=== PATIENT | female | born 1930 | race Caucasian/White ===

== ENCOUNTER 2016-10-18 12:49 | Inpatient (IN) | payer OTHER ==
[~2016-10-18] VITALS: Ht 152.4 cm; Wt 63.4 kg
[~2016-10-18 12:49] MED LIST: AMLO-110 PO; ATEN-175 PO; BENA1TAB53 PO; CLOP1TAB15 PO; EZET10TA38 PO; FRS/40 PO; MULT-506 PO; PANT40TA PO; VITA400C15 PO
[2016-10-18] MEDS ORDERED: SODIUM CHLORIDE 0.9% 500ML 500 ML IV STA (13:07)
--- NOTE | 2016-10-18 13:11 | EMERGENCY ROOM VISIT NOTE ---
History Report prepared by Grady: Thomas Judd Under the Supervision of: Dr. Gamal Caban D.O. First contact with patient: 12:57 Chief Complaint: IRREGULAR HEARTBEAT Stated Complaint: ABNORMAL EKG History of Present Illness The patient is an 86 year old female who presents to the Emergency Room with complaints of an episode of atrial fibrillation that occurred prior to arrival today. She saw Dr. Saunders of cardiology earlier today for her 6-month checkup, and was then sent here to be admitted due to an abnormal EKG. The patient says her pulse rate felt high today. She says that she has been sick for about 2 weeks, and she saw a PA-C at her primary care office, and was given Amoxicillin. The patient notes that the Amoxicillin has potassium in it, and it made her even sicker for a week. She saw her primary care physician a week ago and the physician said that everything was okay, but the patient says that she has continued to feel very weak, and she has hardly been eating. She notes that she has been short of breath on exertion, but she has no shortness of breath currently because she is sitting up in bed. The patient also notes a bit of leg swelling. She denies any chest pain or leg pain. Source of History: patient Onset: Prior to arrival today Position: other (heart - atrial fibrllation) Timing: other (episode) Associated Symptoms: + SOB, + weakness, No chest pain Note: Associated symptoms: Hardly has been eating. A bit of leg swelling. Heart felt a bit fast earlier. Denies leg pain. Review of Systems See HPI for pertinent positives & negatives. A total of 10 systems reviewed and were otherwise negative. Past Medical & Surgical Medical Problems: (1) Aortic valve stenosis (2) Atrial fibrillation with RVR (3) CKD (chronic kidney disease) stage 3, GFR 30-59 ml/min (4) Diabetes mellitus type II, controlled (5) Duodenal ulcer disease (6) Dyslipidemia (7) Gastric ulcer (8) HTN (hypertension) (9) Renal disorder associated with type II diabetes mellitus (10) Renal mass (11) Severe aortic stenosis (12) Spinal stenosis Surgical Problems: (1) History of carpal tunnel surgery (2) History of tonsillectomy and adenoidectomy (3) History of total hysterectomy (4) History of tubal ligation Family History Family history omitted secondary to advanced age. Social History Smoking Status: Never Smoker Alcohol Use: none Marital Status: Current/Historical Medications Scheduled Alendronate Sodium (Fosamax), 70 MG PO WK Amlodipine (Norvasc), 5 MG PO DAILY Atenolol (Tenormin), 50 MG PO BID B-Complex W/ Folic Acid (B Complex), 1 TAB PO DAILY Benazepril (Lotensin), 40 MG PO DAILY Cholecalciferol (Vitamin D), 400 UNITS PO Q2D Clopidogrel (Plavix), 75 MG PO DAILY Furosemide (Lasix), 40 MG PO DAILY Krill Oil (Krill Oil), 1 CAP PO DAILY Multivitamin (Multivitamin), 1 TAB PO DAILY Pantoprazole (Protonix), 40 MG PO DAILY Simvastatin (Zocor), 20 MG PO QPM Vitamin E (Vitamin E), 400 UNITS PO Q2D Allergies Coded Allergies: Morphine (Verified Allergy, Intermediate, 07/25/09) Aspirin (Verified Allergy, Unknown, ., 10/18/16) Pneumococcal Vaccine (Verified Allergy, Unknown, SWELLING, 10/18/16) Sulindac (Verified Allergy, Unknown, 05/16/12) Physical Exam Vital Signs Date Time Temp Pulse Resp B/P Pulse Ox O2 Delivery O2 Flow Rate FiO2 10/18/16 15:00 107/88 10/18/16 14:49 112 25 90 10/18/16 14:30 104/67 10/18/16 14:28 102/79 10/18/16 14:19 110 17 10/18/16 14:10 Room Air 10/18/16 13:49 122 20 10/18/16 13:24 116 10/18/16 12:54 36.5 132 20 90/61 98 Room Air Physical Exam GENERAL: Patient is awake, alert, and in no acute distress. Patient is resting comfortably and showing no signs of anxiety EYES: The conjunctivae are clear. The pupils are round and reactive. EARS, NOSE, MOUTH AND THROAT: The nose is without any evidence of any deformity. Mucous membranes are moist tongue is midline NECK: The neck is nontender and supple. RESPIRATORY: Normal respiratory effort is noted there is no evidence of wheezing rhonchi or rales CARDIOVASCULAR: Heart sounds tachycardic and irregular. Systolic murmur noted to auscultation. GASTROINTESTINAL: The abdomen is soft. Bowel sounds are present in all quadrants. Abdomen is nontender MUSCULOSKELETAL/EXTREMITIES: There is no evidence of gross deformity full range of motion is noted in the hips and shoulders SKIN: Pedal edema bilaterally. NEUROLOGIC: Patient is awake alert and oriented x3. Medical Decision & Procedures ER Provider Diagnostic Interpretation: X-ray results as stated below per interpretation by me and the radiologist. CHEST ONE VIEW PORTABLE CLINICAL HISTORY: palpitations cardiac. Dyspnea COMPARISON STUDY: None FINDINGS: Moderate cardiomegaly. Mild emphysematous change. No focal infiltrate. Diaphragms smooth. IMPRESSION: Moderate cardiomegaly. Mild emphysematous change. Electronically signed by: Herbert Coleman M.D. 10/18/2016 1:22 PM Dictated Date/Time: 10/18/2016 1:21 PM Laboratory Results 10/18/16 13:10 Red Blood Count 3.47, Mean Corpuscular Volume 96.8, Mean Corpuscular Hemoglobin 33.1, Mean Corpuscular Hemoglobin Concent 34.2, Mean Platelet Volume 9.5, Neutrophils (%) (Auto) 54.3, Lymphocytes (%) (Auto) 33.1, Monocytes (%) (Auto) 9.9, Eosinophils (%) (Auto) 1.9, Basophils (%) (Auto) 0.8, Neutrophils # (Auto) 2.57, Lymphocytes # (Auto) 1.57, Monocytes # (Auto) 0.47, Eosinophils # (Auto) 0.09, Basophils # (Auto) 0.04 10/18/16 13:10 Test 10/18/16 13:00 10/18/16 13:10 Urine Color YELLOW Urine Appearance CLEAR (CLEAR) Urine pH 5.5 (4.5-7.5) Urine Specific [place] 1.011 (1.000-1.030) Urine Protein TRACE (NEG) Urine Glucose (UA) NEG (NEG) Urine Ketones NEG (NEG) Urine Occult Blood NEG (NEG) Urine Nitrite NEG (NEG) Urine Bilirubin NEG (NEG) Urine Urobilinogen NEG (NEG) Urine Leukocyte Esterase NEG (NEG) Urine WBC (Auto) 1-5 /hpf (0-5) Urine RBC (Auto) 0-4 /hpf (0-4) Urine Hyaline Casts (Auto) 0 /lpf (0-5) Urine Epithelial Cells (Auto) 10-20 /lpf (0-5) Urine Bacteria (Auto) NEG (NEG) White Blood Count 4.74 K/uL (4.8-10.8) Red Blood Count 3.47 M/uL (4.2-5.4) Hemoglobin 11.5 g/dL (12.0-16.0) Hematocrit 33.6 % (37-47) Mean Corpuscular Volume 96.8 fL (80-100) Mean Corpuscular Hemoglobin 33.1 pg (25-34) Mean Corpuscular Hemoglobin Concent 34.2 g/dl (32-36) Platelet Count 122 K/uL (130-400) Mean Platelet Volume 9.5 fL (7.4-10.4) Neutrophils (%) (Auto) 54.3 % Lymphocytes (%) (Auto) 33.1 % Monocytes (%) (Auto) 9.9 % Eosinophils (%) (Auto) 1.9 % Basophils (%) (Auto) 0.8 % Neutrophils # (Auto) 2.57 K/uL (1.4-6.5) Lymphocytes # (Auto) 1.57 K/uL (1.2-3.4) Monocytes # (Auto) 0.47 K/uL (0.11-0.59) Eosinophils # (Auto) 0.09 K/uL (0-0.5) Basophils # (Auto) 0.04 K/uL (0-0.2) RDW Standard Deviation 50.8 fL (36.4-46.3) RDW Coefficient of Variation 14.5 % (11.5-14.5) Immature Granulocyte % (Auto) 0.0 % Immature Granulocyte # (Auto) 0.00 K/uL (0.00-0.02) Prothrombin Time 11.5 SECONDS (9.0-12.0) Prothromb Time International Ratio 1.1 (0.9-1.1) Activated Partial Thromboplast Time 24.7 SECONDS (21.0-31.0) Partial Thromboplastin Ratio 1.0 Anion Gap 11.0 mmol/L (3-11) Est Creatinine Clear Calc Drug Dose 26.3 ml/min Estimated GFR () 43.0 Estimated GFR (Non- 37.1 BUN/Creatinine Ratio 17.3 (10-20) Calcium Level 9.4 mg/dl (8.5-10.1) Magnesium Level 1.9 mg/dl (1.8-2.4) Total Bilirubin 1.0 mg/dl (0.2-1) Aspartate Amino Transf (AST/SGOT) 39 U/L (15-37) Alanine Aminotransferase (ALT/SGPT) 43 U/L (12-78) Alkaline Phosphatase 67 U/L (45-117) Total Protein 7.0 gm/dl (6.4-8.2) Albumin 4.0 gm/dl (3.4-5.0) Globulin 3.0 gm/dl (2.5-4.0) Albumin/Globulin Ratio 1.3 (0.9-2) Thyroid Stimulating Hormone (TSH) 0.998 uIu/ml (0.300-4.500) Free Thyroxine 1.08 ng/dl (0.80-1.60) Laboratory results per my review. Medications Administered Medications (Trade) Dose Ordered Sig/Kip Route Start Time Stop Time Status Last Admin Dose Admin Sodium Chloride (Nss 500ml) 500 ml @ 999 mls/hr Q31M STAT IV 10/18/16 13:07 10/18/16 13:37 DC 10/18/16 13:35 999 MLS/HR ECG Indication: other (palpitations) Rate (beats per minute): 110 Rhythm: atrial fibrillation (with RVR) Findings: ST depression (Lateral), other (LVH noted by voltage criteria) Comparison ECG Date: changes are new compared to april 16 2011 ED Course 1259: The patient was evaluated in room A3. A complete history and physical examination were performed. 1307: Ordered NSS 500 ml @ 999 mls/hr IV. 1400: I reevaluated the patient and she is resting comfortably. The patient verbally expressed understanding and agreement with the treatment plan. The patient will be evaluated for further treatment. 1417: I discussed the patient with Tierra Valdez. She will evaluate the patient for further treatment. Medical Decision Prior records/ancillary studies reviewed. Triage Nursing notes reviewed. Additional history obtained from doctor's note. Differential diagnosis: Etiologies such as premature contractions, electrolyte abnormality, cardiac dysrhythmia, thyroid dysfunction, pulmonary embolism, infection, gastrointestinal, as well as others were entertained. The patient is an 86-year-old female who presented to emergency department for an evaluation of palpitations. The patient has been having dyspnea on exertion as well as generalized weakness. 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 She was also was found have ST segment abnormalities which could be related to ischemia. The patient's blood pressure was borderline and her pulse rate initially was very tachycardic but improved with IV fluids. I discussed the patient's laboratory and radiographic studies with her. I also discussed her case with the on-call [facility] hospitalist group. They've agreed to evaluate the patient in emergency apartment for further management and disposition. It would appear the patient has been feeling ill for the last few weeks and it is unclear of how chronic this is. Likely she will require further workup for rate control or anticoagulation decisions can be made. Consults Time Called: 1412 Consulting Physician: Tierra Valdez Returned Call: 1417 I discussed the patient with Tierra Valdez. She will evaluate the patient for further treatment. Impression Primary Impression: New onset a-fib Additional Impressions: Heart murmur Dyspnea on exertion Abnormal EKG Scribe Attestation The scribe's documentation has been prepared under my direction and personally reviewed by me in its entirety. I confirm that the note above accurately reflects all work, treatment, procedures, and medical decision making performed by me. Departure Information Dispostion Being Evaluated By Hospitalist Referrals Johnny Saunders M.D. (PCP) Patient Instructions [facility] Problem Qualifiers
--- NOTE | 2016-10-18 13:23 | DIAGNOSTIC IMAGING REPORT ---
CHEST ONE VIEW PORTABLE CLINICAL HISTORY: palpitations cardiac. Dyspnea COMPARISON STUDY: None FINDINGS: Moderate cardiomegaly. Mild emphysematous change. No focal infiltrate. Diaphragms smooth. IMPRESSION: Moderate cardiomegaly. Mild emphysematous change. Electronically signed by: Herbert Coleman M.D. 10/18/2016 1:22 PM Dictated Date/Time: 10/18/2016 1:21 PM
[2016-10-18 13:39] LABS: BASO % 0.8 %; BASO ABS # 0.04 K/uL (0-0.2); COMPLETE YES; EOS % 1.9 %; HEMATOCRIT 33.6 % (37-47); LYMPH % 33.1 %; LYMPH ABS # 1.57 K/uL (1.2-3.4); MEAN CELL VOLUME 96.8 fL (80-100); MEAN CORPUSCULAR HEMOGLOBIN 33.1 pg (25-34); MEAN CORPUSCULAR HGB CONC 34.2 g/dl (32-36); MEAN PLATELET VOLUME 9.5 fL (7.4-10.4); MONO % 9.9 %; NEUT % 54.3 %; PLATELET COUNT 122 K/uL (130-400); RED BLOOD COUNT 3.47 M/uL (4.2-5.4); WHITE BLOOD COUNT 4.74 K/uL (4.8-10.8)
[2016-10-18 13:46] LABS: BUN/CREATININE RATIO 17.3 (10-20); CALCIUM 9.4 mg/dl (8.5-10.1); CREATININE 1.3 mg/dl (0.60-1.20); MAGNESIUM 1.9 mg/dl (1.8-2.4); POTASSIUM 3.4 mmol/L (3.5-5.1)
[2016-10-18 13:55] LABS: INR 1.1 (0.9-1.1); PROTHROMBIN TIME (PATIENT) 11.5 SECONDS (9.0-12.0)
[2016-10-18] MEDS ORDERED: VITA1TAB4 PO ×2 (13:56→15:44)
[2016-10-18] MEDS ORDERED: KRIL1000 PO (13:56)
[2016-10-18] MEDS ORDERED: VTMD1000 PO (13:56)
[2016-10-18] MEDS ORDERED: CYAN100T PO (13:56)
[2016-10-18] MEDS ORDERED: SIMV20TA5 PO (13:56)
[2016-10-18 13:57] LABS: ALB/GLOB RATIO 1.3 (0.9-2); THYROID STIMULATING HORMONE 0.998 uIu/ml (0.300-4.500)
[2016-10-18 14:16] LABS: URINE APPEARANCE CLEAR (CLEAR); URINE BILIRUBIN NEG (NEG); URINE COLOR YELLOW; URINE NITRITE NEG (NEG); URINE PH 5.5 (4.5-7.5); URINE SPECIFIC GRAVITY 1.011 (1.000-1.030); UROBILINOGEN NEG (NEG)
[2016-10-18 14:22] LABS: MANUAL MICROSCOPIC REQUIRED? NO; REVIEW REQ? NO
[2016-10-18] MEDS ORDERED: ACETAMINOPHEN 325 MG TAB PO PRN (15:15)
[2016-10-18] MEDS ORDERED: NITROGLYCERIN 0.4 MG SL PER TAB CHARGE SL PRN (15:15)
[2016-10-18] MEDS ORDERED: ONDANSETRON INJ 2 MG/ML 2 ML VIAL IV PRN (15:15)
[2016-10-18] MEDS ORDERED: ATEN100T PO (15:44)
[2016-10-18] MEDS ORDERED: CHOL400T5 PO (15:44)
[2016-10-18] MEDS ORDERED: B-COTAB53 PO (15:44)
[2016-10-18] MEDS ORDERED: ALEN70TA4 PO (15:44)
[2016-10-18] MEDS ORDERED: METOPROLOL TARTRATE 25 MG TAB PO ONE (16:00)
[2016-10-18] MEDS ORDERED: POTASSIUM CHLORIDE 10 MEQ TABCR PO ONE (16:00)
--- NOTE | 2016-10-18 16:34 | History and Physical ---
History & Physical Date & Time of Service: October 18, 2016 at 15:21 Chief Complaint: Abnormal Ekg Primary Care Physician: Johnny Saunders M.D. History of Present Illness Source: patient This is an 86 y/o female with PMHx of CKD stage 3, diet-controlled DM2, severe aortic stenosis, HTN, Dyslipidemia and other problems as outlined below who presents to the ED with worsening exertional SOB. Pt reports that for the past 2 weeks she has been developing worsening SOB. Her sxs are assoc with weakness, fatigue and some lightheadedness. Pt mentions that she was sick a few weeks ago and completed a course of amoxicillin. Shortly after taking the antibiotics she developed diarrhea that was black. Since that time the diarrhea has resolved and her stool is no longer black. Pt mentions she has been under increased stress recently as her was recently placed in [facility] and likely will not return home. All her family lives in [facility]. Pt has a history of severe . She refuses surgical intervention. Pt follows with cardiology, Dr. Saunders. She was seen by Dr. Saunders this morning for her sxs where she was noted to be in Afib with RVR. Cardiology referred pt to the ED for further evaluation. Pt denies fever/chills, diaphoresis, chest pain, syncope, palpitations, abd pain, N/V, bowel or bladder issues, worsening LE edema or calf pain. In the ED, pt is tachy (130s) and hypotensive on arrival. HgB 11.5. K + 3.4. Creat 1.3. Trop negative. EKG: afib with RVR at [address] depression lateral leads. Pt is stable and will be admitted for further evaluation and treatment. Past Medical/Surgical History Medical Problems: (1) Aortic valve stenosis Permanent Comment: AV area 1.1-1.2 cm2 by echo 02/22/07 Status: Chronic (2) CKD (chronic kidney disease) stage 3, GFR 30-59 ml/min Status: Chronic (3) Diabetes mellitus type II, controlled Status: Chronic (4) Duodenal ulcer disease Status: Resolved (5) Dyslipidemia Status: Chronic (6) Gastric ulcer Status: Resolved (7) HTN (hypertension) Status: Chronic (8) 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 (9) Renal mass Permanent Comment: Right renal mass 2005. Path nondiagnositic. Cryoablation performed at [facility] by. Dr. Muller. Status: Resolved (10) Severe aortic stenosis Status: Chronic (11) Spinal stenosis Status: Chronic Surgical Problems: (1) History of carpal tunnel surgery Status: Resolved (2) History of tonsillectomy and adenoidectomy Status: Resolved (3) History of total hysterectomy Status: Resolved (4) History of tubal ligation Status: Resolved Social History Smoking Status: Never Smoker Alcohol Use: none Drug Use: none Marital Status: Housing status: lives alone ( recently moved to [facility]) Occupational Status: retired Immunizations History of Influenza Vaccine: Yes Influenza Vaccine Date: Mar 18, 2011 History of Tetanus Vaccine?: No History of Pneumococcal: Yes Pneumococcal Date: Apr 17, 2011 History of Hepatitis B Vaccine: No Multi-Drug Resistant Organisms History of MDRO: No Allergies Coded Allergies: Morphine (Verified Allergy, Intermediate, 07/25/09) Aspirin (Verified Allergy, Unknown, ., 10/18/16) Pneumococcal Vaccine (Verified Allergy, Unknown, SWELLING, 10/18/16) Sulindac (Verified Allergy, Unknown, 05/16/12) Home Medications Scheduled Alendronate Sodium (Fosamax), 70 MG PO WK Amlodipine (Norvasc), 5 MG PO DAILY Atenolol (Tenormin), 50 MG PO BID B-Complex W/ Folic Acid (B Complex), 1 TAB PO DAILY Benazepril (Lotensin), 40 MG PO DAILY Cholecalciferol (Vitamin D), 400 UNITS PO Q2D Clopidogrel (Plavix), 75 MG PO DAILY Furosemide (Lasix), 40 MG PO DAILY Krill Oil (Krill Oil), 1 CAP PO DAILY Multivitamin (Multivitamin), 1 TAB PO DAILY Pantoprazole (Protonix), 40 MG PO DAILY Simvastatin (Zocor), 20 MG PO QPM Vitamin E (Vitamin E), 400 UNITS PO Q2D Review of Systems Constitutional: + fatigue, + weakness, No chills, No fever, No sweats Eyes: No worsening of vision ENT: No hearing loss Respiratory: + dyspnea on exertion, + shortness of breath, No cough, No dyspnea at rest Cardiovascular: No chest pain, No claudication, No edema Abdomen: No GI bleeding, No constipation, No diarrhea, No nausea, No pain, No vomiting Musculoskeletal: No calf pain, No swelling Genitourinary - Female: No dysuria Neurologic: + weakness Psychiatric: No depression symptoms Endocrine: + fatigue Hematologic / Lymphatic: No abnormal bleeding/bruising Integumentary: No new/changing skin lesions Physical Exam Vital Signs Date Time Temp Pulse Resp B/P Pulse Ox O2 Delivery O2 Flow Rate FiO2 10/18/16 14:10 Room Air 10/18/16 13:24 116 10/18/16 12:54 36.5 132 20 90/61 98 Room Air General Appearance: WD/WN, no apparent distress, + pertinent finding (Pt is sitting up in bed ) Head: normocephalic, atraumatic Eyes: normal inspection ENT: hearing grossly normal Neck: supple Respiratory/Chest: chest non-tender, lungs clear, normal breath sounds, no respiratory distress Cardiovascular: + tachycardia, + systolic murmur (III/ DEMETRIO), + irregularly irregular Abdomen/GI: normal bowel sounds, non tender, soft Back: normal inspection Extremities/Musculoskelatal: normal inspection, no calf tenderness, + pedal edema (2+ pitting edema to bilat LE) Neurologic/Psych: alert, normal mood/affect, oriented x 3 Skin: normal color, warm/dry Diagnostics Laboratory Results Results Past 24 Hours Test 10/18/16 13:00 10/18/16 13:10 Range/Units Urine Color YELLOW Urine Appearance CLEAR CLEAR Urine pH 5.5 4.5-7.5 Urine Specific [place] 1.011 1.000-1.030 Urine Protein TRACE NEG Urine Glucose (UA) NEG NEG Urine Ketones NEG NEG Urine Occult Blood NEG NEG Urine Nitrite NEG NEG Urine Bilirubin NEG NEG Urine Urobilinogen NEG NEG Urine Leukocyte Esterase NEG NEG Urine WBC (Auto) 1-5 0-5 /hpf Urine RBC (Auto) 0-4 0-4 /hpf Urine Hyaline Casts (Auto) 0 0-5 /lpf Urine Epithelial Cells (Auto) 10-20 0-5 /lpf Urine Bacteria (Auto) NEG NEG White Blood Count 4.74 4.8-10.8 K/uL Red Blood Count 3.47 4.2-5.4 M/uL Hemoglobin 11.5 12.0-16.0 g/dL Hematocrit 33.6 37-47 % Mean Corpuscular Volume 96.8 80-100 fL Mean Corpuscular Hemoglobin 33.1 25-34 pg Mean Corpuscular Hemoglobin Concent 34.2 32-36 g/dl Platelet Count 122 130-400 K/uL Mean Platelet Volume 9.5 7.4-10.4 fL Neutrophils (%) (Auto) 54.3 % Lymphocytes (%) (Auto) 33.1 % Monocytes (%) (Auto) 9.9 % Eosinophils (%) (Auto) 1.9 % Basophils (%) (Auto) 0.8 % Neutrophils # (Auto) 2.57 1.4-6.5 K/uL Lymphocytes # (Auto) 1.57 1.2-3.4 K/uL Monocytes # (Auto) 0.47 0.11-0.59 K/uL Eosinophils # (Auto) 0.09 0-0.5 K/uL Basophils # (Auto) 0.04 0-0.2 K/uL RDW Standard Deviation 50.8 36.4-46.3 fL RDW Coefficient of Variation 14.5 11.5-14.5 % Immature Granulocyte % (Auto) 0.0 % Immature Granulocyte # (Auto) 0.00 0.00-0.02 K/uL Prothrombin Time 11.5 9.0-12.0 SECONDS Prothromb Time International Ratio 1.1 0.9-1.1 Activated Partial Thromboplast Time 24.7 21.0-31.0 SECONDS Partial Thromboplastin Ratio 1.0 Sodium Level 138 136-145 mmol/L Potassium Level 3.4 3.5-5.1 mmol/L Chloride Level 102 98-107 mmol/L Carbon Dioxide Level 25 21-32 mmol/L Anion Gap 11.0 3-11 mmol/L Blood Urea Nitrogen 23 7-18 mg/dl Creatinine 1.30 0.60-1.20 mg/dl Est Creatinine Clear Calc Drug Dose 26.3 ml/min Estimated GFR () 43.0 Estimated GFR (Non- 37.1 BUN/Creatinine Ratio 17.3 10-20 Random Glucose 108 70-99 mg/dl Calcium Level 9.4 8.5-10.1 mg/dl Magnesium Level 1.9 1.8-2.4 mg/dl Total Bilirubin 1.0 0.2-1 mg/dl Aspartate Amino Transf (AST/SGOT) 39 15-37 U/L Alanine Aminotransferase (ALT/SGPT) 43 12-78 U/L Alkaline Phosphatase 67 45-117 U/L Troponin I 0.044 0-0.045 ng/ml Total Protein 7.0 6.4-8.2 gm/dl Albumin 4.0 3.4-5.0 gm/dl Globulin 3.0 2.5-4.0 gm/dl Albumin/Globulin Ratio 1.3 0.9-2 Thyroid Stimulating Hormone (TSH) 0.998 0.300-4.500 uIu/ml Free Thyroxine 1.08 0.80-1.60 ng/dl Diagnostic Radiology CXR IMPRESSION: Moderate cardiomegaly. Mild emphysematous change. EKG EKG: Afib with RVR at [address] depression in lateral leads; significant change when compared to EKG from 04/16/11 Impression Assessment and Plan AFIB WITH RVR; NEW ONSET pt presented with new onset rapid Afib from cardiology office; pt not on anticoagulation -admit to telemetry -no signs of infection; TSH WNL; + increased stress recently -EKG: Afib at [address] depressions in lateral leads -Trop negative; monitor with serial Ronak x 3 -discontinue atenolol and start metoprolol -start subq heparin per cardiology recommendation -consult cardiology, Dr. Goodwin- input -monitor HYPOKALEMIA -K+ 3.4; replete -monitor daily H/O SEVERE/CRITICAL AORTIC STENOSIS -echo 2013 EF 65-69% with severe aortic stenosis and grade I diastolic dysfunction -pt refuses surgical intervention -follows with cardio, Dr. Saunders CKD STAGE III -creatinine around baseline at 1.3 -monitor with daily prp and avoid nephrotoxic agents when able H/O TIA -cont Plavix DM 2 -recent A1C 5.1 -diet-controlled -monitor HTN -hypotensive on arrival; improving -hold Norvasc and benazepril -switch atenolol to metoprolol -monitor DYSLIPIDEMIA -cont statin DVT PROPHYLAXIS -subq heparin CODE STATUS -DNR per discussion with patient upon admission DISPO Pt seen in collaboration with Dr. Cook. Please see his addendum for further details. Thanks! I have seen, examined and discussed this patient with Tierra Hicks and I agree with the above note. Patient sent to ED by Dr. Saunders for A fib with RVR. Vitals reviewed. PE: General- awake; alert; NAD Eyes- EOMI; no scleral icterus ENT- +dentures Neck- no stridor; trachea midline Lungs- CTA bilaterally; no wheezes/crackles Heart- irregularly irregular; loud systolic murmur Abdomen- soft; NTND; nBS Back- normal inspection Extremities- 1+ pitting edema bilateral LE; no deformity Neuro- no focal deficits Skin- no appreciable rash Labs, imaging and EKG reviewed. A fib with RVR: Cardiology consulted. Start metoprolol for rate control. Discontinue atenolol. Hold on full anticoagulation at this time pending further Cardiology recommendations. Agree with remainder of plan as outlined above. VTE Prophylaxis VTE Risk Assessment Done? Y/N: Yes Risk Level: High
[2016-10-18 16:40] VITALS: O2SAT 96; BMI 28.4
[2016-10-18] MEDS: HEPARIN SOD 5000 UNIT/0.5 ML CARP SQ SCH (18:00)
[2016-10-18 18:01] VITALS: BP 109/72; TEMP 36.5; Ht 152.4 cm; Wt 63.4 kg
[2016-10-18] MEDS ORDERED: POTASSIUM CHLORIDE 20 MEQ TABCR PO ONE (18:45)
[2016-10-18 19:12] VITALS: BP 91/60; PULSE 122; TEMP 36.7; O2SAT 97
[2016-10-18 19:56] VITALS: BP 107/67; PULSE 106
[2016-10-18] MEDS: METOPROLOL TARTRATE 25 MG TAB PO SCH (20:12)
[2016-10-18] MEDS: SIMVASTATIN 20 MG TAB PO SCH (20:12)
[2016-10-18 23:12] VITALS: BP 100/64; PULSE 113; TEMP 36.5; O2SAT 95
[2016-10-19] VITALS (8 sets, daily range): BP systolic 97–117; BP diastolic 57–81; PULSE 68–130; TEMP 36.6–37.1; O2SAT 91–97
[2016-10-19 00:54] LABS: HEMATOCRIT 30.9 % (37-47); MEAN CORPUSCULAR HEMOGLOBIN 32.6 pg (25-34); RED BLOOD COUNT 3.22 M/uL (4.2-5.4); WHITE BLOOD COUNT 3.48 K/uL (4.8-10.8)
[2016-10-19 01:12] LABS: BLOOD UREA NITROGEN 23 mg/dl (7-18); BUN/CREATININE RATIO 17.7 (10-20); CALCIUM 8.6 mg/dl (8.5-10.1); CARBON DIOXIDE 28 mmol/L (21-32); CHLORIDE 107 mmol/L (98-107); GLUCOSE 92 mg/dl (70-99); POTASSIUM 3.8 mmol/L (3.5-5.1); SODIUM 143 mmol/L (136-145)
[2016-10-19 01:38] LABS: MEAN PLATELET VOLUME 8.7 fL (7.4-10.4); PLATELET COUNT 93 K/uL (130-400)
[2016-10-19] MEDS: HEPARIN SOD 5000 UNIT/0.5 ML CARP SQ SCH ×2 (06:06→17:16)
[2016-10-19] MEDS: METOPROLOL TARTRATE 25 MG TAB PO SCH ×4 (07:13→23:29)
[2016-10-19] MEDS: VITAMIN B COMPLEX TAB PO SCH (08:26)
[2016-10-19] MEDS: MULTIVITAMIN TAB PO SCH (08:26)
[2016-10-19] MEDS: FUROSEMIDE 40 MG TAB PO SCH (08:26)
[2016-10-19] MEDS: CHOLECALCIFEROL 400 INTER.UNIT TAB PO SCH (08:26)
[2016-10-19] MEDS: TOCOPHERYL, DL-ALPHA 400 INTER.UNIT CAP PO SCH (08:26)
[2016-10-19] MEDS: PANTOprazole SOD 40 MG TAB PO SCH (08:26)
[2016-10-19] MEDS: CLOPIDOGREL BISULFATE 75 MG TAB PO SCH (08:27)
[2016-10-19] MEDS ORDERED: NON-FORMULARY MEDICATION (Krill Oil 1 CAP) PO SCH (09:00)
--- NOTE | 2016-10-19 11:50 | Cardiology Consultation ---
Cardiology Consultation Date of Consultation: October 19, 2016 Requesting Physician: Rodo Braswell Attending Wedding Decorator: Samantha (Herbert Loera PA-C) History of Present Illness Mrs. Woodward is a very pleasant 86 year old female who is being seen at the request of Dr. Cook. Reason for Cardiology Consultation is new onset atrial fibrillation with a rapid ventricular response. Patient notes difficulties over the past month including stressors associated with her husbands declining health, recently requiring multiple hospitalizations and ultimately [place] [facility] placement. She notes significant respiratory tract infectious symptoms approximately three weeks ago for which she was prescribed a course of Augmentin with improvement though fatigue remained. She notes, during the course of Augmentin, experiencing dark stools for approximately one week, now resolved. She was seen by her PCP on 10/11/2016 at which time she was noted to be hypotensive with a SBP of 90 and tachycardia with a heart rate of 110; amlodipine reduced at that time. On 10/18/[address] Saunders's Office for routine follow-up with complaints of malaise and fatigue, increased exertional dyspnea, mild orthopnea, lower extremity peripheral edema, and weight gain of 6-7 pounds. She was found to be in atrial fibrillation with a rapid ventricular response and was referred for hospitalization. Upon admission benazepril was discontinued along with amlodipine. Atenolol 50 mg twice a day was changed to Metoprolol tartrate 25 mg twice per day. She was prescribed DVT prophylaxis 5000 units every 12 hours. Hgb this morning was 10.5 , down from 11.5 yesterday. Platelet count dropped from 122K to 93K overnight. Troponin negative. Telemetry reveals atrial fibrillation with a rapid ventricular response. No sinus observed. No bradycardia or pauses observed. Admission CXR revealed moderate cardiomegaly and mild emphysematous change as per Dr. Coleman. (Herbert Loera PA-C) History Past Medical and Surgical History: Severe to critical calcific aortic stenosis. Chart history of ischemic heart disease Hypertension. Hyperlipidemia. History of type 2 diabetes mellitus History of duodenal ulcer, May 2005 Right renal mass treated with right renal cryoablation in October 2005 Stage III chronic kidney disease Hypothyroidism Osteoarthritis Carpal tunnel surgery Cataract extraction Left leg vein stripping Ventral hernia repair T/A in 1951. Tibia shaft fracture, 1983. Lumbar spine intervention Total Abdominal Hysterectomy Family History: Noncontributory. Mother with a CVA, age 52. Sister with CAD. Multiple siblings with diabetes mellitus. Two sisters with hemochromatosis Social History: x 67 years. is currently a resident of [facility]. Children in and around [place], [place]. Son is a Pharmacist. (Herbert Loera PA-C) Review Of Systems General: See above. No current fever or chills. HEENT: See above. No headaches. No head trauma. Cardiovascular: See above. Dyspnea with ADL's. No chest pain or discomfort. No near syncope or syncope. Pulmonary: No hemoptysis. Gastrointestinal: See above. Skin: No rash. Musculoskeletal: Arthritis. Neurological: Denies history of TIA, CVA, or seizures Complete review of systems is as stated above, negative, or noncontributory. (Herbert Loera PA-C) Allergies Coded Allergies: Morphine (Verified Allergy, Intermediate, 07/25/09) Aspirin (Verified Allergy, Unknown, ., 10/18/16) Pneumococcal Vaccine (Verified Allergy, Unknown, SWELLING, 10/18/16) Sulindac (Verified Allergy, Unknown, 05/16/12) Medications Reported Home Medications Medications Dose Route/Sig Max Daily Dose Days Date Category Vitamin E 400 Unit Tab 400 Units PO Q2D 10/18/16 Reported Vitamin D (Cholecalciferol) 400 Unit Tab 400 Units PO Q2D 10/18/16 Reported Fosamax (Alendronate Sodium) 70 Mg Tab 70 Mg PO WK 10/18/16 Reported B Complex (B-Complex W/ Folic Acid) 1 Tab Tab 1 Tab PO DAILY 10/18/16 Reported Tenormin (Atenolol) 100 Mg Tab 50 Mg PO BID 10/18/16 Reported Krill Oil 1 Cap Cap 1 Cap PO DAILY 10/18/16 Reported Zocor (Simvastatin) 20 Mg Tab 20 Mg PO QPM 10/18/16 Reported Multivitamin (Multivitamins) Tab 1 Tab PO DAILY 01/10/10 Reported Plavix (Clopidogrel Bisulfate) 75 Mg Tab 75 Mg PO DAILY 01/10/10 Reported Norvasc (Amlodipine Besylate) 5 Mg Tab 5 Mg PO DAILY 01/10/10 Reported Lotensin (Benazepril HCl) 40 Mg Tab 40 Mg PO DAILY 01/10/10 Reported Protonix (Pantoprazole Sodium) 40 Mg Tab 40 Mg PO DAILY 01/10/10 Reported Lasix (Furosemide) 40 Mg Tab 40 Mg PO DAILY 01/10/10 Reported (Herbert Loera PA-C) Physical Exam Vital Signs (Last 8hrs): Last 8 Hrs Date Time Temp Pulse Resp B/P Pulse Ox O2 Delivery O2 Flow Rate FiO2 10/19/16 08:00 Room Air 10/19/16 07:18 36.6 130 24 94 Room Air 10/19/16 07:12 117/81 10/19/16 04:00 Room Air General Appearance: Alert and Oriented x3. NAD. Head: Normocephalic Atraumatic. Eyes: PER, EOMI, conjunctiva and sclera clear Neck: Transmitted systolic murmur to the carotids bilaterally. Mildly elevated JVP. + HJR. Respiratory: Faint right basilar rales. No wheeze. no rhonchi. Cardiovascular: Irregularly irregular around 120 bpm. Grade II-III/ systolic ejection murmur. Apical systolic murmur. No diastolic murmur. no rub. PMI appears to be displaced laterally. Abdomen: +BS. Soft. nontender. Extremities: 1+ pitting edema bilaterally to the mid [place]. No clubbing. No cyanosis. Neuro: No focal deficits. Psychiatric: Normal affect. (Herbert Loera PA-C) Data Last 24 Hours Test 10/18/16 13:00 10/18/16 13:10 10/18/16 16:59 10/18/16 19:00 Urine Color YELLOW Urine Appearance CLEAR Urine pH 5.5 Urine Specific [place] 1.011 Urine Protein TRACE Urine Glucose (UA) NEG Urine Ketones NEG Urine Occult Blood NEG Urine Nitrite NEG Urine Bilirubin NEG Urine Urobilinogen NEG Urine Leukocyte Esterase NEG Urine WBC (Auto) 1-5 /hpf Urine RBC (Auto) 0-4 /hpf Urine Hyaline Casts (Auto) 0 /lpf Urine Epithelial Cells (Auto) 10-20 /lpf Urine Bacteria (Auto) NEG White Blood Count 4.74 K/uL Red Blood Count 3.47 M/uL Hemoglobin 11.5 g/dL Hematocrit 33.6 % Mean Corpuscular Volume 96.8 fL Mean Corpuscular Hemoglobin 33.1 pg Mean Corpuscular Hemoglobin Concent 34.2 g/dl Platelet Count 122 K/uL Mean Platelet Volume 9.5 fL Neutrophils (%) (Auto) 54.3 % Lymphocytes (%) (Auto) 33.1 % Monocytes (%) (Auto) 9.9 % Eosinophils (%) (Auto) 1.9 % Basophils (%) (Auto) 0.8 % Neutrophils # (Auto) 2.57 K/uL Lymphocytes # (Auto) 1.57 K/uL Monocytes # (Auto) 0.47 K/uL Eosinophils # (Auto) 0.09 K/uL Basophils # (Auto) 0.04 K/uL RDW Standard Deviation 50.8 fL RDW Coefficient of Variation 14.5 % Immature Granulocyte % (Auto) 0.0 % Immature Granulocyte # (Auto) 0.00 K/uL Prothrombin Time 11.5 SECONDS Prothromb Time International Ratio 1.1 Activated Partial Thromboplast Time 24.7 SECONDS Partial Thromboplastin Ratio 1.0 Sodium Level 138 mmol/L Potassium Level 3.4 mmol/L Chloride Level 102 mmol/L Carbon Dioxide Level 25 mmol/L Anion Gap 11.0 mmol/L Blood Urea Nitrogen 23 mg/dl Creatinine 1.30 mg/dl Est Creatinine Clear Calc Drug Dose 26.3 ml/min Estimated GFR () 43.0 Estimated GFR (Non- 37.1 BUN/Creatinine Ratio 17.3 Random Glucose 108 mg/dl Calcium Level 9.4 mg/dl Magnesium Level 1.9 mg/dl Total Bilirubin 1.0 mg/dl Aspartate Amino Transf (AST/SGOT) 39 U/L Alanine Aminotransferase (ALT/SGPT) 43 U/L Alkaline Phosphatase 67 U/L Troponin I 0.044 ng/ml 0.040 ng/ml Total Protein 7.0 gm/dl Albumin 4.0 gm/dl Globulin 3.0 gm/dl Albumin/Globulin Ratio 1.3 Thyroid Stimulating Hormone (TSH) 0.998 uIu/ml Free Thyroxine 1.08 ng/dl Bedside Glucose 95 mg/dl Creatine Kinase MB 1.2 ng/ml Creatine Kinase MB Ratio Test 10/19/16 00:42 10/19/16 07:01 White Blood Count 3.48 K/uL Red Blood Count 3.22 M/uL Hemoglobin 10.5 g/dL Hematocrit 30.9 % Mean Corpuscular Volume 96.0 fL Mean Corpuscular Hemoglobin 32.6 pg Mean Corpuscular Hemoglobin Concent 34.0 g/dl RDW Standard Deviation 49.9 fL RDW Coefficient of Variation 14.2 % Platelet Count 93 K/uL Mean Platelet Volume 8.7 fL Sodium Level 143 mmol/L Potassium Level 3.8 mmol/L Chloride Level 107 mmol/L Carbon Dioxide Level 28 mmol/L Anion Gap 8.0 mmol/L Blood Urea Nitrogen 23 mg/dl Creatinine 1.30 mg/dl Est Creatinine Clear Calc Drug Dose 26.3 ml/min Estimated GFR () 43.0 Estimated GFR (Non- 37.1 BUN/Creatinine Ratio 17.7 Random Glucose 92 mg/dl Calcium Level 8.6 mg/dl Creatine Kinase MB 1.4 ng/ml Creatine Kinase MB Ratio Troponin I 0.045 ng/ml Bedside Glucose 90 mg/dl July 11, 2013 TTE Interpretation Summary (as per Dr. Saunders): The left ventricular cavity size is normal. The LV wall thickness is moderately increased (concentric). The left ventricular wall motion is normal. The qualitative LV ejection fraction is 65-69% (normal). The aortic valve is severely calcified. Severe aortic valve stenosis is present. Mild aortic valve regurgitation is present. Moderate functional mitral regurgitation is present. A trivial posterior loculated pericardial effusion is present. The left ventricular diastolic function is mildly abnormal (grade I). Compared to last available study changes are noted as follows: Peak AV systolic doppler velocity now >5m/sec EKG on admission revealed atrial fibrillation/flutter with a rapid ventricular response. Ventricular rate was 110 bpm. Minimal voltage criteria for LVH, may be normal variant. ST & T wave abnormality, consider lateral ischemia EKG this morning reveals atrial fibrillation with rapid ventricular response ( 107 bpm). Minimal voltage criteria for LVH, may be normal variant. ST & T wave abnormality, consider inferolateral ischemia. (Herbert Loera PA-C) Assessment & Plan New onset symptomatic atrial fibrillation with a rapid ventricular response Duration greater than 48 hours CHADS2 Score of 4/6. Questionable candidate for anticoagulation (? recent melena, anemia, thrombocytopenia, history of duodenal ulcer) Severe to critical calcific aortic stenosis. Intervention declined by the patient ? Development of left ventricular systolic dysfunction Chart history of ischemic heart disease Mild hypotension, asymptomatic. Chronic kidney disease. History of Right renal mass treated with right renal cryoablation in October 2005 Creatinine clearance estimate by Cockcroft-Gault equation is 31.88 mL/min RECOMMENDATIONS: Agree with discontinuation of Atenolol, amlodipine, and CYRIL Inhibitor therapy. Increase metoprolol to 25 mg every 6 hours for additional heart rate control Add renally dosed digoxin IF heart rate remains elevated despite the above Continue Plavix and DVT prophylaxis IV heparin for now Monitor CBC closely. Maintain electrolytes. Check FOBT, iron studies, HIT panel Resting echocardiography to assess LV systolic function Further recommendations pending the above, evaluation by Dr. Singh, and her ongoing hospitalization. (Herbert Loera PA-C) Cardiology attending physician: Patient seen and examined at the bedside. Denies chest pain, however, Notes feeling extremely fatigued with minimal activity. Reports worsening lower extremity edema over the past 7-10 days. Episode of black stools while taking antibiotics approximately 2 weeks ago noted. Denies hematochezia, or melena. Hemoglobin has trended down when compared to prior lab studies. Carries a history of severe aortic stenosis. She has declined intervention for this in the past. Seen by her outpatient aerial advertiser yesterday and found to be atrial fibrillation with rapid ventricular response. Her atenolol has been transitioned to metoprolol. Heart rates remain elevated. Anticoagulation has not been initiated due to concerns for potential gastrointestinal bleeding. PE: VSS. Gen:NAD, AAOx3, Pleasant and cooperative. Heart: Irregular, tachycardic, normal S1 with diminished S2. 3/6 high-pitched late peaking systolic ejection murmur heard best at the cardiac base however audible throughout the precordium. The lungs are clear without rales, rhonchi, or wheeze. Abdomen is soft and nontender, no rebound or guarding. Normal bowel sounds. Extremities are warm and dry, +1 pretibial edema bilaterally. A/P: Agree with above PAC history, physical exam, assessment and plan. Metoprolol will be titrated to 25 mg every 6 hours. We'll continue telemetry monitoring during hospitalization. FOBT, and Fe studies ordered. Repeat CBC in the a.m. Further recommendations regarding long-term anticoagulation pending clinical course and review of lab testing. Potential interventional treatment options regarding her severe briefly reviewed. Patient reiterates her previous request for conservative medical management. She prefers to avoid invasive procedures at this stage of her life. Will continue to follow during hospitalization. Henri Singh DO, FACC (Asa Singh, DO)
--- NOTE | 2016-10-19 13:26 | Progress Note ---
Medicine Progress Note Date & Time of Visit: October 19, 2016 at 13:27 . Subjective Doing fairly well. No fever. No chest pain or palpitations. Has some dependent edema. Dyspnea on exertion. Cough improved. No nausea, vomiting, diarrhea. . Objective Last 8 Hrs Date Time Temp Pulse Resp B/P Pulse Ox O2 Delivery O2 Flow Rate FiO2 10/19/16 12:00 37.1 115 20 97/57 94 Room Air 10/19/16 12:00 Room Air 10/19/16 08:00 Room Air 10/19/16 07:18 36.6 130 24 94 Room Air 10/19/16 07:12 117/81 Physical Exam: General- no distress Neck- + JVD Lungs- few bibasilar rales Heart- irregular, IV/ systolic murmur at base Abdomen- + BS, soft, nontender Extremities- 2+ pretibial edema; no calf tenderness Neuro- alert, oriented . Laboratory Results: Last 24 Hours Test 10/18/16 16:59 10/18/16 19:00 10/19/16 00:42 10/19/16 07:01 Bedside Glucose 95 mg/dl 90 mg/dl Creatine Kinase MB 1.2 ng/ml 1.4 ng/ml Creatine Kinase MB Ratio Troponin I 0.040 ng/ml 0.045 ng/ml White Blood Count 3.48 K/uL Red Blood Count 3.22 M/uL Hemoglobin 10.5 g/dL Hematocrit 30.9 % Mean Corpuscular Volume 96.0 fL Mean Corpuscular Hemoglobin 32.6 pg Mean Corpuscular Hemoglobin Concent 34.0 g/dl RDW Standard Deviation 49.9 fL RDW Coefficient of Variation 14.2 % Platelet Count 93 K/uL Mean Platelet Volume 8.7 fL Sodium Level 143 mmol/L Potassium Level 3.8 mmol/L Chloride Level 107 mmol/L Carbon Dioxide Level 28 mmol/L Anion Gap 8.0 mmol/L Blood Urea Nitrogen 23 mg/dl Creatinine 1.30 mg/dl Est Creatinine Clear Calc Drug Dose 26.3 ml/min Estimated GFR () 43.0 Estimated GFR (Non- 37.1 BUN/Creatinine Ratio 17.7 Random Glucose 92 mg/dl Calcium Level 8.6 mg/dl Test 10/19/16 11:21 10/19/16 11:50 Bedside Glucose 102 mg/dl Transferrin % Saturation % Assessment & Plan ATRIAL FIBRILLATION WITH RVR Cardiology consulted. Beta edith transitioned from atenolol to metoprolol tartrate. Receiving SQ heparin; not fully anticoagulated due to possible GI bleed. CORONARY ARTERY DISEASE No anginal symptoms. Cardiology consulted. Beta edith transitioned from atenolol to metoprolol tartrate. Continue clopidogrel and statin. CRITICAL AORTIC STENOSIS Patient has opted not to pursue surgical intervention. HYPERTENSION BP's running relatively low. Cardiology consulted. Benazepril discontinued. Beta edith transitioned from atenolol to metoprolol tartrate. ? GI BLEED Patient reported dark stools at home. Hgb 11.5-10.5. Hemoccult pending. Continue PPI. CKD III Serum creatinine 1.3. Follow. DM TYPE 2 Diet controlled. FBS 90. Follow. VTE PROPHYLAXIS SQ heparin with caution. Ambulate. DISPOSITION Expected discharge to home. Family Medicine follow-up with Dr. Cantu. Cardiology follow-up with Dr. Saunders. . Current Inpatient Medications: Current Inpatient Medications Medications (Trade) Dose Ordered Sig/Kip Route Start Time Stop Time Status Last Admin Dose Admin Acetaminophen (Tylenol Tab) 650 mg Q4H PRN PO 10/18/16 15:15 11/17/16 15:14 Ondansetron HCl (Zofran Inj) 4 mg Q6H PRN IV 10/18/16 15:15 11/17/16 15:14 Nitroglycerin (Nitrostat Tab) 0.4 mg UD PRN SL 10/18/16 15:15 11/17/16 15:14 Cholecalciferol (Vitamin D Tab) 400 inter.unit Q2D@0900 PO 10/19/16 09:00 11/18/16 08:59 10/19/16 08:26 400 INTER.UNIT Clopidogrel Bisulfate (plAVix TAB) 75 mg DAILY PO 10/19/16 09:00 11/18/16 08:59 10/19/16 08:27 75 MG Furosemide (Lasix Tab) 40 mg DAILY PO 10/19/16 09:00 11/18/16 08:59 10/19/16 08:26 40 MG Multivitamins (Multivitamin Tab) 1 tab DAILY PO 10/19/16 09:00 11/18/16 08:59 10/19/16 08:26 1 TAB Pantoprazole Sodium (Protonix Tab) 40 mg DAILY PO 10/19/16 09:00 11/18/16 08:59 10/19/16 08:26 40 MG Simvastatin (Zocor Tab) 20 mg QPM PO 10/18/16 21:00 11/17/16 20:59 10/18/16 20:12 20 MG Vitamin B Complex (Vitamin B Complex) 1 tab DAILY PO 10/19/16 09:00 11/18/16 08:59 10/19/16 08:26 1 TAB [id number] Acetate (Vitamin E Cap) 400 interunit Q2D@0900 PO 10/19/16 09:00 11/18/16 08:59 10/19/16 08:26 400 INTERUNIT Heparin Sodium (Porcine) (Heparin Sq 5000 Unit/0.5ml) 5,000 unit Q12H SQ 10/18/16 18:00 11/17/16 17:59 10/19/16 06:06 5,000 UNIT Metoprolol Tartrate (Lopressor Tab) 25 mg Q6 PO 10/19/16 13:00 11/18/16 12:59
[2016-10-19 14:41] LABS: FERRITIN 57.4 ng/ml (8.0-388.0)
[2016-10-19] MEDS: SIMVASTATIN 20 MG TAB PO SCH (20:35)
[2016-10-20 03:12] VITALS: BP 103/69; PULSE 80; TEMP 36.6; O2SAT 97
[2016-10-20 05:34] LABS: HEMATOCRIT 34.8 % (37-47); MEAN CELL VOLUME 97.2 fL (80-100); MEAN CORPUSCULAR HEMOGLOBIN 31.6 pg (25-34); MEAN CORPUSCULAR HGB CONC 32.5 g/dl (32-36); MEAN PLATELET VOLUME 9.1 fL (7.4-10.4); PLATELET COUNT 120 K/uL (130-400); RED BLOOD COUNT 3.58 M/uL (4.2-5.4); WHITE BLOOD COUNT 4.31 K/uL (4.8-10.8)
[2016-10-20] MEDS: METOPROLOL TARTRATE 25 MG TAB PO SCH ×4 (05:44→23:15)
[2016-10-20] MEDS: HEPARIN SOD 5000 UNIT/0.5 ML CARP SQ SCH (05:45)
[2016-10-20 06:09] LABS: BUN/CREATININE RATIO 14.8 (10-20); CALCIUM 8.8 mg/dl (8.5-10.1); CREATININE 1.4 mg/dl (0.60-1.20); MAGNESIUM 1.9 mg/dl (1.8-2.4); POTASSIUM 3.5 mmol/L (3.5-5.1)
[2016-10-20 06:54] VITALS: BP 100/51; PULSE 112; TEMP 36.6; O2SAT 94
[2016-10-20] MEDS: MULTIVITAMIN TAB PO SCH (08:05)
[2016-10-20] MEDS: FUROSEMIDE 40 MG TAB PO SCH (08:05)
[2016-10-20] MEDS: PANTOprazole SOD 40 MG TAB PO SCH (08:05)
[2016-10-20] MEDS: CLOPIDOGREL BISULFATE 75 MG TAB PO SCH (08:05)
[2016-10-20] MEDS: VITAMIN B COMPLEX TAB PO SCH (08:05)
--- NOTE | 2016-10-20 09:51 | Cardiology Follow-Up ---
Subjective General Date of Service: October 20, 2016. Chief Complaint: Dyspnea Pt evaluation today including: conversation w/ patient, physical exam, chart review, lab review, review of studies, review of inpatient medication list History of Present Illness Patient seen and examined. Feels "better in the head" Dyspneic when making the bed this morning No chest pain. No overt palpitations. + Orthopnea. No PND. Improved peripheral edema. No lightheadedness, dizziness, or syncope EKG this morning reveals atrial fibrillation at 110 bpm. Moderate voltage criteria for LVH. ST & T wave abnormality, consider lateral ischemia. When compared with ECG of 19-OCT-2016 06:36, nonspecific T wave abnormality has replaced inverted T waves in Inferior leads. QT has lengthened. QT/QTc 362/489 ms Telemetry: Atrial fibrillation with a rapid ventricular response. No bradycardia. No pauses. No periods of sinus. Echo pending. Allergies Coded Allergies: Morphine (Verified Allergy, Intermediate, 07/25/09) Aspirin (Verified Allergy, Unknown, ., 10/18/16) Pneumococcal Vaccine (Verified Allergy, Unknown, SWELLING, 10/18/16) Sulindac (Verified Allergy, Unknown, 05/16/12) Social History Smoking Status: Never Smoker Hx Alcohol Use - Type And Amou: No Hx Substance Use - Type And Am: No Physical Exam Vital Signs Last Vital Signs Documentation Date Time Temp Pulse Resp B/P Pulse Ox O2 Delivery O2 Flow Rate FiO2 10/20/16 08:00 Room Air 10/20/16 06:54 36.6 112 16 100/51 94 Physical Exam Constitutional: Level of Distress: NAD Psychiatric: Mental Status: active & alert Orientation: to time, to place, to person Memory: recent memory normal, remote memory normal Head: normocephalic, atraumatic Eyes: Pupils: PERRLA Neck: pertinent finding (Elevated JVP) Lungs: Auscultation: no wheezing, no rhonchi, decreased breath sounds, rales/ crackles on the left Cardiovascular: Heart Auscultation: no rubs, tachycardia, III/ DEMETRIO, irregular rate rhythm Peripheral Pulses: Radial Pulse: normal on the left, normal on the right Dorsalis Pedis Pulse: decreased on the left, decreased on the right Abdomen: Bowel Sounds: normal Inspection & Palpation: soft Extremities: no cyanosis, no clubbing, edema (1+ pitting edema) Neurologic: Cranial Nerves: grossly intact Assessment and Plan Assessment and Plan New onset symptomatic atrial fibrillation with a rapid ventricular response Duration greater than 48 hours CHADS2 Score of 4/6. Questionable candidate for anticoagulation (? recent melena, anemia, thrombocytopenia, history of duodenal ulcer) Continue Plavix and DVT prophylaxis IV heparin for now Awaiting TTE to assess LV systolic function and FOBT. Further recommendations regarding long-term anticoagulation pending; patient leaning towards avoiding anticoagulation. BP hypotensive; heart rates remain elevated despite titration of metoprolol. Continue metoprolol 25 mg every 6 hours. Add digoxin Severe to critical calcific aortic stenosis. Intervention declined by the patient Medical management. ? Development of left ventricular systolic dysfunction Echo pending. Chart history of ischemic heart disease Chronic kidney disease. History of Right renal mass treated with right renal cryoablation in October 2005 Creatinine clearance estimate by Cockcroft-Gault equation is ~30 mL/min Note: Atenolol, amlodipine, and CYRIL Inhibitor therapy discontinued this admission. CARDIOLOGY ATTENDING ADDENDUM: The patient was seen and personally examined. Agree with Herbetr Loera PA-C's findings and plans as documented above with additions as noted below. Patient feels comfortable, but her ventricualar rates are in the 130 bpm range with minimal activity such as eating. Echo reveals normal LVEF, severe , moderate MR. Exam: CV: irregular rate, 2/6 murmur , tachycardic. Impression: AF ,RVR Plan: Despite anemia history and bleeding risk , her stroke risk is very high also. Will proceed with cautious anticoagulation with heparin infusion. Add amiodarone for rate/ rhythm control. Continue metoprolol. Laboratory Results Last 24 Hours Test 10/19/16 11:21 10/19/16 13:08 10/19/16 16:08 10/19/16 20:08 Bedside Glucose 102 mg/dl 110 mg/dl 111 mg/dl Iron Level 35 mcg/dl Total Iron Binding Capacity 315 mcg/dl Transferrin 236 mg/dl Transferrin % Saturation 11 % Ferritin 57.4 ng/ml Vitamin B12 Level > 2000 pg/mL Folate 19.73 ng/mL Heparin-PF4 Antibody Screen NEG Test 10/20/16 05:16 10/20/16 06:32 White Blood Count 4.31 K/uL Red Blood Count 3.58 M/uL Hemoglobin 11.3 g/dL Hematocrit 34.8 % Mean Corpuscular Volume 97.2 fL Mean Corpuscular Hemoglobin 31.6 pg Mean Corpuscular Hemoglobin Concent 32.5 g/dl RDW Standard Deviation 50.8 fL RDW Coefficient of Variation 14.2 % Platelet Count 120 K/uL Mean Platelet Volume 9.1 fL Sodium Level 142 mmol/L Potassium Level 3.5 mmol/L Chloride Level 106 mmol/L Carbon Dioxide Level 30 mmol/L Anion Gap 6.0 mmol/L Blood Urea Nitrogen 21 mg/dl Creatinine 1.40 mg/dl Est Creatinine Clear Calc Drug Dose 24.3 ml/min Estimated GFR () 39.3 Estimated GFR (Non- 33.9 BUN/Creatinine Ratio 14.8 Random Glucose 99 mg/dl Calcium Level 8.8 mg/dl Magnesium Level 1.9 mg/dl Bedside Glucose 87 mg/dl
[2016-10-20 10:31] VITALS: BP 111/59; PULSE 126; TEMP 36.8; O2SAT 95
[2016-10-20] MEDS ORDERED: POTASSIUM CHLORIDE 20 MEQ TABCR PO ONE (10:45)
[2016-10-20] MEDS ORDERED: DIGOXIN 0.25 MG TAB PO ONE (10:45)
--- NOTE | 2016-10-20 13:15 | ECHOCARDIOGRAM REPORT ---
*NOTICE TO RECEIVING REPUBLICAN AGENCY This information is strictly Confidential and protected under [place] law. [place] law prohibits you from making any further disclosure of this information unless further disclosure is expressly permitted by the written consent of the person to whom it pertains or is authorized by law. A general authorization for the release of medical or other information is not sufficient for this purpose. Hospital accepts no responsibility if the information is made available to any other person, INCLUDING THE PATIENT. Interpretation Summary * Name: SIVAN QUIJANO Study Date: 10/20/2016 08:44 AM BP: 100/51 mmHg * Patient Location: [facility] HR: 122 * : 1930 (M/d/yyyy) Gender: Female Height: 60 in * Age: 86 yrs Ethnicity: [place] Weight: 143 lb * Ordering Physician: Herbert Loera * Referring Physician: Johnny Saunders * Performed By: Kate Loya RDCS * * Reason For Study: AFIB * BSA: 1.6 m2 * The study was technically adequate. * -- Conclusions -- * Atrial fibrillation with rapid ventricular rate was present during the echocardiogram study. * The left ventricular wall motion is normal. * There is severe concentric left ventricular hypertrophy. * The LV Ejection Fraction = 50-55%. * The left atrium is severely dilated. * The right atrium is mildly dilated. * The aortic valve is severely calcified. * Severe aortic stenosis is suspected based on 2D images, however not confirmed on Doppler. * The Doppler evaluation is technically limited. * There is severe mitral annular calcification. * There is no mitral valve stenosis. * There is moderate mitral regurgitation. * There is moderate to severe tricuspid regurgitation. * The pulmonary arterys systolic pressure is calculated to be 30 mm Hg (normal ). Procedure Details * A complete two-dimensional transthoracic echocardiogram was performed (2D, M-mode, Doppler and color flow Doppler). Left Ventricle * The left ventricle is normal in size. * There is severe concentric left ventricular hypertrophy. * Left ventricular systolic function is normal. * Ejection Fraction = 50-55%. * The left ventricular wall motion is normal. Right Ventricle * The right ventricle is normal in size and function. Atria * The left atrium is severely dilated. * The right atrium is mildly dilated. * There is no evidence of atrial septal defect, but resolution does not allow assessment for a patent foramen ovale. Mitral Valve * There is severe mitral annular calcification. * There is no mitral valve stenosis. * There is moderate mitral regurgitation. Tricuspid Valve * The tricuspid valve is normal. * There is no tricuspid stenosis. * There is moderate to severe tricuspid regurgitation. * The pulmonary arterys systolic pressure is calculated to be 30 mm Hg (normal ). Aortic Valve * The aortic valve is severely calcified. * Severe aortic stenosis is suspected based on 2D images, however not confirmed on Doppler. The Doppler evaluation is technically limited. * There is no significant aortic regurgitation. Pulmonic Valve * The pulmonary valve is not well seen, but the Doppler examination is normal without significant regurgitation or stenosis. Great Vessels * The aortic root and proximal ascending aorta are normal sized. Pericardium/Pleural * There is no pericardial effusion. Great Vessels * Normal inferior vena cava diameter and respiratory variation suggests normal central venous pressure. Left Ventricular Diastolic Function * The LV diastolic function is abnormal. MMode 2D Measurements and Calculations LA dimension 5.3 cm LVOT diam 1.9 cm LVOT area 2.8 cm\S\2 LVAd ap4 16.0 cm\S\2 LVLd ap4 6.1 cm EDV(MOD-sp4) 34.7 ml EDV(sp4-el) 35.8 ml LVAs ap4 11.4 cm\S\2 LVLs ap4 5.4 cm ESV(MOD-sp4) 21.2 ml ESV(sp4-el) 20.1 ml EF(MOD-sp4) 38.7 % EF(sp4-el) 43.8 % LVAd ap2 18.0 cm\S\2 LVLd ap2 6.0 cm EDV(MOD-sp2) 44.3 ml EDV(sp2-el) 45.6 ml LVAs ap2 12.9 cm\S\2 LVLs ap2 5.8 cm ESV(MOD-sp2) 22.9 ml ESV(sp2-el) 24.2 ml EF(MOD-sp2) 48.3 % EF(sp2-el) 46.9 % LVLd %diff -1.36 % EDV(MOD-bp) 39.3 ml LVLs %diff 6.4 % ESV(MOD-bp) 22.7 ml EF(MOD-bp) 42.2 % SV(MOD-sp4) 13.4 ml SI(MOD-sp4) 8.3 ml/m\S\2 SV(MOD-sp2) 21.4 ml SI(MOD-sp2) 13.2 ml/m\S\2 SV(MOD-bp) 16.6 ml SI(MOD-bp) 10.3 ml/m\S\2 SV(sp4-el) 15.7 ml SI(sp4-el) 9.7 ml/m\S\2 SV(sp2-el) 21.4 ml SI(sp2-el) 13.2 ml/m\S\2 Doppler Measurements and Calculations LV V1 max PG 2.2 mmHg LV V1 mean PG 1.3 mmHg LV V1 max 73.3 cm/sec LV V1 mean 53.6 cm/sec LV V1 VTI 17.4 cm SV(LVOT) 48.8 ml SI(LVOT) 30.1 ml/m\S\2 TR max julio cesar 238.7 cm/sec
[2016-10-20 15:42] VITALS: BP 119/71; PULSE 141; TEMP 36.9; O2SAT 97
[2016-10-20] MEDS ORDERED: AMIODARONE 200 MG TAB PO ONE (17:03)
[2016-10-20] MEDS: HEPARIN 25,000 UNIT/500ML D5W 500 ML IV PRN (17:29)
[2016-10-20 17:59] LABS: BASO % 0.3 %; BASO ABS # 0.01 K/uL (0-0.2); EOS % 2.6 %; HEMATOCRIT 33.1 % (37-47); IG% 0.3 %; LYMPH % 32.2 %; LYMPH ABS # 1.25 K/uL (1.2-3.4); MEAN CELL VOLUME 96.8 fL (80-100); MEAN CORPUSCULAR HEMOGLOBIN 32.5 pg (25-34); MEAN PLATELET VOLUME 9.1 fL (7.4-10.4); NEUT % 56.6 %; PLATELET COUNT 107 K/uL (130-400); RED BLOOD COUNT 3.42 M/uL (4.2-5.4); WHITE BLOOD COUNT 3.88 K/uL (4.8-10.8)
[2016-10-20 18:12] LABS: INR 1.1 (0.9-1.1); PARTIAL THROMBOPLASTIN RATIO 1.2; PROTHROMBIN TIME (PATIENT) 11.7 SECONDS (9.0-12.0)
[2016-10-20 18:14] LABS: COMPLETE YES; MEAN CORPUSCULAR HGB CONC 33.5 g/dl (32-36)
--- NOTE | 2016-10-20 18:51 | Progress Note ---
Medicine Progress Note Date & Time of Visit: October 20, 2016 at ~ 16:00 . Subjective No fever. No chest pain. Occasional nonproductive cough. No significant dyspnea on exertion. No nausea or vomiting. No apparent melena or hematochezia. . Objective Last 8 Hrs Date Time Temp Pulse Resp B/P Pulse Ox O2 Delivery O2 Flow Rate FiO2 10/20/16 15:46 Room Air 10/20/16 15:42 36.9 141 22 119/71 97 Room Air 10/20/16 12:00 Room Air 10/20/16 10:57 122 Physical Exam: General- sitting in chair, no distress Neck- + JVD Lungs- few bibasilar rales, few rhonchi, mild diffuse wheezing Heart- irregular, IV/ systolic murmur at base Abdomen- + BS, soft, nontender Extremities- 2+ pretibial edema; no calf tenderness Neuro- alert, oriented . Laboratory Results: Last 24 Hours Test 10/19/16 20:08 10/20/16 05:16 10/20/16 06:32 10/20/16 11:10 Bedside Glucose 111 mg/dl 87 mg/dl 120 mg/dl White Blood Count 4.31 K/uL Red Blood Count 3.58 M/uL Hemoglobin 11.3 g/dL Hematocrit 34.8 % Mean Corpuscular Volume 97.2 fL Mean Corpuscular Hemoglobin 31.6 pg Mean Corpuscular Hemoglobin Concent 32.5 g/dl RDW Standard Deviation 50.8 fL RDW Coefficient of Variation 14.2 % Platelet Count 120 K/uL Mean Platelet Volume 9.1 fL Sodium Level 142 mmol/L Potassium Level 3.5 mmol/L Chloride Level 106 mmol/L Carbon Dioxide Level 30 mmol/L Anion Gap 6.0 mmol/L Blood Urea Nitrogen 21 mg/dl Creatinine 1.40 mg/dl Est Creatinine Clear Calc Drug Dose 24.3 ml/min Estimated GFR () 39.3 Estimated GFR (Non- 33.9 BUN/Creatinine Ratio 14.8 Random Glucose 99 mg/dl Calcium Level 8.8 mg/dl Magnesium Level 1.9 mg/dl Test 10/20/16 16:26 10/20/16 17:35 10/20/16 17:53 Bedside Glucose 111 mg/dl Stool Occult Blood NEGATIVE White Blood Count 3.88 K/uL Red Blood Count 3.42 M/uL Hemoglobin 11.1 g/dL Hematocrit 33.1 % Mean Corpuscular Volume 96.8 fL Mean Corpuscular Hemoglobin 32.5 pg Mean Corpuscular Hemoglobin Concent 33.5 g/dl Platelet Count 107 K/uL Mean Platelet Volume 9.1 fL Neutrophils (%) (Auto) 56.6 % Lymphocytes (%) (Auto) 32.2 % Monocytes (%) (Auto) 8.0 % Eosinophils (%) (Auto) 2.6 % Basophils (%) (Auto) 0.3 % Neutrophils # (Auto) 2.20 K/uL Lymphocytes # (Auto) 1.25 K/uL Monocytes # (Auto) 0.31 K/uL Eosinophils # (Auto) 0.10 K/uL Basophils # (Auto) 0.01 K/uL RDW Standard Deviation 50.7 fL RDW Coefficient of Variation 14.4 % Immature Granulocyte % (Auto) 0.3 % Immature Granulocyte # (Auto) 0.01 K/uL Prothrombin Time 11.7 SECONDS Prothromb Time International Ratio 1.1 Activated Partial Thromboplast Time 29.9 SECONDS Partial Thromboplastin Ratio 1.2 Assessment & Plan ATRIAL FIBRILLATION WITH RVR Cardiology consulted. Beta edith transitioned from atenolol to metoprolol tartrate. Digoxin initiated today. Receiving SQ heparin; not fully anticoagulated due to possible GI bleed. CORONARY ARTERY DISEASE No anginal symptoms. Cardiology consulted. Beta edith transitioned from atenolol to metoprolol tartrate. Continue clopidogrel and statin. CRITICAL AORTIC STENOSIS Patient has opted not to pursue surgical intervention. HYPERTENSION BP's running relatively low. Cardiology consulted. Benazepril discontinued; losartan initiated. Beta edith transitioned from atenolol to metoprolol tartrate. ? GI BLEED Patient reported dark stools at home. Hgb 11.5-11.3. Hemoccult negative. Continue PPI. CKD III Serum creatinine 1.4. Follow. DM TYPE 2 Diet controlled. FBS 97. Follow. VTE PROPHYLAXIS SQ heparin with caution. Ambulate. DISPOSITION Expected discharge to home. Family Medicine follow-up with Dr. Cantu. Cardiology follow-up with Dr. Saunders. . Current Inpatient Medications: Current Inpatient Medications Medications (Trade) Dose Ordered Sig/Kip Route Start Time Stop Time Status Last Admin Dose Admin Acetaminophen (Tylenol Tab) 650 mg Q4H PRN PO 10/18/16 15:15 11/17/16 15:14 Nitroglycerin (Nitrostat Tab) 0.4 mg UD PRN SL 10/18/16 15:15 11/17/16 15:14 Cholecalciferol (Vitamin D Tab) 400 inter.unit Q2D@0900 PO 10/19/16 09:00 11/18/16 08:59 10/19/16 08:26 400 INTER.UNIT Clopidogrel Bisulfate (plAVix TAB) 75 mg DAILY PO 10/19/16 09:00 11/18/16 08:59 10/20/16 08:05 75 MG Furosemide (Lasix Tab) 40 mg DAILY PO 10/19/16 09:00 11/18/16 08:59 10/20/16 08:05 40 MG Multivitamins (Multivitamin Tab) 1 tab DAILY PO 10/19/16 09:00 11/18/16 08:59 10/20/16 08:05 1 TAB Pantoprazole Sodium (Protonix Tab) 40 mg DAILY PO 10/19/16 09:00 11/18/16 08:59 10/20/16 08:05 40 MG Vitamin B Complex (Vitamin B Complex) 1 tab DAILY PO 10/19/16 09:00 11/18/16 08:59 10/20/16 08:05 1 TAB [id number] Acetate (Vitamin E Cap) 400 interunit Q2D@0900 PO 10/19/16 09:00 11/18/16 08:59 10/19/16 08:26 400 INTERUNIT Metoprolol Tartrate (Lopressor Tab) 25 mg Q6 PO 10/19/16 13:00 11/18/16 12:59 10/20/16 17:18 25 MG Amiodarone HCl (Cordarone Tab) 400 mg BID PO 10/21/16 09:00 11/20/16 08:59 Simvastatin 10 mg 10 mg PM PO 10/20/16 21:00 11/19/16 20:59 Heparin Sodium/ Dextrose (Heparin 25,000 Unit/500ml D5W) 500 ml @ 19 mls/hr Q24H PRN IV 10/20/16 17:30 11/19/16 17:29 10/20/16 17:29 19 MLS/HR
[2016-10-20 19:31] VITALS: BP 118/77; PULSE 112; TEMP 37; O2SAT 95
[2016-10-20] MEDS: SIMVASTATIN 10 MG TAB PO SCH (20:14)
[2016-10-20 23:05] VITALS: BP 104/61; PULSE 120; TEMP 36.4; O2SAT 94
[2016-10-21] VITALS (7 sets, daily range): BP systolic 109–128; BP diastolic 66–79; PULSE 103–128; TEMP 36.5–37; O2SAT 91–97
[2016-10-21] MEDS: HEPARIN 25,000 UNIT/500ML D5W 500 ML IV PRN ×2 (00:37→23:37)
[2016-10-21] MEDS: METOPROLOL TARTRATE 25 MG TAB PO SCH ×2 (05:32→08:20)
[2016-10-21 06:48] LABS: HEMATOCRIT 33.6 % (37-47); MEAN CELL VOLUME 96.8 fL (80-100); MEAN CORPUSCULAR HEMOGLOBIN 32.9 pg (25-34); MEAN CORPUSCULAR HGB CONC 33.9 g/dl (32-36); MEAN PLATELET VOLUME 9.5 fL (7.4-10.4); PLATELET COUNT 109 K/uL (130-400); RED BLOOD COUNT 3.47 M/uL (4.2-5.4)
[2016-10-21 07:16] LABS: BUN/CREATININE RATIO 13.9 (10-20); CALCIUM 8.9 mg/dl (8.5-10.1); CREATININE 1.4 mg/dl (0.60-1.20); POTASSIUM 3.8 mmol/L (3.5-5.1)
[2016-10-21] MEDS: CHOLECALCIFEROL 400 INTER.UNIT TAB PO SCH (08:20)
[2016-10-21] MEDS: CLOPIDOGREL BISULFATE 75 MG TAB PO SCH (08:20)
[2016-10-21] MEDS: FUROSEMIDE 40 MG TAB PO SCH (08:21)
[2016-10-21] MEDS: MULTIVITAMIN TAB PO SCH (08:21)
[2016-10-21] MEDS: VITAMIN B COMPLEX TAB PO SCH (08:21)
[2016-10-21] MEDS: AMIODARONE 200 MG TAB PO SCH ×2 (08:21→20:39)
[2016-10-21] MEDS: TOCOPHERYL, DL-ALPHA 400 INTER.UNIT CAP PO SCH (08:21)
[2016-10-21] MEDS: PANTOprazole SOD 40 MG TAB PO SCH (08:22)
--- NOTE | 2016-10-21 09:35 | Cardiology Follow-Up ---
Subjective General Date of Service: October 21, 2016. Chief Complaint: Dyspnea Pt evaluation today including: conversation w/ patient, physical exam, chart review, lab review, review of studies, review of inpatient medication list History of Present Illness Patient seen and examined. No chest pain. No palpitations. Stable dyspnea when ambulating to the bathroom. + Orthopnea. No PND. Stable peripheral edema. No lightheadedness, dizziness, or syncope Telemetry: Atrial fibrillation with a rapid ventricular response. Rare PVC in singles. No bradycardia. No pauses. No periods of sinus. October 20, 2016 TTE Interpretation Summary ([facility], Dr. Thomas): Atrial fibrillation with rapid ventricular rate was present during the echocardiogram study. The left ventricular wall motion is normal. There is severe concentric left ventricular hypertrophy. The LV Ejection Fraction = 50-55%. The left atrium is severely dilated. The right atrium is mildly dilated. The aortic valve is severely calcified. Severe aortic stenosis is suspected based on 2D images, however not confirmed on Doppler. The Doppler evaluation is technically limited. There is severe mitral annular calcification. There is no mitral valve stenosis. There is moderate mitral regurgitation. There is moderate to severe tricuspid regurgitation. The pulmonary artery systolic pressure is calculated to be 30 mm Hg (normal ). Allergies Coded Allergies: Morphine (Verified Allergy, Intermediate, 07/25/09) Aspirin (Verified Allergy, Unknown, ., 10/18/16) Pneumococcal Vaccine (Verified Allergy, Unknown, SWELLING, 10/18/16) Sulindac (Verified Allergy, Unknown, 05/16/12) Social History Smoking Status: Never Smoker Hx Alcohol Use - Type And Amou: No Hx Substance Use - Type And Am: No Physical Exam Vital Signs Last Vital Signs Documentation Date Time Temp Pulse Resp B/P Pulse Ox O2 Delivery O2 Flow Rate FiO2 10/21/16 08:00 Room Air 10/21/16 07:20 36.8 103 20 116/70 94 Physical Exam Constitutional: Level of Distress: NAD Psychiatric: Mental Status: active & alert Orientation: to time, to place, to person Memory: recent memory normal, remote memory normal Head: normocephalic, atraumatic Eyes: Pupils: PERRLA Neck: pertinent finding (Elevated JVP) Lungs: Auscultation: no wheezing, no rhonchi, decreased breath sounds, rales/ crackles on the left Cardiovascular: Heart Auscultation: no rubs, tachycardia, III/ DEMETRIO, irregular rate rhythm Peripheral Pulses: Radial Pulse: normal on the left, normal on the right Dorsalis Pedis Pulse: decreased on the left, decreased on the right Abdomen: Bowel Sounds: normal Inspection & Palpation: soft Extremities: no cyanosis, no clubbing, edema (1+ pitting edema) Neurologic: Cranial Nerves: grossly intact Assessment and Plan Assessment and Plan New onset symptomatic atrial fibrillation with a rapid ventricular response Duration greater than 48 hours. CHADS2 Score of 4/6. Tolerating IV heparin with stable H&H, platelets, negative FOBT Heart rates remain elevated Increase metoprolol to 50 mg every 6 hours. Continue amiodarone Check EKG. Severe calcific aortic stenosis. Intervention declined by the patient Medical management. Chart history of ischemic heart disease Chronic kidney disease. 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 Agree with Herbert Loera PA-C's findings and plans as documented above With additions as noted below. Subjective: Patient believes she is feeling better. Heart rates are under somewhat better control after addition of amiodarone and increase in metoprolol tartrate dose. When I had seen her yesterday afternoon her heart rate was 130 bpm with eating, at present ventricular rate is 103 bpm at rest. She is tolerating IV heparin thus far. Exam: cardiovascular: Tachycardic, irregular, 2/6 systolic murmur, trace ankle edema Impression: As outlined above Plan: Continue heparin for stroke prophylaxis, add low dose Coumadin. Continue amiodarone and metoprolol for rate control. Laboratory Results Last 24 Hours Test 10/20/16 11:10 10/20/16 16:26 10/20/16 17:35 10/20/16 17:53 Bedside Glucose 120 mg/dl 111 mg/dl Stool Occult Blood NEGATIVE White Blood Count 3.88 K/uL Red Blood Count 3.42 M/uL Hemoglobin 11.1 g/dL Hematocrit 33.1 % Mean Corpuscular Volume 96.8 fL Mean Corpuscular Hemoglobin 32.5 pg Mean Corpuscular Hemoglobin Concent 33.5 g/dl Platelet Count 107 K/uL Mean Platelet Volume 9.1 fL Neutrophils (%) (Auto) 56.6 % Lymphocytes (%) (Auto) 32.2 % Monocytes (%) (Auto) 8.0 % Eosinophils (%) (Auto) 2.6 % Basophils (%) (Auto) 0.3 % Neutrophils # (Auto) 2.20 K/uL Lymphocytes # (Auto) 1.25 K/uL Monocytes # (Auto) 0.31 K/uL Eosinophils # (Auto) 0.10 K/uL Basophils # (Auto) 0.01 K/uL RDW Standard Deviation 50.7 fL RDW Coefficient of Variation 14.4 % Immature Granulocyte % (Auto) 0.3 % Immature Granulocyte # (Auto) 0.01 K/uL Prothrombin Time 11.7 SECONDS Prothromb Time International Ratio 1.1 Activated Partial Thromboplast Time 29.9 SECONDS Partial Thromboplastin Ratio 1.2 Test 10/20/16 20:55 10/20/16 23:15 10/21/16 06:24 10/21/16 06:35 Bedside Glucose 127 mg/dl 109 mg/dl Activated Partial Thromboplast Time 77.3 SECONDS 104.6 SECONDS Partial Thromboplastin Ratio 3.0 4.0 White Blood Count 4.50 K/uL Red Blood Count 3.47 M/uL Hemoglobin 11.4 g/dL Hematocrit 33.6 % Mean Corpuscular Volume 96.8 fL Mean Corpuscular Hemoglobin 32.9 pg Mean Corpuscular Hemoglobin Concent 33.9 g/dl RDW Standard Deviation 50.7 fL RDW Coefficient of Variation 14.4 % Platelet Count 109 K/uL Mean Platelet Volume 9.5 fL Sodium Level 141 mmol/L Potassium Level 3.8 mmol/L Chloride Level 105 mmol/L Carbon Dioxide Level 30 mmol/L Anion Gap 6.0 mmol/L Blood Urea Nitrogen 19 mg/dl Creatinine 1.40 mg/dl Est Creatinine Clear Calc Drug Dose 24.6 ml/min Estimated GFR () 39.3 Estimated GFR (Non- 33.9 BUN/Creatinine Ratio 13.9 Random Glucose 107 mg/dl Calcium Level 8.9 mg/dl
[2016-10-21] MEDS ORDERED: POTASSIUM CHLORIDE 10 MEQ TABCR PO ONE (10:00)
[2016-10-21] MEDS: METOPROLOL TARTRATE 50 MG TAB PO SCH ×3 (11:31→23:33)
[2016-10-21 14:13] LABS: PARTIAL THROMBOPLASTIN RATIO 2.5
[2016-10-21] MEDS: WARFARIN SOD 2.5 MG TAB PO SCH (16:20)
--- NOTE | 2016-10-21 20:55 | Progress Note ---
Medicine Progress Note Date & Time of Visit: October 21, 2016 at 14:30 . Subjective Feels better- a bit more strength and less dyspnea on exertion. Remains in AF; rate increases with minimal exertion. Persistent dependent edema. No fever. No cough. No nausea, vomiting, diarrhea, melena, hematochezia. . Objective Last 8 Hrs Date Time Temp Pulse Resp B/P Pulse Ox O2 Delivery O2 Flow Rate FiO2 10/21/16 19:33 36.8 123 22 109/66 94 Room Air 10/21/16 16:00 Room Air 10/21/16 15:40 37.0 113 22 126/79 96 Room Air Physical Exam: General- sitting in chair at bedside, no distress Neck- + JVD Lungs- few bibasilar rales, mild diffuse wheezing Heart- irregular, IV/ systolic murmur at base Abdomen- + BS, soft, nontender Extremities- 1-2+ pretibial edema; no calf tenderness Neuro- alert, oriented . Laboratory Results: Last 24 Hours Test 10/20/16 20:55 10/20/16 23:15 10/21/16 06:24 10/21/16 06:35 Bedside Glucose 127 mg/dl 109 mg/dl Activated Partial Thromboplast Time 77.3 SECONDS 104.6 SECONDS Partial Thromboplastin Ratio 3.0 4.0 White Blood Count 4.50 K/uL Red Blood Count 3.47 M/uL Hemoglobin 11.4 g/dL Hematocrit 33.6 % Mean Corpuscular Volume 96.8 fL Mean Corpuscular Hemoglobin 32.9 pg Mean Corpuscular Hemoglobin Concent 33.9 g/dl RDW Standard Deviation 50.7 fL RDW Coefficient of Variation 14.4 % Platelet Count 109 K/uL Mean Platelet Volume 9.5 fL Sodium Level 141 mmol/L Potassium Level 3.8 mmol/L Chloride Level 105 mmol/L Carbon Dioxide Level 30 mmol/L Anion Gap 6.0 mmol/L Blood Urea Nitrogen 19 mg/dl Creatinine 1.40 mg/dl Est Creatinine Clear Calc Drug Dose 24.6 ml/min Estimated GFR () 39.3 Estimated GFR (Non- 33.9 BUN/Creatinine Ratio 13.9 Random Glucose 107 mg/dl Calcium Level 8.9 mg/dl Test 10/21/16 11:27 10/21/16 13:25 10/21/16 16:36 Bedside Glucose 99 mg/dl 93 mg/dl Activated Partial Thromboplast Time 65.5 SECONDS Partial Thromboplastin Ratio 2.5 Assessment & Plan ATRIAL FIBRILLATION WITH RVR Cardiology consulted. Beta edith transitioned from atenolol to metoprolol tartrate. Digoxin and amiodarone initiated 10/20. Receiving IV heparin without overt GI bleeding. Metoprolol dose increased today. Continue cardiac monitoring. CORONARY ARTERY DISEASE No anginal symptoms. Cardiology consulted. Beta edith transitioned from atenolol to metoprolol tartrate. Continue clopidogrel and statin. CRITICAL AORTIC STENOSIS Patient has opted not to pursue surgical intervention. HYPERTENSION BP's running relatively low. Cardiology consulted. Benazepril discontinued; losartan initiated. Beta edith transitioned from atenolol to metoprolol tartrate. ? GI BLEED Patient reported dark stools at home. Hgb 11.5 --> --> 11.4. Hemoccult negative. Continue PPI. CKD III Serum creatinine 1.4. Follow. DM TYPE 2 Diet controlled. FBS 107. Follow. VTE PROPHYLAXIS Receiving IV heparin. Ambulate. DISPOSITION Expected discharge to home. Family Medicine follow-up with Dr. Cantu. Cardiology follow-up with Dr. Saunders. . Current Inpatient Medications: Current Inpatient Medications Medications (Trade) Dose Ordered Sig/Kip Route Start Time Stop Time Status Last Admin Dose Admin Acetaminophen (Tylenol Tab) 650 mg Q4H PRN PO 10/18/16 15:15 11/17/16 15:14 Nitroglycerin (Nitrostat Tab) 0.4 mg UD PRN SL 10/18/16 15:15 11/17/16 15:14 Cholecalciferol (Vitamin D Tab) 400 inter.unit Q2D@0900 PO 10/19/16 09:00 11/18/16 08:59 10/21/16 08:20 400 INTER.UNIT Clopidogrel Bisulfate (plAVix TAB) 75 mg DAILY PO 10/19/16 09:00 11/18/16 08:59 10/21/16 08:20 75 MG Furosemide (Lasix Tab) 40 mg DAILY PO 10/19/16 09:00 11/18/16 08:59 10/21/16 08:21 40 MG Multivitamins (Multivitamin Tab) 1 tab DAILY PO 10/19/16 09:00 11/18/16 08:59 10/21/16 08:21 1 TAB Pantoprazole Sodium (Protonix Tab) 40 mg DAILY PO 10/19/16 09:00 11/18/16 08:59 10/21/16 08:22 40 MG Vitamin B Complex (Vitamin B Complex) 1 tab DAILY PO 10/19/16 09:00 11/18/16 08:59 10/21/16 08:21 1 TAB [id number] Acetate (Vitamin E Cap) 400 interunit Q2D@0900 PO 10/19/16 09:00 11/18/16 08:59 10/21/16 08:21 400 INTERUNIT Amiodarone HCl (Cordarone Tab) 400 mg BID PO 10/21/16 09:00 11/20/16 08:59 10/21/16 08:21 400 MG Simvastatin 10 mg 10 mg PM PO 10/20/16 21:00 11/19/16 20:59 10/20/16 20:14 10 MG Heparin Sodium/ Dextrose (Heparin 25,000 Unit/500ml D5W) 500 ml @ 15 mls/hr Q24H PRN IV 10/20/16 17:30 11/19/16 17:29 10/21/16 00:37 17 MLS/HR Metoprolol Tartrate (Lopressor Tab) 50 mg Q6 PO 10/21/16 12:00 11/20/16 11:59 10/21/16 17:50 50 MG Warfarin Sodium (Coumadin Tab) 2.5 mg DAILY@16 PO 10/21/16 16:00 11/20/16 15:59 10/21/16 16:20 2.5 MG
[2016-10-21] MEDS: SIMVASTATIN 10 MG TAB PO SCH (21:11)
[2016-10-22] VITALS (9 sets, daily range): BP systolic 92–121; BP diastolic 56–79; PULSE 96–108; TEMP 36.7–37; O2SAT 93–96
[2016-10-22] MEDS: METOPROLOL TARTRATE 50 MG TAB PO SCH ×4 (05:34→20:31)
[2016-10-22 07:04] LABS: HEMATOCRIT 35.5 % (37-47)
[2016-10-22 07:24] LABS: INR 1.1 (0.9-1.1); PARTIAL THROMBOPLASTIN RATIO 2.5; PROTHROMBIN TIME (PATIENT) 11.4 SECONDS (9.0-12.0)
[2016-10-22 07:36] LABS: BUN/CREATININE RATIO 14.5 (10-20); CALCIUM 9.2 mg/dl (8.5-10.1); CREATININE 1.3 mg/dl (0.60-1.20); POTASSIUM 3.9 mmol/L (3.5-5.1)
[2016-10-22] MEDS: VITAMIN B COMPLEX TAB PO SCH (08:37)
[2016-10-22] MEDS: FUROSEMIDE 40 MG TAB PO SCH (08:37)
[2016-10-22] MEDS: AMIODARONE 200 MG TAB PO SCH ×2 (08:37→20:32)
[2016-10-22] MEDS: CLOPIDOGREL BISULFATE 75 MG TAB PO SCH (08:38)
[2016-10-22] MEDS: MULTIVITAMIN TAB PO SCH (08:38)
[2016-10-22] MEDS: PANTOprazole SOD 40 MG TAB PO SCH (08:38)
--- NOTE | 2016-10-22 09:26 | Cardiology Follow-Up ---
Subjective General Date of Service: October 22, 2016. Chief Complaint: Cough Pt evaluation today including: conversation w/ patient, physical exam, chart review, lab review, review of studies, review of inpatient medication list History of Present Illness Patient seen and examined. Notes sleeping in the chair from 2 or 3 AM until 07:30 due to a cough, drainage , choking on cream colored phlegm Denies fevers or rigors. Stable mild orthopnea. No abdominal bloating. No increased peripheral edema No chest pain. No palpitations. Stable dyspnea when ambulating to the bathroom. No lightheadedness, dizziness, or syncope Telemetry: Atrial fibrillation with a mildly elevated ventricular response. Current heart rates are around 100 to 110 bpm. No bradycardia. No pauses. No periods of sinus. October 20, 2016 TTE Interpretation Summary ([facility], Dr. Thomas): Atrial fibrillation with rapid ventricular rate was present during the echocardiogram study. The left ventricular wall motion is normal. There is severe concentric left ventricular hypertrophy. The LV Ejection Fraction = 50-55%. The left atrium is severely dilated. The right atrium is mildly dilated. The aortic valve is severely calcified. Severe aortic stenosis is suspected based on 2D images, however not confirmed on Doppler. The Doppler evaluation is technically limited. There is severe mitral annular calcification. There is no mitral valve stenosis. There is moderate mitral regurgitation. There is moderate to severe tricuspid regurgitation. The pulmonary artery systolic pressure is calculated to be 30 mm Hg (normal ). Allergies Coded Allergies: Morphine (Verified Allergy, Intermediate, 07/25/09) Aspirin (Verified Allergy, Unknown, ., 10/18/16) Pneumococcal Vaccine (Verified Allergy, Unknown, SWELLING, 10/18/16) Sulindac (Verified Allergy, Unknown, 05/16/12) Social History Smoking Status: Never Smoker Hx Alcohol Use - Type And Amou: No Hx Substance Use - Type And Am: No Physical Exam Vital Signs Last Vital Signs Documentation Date Time Temp Pulse Resp B/P Pulse Ox O2 Delivery O2 Flow Rate FiO2 10/22/16 04:00 95 Room Air 10/22/16 03:15 36.8 96 18 117/66 Physical Exam Constitutional: Level of Distress: NAD Psychiatric: Mental Status: active & alert Orientation: to time, to place, to person Memory: recent memory normal, remote memory normal Head: normocephalic, atraumatic Eyes: Pupils: PERRLA Neck: pertinent finding (Elevated JVP) Lungs: Auscultation: no wheezing, no rales/crackles, no rhonchi, decreased breath sounds Cardiovascular: Heart Auscultation: no rubs, tachycardia (100-110), III/ DEMETRIO, irregular rate rhythm Peripheral Pulses: Radial Pulse: normal on the left, normal on the right Dorsalis Pedis Pulse: decreased on the left, decreased on the right Abdomen: Bowel Sounds: normal Inspection & Palpation: soft Extremities: no cyanosis, no clubbing, edema (1+ edema) Neurologic: Cranial Nerves: grossly intact Assessment and Plan Assessment and Plan New onset symptomatic atrial flutter with a rapid ventricular response Like present weeks prior to admission. CHADS2 Score of 4/6. CBC stable. FOBT negative Heart rates have improved though remain mildly elevated. Change/increase metoprolol to 75 mg three times per day. Continue amiodarone Discontinue Clopidogrel Heparin to Coumadin. INR goal 2.0 to 3.0 Severe calcific aortic stenosis. Intervention declined by the patient Medical management. Chart history of ischemic heart disease Chronic kidney disease. 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 Agree with Herbert Loera PA-C's findings and plans as documented above. Laboratory Results Last 24 Hours Test 10/21/16 11:27 10/21/16 13:25 10/21/16 16:36 10/22/16 06:48 Bedside Glucose 99 mg/dl 93 mg/dl Activated Partial Thromboplast Time 65.5 SECONDS 64.9 SECONDS Partial Thromboplastin Ratio 2.5 2.5 Hemoglobin 11.9 g/dL Hematocrit 35.5 % Prothrombin Time 11.4 SECONDS Prothromb Time International Ratio 1.1 Sodium Level 140 mmol/L Potassium Level 3.9 mmol/L Chloride Level 103 mmol/L Carbon Dioxide Level 30 mmol/L Anion Gap 7.0 mmol/L Blood Urea Nitrogen 19 mg/dl Creatinine 1.30 mg/dl Est Creatinine Clear Calc Drug Dose 26.5 ml/min Estimated GFR () 43.0 Estimated GFR (Non- 37.1 BUN/Creatinine Ratio 14.5 Random Glucose 96 mg/dl Calcium Level 9.2 mg/dl
--- NOTE | 2016-10-22 10:40 | DIAGNOSTIC IMAGING REPORT ---
CHEST ONE VIEW PORTABLE CLINICAL HISTORY: Cough. COMPARISON STUDY: Chest radiograph October 18, 2016. FINDINGS: There is an old fracture of the right seventh rib. There is no pneumothorax. Small bilateral pleural effusions have developed. Linear left lower lung opacity reflects atelectasis. There is no evidence of pulmonary edema. Moderate cardiomegaly is unchanged. IMPRESSION: 1. Small bilateral pleural effusions. 2. Moderate cardiomegaly without evidence of pulmonary edema. 3. Bibasilar opacities suggestive of atelectasis. Electronically signed by: Alexis Hollis M.D. 10/22/2016 10:38 AM Dictated Date/Time: 10/22/2016 10:37 AM
[2016-10-22] MEDS ORDERED: NURSING VERBAL MED ORDER ONE (15:30)
[2016-10-22] MEDS ORDERED: SODIUM CHLORIDE 0.65% NA SOLN 45 ML (OCEAN) PRN (15:45)
[2016-10-22] MEDS: WARFARIN SOD 2.5 MG TAB PO SCH (16:19)
[2016-10-22] MEDS: SIMVASTATIN 10 MG TAB PO SCH (20:32)
--- NOTE | 2016-10-22 21:06 | Progress Note ---
Medicine Progress Note Date & Time of Visit: October 22, 2016 at 17:50 . Subjective A bit hoarse. Occasional mild cough. No SOB. No chest pain. No nausea or vomiting. No melena or hematochezia. . Objective Last 8 Hrs Date Time Temp Pulse Resp B/P Pulse Ox O2 Delivery O2 Flow Rate FiO2 10/22/16 20:06 37.0 108 16 92/56 96 Room Air 10/22/16 20:00 Room Air 10/22/16 16:00 95 Room Air 10/22/16 15:10 37.0 101 20 102/64 95 Room Air Physical Exam: General- sitting in chair at bedside, no distress ENT- oropharynx clear Neck- + JVD Lungs- essentially clear Heart- irregular, IV/ systolic murmur at base Abdomen- + BS, soft, nontender Extremities- 1-2+ pretibial edema; no calf tenderness Neuro- alert, oriented . Laboratory Results: Last 24 Hours Test 10/22/16 06:48 Hemoglobin 11.9 g/dL Hematocrit 35.5 % Prothrombin Time 11.4 SECONDS Prothromb Time International Ratio 1.1 Activated Partial Thromboplast Time 64.9 SECONDS Partial Thromboplastin Ratio 2.5 Sodium Level 140 mmol/L Potassium Level 3.9 mmol/L Chloride Level 103 mmol/L Carbon Dioxide Level 30 mmol/L Anion Gap 7.0 mmol/L Blood Urea Nitrogen 19 mg/dl Creatinine 1.30 mg/dl Est Creatinine Clear Calc Drug Dose 26.5 ml/min Estimated GFR () 43.0 Estimated GFR (Non- 37.1 BUN/Creatinine Ratio 14.5 Random Glucose 96 mg/dl Calcium Level 9.2 mg/dl Assessment & Plan ATRIAL FIBRILLATION WITH RVR Cardiology consulted. Beta edith transitioned from atenolol to metoprolol tartrate. Digoxin and amiodarone initiated 10/20. Receiving IV heparin without overt GI bleeding; warfarin started. Metoprolol dose titrated. Continue cardiac monitoring. CORONARY ARTERY DISEASE No anginal symptoms. Cardiology consulted. Beta edith transitioned from atenolol to metoprolol tartrate. Continue clopidogrel and statin. CRITICAL AORTIC STENOSIS Patient has opted not to pursue surgical intervention. HYPERTENSION BP's running relatively low. Cardiology consulted. Benazepril discontinued; losartan initiated. Beta edith transitioned from atenolol to metoprolol tartrate. ? GI BLEED Patient reported dark stools at home. Hgb 11.5 --> --> 11.9. Hemoccult negative. Continue PPI. CKD III Serum creatinine 1.3. Follow. DM TYPE 2 Diet controlled. FBS 96. Follow. VTE PROPHYLAXIS Receiving IV heparin --> warfarin. Ambulate. DISPOSITION Expected discharge to home. Family Medicine follow-up with Dr. Cantu. Cardiology follow-up with Dr. Saunders. . Current Inpatient Medications: Current Inpatient Medications Medications (Trade) Dose Ordered Sig/Kip Route Start Time Stop Time Status Last Admin Dose Admin Acetaminophen (Tylenol Tab) 650 mg Q4H PRN PO 10/18/16 15:15 11/17/16 15:14 Nitroglycerin (Nitrostat Tab) 0.4 mg UD PRN SL 10/18/16 15:15 11/17/16 15:14 Cholecalciferol (Vitamin D Tab) 400 inter.unit Q2D@0900 PO 10/19/16 09:00 11/18/16 08:59 10/21/16 08:20 400 INTER.UNIT Furosemide (Lasix Tab) 40 mg DAILY PO 10/19/16 09:00 11/18/16 08:59 10/22/16 08:37 40 MG Multivitamins (Multivitamin Tab) 1 tab DAILY PO 10/19/16 09:00 11/18/16 08:59 10/22/16 08:38 1 TAB Pantoprazole Sodium (Protonix Tab) 40 mg DAILY PO 10/19/16 09:00 11/18/16 08:59 10/22/16 08:38 40 MG Vitamin B Complex (Vitamin B Complex) 1 tab DAILY PO 10/19/16 09:00 11/18/16 08:59 10/22/16 08:37 1 TAB [id number]-[id number] Acetate (Vitamin E Cap) 400 interunit Q2D@0900 PO 10/19/16 09:00 11/18/16 08:59 10/21/16 08:21 400 INTERUNIT Amiodarone HCl (Cordarone Tab) 400 mg BID PO 10/21/16 09:00 11/20/16 08:59 10/22/16 20:32 400 MG Simvastatin 10 mg 10 mg PM PO 10/20/16 21:00 11/19/16 20:59 10/22/16 20:32 10 MG Heparin Sodium/ Dextrose (Heparin 25,000 Unit/500ml D5W) 500 ml @ 15 mls/hr Q24H PRN IV 10/20/16 17:30 11/19/16 17:29 10/21/16 23:37 15 MLS/HR Warfarin Sodium (Coumadin Tab) 2.5 mg DAILY@16 PO 10/21/16 16:00 11/20/16 15:59 10/22/16 16:19 2.5 MG Metoprolol Tartrate (Lopressor Tab) 75 mg TID PO 10/22/16 14:00 11/21/16 13:59 10/22/16 13:04 75 MG Sodium Chloride ([place] Nasal [place]) 1 sprays PRN PRN NA 10/22/16 15:45 11/21/16 15:44 10/22/16 16:18 1 SPRAYS
[2016-10-23 03:30] VITALS: BP 113/70; PULSE 118; TEMP 36.7; O2SAT 92
[2016-10-23 05:49] LABS: HEMATOCRIT 32.7 % (37-47); MEAN CELL VOLUME 95.9 fL (80-100); MEAN CORPUSCULAR HEMOGLOBIN 32.6 pg (25-34); MEAN CORPUSCULAR HGB CONC 33.9 g/dl (32-36); MEAN PLATELET VOLUME 9.3 fL (7.4-10.4); PLATELET COUNT 117 K/uL (130-400); RED BLOOD COUNT 3.41 M/uL (4.2-5.4); WHITE BLOOD COUNT 3.35 K/uL (4.8-10.8)
[2016-10-23 06:06] LABS: INR 1.1 (0.9-1.1); PARTIAL THROMBOPLASTIN RATIO 2.5; PROTHROMBIN TIME (PATIENT) 12.2 SECONDS (9.0-12.0)
[2016-10-23] MEDS: HEPARIN 25,000 UNIT/500ML D5W 500 ML IV PRN (06:27)
[2016-10-23] MEDS: METOPROLOL TARTRATE 50 MG TAB PO SCH ×3 (07:38→20:54)
[2016-10-23] MEDS: CHOLECALCIFEROL 400 INTER.UNIT TAB PO SCH (07:38)
[2016-10-23] MEDS: AMIODARONE 200 MG TAB PO SCH ×2 (07:39→20:54)
[2016-10-23] MEDS: VITAMIN B COMPLEX TAB PO SCH (07:40)
[2016-10-23] MEDS: MULTIVITAMIN TAB PO SCH (07:40)
[2016-10-23] MEDS: TOCOPHERYL, DL-ALPHA 400 INTER.UNIT CAP PO SCH (07:40)
[2016-10-23] MEDS: PANTOprazole SOD 40 MG TAB PO SCH (07:40)
[2016-10-23] MEDS: FUROSEMIDE 40 MG TAB PO SCH (07:40)
[2016-10-23 08:24] VITALS: BP 121/69; PULSE 112; TEMP 36.9; O2SAT 95
[2016-10-23 11:30] VITALS: BP_SYST 108; BP_SYST 121; BP_DIAS 60; BP_DIAS 69; PULSE 112; TEMP 36.8; TEMP 36.9; O2SAT 95; O2SAT 96
--- NOTE | 2016-10-23 14:22 | Cardiology Follow-Up ---
Subjective General Date of Service: October 23, 2016. Chief Complaint: Cough Pt evaluation today including: conversation w/ patient, physical exam, chart review, lab review, review of studies, review of inpatient medication list History of Present Illness The patient is a 86 year old female seen in follow up. Patient feels well from cardiovascular standpoint. Denies CP. + PHAM + palpitations with activity Denies lightheadedness or dizziness. Allergies Coded Allergies: Morphine (Verified Allergy, Intermediate, 07/25/09) Aspirin (Verified Allergy, Unknown, ., 10/18/16) Pneumococcal Vaccine (Verified Allergy, Unknown, SWELLING, 10/18/16) Sulindac (Verified Allergy, Unknown, 05/16/12) Social History Smoking Status: Never Smoker Hx Alcohol Use - Type And Amou: No Hx Substance Use - Type And Am: No Review of Systems Respiratory: + dyspnea on exertion, No cough, No dyspnea at rest, No hemoptysis , No shortness of breath, No sputum Cardiac: + palpitations, No chest pain, No claudication, No edema, No orthopnea Physical Exam Vital Signs Last Vital Signs Documentation Date Time Temp Pulse Resp B/P Pulse Ox O2 Delivery O2 Flow Rate FiO2 10/23/16 12:00 Room Air 10/23/16 11:30 36.8 112 18 108/60 96 Physical Exam Constitutional: Level of Distress: NAD Psychiatric: Mental Status: active & alert Orientation: to time, to place, to person Memory: recent memory normal, remote memory normal Head: normocephalic, atraumatic Eyes: Pupils: PERRLA Neck: pertinent finding (Elevated JVP) Lungs: Auscultation: no wheezing, no rales/crackles, no rhonchi, decreased breath sounds Cardiovascular: Heart Auscultation: no rubs, tachycardia (100-110), III/ DEMETRIO, irregular rate rhythm Peripheral Pulses: Radial Pulse: normal on the left, normal on the right Dorsalis Pedis Pulse: decreased on the left, decreased on the right Abdomen: Bowel Sounds: normal Inspection & Palpation: soft Extremities: no cyanosis, no clubbing, edema (1+ edema) Neurologic: Cranial Nerves: grossly intact Assessment and Plan Assessment and Plan 1. Persistent symptomatic atrial flutter with a rapid ventricular response - Ventricular rates remain mildly elevated. - continue metoprolol to 75 mg TID - continue amiodarone 400mg BID - IV heparin bridge to coumadin - INR subtherapeutic today 2. Severe calcific aortic stenosis. - Intervention declined by the patient 3. CKD - stable Laboratory Results Last 24 Hours Test 10/23/16 05:30 White Blood Count 3.35 K/uL Red Blood Count 3.41 M/uL Hemoglobin 11.1 g/dL Hematocrit 32.7 % Mean Corpuscular Volume 95.9 fL Mean Corpuscular Hemoglobin 32.6 pg Mean Corpuscular Hemoglobin Concent 33.9 g/dl RDW Standard Deviation 49.7 fL RDW Coefficient of Variation 14.3 % Platelet Count 117 K/uL Mean Platelet Volume 9.3 fL Prothrombin Time 12.2 SECONDS Prothromb Time International Ratio 1.1 Activated Partial Thromboplast Time 65.0 SECONDS Partial Thromboplastin Ratio 2.5
[2016-10-23 15:02] VITALS: BP 93/59; PULSE 104; TEMP 36.7; O2SAT 97
[2016-10-23] MEDS: WARFARIN SOD 2.5 MG TAB PO SCH (15:12)
--- NOTE | 2016-10-23 19:31 | Progress Note ---
Medicine Progress Note Date & Time of Visit: October 23, 2016 at ~ 14:00 . Subjective Hoarseness improved. No fever. No chest pain. No SOB. No N/V. Son visiting from [place]. . Objective Last 8 Hrs Date Time Temp Pulse Resp B/P Pulse Ox O2 Delivery O2 Flow Rate FiO2 10/23/16 16:00 Room Air 10/23/16 15:02 36.7 104 18 93/59 97 Room Air 10/23/16 12:00 Room Air 10/23/16 11:30 36.8 112 18 108/60 96 Room Air Physical Exam: General- sitting in chair at bedside, no distress Neck- + JVD Lungs- essentially clear Heart- irregular, tachy, IV/ systolic murmur at base Abdomen- + BS, soft, nontender Extremities-2+ pretibial edema; no calf tenderness Neuro- alert, oriented . Laboratory Results: Last 24 Hours Test 10/23/16 05:30 White Blood Count 3.35 K/uL Red Blood Count 3.41 M/uL Hemoglobin 11.1 g/dL Hematocrit 32.7 % Mean Corpuscular Volume 95.9 fL Mean Corpuscular Hemoglobin 32.6 pg Mean Corpuscular Hemoglobin Concent 33.9 g/dl RDW Standard Deviation 49.7 fL RDW Coefficient of Variation 14.3 % Platelet Count 117 K/uL Mean Platelet Volume 9.3 fL Prothrombin Time 12.2 SECONDS Prothromb Time International Ratio 1.1 Activated Partial Thromboplast Time 65.0 SECONDS Partial Thromboplastin Ratio 2.5 Assessment & Plan ATRIAL FIBRILLATION WITH RVR Cardiology consulted. Beta edith transitioned from atenolol to metoprolol tartrate. Digoxin and amiodarone initiated 10/20. Receiving IV heparin without overt GI bleeding; warfarin started. Metoprolol dose titrated. Continue cardiac monitoring. CORONARY ARTERY DISEASE No anginal symptoms. Cardiology consulted. Beta edith transitioned from atenolol to metoprolol tartrate. Continue clopidogrel and statin. CRITICAL AORTIC STENOSIS Patient has opted not to pursue surgical intervention. HYPERTENSION BP's running low at times. Benazepril discontinued; losartan initiated. Beta edith transitioned from atenolol to metoprolol tartrate. ? GI BLEED Patient reported dark stools at home. Hgb 11.5 --> --> 11.1. Hemoccult negative. Continue PPI. CKD III Serum creatinine 1.3 yesterday. Follow. DM TYPE 2 Diet controlled. Follow. VTE PROPHYLAXIS Receiving IV heparin --> warfarin. Ambulate. DISPOSITION Expected discharge to home. Family Medicine follow-up with Dr. Cantu. Cardiology follow-up with Dr. Saunders. . Current Inpatient Medications: Current Inpatient Medications Medications (Trade) Dose Ordered Sig/Kip Route Start Time Stop Time Status Last Admin Dose Admin Acetaminophen (Tylenol Tab) 650 mg Q4H PRN PO 10/18/16 15:15 11/17/16 15:14 Nitroglycerin (Nitrostat Tab) 0.4 mg UD PRN SL 10/18/16 15:15 11/17/16 15:14 Cholecalciferol (Vitamin D Tab) 400 inter.unit Q2D@0900 PO 10/19/16 09:00 11/18/16 08:59 10/23/16 07:38 400 INTER.UNIT Furosemide (Lasix Tab) 40 mg DAILY PO 10/19/16 09:00 11/18/16 08:59 10/23/16 07:40 40 MG Multivitamins (Multivitamin Tab) 1 tab DAILY PO 10/19/16 09:00 11/18/16 08:59 10/23/16 07:40 1 TAB Pantoprazole Sodium (Protonix Tab) 40 mg DAILY PO 10/19/16 09:00 11/18/16 08:59 10/23/16 07:40 40 MG Vitamin B Complex (Vitamin B Complex) 1 tab DAILY PO 10/19/16 09:00 11/18/16 08:59 10/23/16 07:40 1 TAB ry-[place]olsl-Ebarumzwud Acetate (Vitamin E Cap) 400 interunit Q2D@0900 PO 10/19/16 09:00 11/18/16 08:59 10/23/16 07:40 400 INTERUNIT Amiodarone HCl (Cordarone Tab) 400 mg BID PO 10/21/16 09:00 11/20/16 08:59 10/23/16 07:39 400 MG Simvastatin 10 mg 10 mg PM PO 10/20/16 21:00 11/19/16 20:59 10/22/16 20:32 10 MG Heparin Sodium/ Dextrose (Heparin 25,000 Unit/500ml D5W) 500 ml @ 15 mls/hr Q24H PRN IV 10/20/16 17:30 11/19/16 17:29 10/23/16 06:27 15 MLS/HR Warfarin Sodium (Coumadin Tab) 2.5 mg DAILY@16 PO 10/21/16 16:00 11/20/16 15:59 10/23/16 15:12 2.5 MG Metoprolol Tartrate (Lopressor Tab) 75 mg TID PO 10/22/16 14:00 11/22/16 13:59 10/23/16 15:12 75 MG Sodium Chloride ([place] Nasal [place]) 1 sprays PRN PRN NA 10/22/16 15:45 11/21/16 15:44 10/22/16 16:18 1 SPRAYS
[2016-10-23 19:55] VITALS: BP 130/75; PULSE 119; TEMP 36.9; O2SAT 96
[2016-10-23] MEDS: SIMVASTATIN 10 MG TAB PO SCH (20:55)
[2016-10-23 23:05] VITALS: BP 121/79; PULSE 101; TEMP 36.5; O2SAT 96
[2016-10-24] VITALS (9 sets, daily range): BP systolic 109–170; BP diastolic 68–95; PULSE 73–119; TEMP 36.2–37.2; O2SAT 90–97
[2016-10-24 06:43] LABS: PARTIAL THROMBOPLASTIN RATIO 2.3
[2016-10-24] MEDS: METOPROLOL TARTRATE 50 MG TAB PO SCH ×3 (08:15→21:34)
[2016-10-24] MEDS: AMIODARONE 200 MG TAB PO SCH ×2 (08:15→21:35)
[2016-10-24] MEDS: FUROSEMIDE 40 MG TAB PO SCH (08:16)
[2016-10-24] MEDS: VITAMIN B COMPLEX TAB PO SCH (08:16)
[2016-10-24] MEDS: MULTIVITAMIN TAB PO SCH (08:16)
[2016-10-24] MEDS: PANTOprazole SOD 40 MG TAB PO SCH (08:17)
--- NOTE | 2016-10-24 11:05 | Cardiology Follow-Up ---
Subjective General Date of Service: October 24, 2016. Chief Complaint: Cough Pt evaluation today including: conversation w/ patient, physical exam, chart review, lab review, review of studies, review of inpatient medication list History of Present Illness The patient is a 86 year old female seen in follow up. Patient feeling better from cardiovascular standpoint. Denies CP. PHAM improved. Heart rate mildly improved. Denies lightheadedness or dizziness. Allergies Coded Allergies: Morphine (Verified Allergy, Intermediate, 07/25/09) Aspirin (Verified Allergy, Unknown, ., 10/18/16) Pneumococcal Vaccine (Verified Allergy, Unknown, SWELLING, 10/18/16) Sulindac (Verified Allergy, Unknown, 05/16/12) Social History Smoking Status: Never Smoker Hx Alcohol Use - Type And Amou: No Hx Substance Use - Type And Am: No Review of Systems Respiratory: + dyspnea on exertion, No cough, No dyspnea at rest, No hemoptysis , No shortness of breath, No wheezing Cardiac: + palpitations, No PND, No chest pain, No claudication, No edema, No orthopnea Physical Exam Vital Signs Last Vital Signs Documentation Date Time Temp Pulse Resp B/P Pulse Ox O2 Delivery O2 Flow Rate FiO2 10/24/16 07:05 36.7 114 17 126/76 97 Room Air Physical Exam Constitutional: Level of Distress: NAD Psychiatric: Mental Status: active & alert Orientation: to time, to place, to person Memory: recent memory normal, remote memory normal Head: normocephalic, atraumatic Eyes: Pupils: PERRLA Neck: pertinent finding (Elevated JVP) Lungs: Auscultation: no wheezing, no rales/crackles, no rhonchi, decreased breath sounds Cardiovascular: Heart Auscultation: no rubs, tachycardia (100-110), III/ DEMETRIO, irregular rate rhythm Peripheral Pulses: Radial Pulse: normal on the left, normal on the right Dorsalis Pedis Pulse: decreased on the left, decreased on the right Abdomen: Bowel Sounds: normal Inspection & Palpation: soft Extremities: no cyanosis, no clubbing, edema (1+ edema) Neurologic: Cranial Nerves: grossly intact Assessment and Plan Assessment and Plan 1. Persistent symptomatic atrial flutter with a rapid ventricular response - Ventricular rates mildly improved, however, remain elevated. - continue metoprolol to 75 mg TID - continue amiodarone 400mg BID - IV heparin bridge to coumadin - Repeat INR today and in AM 2. Severe calcific aortic stenosis. - Intervention declined by the patient 3. CKD - stable Laboratory Results Last 24 Hours Test 10/24/16 05:25 Activated Partial Thromboplast Time 60.9 SECONDS Partial Thromboplastin Ratio 2.3
[2016-10-24 12:20] LABS: INR 1.5 (0.9-1.1); PROTHROMBIN TIME (PATIENT) 15.9 SECONDS (9.0-12.0)
[2016-10-24] MEDS: WARFARIN SOD 2.5 MG TAB PO SCH (16:23)
--- NOTE | 2016-10-24 18:20 | Progress Note ---
Medicine Progress Note Date & Time of Visit: October 24, 2016 at 13:40 . Subjective No fever. Remains in AF, rate still fast at times. No chest pain. No cough or SOB. No nausea or vomiting. No melena or hematochezia. . Objective Last 8 Hrs Date Time Temp Pulse Resp B/P Pulse Ox O2 Delivery O2 Flow Rate FiO2 10/24/16 16:00 Room Air 10/24/16 15:57 37.2 98 16 109/74 95 Room Air 10/24/16 12:15 36.7 105 20 129/78 96 Room Air 10/24/16 12:01 Room Air Physical Exam: General- no distress Neck- + JVD Lungs- clear Heart- irregular, tachy, IV/ systolic murmur at base Abdomen- + BS, soft, nontender Extremities- 1-2+ pretibial edema; no calf tenderness Neuro- alert, oriented . Laboratory Results: Last 24 Hours Test 10/24/16 05:25 10/24/16 11:37 Activated Partial Thromboplast Time 60.9 SECONDS Partial Thromboplastin Ratio 2.3 Prothrombin Time 15.9 SECONDS Prothromb Time International Ratio 1.5 Assessment & Plan ATRIAL FIBRILLATION WITH RVR Cardiology consulted. Beta edith transitioned from atenolol to metoprolol tartrate. Digoxin and amiodarone initiated 10/20. Receiving IV heparin without overt GI bleeding; warfarin started. Metoprolol dose titrated. Continue cardiac monitoring. CORONARY ARTERY DISEASE No anginal symptoms. Cardiology consulted. Beta edith transitioned from atenolol to metoprolol tartrate. Continue clopidogrel and statin. CRITICAL AORTIC STENOSIS Patient has opted not to pursue surgical intervention. HYPERTENSION BP's low at times (but asymptomatic). Benazepril discontinued; losartan initiated. Beta edith transitioned from atenolol to metoprolol tartrate. ? GI BLEED Patient reported dark stools at home. Hgb 11.5 --> --> 11.1. Hemoccult negative. Continue PPI. CKD III Serum creatinine 1.3 10/22/16. Follow. DM TYPE 2 Diet controlled. Follow. VTE PROPHYLAXIS Receiving IV heparin --> warfarin. Ambulate. DISPOSITION Expected discharge to home. Family Medicine follow-up with Dr. Cantu. Cardiology follow-up with Dr. Saunders. . Current Inpatient Medications: Current Inpatient Medications Medications (Trade) Dose Ordered Sig/Kip Route Start Time Stop Time Status Last Admin Dose Admin Acetaminophen (Tylenol Tab) 650 mg Q4H PRN PO 10/18/16 15:15 11/17/16 15:14 Nitroglycerin (Nitrostat Tab) 0.4 mg UD PRN SL 10/18/16 15:15 11/17/16 15:14 Cholecalciferol (Vitamin D Tab) 400 inter.unit Q2D@0900 PO 10/19/16 09:00 11/18/16 08:59 10/23/16 07:38 400 INTER.UNIT Furosemide (Lasix Tab) 40 mg DAILY PO 10/19/16 09:00 11/18/16 08:59 10/24/16 08:16 40 MG Multivitamins (Multivitamin Tab) 1 tab DAILY PO 10/19/16 09:00 11/18/16 08:59 10/24/16 08:16 1 TAB Pantoprazole Sodium (Protonix Tab) 40 mg DAILY PO 10/19/16 09:00 11/18/16 08:59 10/24/16 08:17 40 MG Vitamin B Complex (Vitamin B Complex) 1 tab DAILY PO 10/19/16 09:00 11/18/16 08:59 10/24/16 08:16 1 TAB mh-Dulii-Xourrsallj Acetate (Vitamin E Cap) 400 interunit Q2D@0900 PO 10/19/16 09:00 11/18/16 08:59 10/23/16 07:40 400 INTERUNIT Amiodarone HCl (Cordarone Tab) 400 mg BID PO 10/21/16 09:00 11/20/16 08:59 10/24/16 08:15 400 MG Simvastatin 10 mg 10 mg PM PO 10/20/16 21:00 11/19/16 20:59 10/23/16 20:55 10 MG Heparin Sodium/ Dextrose (Heparin 25,000 Unit/500ml D5W) 500 ml @ 15 mls/hr Q24H PRN IV 10/20/16 17:30 11/19/16 17:29 10/23/16 06:27 15 MLS/HR Warfarin Sodium (Coumadin Tab) 2.5 mg DAILY@16 PO 10/21/16 16:00 11/20/16 15:59 10/24/16 16:23 2.5 MG Metoprolol Tartrate (Lopressor Tab) 75 mg TID PO 10/22/16 14:00 11/22/16 13:59 10/24/16 14:40 75 MG Sodium Chloride ([place] Nasal [place]) 1 sprays PRN PRN NA 10/22/16 15:45 11/21/16 15:44 10/22/16 16:18 1 SPRAYS
[2016-10-24 21:11] LABS: BASO % 0.4 %; BASO ABS # 0.02 K/uL (0-0.2); COMPLETE YES; EOS % 4.2 %; HEMATOCRIT 35.4 % (37-47); LYMPH % 38.9 %; LYMPH ABS # 1.86 K/uL (1.2-3.4); MEAN CELL VOLUME 95.4 fL (80-100); MEAN CORPUSCULAR HEMOGLOBIN 31.5 pg (25-34); MEAN CORPUSCULAR HGB CONC 33.1 g/dl (32-36); MEAN PLATELET VOLUME 8.8 fL (7.4-10.4); MONO % 12.6 %; NEUT % 43.9 %; PLATELET COUNT 138 K/uL (130-400); RED BLOOD COUNT 3.71 M/uL (4.2-5.4); WHITE BLOOD COUNT 4.78 K/uL (4.8-10.8)
--- NOTE | 2016-10-24 21:19 | DIAGNOSTIC IMAGING REPORT ---
CT HEAD WITHOUT CONTRAST (CT) CLINICAL HISTORY: unresponsiveness CHANGE IN MENTAL STATUS. COMPARISON STUDY: No previous studies for comparison. TECHNIQUE: Axial CT of the brain is performed from the vertex to the skull base. IV contrast was not administered for this examination. CT DOSE: 1074.96 mGy.cm FINDINGS: No intra or extra-axial mass lesions are visualized. There is no CT evidence of acute cortical infarction. There is no evidence of midline shift. There is no acute hemorrhage. No calvarial fractures are visualized. There are patchy white matter hypodensities likely on a small vessel basis. There is no evidence of pathologic ventricular dilatation. There is no evidence of acute sinusitis IMPRESSION: No acute intracranial findings Electronically signed by: Antony Jean M.D. 10/24/2016 9:18 PM Dictated Date/Time: 10/24/2016 9:17 PM
[2016-10-24 21:28] LABS: BUN/CREATININE RATIO 13.9 (10-20); CREATININE 1.5 mg/dl (0.60-1.20); MAGNESIUM 1.8 mg/dl (1.8-2.4); POTASSIUM 3.7 mmol/L (3.5-5.1)
[2016-10-24] MEDS: HEPARIN 25,000 UNIT/500ML D5W 500 ML IV PRN (21:29)
[2016-10-24] MEDS ORDERED: NURSING VERBAL MED ORDER ONE (21:30)
[2016-10-24] MEDS ORDERED: POTASSIUM CHLORIDE 10 MEQ TABCR PO STA (21:33)
[2016-10-24] MEDS: SIMVASTATIN 10 MG TAB PO SCH (21:35)
[2016-10-24] MEDS ORDERED: MAGNESIUM SULFATE 1GM / D5W 1 GM in PREMIXED IN D5W 100 ML IV STA (21:38)
[2016-10-24 22:02] LABS: CALCIUM 9.5 mg/dl (8.5-10.1)
[2016-10-25] VITALS (11 sets, daily range): BP systolic 111–146; BP diastolic 64–89; PULSE 84–119; TEMP 36.4–36.8; O2SAT 85–97
[2016-10-25 05:42] LABS: HEMATOCRIT 35.8 % (37-47); MEAN CELL VOLUME 96.8 fL (80-100); MEAN CORPUSCULAR HEMOGLOBIN 31.6 pg (25-34); MEAN CORPUSCULAR HGB CONC 32.7 g/dl (32-36); MEAN PLATELET VOLUME 9.5 fL (7.4-10.4); PLATELET COUNT 144 K/uL (130-400); WHITE BLOOD COUNT 3.79 K/uL (4.8-10.8)
[2016-10-25] MEDS ORDERED: LEVALBUTEROL/IPRATROPIUM NEB INH STA (06:05)
[2016-10-25 06:11] LABS: INR 1.7 (0.9-1.1); PARTIAL THROMBOPLASTIN RATIO 2.8; PROTHROMBIN TIME (PATIENT) 19.1 SECONDS (9.0-12.0)
[2016-10-25] MEDS ORDERED: LEVALBUTEROL/IPRATROPIUM NEB INH PRN (06:15)
[2016-10-25] MEDS ORDERED: IPRATROPIUM BROMIDE NEB SOLN 0.02% 2.5 ML VIAL INH STA (06:16)
[2016-10-25] MEDS ORDERED: LEVALBUTEROL 1.25MG/0.5ML NEB INH STA (06:16)
[2016-10-25] MEDS ORDERED: IPRATROPIUM BROMIDE NEB SOLN 0.02% 2.5 ML VIAL INH PRN (06:30)
[2016-10-25] MEDS ORDERED: LEVALBUTEROL 1.25MG/0.5ML NEB INH PRN (06:30)
[2016-10-25] MEDS ORDERED: POTASSIUM CHLORIDE 10 MEQ TABCR PO STA (06:40)
[2016-10-25] MEDS ORDERED: MAGNESIUM SULFATE 1GM / D5W 1 GM in PREMIXED IN D5W 100 ML IV ONE (07:00)
[2016-10-25] MEDS ORDERED: FUROSEMIDE INJ 60 MG in SYRINGE 0 ML IV ONE (07:00)
[2016-10-25 07:33] LABS: ALLEN TEST POS (POS); ARTERIAL BLD GAS O2 SATURATION 91.4 % (90-95); ARTERIAL BLOOD GAS BASE EXCESS 1.8 mEq/L (-9-1.8); ARTERIAL BLOOD GAS HCO3 27 mmol/L (19-24); ARTERIAL BLOOD GAS PO2 67 mm/Hg (80-95); ARTERIAL BLOOD GAS pH 7.41 (7.35-7.45); O2 ADMINISTRATION 2L
--- NOTE | 2016-10-25 07:44 | DIAGNOSTIC IMAGING REPORT ---
CHEST ONE VIEW PORTABLE HISTORY: Short of breath. COMPARISON: Chest 10/22/2016. FINDINGS: The heart remains enlarged. Moderate pulmonary edema has progressed. Small bilateral pleural effusions are again noted. No pneumothorax. IMPRESSION: Progression of the moderate pulmonary edema. Electronically signed by: Randell Banuelos M.D. 10/25/2016 7:42 AM Dictated Date/Time: 10/25/2016 7:42 AM
[2016-10-25 08:19] LABS: BUN/CREATININE RATIO 15.4 (10-20); CALCIUM 9.9 mg/dl (8.5-10.1); CKMB/CK RATIO 4.8 (0-3.0); CREATININE 1.3 mg/dl (0.60-1.20); MAGNESIUM 2.2 mg/dl (1.8-2.4); POTASSIUM 4.4 mmol/L (3.5-5.1)
[2016-10-25] MEDS: MULTIVITAMIN TAB PO SCH (08:20)
[2016-10-25] MEDS: CHOLECALCIFEROL 400 INTER.UNIT TAB PO SCH (08:20)
[2016-10-25] MEDS: TOCOPHERYL, DL-ALPHA 400 INTER.UNIT CAP PO SCH (08:20)
[2016-10-25] MEDS: AMIODARONE 200 MG TAB PO SCH ×2 (08:20→20:08)
[2016-10-25] MEDS: PANTOprazole SOD 40 MG TAB PO SCH (08:20)
[2016-10-25] MEDS: VITAMIN B COMPLEX TAB PO SCH (08:20)
[2016-10-25] MEDS: METOPROLOL TARTRATE 50 MG TAB PO SCH ×3 (08:21→20:09)
[2016-10-25] MEDS ORDERED: FUROSEMIDE INJ 40 MG in SYRINGE 0 ML IV ONE (11:00)
--- NOTE | 2016-10-25 11:05 | PROGRESS NOTE ---
DATE: 10/25/2016 CARDIOLOGY CONSULTATION FOLLOWUP NOTE The patient seen and examined. Chart, medications, telemetry reviewed. SUBJECTIVE: The patient notes an episode last night of having been found confused and unresponsive, while sitting out in the chair. She was moved to the bed, noted the head was spinning and dizziness with associated shortness of breath. Evaluation included a CT scan of the head without evidence of hemorrhage. Chest x-ray revealed worsening pulmonary edema. She was treated with oxygen and IV diuretics. Notes cough and shortness of breath has improved this morning, still gets occasional dizziness with movement, just "not feeling as well." Denies fevers, chills or productive cough though feels like a cough whenever she lies back. OBJECTIVE: VITAL SIGNS: Heart rate is 100-115, blood pressure is 123/75, O2 saturation is 95% on 2 liters nasal cannula. HEENT: Normocephalic, atraumatic. NECK: Thin with minimal jugular venous distention. LUNGS: Reveal crackles bibasilar. CARDIOVASCULAR: Irregular Grade 3/6 harsh systolic ejection murmur. There is no diastolic murmur. ABDOMEN: Soft, nontender. EXTREMITIES: Without cyanosis or clubbing. There is no peripheral edema. IMPRESSION: Complex 86-year-old female with issues as follows: 1. Acute decompensated with congestive heart failure secondary to atrial arrhythmias with rapid ventricular response, critical aortic stenosis. PLAN: Additional dose of IV furosemide today. We will continue current dosing of metoprolol, digoxin and amiodarone to attempt to gain further rate control. The patient may require elevation in baseline heart rate given significant valvular disease. Overall, prognosis is diminished in the setting of heart failure, poor rate control and critical aortic stenosis. The patient has discussed currently and in past would not consider any valvular intervention. Plan as above. Will follow closely in the hospital. KIKO
[2016-10-25] MEDS ORDERED: NURSING VERBAL MED ORDER ONE (11:45)
[2016-10-25 14:04] LABS: PARTIAL THROMBOPLASTIN RATIO 2.4
[2016-10-25 14:07] LABS: CKMB/CK RATIO 3.8 (0-3.0)
[2016-10-25] MEDS: WARFARIN SOD 2.5 MG TAB PO SCH (16:44)
[2016-10-25] MEDS: SIMVASTATIN 10 MG TAB PO SCH (20:08)
--- NOTE | 2016-10-25 22:13 | Progress Note ---
Medicine Progress Note Date & Time of Visit: October 25, 2016 at 09:00 . Subjective Episode of decreased responsiveness last night. Head CT neg for bleed. Increasing SOB this morning associated with hypoxia. Received IV furosemide. Now less SOB. Mild nonproductive cough. No chest pain. Anorexic, but no nausea or vomiting. . Objective Last 8 Hrs Date Time Temp Pulse Resp B/P Pulse Ox O2 Delivery O2 Flow Rate FiO2 10/25/16 20:03 36.6 96 20 117/64 94 Room Air 10/25/16 20:00 96 Room Air 10/25/16 16:00 96 Room Air 10/25/16 15:25 36.4 105 20 118/69 96 Room Air Physical Exam: General- tachypneic at rest Neck- + JVD Lungs- clear Heart- irregular, tachy, IV/ systolic murmur at base Abdomen- + BS, soft, nontender Extremities- 1 + pretibial edema; no calf tenderness Neuro- alert, oriented . Laboratory Results: Last 24 Hours Test 10/25/16 05:15 10/25/16 06:40 10/25/16 06:55 10/25/16 11:21 White Blood Count 3.79 K/uL Red Blood Count 3.70 M/uL Hemoglobin 11.7 g/dL Hematocrit 35.8 % Mean Corpuscular Volume 96.8 fL Mean Corpuscular Hemoglobin 31.6 pg Mean Corpuscular Hemoglobin Concent 32.7 g/dl RDW Standard Deviation 50.8 fL RDW Coefficient of Variation 14.3 % Platelet Count 144 K/uL Mean Platelet Volume 9.5 fL Prothrombin Time 19.1 SECONDS Prothromb Time International Ratio 1.7 Activated Partial Thromboplast Time 71.8 SECONDS Partial Thromboplastin Ratio 2.8 Bedside Glucose 140 mg/dl 124 mg/dl Arterial Blood pH 7.41 Arterial Blood Partial Pressure CO2 43 mmHg Arterial Blood Partial Pressure O2 67 mm/Hg Arterial Blood HCO3 27 mmol/L Arterial Blood Oxygen Saturation 91.4 % Arterial Blood Base Excess 1.8 mEq/L Arterial Blood Gas Delivery 2L Edin Test POS Sodium Level 137 mmol/L Potassium Level 4.4 mmol/L Chloride Level 102 mmol/L Carbon Dioxide Level 26 mmol/L Anion Gap 9.0 mmol/L Blood Urea Nitrogen 20 mg/dl Creatinine 1.30 mg/dl Est Creatinine Clear Calc Drug Dose 26.4 ml/min Estimated GFR () 43.0 Estimated GFR (Non- 37.1 BUN/Creatinine Ratio 15.4 Random Glucose 149 mg/dl Calcium Level 9.9 mg/dl Magnesium Level 2.2 mg/dl Total Creatine Kinase 40 U/L Creatine Kinase MB 1.9 ng/ml Creatine Kinase MB Ratio 4.8 Troponin I 0.022 ng/ml Test 10/25/16 13:05 10/25/16 16:33 Activated Partial Thromboplast Time 61.8 SECONDS Partial Thromboplastin Ratio 2.4 Total Creatine Kinase 50 U/L Creatine Kinase MB 1.9 ng/ml Creatine Kinase MB Ratio 3.8 Troponin I 0.025 ng/ml Bedside Glucose 112 mg/dl Assessment & Plan ATRIAL FIBRILLATION WITH RVR Cardiology consulted. Beta edith transitioned from atenolol to metoprolol tartrate. Digoxin and amiodarone initiated 10/20. Receiving IV heparin without overt GI bleeding; warfarin started. INR today 1.7. Metoprolol dose titrated. Continue cardiac monitoring. CHF Acute CHF this morning. Underlying valvular heart disease (severe ). Normal LVEF. Rapid AF contributing factor. Received IV furosemide. Follow and titrate diuretics. Check f/u chest x-ray tomorrow. CRITICAL AORTIC STENOSIS Patient has opted not to pursue surgical intervention. CORONARY ARTERY DISEASE No anginal symptoms. Beta edith transitioned from atenolol to metoprolol tartrate. Cardiac markers today negative. Continue clopidogrel and statin. HYPERTENSION BP's low at times. Benazepril discontinued; losartan initiated. Beta edith transitioned from atenolol to metoprolol tartrate. ? GI BLEED Patient reported dark stools at home. Hemoccult negative. Anticoagulation initiated for AF. Hgb stable at 11.7. Continue PPI. CKD III Serum creatinine stable at 1.3. Follow. DM TYPE 2 Diet controlled. Follow. ALTERED MENTAL STATUS Episode of decreased responsiveness last night, mechanism uncertain. Head CT negative for bleed or other apparent acute event. Neuro status back to baseline. Follow. VTE PROPHYLAXIS Receiving IV heparin --> warfarin. Ambulate. RESUSCITATION STATUS DNR DISPOSITION Discharge to home now less likely. May benefit from skilled care. Family Medicine follow-up with Dr. Cantu. Cardiology follow-up with Dr. Saunders. Son Jose A given update by phone. His cell #: [phone] . Consultants: Cardiology . Procedures: cardiac monitoring echo IV meds CT head . Current Inpatient Medications: Current Inpatient Medications Medications (Trade) Dose Ordered Sig/Kip Route Start Time Stop Time Status Last Admin Dose Admin Acetaminophen (Tylenol Tab) 650 mg Q4H PRN PO 10/18/16 15:15 11/17/16 15:14 Nitroglycerin (Nitrostat Tab) 0.4 mg UD PRN SL 10/18/16 15:15 11/17/16 15:14 Cholecalciferol (Vitamin D Tab) 400 inter.unit Q2D@0900 PO 10/19/16 09:00 11/18/16 08:59 10/25/16 08:20 400 INTER.UNIT Multivitamins (Multivitamin Tab) 1 tab DAILY PO 10/19/16 09:00 11/18/16 08:59 10/25/16 08:20 1 TAB Pantoprazole Sodium (Protonix Tab) 40 mg DAILY PO 10/19/16 09:00 11/18/16 08:59 10/25/16 08:20 40 MG Vitamin B Complex (Vitamin B Complex) 1 tab DAILY PO 10/19/16 09:00 11/18/16 08:59 10/25/16 08:20 1 TAB [id number] Acetate (Vitamin E Cap) 400 interunit Q2D@0900 PO 10/19/16 09:00 11/18/16 08:59 10/25/16 08:20 400 INTERUNIT Amiodarone HCl (Cordarone Tab) 400 mg BID PO 10/21/16 09:00 11/20/16 08:59 10/25/16 20:08 400 MG Simvastatin 10 mg 10 mg PM PO 10/20/16 21:00 11/19/16 20:59 10/25/16 20:08 10 MG Heparin Sodium/ Dextrose (Heparin 25,000 Unit/500ml D5W) 500 ml @ 14 mls/hr Q24H PRN IV 10/20/16 17:30 11/19/16 17:29 Future hold 10/24/16 21:29 15 MLS/HR Warfarin Sodium (Coumadin Tab) 2.5 mg DAILY@16 PO 10/21/16 16:00 11/20/16 15:59 10/25/16 16:44 2.5 MG Metoprolol Tartrate (Lopressor Tab) 75 mg TID PO 10/22/16 14:00 11/22/16 13:59 10/25/16 20:09 75 MG Sodium Chloride (Benzie Nasal Whitman) 1 sprays PRN PRN NA 10/22/16 15:45 11/21/16 15:44 10/22/16 16:18 1 SPRAYS Ipratropium Uriah (Atrovent 0.02% 0.5MG/2.5ML Neb) 0.5 mg Q4H PRN INH 10/25/16 06:30 11/24/16 06:29 Levalbuterol (Xopenex 1.25MG/ 0.5ML Neb) 1.25 mg Q4H PRN INH 10/25/16 06:30 11/24/16 06:29 Furosemide (Lasix Tab) 40 mg QAM PO 10/26/16 09:00 11/25/16 08:59
[2016-10-26] VITALS (7 sets, daily range): BP systolic 113–128; BP diastolic 56–78; PULSE 93–114; TEMP 36.6–36.8; O2SAT 91–95
[2016-10-26 04:39] LABS: INR 2.2 (0.9-1.1); PARTIAL THROMBOPLASTIN RATIO 2.6; PROTHROMBIN TIME (PATIENT) 24.9 SECONDS (9.0-12.0)
[2016-10-26 04:43] LABS: BUN/CREATININE RATIO 14.1 (10-20); CREATININE 1.3 mg/dl (0.60-1.20); POTASSIUM 3.9 mmol/L (3.5-5.1)
--- NOTE | 2016-10-26 08:08 | DIAGNOSTIC IMAGING REPORT ---
CHEST ONE VIEW PORTABLE HISTORY: Short of breath. COMPARISON: Chest 10/25/2016. FINDINGS: Interval improvement in the pulmonary edema. Small bilateral pleural effusions and cardiomegaly persist. Old, healed right-sided rib fractures. Bibasilar densities favor atelectasis. There is a right peritracheal focal density. IMPRESSION: 1. Improvement in the pulmonary edema. 2. Small bilateral pleural effusions and cardiomegaly persist. 3. Right paratracheal focal density. This could be due to engorgement of the vascular structures. However, follow-up is recommended to ensure stability/resolution of this finding. Electronically signed by: Randell Banuelos M.D. 10/26/2016 8:07 AM Dictated Date/Time: 10/26/2016 8:04 AM
[2016-10-26] MEDS: AMIODARONE 200 MG TAB PO SCH ×2 (08:11→20:10)
[2016-10-26] MEDS: PANTOprazole SOD 40 MG TAB PO SCH (08:12)
[2016-10-26] MEDS: METOPROLOL TARTRATE 50 MG TAB PO SCH ×3 (08:12→20:11)
[2016-10-26] MEDS: VITAMIN B COMPLEX TAB PO SCH (08:13)
[2016-10-26] MEDS: MULTIVITAMIN TAB PO SCH (08:13)
[2016-10-26] MEDS ORDERED: FUROSEMIDE 40 MG TAB PO SCH (09:00)
[2016-10-26] MEDS ORDERED: POTASSIUM CHLORIDE 10 MEQ TABCR PO STA (09:40)
[2016-10-26] MEDS ORDERED: DIGOXIN 0.25 MG TAB PO ONE (09:45)
[2016-10-26] MEDS ORDERED: FUROSEMIDE 40 MG TAB PO ONE (09:45)
--- NOTE | 2016-10-26 09:49 | Progress Note ---
Internal Med Progress Note Date of Service: October 26, 2016. Provider Documentation: SUBJECTIVE: Seen and examined at bedside. States feeling much better today. Denies any chest pain, palpitations, SOB, abd pain, nausea or dizziness. Cough is improving. Family at bedside. Offers no complaints. OBJECTIVE: Vital Signs-as noted below Exam: Vitals signs as noted above General Appearance:Moderately built and nourished, no apparent distress Head: normocephalic, Atraumatic Eyes: normal inspection, EOMI, PERRL Neck: supple, Trachea midline Respiratory/Chest: Normal breath sounds, Scattered creps as bases, No accessory muscle use Cardiovascular: Irregularly irregular, + systolic murmur Abdomen/GI:Soft, Non tender, Bowel sounds present Extremities/Musculoskelatal:normal inspection, 1-2+ b/l edema Neurologic/Psych:AAOX3, grossly no focal neurological deficits Skin: normal color, warm Lab data as noted below. ASSESSMENT & PLAN: ATRIAL FIBRILLATION with RVR Appreciate Cardiology help Beta edith transitioned from atenolol to metoprolol tartrate. Digoxin and amiodarone initiated 10/20. INR therapeutic: 2.2 today Continue warfarin Continue cardiac monitoring Currently asymptomatic CHF Acute Exacerbation likely secondary to Afib with RVR Underlying valvular heart disease (severe ). Normal LVEF. S/P IV furosemide Continue PO lasix Cardiology following CRITICAL AORTIC STENOSIS Patient has opted not to pursue surgical intervention. CORONARY ARTERY DISEASE No anginal symptoms. Beta edith transitioned from atenolol to metoprolol tartrate. Troponin: Negative Plavix discontinued Continue statin, BB HYPERTENSION BP stable Benazepril discontinued; losartan initiated Beta edith transitioned from atenolol to metoprolol Monitor ? GI BLEED Patient reported dark stools at home. Hemoccult negative. No acute issues Monitor Hb:11.7 On warfarin for afib Continue PPI. CKD III Serum cr stable at 1.3. Monitor DM II Diet controlled. Monitor ALTERED MENTAL STATUS Resolved Episode of decreased responsiveness on 10/24: unknown cause Head CT: No acute process Monitor DVT PX INR therapeutic: On warfarin. Ambulate CODE STATUS DNR DISPOSITION May benefit from SNF placement . Family Medicine follow-up with Dr. Cantu. Cardiology follow-up with Dr. Saunders. Family: Son Jose A cell #: [phone] Vital Signs: Date Time Temp Pulse Resp B/P Pulse Ox O2 Delivery O2 Flow Rate FiO2 5/9/17 07:59 36.8 113 20 115/64 95 Room Air 10/26/16 04:00 Room Air 10/26/16 03:32 36.6 111 23 113/63 93 Room Air 10/26/16 00:18 36.6 93 22 117/76 91 Room Air 10/26/16 00:00 Room Air 10/25/16 20:03 36.6 96 20 117/64 94 Room Air 10/25/16 20:00 96 Room Air 10/25/16 16:00 96 Room Air 10/25/16 15:25 36.4 105 20 118/69 96 Room Air 10/25/16 12:00 Room Air 10/25/16 11:58 36.8 84 18 111/75 97 Nasal Cannula 2.0 Lab Results: Results Past 24 Hours Test 10/25/16 11:21 10/25/16 13:05 10/25/16 16:33 10/26/16 04:15 Range/Units Bedside Glucose 124 112 70-90 mg/dl Activated Partial Thromboplast Time 61.8 67.6 21.0-31.0 SECONDS Partial Thromboplastin Ratio 2.4 2.6 Total Creatine Kinase 50 26-192 U/L Creatine Kinase MB 1.9 0.5-3.6 ng/ml Creatine Kinase MB Ratio 3.8 0-3.0 Troponin I 0.025 0-0.045 ng/ml Prothrombin Time 24.9 9.0-12.0 SECONDS Prothromb Time International Ratio 2.2 0.9-1.1 Sodium Level 138 136-145 mmol/L Potassium Level 3.9 3.5-5.1 mmol/L Chloride Level 100 98-107 mmol/L Carbon Dioxide Level 32 21-32 mmol/L Anion Gap 6.0 3-11 mmol/L Blood Urea Nitrogen 18 7-18 mg/dl Creatinine 1.30 0.60-1.20 mg/dl Est Creatinine Clear Calc Drug Dose 26.4 ml/min Estimated GFR () 43.0 Estimated GFR (Non- 37.1 BUN/Creatinine Ratio 14.1 10-20 Random Glucose 99 70-99 mg/dl Calcium Level 9.0 8.5-10.1 mg/dl
--- NOTE | 2016-10-26 10:00 | CARDIOLOGY PROGRESS NOTE ---
DATE: 10/26/2016 Patient seen and examined. Chart, medications, telemetry reviewed. SUBJECTIVE: The patient feels improved in comparison to a day prior. Notes no further dizziness, lightheadedness. Notes no chest pain or discomfort. Notes no worsening shortness of breath. Has been up to the bathroom this morning. OBJECTIVE: VITAL SIGNS: Heart rate is 100, blood pressure is 115/64. Telemetry reveals atrial fibrillation with elevated ventricular response rate. No pauses or bradyarrhythmias. HEENT: Normocephalic, atraumatic. NECK: Thick. There is no jugular venous distension though patient examined upright. LUNGS: Reveal bibasilar crackles, but improved from prior. CARDIOVASCULAR: Irregular, irregular. Grade 3/6 systolic murmur. There is no diastolic murmur. ABDOMEN: Soft, nontender. EXTREMITIES: Reveal diminished peripheral edema. IMPRESSION: 86-year-old female with issues as follows: 1. Atrial fibrillation with rapid ventricular response, not responding to high dose therapies. Will reintroduce digoxin at 0.25 mg orally this morning and then 0.125mg tab this evening, daily, may ultimately need to reduce the amiodarone dosing. Continue current dosing of metoprolol. 2. Critical aortic stenosis. 3. Acute on chronic decompensated congestive heart failure this admission. She responded to a single dose of IV diuretics promptly yesterday though still has residual signs on x-ray examination of mild edema. PLAN: Will be to increase furosemide to 60 mg per day with an additional 40 mg to be given this morning. Potassium will be supplemented. Patient is now anticoagulated with Coumadin. Heparin will be discontinued. Gradual increase in activities. The patient will require close clinical followup and likely senior care post-hospital discharge. SCOTTIED
[2016-10-26] MEDS ORDERED: DIGOXIN 0.125 MG TAB PO SCH (16:00)
[2016-10-26] MEDS: WARFARIN SOD 2.5 MG TAB PO SCH (16:45)
[2016-10-26] MEDS: SIMVASTATIN 10 MG TAB PO SCH (20:10)
[2016-10-27] VITALS (9 sets, daily range): BP systolic 94–137; BP diastolic 58–74; PULSE 76–96; TEMP 36.4–36.6; O2SAT 92–96
[2016-10-27 05:37] LABS: HEMATOCRIT 34.5 % (37-47); MEAN CELL VOLUME 96.9 fL (80-100); MEAN PLATELET VOLUME 9.1 fL (7.4-10.4); PLATELET COUNT 138 K/uL (130-400); RED BLOOD COUNT 3.56 M/uL (4.2-5.4); WHITE BLOOD COUNT 4.64 K/uL (4.8-10.8)
[2016-10-27 06:01] LABS: INR 3.4 (0.9-1.1); PROTHROMBIN TIME (PATIENT) 38.1 SECONDS (9.0-12.0)
[2016-10-27 06:18] LABS: BUN/CREATININE RATIO 16.3 (10-20); CALCIUM 8.8 mg/dl (8.5-10.1); CREATININE 1.2 mg/dl (0.60-1.20); MAGNESIUM 2.4 mg/dl (1.8-2.4)
[2016-10-27] MEDS: FUROSEMIDE 40 MG TAB PO SCH (08:43)
[2016-10-27] MEDS: PANTOprazole SOD 40 MG TAB PO SCH (08:44)
[2016-10-27] MEDS: MULTIVITAMIN TAB PO SCH (08:44)
[2016-10-27] MEDS: VITAMIN B COMPLEX TAB PO SCH (08:45)
[2016-10-27] MEDS: CHOLECALCIFEROL 400 INTER.UNIT TAB PO SCH (08:45)
[2016-10-27] MEDS: AMIODARONE 200 MG TAB PO SCH ×2 (08:46→20:46)
[2016-10-27] MEDS: METOPROLOL TARTRATE 50 MG TAB PO SCH ×3 (08:48→20:46)
[2016-10-27] MEDS: TOCOPHERYL, DL-ALPHA 400 INTER.UNIT CAP PO SCH (08:48)
--- NOTE | 2016-10-27 11:57 | Progress Note ---
Internal Med Progress Note Date of Service: October 27, 2016. Provider Documentation: SUBJECTIVE: Seen and examined at bedside. Doing well. Offers no complaints. Denies any chest pain, palpitations, SOB, abd pain, nausea or dizziness. Eager to get discharged. OBJECTIVE: Vital Signs-as noted below Exam: Vitals signs as noted above General Appearance:Moderately built and nourished, no apparent distress Head: normocephalic, Atraumatic Eyes: normal inspection, EOMI, PERRL Neck: supple, Trachea midline Respiratory/Chest: Normal breath sounds, Scattered creps as bases, No accessory muscle use Cardiovascular: Irregularly irregular, + systolic murmur Abdomen/GI:Soft, Non tender, Bowel sounds present Extremities/Musculoskelatal:normal inspection, 1-2+ b/l edema Neurologic/Psych:AAOX3, grossly no focal neurological deficits Skin: normal color, warm Lab data as noted below. ASSESSMENT & PLAN: ATRIAL FIBRILLATION with RVR Appreciate Cardiology help Beta edith transitioned from atenolol to metoprolol tartrate. Digoxin and amiodarone initiated 10/20. INR therapeutic: 3.4 today Hold warfarin today Monitor INR Continue cardiac monitoring Currently asymptomatic CHF Acute Exacerbation likely secondary to Afib with RVR Underlying valvular heart disease (severe ). Normal LVEF. S/P IV furosemide Continue PO lasix Cardiology following CRITICAL AORTIC STENOSIS Patient has opted not to pursue surgical intervention. CORONARY ARTERY DISEASE No anginal symptoms. Beta edith transitioned from atenolol to metoprolol tartrate. Troponin: Negative Plavix discontinued Continue statin, BB HYPERTENSION BP stable Benazepril discontinued; losartan initiated Beta edith transitioned from atenolol to metoprolol Monitor ? GI BLEED Patient reported dark stools at home. Hemoccult negative. No acute issues Monitor Hb:11.4 On warfarin for afib Continue PPI. CKD III Serum cr stable at 1.2 Monitor DM II Diet controlled. Monitor ALTERED MENTAL STATUS Resolved Episode of decreased responsiveness on 10/24: unknown cause Head CT: No acute process Monitor DVT PX INR therapeutic: On warfarin. Ambulate CODE STATUS DNR DISPOSITION May benefit from SNF placement PT/OT Family Medicine follow-up with Dr. Cantu. Cardiology follow-up with Dr. Saunders. Family: Son Jose A cell #: [phone] Vital Signs: Date Time Temp Pulse Resp B/P Pulse Ox O2 Delivery O2 Flow Rate FiO2 5/10/17 11:00 36.6 86 20 94/59 93 Room Air 10/27/16 07:28 36.4 96 20 137/64 93 Room Air 10/27/16 03:25 36.5 95 18 129/74 94 Room Air 10/26/16 23:12 36.7 99 18 128/73 93 Room Air 10/26/16 19:51 36.7 114 20 119/67 95 Room Air 10/26/16 16:44 88 10/26/16 16:20 Room Air 10/26/16 15:09 36.6 107 20 116/56 94 Room Air Lab Results: Results Past 24 Hours Test 10/27/16 05:25 Range/Units White Blood Count 4.64 4.8-10.8 K/uL Red Blood Count 3.56 4.2-5.4 M/uL Hemoglobin 11.4 12.0-16.0 g/dL Hematocrit 34.5 37-47 % Mean Corpuscular Volume 96.9 80-100 fL Mean Corpuscular Hemoglobin 32.0 25-34 pg Mean Corpuscular Hemoglobin Concent 33.0 32-36 g/dl RDW Standard Deviation 50.6 36.4-46.3 fL RDW Coefficient of Variation 14.3 11.5-14.5 % Platelet Count 138 130-400 K/uL Mean Platelet Volume 9.1 7.4-10.4 fL Prothrombin Time 38.1 9.0-12.0 SECONDS Prothromb Time International Ratio 3.4 0.9-1.1 Sodium Level 140 136-145 mmol/L Potassium Level 4.0 3.5-5.1 mmol/L Chloride Level 103 98-107 mmol/L Carbon Dioxide Level 32 21-32 mmol/L Anion Gap 5.0 3-11 mmol/L Blood Urea Nitrogen 20 7-18 mg/dl Creatinine 1.20 0.60-1.20 mg/dl Est Creatinine Clear Calc Drug Dose 27.9 ml/min Estimated GFR () 47.4 Estimated GFR (Non- 40.9 BUN/Creatinine Ratio 16.3 10-20 Random Glucose 98 70-99 mg/dl Calcium Level 8.8 8.5-10.1 mg/dl Magnesium Level 2.4 1.8-2.4 mg/dl
--- NOTE | 2016-10-27 12:18 | Cardiology Follow-Up ---
Subjective General Date of Service: October 27, 2016. Chief Complaint: Cough Pt evaluation today including: conversation w/ patient, physical exam, chart review, lab review, review of studies, review of inpatient medication list History of Present Illness Patient feeling well this AM. Requesting discharge today. No dizziness, syncope or near syncope. No sense of palpitations or tachypalpitations. No SOB, orthopnea, PND or LE edema. Allergies Coded Allergies: Morphine (Verified Allergy, Intermediate, 07/25/09) Aspirin (Verified Allergy, Unknown, ., 10/18/16) Pneumococcal Vaccine (Verified Allergy, Unknown, SWELLING, 10/18/16) Sulindac (Verified Allergy, Unknown, 05/16/12) Social History Smoking Status: Never Smoker Hx Alcohol Use - Type And Amou: No Hx Substance Use - Type And Am: No Review of Systems Respiratory: No cough, No dyspnea at rest, No hemoptysis, No shortness of breath, No sputum, No wheezing Cardiac: No PND, No chest pain, No edema, No orthopnea, No palpitations Physical Exam Vital Signs Last Vital Signs Documentation Date Time Temp Pulse Resp B/P Pulse Ox O2 Delivery O2 Flow Rate FiO2 10/27/16 11:00 36.6 86 20 94/59 93 Room Air 10/25/16 11:58 2.0 Physical Exam Constitutional: General Apperance: heathly-appearing Level of Distress: NAD Psychiatric: Mental Status: active & alert Orientation: to time, to place, to person Memory: recent memory normal, remote memory normal Head: normocephalic, atraumatic Eyes: Pupils: PERRLA Neck: supple, pertinent finding Lungs: Auscultation: no wheezing, no rales/crackles, no rhonchi, decreased breath sounds Cardiovascular: Heart Auscultation: no rubs, tachycardia (100-110), III/ DEMETRIO, irregular rate rhythm Peripheral Pulses: Radial Pulse: normal on the left, normal on the right Dorsalis Pedis Pulse: decreased on the left, decreased on the right Abdomen: Bowel Sounds: normal Inspection & Palpation: soft Extremities: no cyanosis, no clubbing, edema (1+ edema) Neurologic: Cranial Nerves: grossly intact Assessment and Plan Assessment and Plan IMPRESSION: 86-year-old female with issues as follows: 1. Atrial fibrillation with rapid ventricular responsel. 2. Critical aortic stenosis. 3. Acute on chronic decompensated congestive heart failure this admission. Improved with single dose IV diuretic. PLAN: Stable/Improved cardiac signs/symptoms. Amiodarone reduced to 200 mg BID today Digoxin reduced to 125 mcg - 1 tablet on // Continue metoprolol 75 TID continue Coumadin. F/U as outpatient with anticoagulation clinic. Continue furosemide. Will schedule patient for close cardiology f/u in 1-2 weeks at [facility]. Case discussed with Dr. Singh. Will follow. Cardiology Attending Physician: Patient seen and examined at the bedside. No complaints today. Denies chest pain or unusual SOB. HR improved with addition of digoxin. No recurrent lightheadedness. PE: VSS. Gen: NAD, awake and alert. Heart: irregular. Normal S1S2. 3/6 DEMETRIO. Lungs:Clear B/L, No R/R/W. Abd: soft NT, ND, +BS. Ext: 1+ B/L pretibial LE edema. A/P: Agree with above PA-C history, physical exam, assessment and plan. Reduce amiodarone to 200mg BID. Reduce digoxin to 125mg MWF. Close outpatient follow in 1 week at [facility]. Henri Singh DO, [facility] Laboratory Results Last 24 Hours Test 10/27/16 05:25 White Blood Count 4.64 K/uL Red Blood Count 3.56 M/uL Hemoglobin 11.4 g/dL Hematocrit 34.5 % Mean Corpuscular Volume 96.9 fL Mean Corpuscular Hemoglobin 32.0 pg Mean Corpuscular Hemoglobin Concent 33.0 g/dl RDW Standard Deviation 50.6 fL RDW Coefficient of Variation 14.3 % Platelet Count 138 K/uL Mean Platelet Volume 9.1 fL Prothrombin Time 38.1 SECONDS Prothromb Time International Ratio 3.4 Sodium Level 140 mmol/L Potassium Level 4.0 mmol/L Chloride Level 103 mmol/L Carbon Dioxide Level 32 mmol/L Anion Gap 5.0 mmol/L Blood Urea Nitrogen 20 mg/dl Creatinine 1.20 mg/dl Est Creatinine Clear Calc Drug Dose 27.9 ml/min Estimated GFR () 47.4 Estimated GFR (Non- 40.9 BUN/Creatinine Ratio 16.3 Random Glucose 98 mg/dl Calcium Level 8.8 mg/dl Magnesium Level 2.4 mg/dl
[2016-10-27] MEDS ORDERED: DIGOXIN 0.125 MG TAB PO SCH (16:00)
[2016-10-27] MEDS: SIMVASTATIN 10 MG TAB PO SCH (20:46)
[2016-10-28 04:13] VITALS: BP 112/69; PULSE 69; TEMP 36.5; O2SAT 93
[2016-10-28 07:30] VITALS: BP 148/70; PULSE 93; TEMP 36.5; O2SAT 93
[2016-10-28 08:00] VITALS: O2SAT 93
[2016-10-28 08:09] LABS: INR 2.8 (0.9-1.1); PROTHROMBIN TIME (PATIENT) 31.8 SECONDS (9.0-12.0)
[2016-10-28 08:28] LABS: BUN/CREATININE RATIO 15.3 (10-20); CREATININE 1.2 mg/dl (0.60-1.20); MAGNESIUM 2.2 mg/dl (1.8-2.4)
[2016-10-28 08:29] LABS: CALCIUM 9.4 mg/dl (8.5-10.1)
[2016-10-28] MEDS: METOPROLOL TARTRATE 50 MG TAB PO SCH (09:24)
[2016-10-28] MEDS: MULTIVITAMIN TAB PO SCH (09:25)
[2016-10-28] MEDS: PANTOprazole SOD 40 MG TAB PO SCH (09:25)
[2016-10-28] MEDS: AMIODARONE 200 MG TAB PO SCH (09:26)
[2016-10-28] MEDS: FUROSEMIDE 40 MG TAB PO SCH (09:29)
[2016-10-28] MEDS: VITAMIN B COMPLEX TAB PO SCH (09:30)
--- NOTE | 2016-10-28 09:44 | Progress Note ---
Internal Med Progress Note Date of Service: October 28, 2016. Provider Documentation: SUBJECTIVE: Seen and examined at bedside. States feeling well. Offers no complaints. Denies any chest pain, palpitations, SOB, abd pain, nausea or dizziness. OBJECTIVE: Vital Signs-as noted below Exam: Vitals signs as noted above General Appearance:Moderately built and nourished, no apparent distress Head: normocephalic, Atraumatic Eyes: normal inspection, EOMI, PERRL Neck: supple, Trachea midline Respiratory/Chest: Normal breath sounds, Scattered creps as bases, No accessory muscle use Cardiovascular: Irregularly irregular, + systolic murmur Abdomen/GI:Soft, Non tender, Bowel sounds present Extremities/Musculoskelatal:normal inspection, 1-2+ b/l edema Neurologic/Psych:AAOX3, grossly no focal neurological deficits Skin: normal color, warm Lab data as noted below. ASSESSMENT & PLAN: ATRIAL FIBRILLATION with RVR Appreciate Cardiology help Beta edith transitioned from atenolol to metoprolol tartrate. Digoxin and amiodarone initiated 10/20. INR therapeutic: 3.4 >>>2.8 Hold warfarin today Monitor INR Continue cardiac monitoring Currently asymptomatic CHF Acute Exacerbation likely secondary to Afib with RVR Underlying valvular heart disease (severe ). Normal LVEF. S/P IV furosemide Continue PO lasix which was increased from 40mg to 60mg daily Cardiology following CRITICAL AORTIC STENOSIS Patient has opted not to pursue surgical intervention. CORONARY ARTERY DISEASE No anginal symptoms. Beta edith transitioned from atenolol to metoprolol tartrate. Troponin: Negative Plavix discontinued Continue statin, BB HYPERTENSION BP stable Benazepril discontinued Beta edith transitioned from atenolol to metoprolol Monitor ? GI BLEED Patient reported dark stools at home. Hemoccult negative. No acute issues Monitor Hb:11.4 On warfarin for afib Continue PPI. CKD III Serum cr stable at 1.2 Monitor DM II Diet controlled. Monitor ALTERED MENTAL STATUS Resolved Episode of decreased responsiveness on 10/24: unknown cause Head CT: No acute process Monitor DVT PX INR therapeutic: On warfarin. Ambulate CODE STATUS DNR DISPOSITION Plan to [place] home with Home health today Follow up with Dr. Cantu on 11/02 at 10:30 AM Follow up with Cardiology with Dr. Saunders on 11/02/16 at 12:45 pm Get PT/INR checked on 10/29/2016 and follow up with Coumadin clinic for dosing of your Coumadin Family: Son Jose A cell #: [phone]: Updated son on 10/28/16 Vital Signs: Date Time Temp Pulse Resp B/P Pulse Ox O2 Delivery O2 Flow Rate FiO2 10/28/16 07:30 36.5 93 19 148/70 93 Room Air 10/28/16 04:13 36.5 69 18 112/69 93 Room Air 10/28/16 04:00 Room Air 10/28/16 00:00 Room Air 10/27/16 23:45 36.6 76 18 116/58 92 Room Air 10/27/16 20:00 Room Air 10/27/16 19:36 36.5 89 18 119/58 94 Room Air 10/27/16 16:47 86 10/27/16 16:00 96 Room Air 10/27/16 15:15 36.6 87 18 119/70 96 Room Air 10/27/16 12:00 93 Room Air 10/27/16 11:00 36.6 86 20 94/59 93 Room Air Lab Results: Results Past 24 Hours Test 10/28/16 07:36 Range/Units Prothrombin Time 31.8 9.0-12.0 SECONDS Prothromb Time International Ratio 2.8 0.9-1.1 Sodium Level 140 136-145 mmol/L Potassium Level 4.0 3.5-5.1 mmol/L Chloride Level 102 98-107 mmol/L Carbon Dioxide Level 31 21-32 mmol/L Anion Gap 7.0 3-11 mmol/L Blood Urea Nitrogen 18 7-18 mg/dl Creatinine 1.20 0.60-1.20 mg/dl Est Creatinine Clear Calc Drug Dose 28.0 ml/min Estimated GFR () 47.4 Estimated GFR (Non- 40.9 BUN/Creatinine Ratio 15.3 10-20 Random Glucose 94 70-99 mg/dl Calcium Level 9.4 8.5-10.1 mg/dl Magnesium Level 2.2 1.8-2.4 mg/dl
[2016-10-28] MEDS ORDERED: LNX125 PO (10:35)
[2016-10-28] MEDS ORDERED: CMD25 PO ×2 (10:35)
[2016-10-28] MEDS ORDERED: METO50TA17 PO (10:35)
[2016-10-28] MEDS ORDERED: CRD200 PO (10:35)
[2016-10-28] MEDS ORDERED: LSX40 PO (10:35)
--- NOTE | 2016-10-28 10:39 | Discharge Summary ---
Discharge Summary Date of Service October 28, 2016. Discharge Summary Admission Date: October 18, 2016 at 15:12 Discharge Date: October 28, 2016 Discharge Disposition: Home with services Principal Diagnosis: Atrial Fibrillation With Rvr Procedures: CT Head: : No acute intracranial findings ECHO: * Atrial fibrillation with rapid ventricular rate was present during the echocardiogram study. * The left ventricular wall motion is normal. * There is severe concentric left ventricular hypertrophy. * The LV Ejection Fraction = 50-55%. * The left atrium is severely dilated. * The right atrium is mildly dilated. * The aortic valve is severely calcified. * Severe aortic stenosis is suspected based on 2D images, however not confirmed on Doppler. * The Doppler evaluation is technically limited. * There is severe mitral annular calcification. * There is no mitral valve stenosis. * There is moderate mitral regurgitation. * There is moderate to severe tricuspid regurgitation. * The pulmonary arterys systolic pressure is calculated to be 30 mm Hg (normal ) . CXR: 1. Improvement in the pulmonary edema. 2. Small bilateral pleural effusions and cardiomegaly persist. 3. Right paratracheal focal density. This could be due to engorgement of the vascular structures. However, follow-up is recommended to ensure stability/resolution of this finding. Consultations: Cardiology . Pending Studies/Follow-Up: Follow up with Dr. Cantu on 11/02 at 10:30 AM Follow up with Cardiology with Dr. Saunders on 11/02/16 at 12:45 pm DO NOT TAKE COUMADIN TODAY Get PT/INR checked on 10/29/2016 (Tomorrow) and follow up with Coumadin clinic for dosing of your Coumadin based on your blood test Medication Reconciliation New Medications: Warfarin Sod (Coumadin) 2.5 Mg Tab 1 MG PO UD for 30 Days, #60 Follow up with coumadin clinic for dosing of coumadin based on your PT/INR Amiodarone HCl (Amiodarone HCl) 200 Mg Tab 200 MG PO BID for 30 Days, #60 TAB Digoxin (Digoxin) 0.125 Mg Tab 0.125 MG PO MoWeFr@1600 for 30 Days, TAB Furosemide (Furosemide) 40 Mg Tab 60 MG PO QAM for 30 Days, #45 TAB Metoprolol Tartrate (Metoprolol Tartrate) 50 Mg Tab 75 MG PO TID for 30 Days, #135 TAB Warfarin Sod (Coumadin) 2.5 Mg Tab 2.5 MG PO UD for 30 Days, #60 TAB Follow up with coumadin clinic for coumadin dosing based on PT/INR Continued Medications: Alendronate Sodium (Fosamax) 70 Mg Tab 70 MG PO WK, TAB B-Complex W/ Folic Acid (B Complex) 1 Tab Tab 1 TAB PO DAILY Cholecalciferol (Vitamin D) 400 Unit Tab 400 UNITS PO Q2D Krill Oil (Krill Oil) 1 Cap Cap 1 CAP PO DAILY Multivitamin (Multivitamin) Tab 1 TAB PO DAILY, 0 Refills Pantoprazole (Protonix) 40 Mg Tab 40 MG PO DAILY, 0 Refills Simvastatin (Zocor) 20 Mg Tab 20 MG PO QPM Vitamin E (Vitamin E) 400 Unit Tab 400 UNITS PO Q2D Discontinued Medications: Amlodipine (Norvasc) 5 Mg Tab 5 MG PO DAILY, 0 Refills Atenolol (Tenormin) 100 Mg Tab 50 MG PO BID, TAB Benazepril (Lotensin) 40 Mg Tab 40 MG PO DAILY, 0 Refills Clopidogrel (Plavix) 75 Mg Tab 75 MG PO DAILY, 0 Refills Furosemide (Lasix) 40 Mg Tab 40 MG PO DAILY, 0 Refills Admission Information HPI (per Admitting provider): This is an 86 y/o female with PMHx of CKD stage 3, diet-controlled DM2, severe aortic stenosis, HTN, Dyslipidemia and other problems as outlined below who presents to the ED with worsening exertional SOB. Pt reports that for the past 2 weeks she has been developing worsening SOB. Her sxs are assoc with weakness, fatigue and some lightheadedness. Pt mentions that she was sick a few weeks ago and completed a course of amoxicillin. Shortly after taking the antibiotics she developed diarrhea that was black. Since that time the diarrhea has resolved and her stool is no longer black. Pt mentions she has been under increased stress recently as her was recently placed in [facility] and likely will not return home. All her family lives in [facility]. Pt has a history of severe . She refuses surgical intervention. Pt follows with cardiology, Dr. Saunders. She was seen by Dr. Saunders this morning for her sxs where she was noted to be in Afib with RVR. Cardiology referred pt to the ED for further evaluation. Pt denies fever/chills, diaphoresis, chest pain, syncope, palpitations, abd pain, N/V, bowel or bladder issues, worsening LE edema or calf pain. In the ED, pt is tachy (130s) and hypotensive on arrival. HgB 11.5. K + 3.4. Creat 1.3. Trop negative. EKG: afib with RVR at [address] depression lateral leads. Pt is stable and will be admitted for further evaluation and treatment. Physical Exam (per Admitting): General Appearance: WD/WN, no apparent distress, + pertinent finding (Pt is sitting up in bed ) Head: normocephalic, atraumatic Eyes: normal inspection ENT: hearing grossly normal Neck: supple Respiratory/Chest: chest non-tender, lungs clear, normal breath sounds, no respiratory distress Cardiovascular: + tachycardia, + systolic murmur (III/ DEMETRIO), + irregularly irregular Abdomen/GI: normal bowel sounds, non tender, soft Back: normal inspection Extremities/Musculoskelatal: normal inspection, no calf tenderness, + pedal edema (2+ pitting edema to bilat LE) Neurologic/Psych: alert, normal mood/affect, oriented x 3 Skin: normal color, warm/dry Hospital Course ATRIAL FIBRILLATION with RVR Appreciate Cardiology help Beta edith transitioned from atenolol to metoprolol tartrate. Digoxin and amiodarone initiated 10/20. INR therapeutic: 3.4 >>>2.8 Hold warfarin today Monitor INR Continue cardiac monitoring Currently asymptomatic CHF Acute Exacerbation likely secondary to Afib with RVR Underlying valvular heart disease (severe ). Normal LVEF. S/P IV furosemide Continue PO lasix which was increased from 40mg to 60mg daily Cardiology following CRITICAL AORTIC STENOSIS Patient has opted not to pursue surgical intervention. CORONARY ARTERY DISEASE No anginal symptoms. Beta edith transitioned from atenolol to metoprolol tartrate. Troponin: Negative Plavix discontinued Continue statin, BB HYPERTENSION BP stable Benazepril discontinued Beta edith transitioned from atenolol to metoprolol Monitor ? GI BLEED Patient reported dark stools at home. Hemoccult negative. No acute issues Monitor Hb:11.4 On warfarin for afib Continue PPI. CKD III Serum cr stable at 1.2 Monitor DM II Diet controlled. Monitor ALTERED MENTAL STATUS Resolved Episode of decreased responsiveness on 10/24: unknown cause Head CT: No acute process Monitor DVT PX INR therapeutic: On warfarin. Ambulate CODE STATUS DNR DISPOSITION Plan to [place] home with Home health today Follow up with Dr. Cantu on 11/02 at 10:30 AM Follow up with Cardiology with Dr. Saunders on 11/02/16 at 12:45 pm Get PT/INR checked on 10/29/2016 and follow up with Coumadin clinic for dosing of your Coumadin Family: Hawk Naranjo cell #: [phone]: Updated son on 10/28/16 Total time spent on discharge = 40 minutes This includes examination of the patient, discharge planning, medication reconciliation, and communication with other providers. Discharge Instructions Discharge Instructions Date of Service October 28, 2016. Admission Reason for Admission: Atrial Fibrillation With Rvr Discharge Discharge Diagnosis / Problem: Afib with RVR Discharge Goals Goal(s): Decrease discomfort, Improve function Activity Recommendations Activity Limitations: resume your previous activity Exercise/Sports Limitations: as tolerated . Instructions / Follow-Up Instructions / Follow-Up Follow up with Dr. Cantu on 11/02 at 10:30 AM Follow up with Cardiology with Dr. Saunders on 11/02/16 at 12:45 pm DO NOT TAKE COUMADIN TODAY Get PT/INR checked on 10/29/2016 (Tomorrow) and follow up with Coumadin clinic for dosing of your Coumadin based on your blood test Current Hospital Diet Patient's current hospital diet: Diabetes Type 2 Diet Discharge Diet Recommended Diet: Diabetes Type 2 Diet Pending Studies Studies pending at discharge: no Medical Emergencies . Who to Call and When: Medical Emergencies: If at any time you feel your situation is an emergency, please call 911 immediately. . Non-Emergent Contact Non-Emergency issues call your: Primary Care Provider, Revenue Accountant Call Non-Emergent contact if: you have a fever, your pain is not controlled, your pain is worsening, your pain is unusual for you, you have any medication questions . . "Provider Documentation" section prepared by Wilbur Bernstein. . VTE Core Measure Inpt VTE Proph given/why not?: Warfarin (Coumadin)
[2016-10-28 11:38] VITALS: BP 144/62; PULSE 88; TEMP 36.7; O2SAT 95
--- NOTE | 2016-10-29 23:25 | EDITING REQUIRED CODING QUERY ---
CONGESTIVE HEART FAILURE To Promote full compliance with coding requirements relating to patient care, physician participation is requested in all cases of stitcher feeder uncertainty. Please assist us with the following questions. A diagnosis of Congestive Heart Failure is documented in the patient's medical record. To accurately code this diagnosis and to compare patient severity, we ask that you specify the type of heart failure by placing an X within the parenthesis (x). SYSTOLIC HEART FAILURE ( ) Acute ( ) Chronic ( X) Acute on Chronic ( ) Rheumatic ( ) Unknown DIASTOLIC HEART FAILURE ( ) Acute ( ) Chronic ( ) Acute on Chronic ( ) Rheumatic ( ) Unknown COMBINED SYSTOLIC AND DIASTOLIC HEART FAILURE ( ) Acute ( ) Chronic ( ) Acute on Chronic ( ) Rheumatic ( ) Unknown Was the CHF Present On Admission? Please check the appropriate box: ( ) Present on Admission (X ) Not Present On Admission ( ) Clinically undetermined Thank you Jeanine Vallecillo
== END 2016-10-28 12:49 | disposition home health service (06) | DRG 309 ==
LOC: ENRESERVDT → ENRESERVTM → C.EDB 12:52 → C.2T 15:12
PROVIDERS: ADMIT Internal Medicine; ATTEND Internal Medicine
PROC: B246ZZ4 Ultrasonography of Right and Left Heart, Transesophageal (ICD-10-PCS; principal; 2016-10-20)
DX: I48.91 Unspecified atrial fibrillation (principal); I13.0 Hypertensive heart and chronic kidney disease with heart failure and stage 1 through stage 4 chronic kidney disease, or unspecified chronic kidney disease; N18.3 Chronic kidney disease, stage 3 (moderate); E11.22 Type 2 diabetes mellitus with diabetic chronic kidney disease; E78.5 Hyperlipidemia, unspecified; M19.90 Unspecified osteoarthritis, unspecified site; I08.3 Combined rheumatic disorders of mitral, aortic and tricuspid valves; I25.10 Atherosclerotic heart disease of native coronary artery without angina pectoris; R00.0 Tachycardia, unspecified; Z66 Do not resuscitate; E87.6 Hypokalemia; I48.92 Unspecified atrial flutter; I95.9 Hypotension, unspecified; E03.9 Hypothyroidism, unspecified; M48.00 Spinal stenosis, site unspecified; R09.02 Hypoxemia; R63.0 Anorexia; Z68.27 Body mass index [BMI] 27.0-27.9, adult; Z79.899 Other long term (current) drug therapy; Z79.02 Long term (current) use of antithrombotics/antiplatelets; Z87.11 Personal history of peptic ulcer disease; Z86.73 Personal history of transient ischemic attack (TIA), and cerebral infarction without residual deficits; Z88.6 Allergy status to analgesic agent; Z88.5 Allergy status to narcotic agent; Z88.7 Allergy status to serum and vaccine; Z90.710 Acquired absence of both cervix and uterus; Z98.51 Tubal ligation status; Z98.49 Cataract extraction status, unspecified eye; Z82.49 Family history of ischemic heart disease and other diseases of the circulatory system; Z83.3 Family history of diabetes mellitus; Z82.3 Family history of stroke

== ENCOUNTER 2016-10-31 14:04 | Emergency (ER) | payer OTHER ==
[~2016-10-31] VITALS: Ht 152.4 cm; Wt 61.4 kg
[~2016-10-31 14:04] MED LIST changes: +ALEN70TA4 PO; -AMLO-110 PO; -ATEN-175 PO; +B-COTAB53 PO; -BENA1TAB53 PO; +CHOL400T5 PO; -CLOP1TAB15 PO; +CMD25 PO; +CRD200 PO; -EZET10TA38 PO; -FRS/40 PO; +KRIL1000 PO; +LNX125 PO; +LSX40 PO; +METO50TA17 PO; +SIMV20TA5 PO; +VITA1TAB4 PO; -VITA400C15 PO
[2016-10-31 14:22] VITALS: Ht 152.4 cm; Wt 61.4 kg
--- NOTE | 2016-10-31 14:31 | EMERGENCY ROOM VISIT NOTE ---
History Report prepared by Grady: Coral Jones Under the Supervision of: Cheli Martinez.O. First contact with patient: 14:06 Stated Complaint: IRREGULAR HEART BEAT History of Present Illness The patient is a 86 year old female who presents to the Emergency Room with complaints of headache and intermittent tachycardia since this morning. The patient states that she typically checks her HR, BP, and O2 at home. She was checking it this morning and her heart rate was 125 this morning. Denies any palpitations/chest pain/sob. She states that she has checked it multiple times since then and it has fluctuated. Her BP and O2 were normal. The patient also reports pain in the back of her head and decreased appetite. Her headache started this morning after she woke up. She did eat a small breakfast this morning, minimal fluids. The patient was recently in the hospital from October 18 to October 28 for atrial fibrillation. She states that she has been doing well since she was discharged. She has been taking her medications as prescribed and took her usual medications this morning. She also notes that she has been drinking fluids today. The patient denies chest pain, shortness of breath, dizziness, and urinary symptoms. She takes Warfarin. Source of History: patient Onset: this morning Position: chest Symptom Intensity: HR 125 Quality: other (tachycardia) Timing: intermittent Associated Symptoms: + headache, No SOB, No chest pain, No urinary symptoms Note: Pt notes decreased appetite. Pt denies dizziness. Review of Systems See HPI for pertinent positives & negatives. A total of 10 systems reviewed and were otherwise negative. Past Medical & Surgical Medical Problems: (1) Aortic valve stenosis (2) Atrial fibrillation with RVR (3) CKD (chronic kidney disease) stage 3, GFR 30-59 ml/min (4) Diabetes mellitus type II, controlled (5) Duodenal ulcer disease (6) Dyslipidemia (7) Gastric ulcer (8) HTN (hypertension) (9) Renal disorder associated with type II diabetes mellitus (10) Renal mass (11) Severe aortic stenosis (12) Spinal stenosis Surgical Problems: (1) History of carpal tunnel surgery (2) History of tonsillectomy and adenoidectomy (3) History of total hysterectomy (4) History of tubal ligation Family History Diabetes mellitus Heart disease Social History Smoking Status: Never Smoker Alcohol Use: none Drug Use: none Marital Status: Occupation Status: retired Current/Historical Medications Scheduled Alendronate Sodium (Fosamax), 70 MG PO WK Amiodarone HCl (Amiodarone HCl), 200 MG PO BID B-Complex W/ Folic Acid (B Complex), 1 TAB PO DAILY Cholecalciferol (Vitamin D), 400 UNITS PO Q2D Digoxin (Digoxin), 0.125 MG PO MoWeFr@1600 Furosemide (Furosemide), 60 MG PO QAM Krill Oil (Krill Oil), 1 CAP PO DAILY Metoprolol Tartrate (Metoprolol Tartrate), 75 MG PO TID Multivitamin (Multivitamin), 1 TAB PO DAILY Pantoprazole (Protonix), 40 MG PO DAILY Simvastatin (Zocor), 20 MG PO QPM Vitamin E (Vitamin E), 400 UNITS PO Q2D Warfarin Sod (Coumadin), 1 MG PO UD Allergies Coded Allergies: Morphine (Verified Allergy, Intermediate, 07/25/09) Aspirin (Verified Allergy, Unknown, ., 10/18/16) Pneumococcal Vaccine (Verified Allergy, Unknown, SWELLING, 10/18/16) Sulindac (Verified Allergy, Unknown, 05/16/12) Physical Exam Vital Signs Date Time Temp Pulse Resp B/P Pulse Ox O2 Delivery O2 Flow Rate FiO2 10/31/16 16:42 85 16 110/60 95 Room Air 10/31/16 15:34 94 22 133/87 98 Room Air 10/31/16 14:26 78 10/31/16 14:22 Room Air 10/31/16 14:17 96 Room Air Physical Exam GENERAL: alert, anxious appearing, well nourished, no distress, non-toxic EYE EXAM: normal conjunctiva, PERRL and EOM's grossly intact OROPHARYNX: no exudate, no erythema, lips, buccal mucosa, and tongue normal and mucous membranes are moist NECK: supple, no nuchal rigidity, no adenopathy, non-tender LUNGS: Clear to auscultation. Normal chest wall mechanics HEART: Irregular, systolic ejection murmur that radiates to her carotids, S1 normal and S2 normal ABDOMEN: abdomen soft, non-tender, normo-active bowel sounds, no masses, no rebound or guarding. BACK: Back is symmetrical on inspection and there is no deformity, no midline tenderness, no CVA tenderness. SKIN: no rashes and no bruising UPPER EXTREMITIES: upper extremities are grossly normal. LOWER EXTREMITIES: No pitting edema. NEURO EXAM: Normal sensorium, cranial nerves II-XII grossly intact, normal speech, no gross weakness of arms, no gross weakness of legs. Medical Decision & Procedures ER Provider Diagnostic Interpretation: Radiology results have been interpreted by the radiologist and reviewed by me. HEAD CT NONCONTRAST CT DOSE: 569.73 mGy.cm HISTORY: Headache. TECHNIQUE: Multiaxial CT images of the head were performed without the use of intravenous contrast. Automated exposure control was utilized for this study. Comparison: Head CT 10/24/2016. Findings: The paranasal sinuses and mastoid air cells are clear. The calvarium and skull base are intact. There is no mass, hematoma, midline shift, acute infarct. White matter hypodensity is nonspecific but suggestive of microvascular ischemic change. The ventricles and sulci demonstrate mild age-related involutional changes. Impression: No significant change compared to the prior study. No acute intracranial abnormality. Electronically signed by: Randell Banuelos M.D. 10/31/2016 3:10 PM Dictated Date/Time: 10/31/2016 3:08 PM Laboratory Results 10/31/16 14:45 Red Blood Count 3.93, Mean Corpuscular Volume 95.7, Mean Corpuscular Hemoglobin 32.3, Mean Corpuscular Hemoglobin Concent 33.8, Mean Platelet Volume 9.3, Neutrophils (%) (Auto) 57.6, Lymphocytes (%) (Auto) 26.8, Monocytes (%) (Auto) 13.3, Eosinophils (%) (Auto) 1.6, Basophils (%) (Auto) 0.7, Neutrophils # (Auto ) 2.52, Lymphocytes # (Auto) 1.17, Monocytes # (Auto) 0.58, Eosinophils # (Auto ) 0.07, Basophils # (Auto) 0.03 10/31/16 14:45 Test 10/31/16 14:45 10/31/16 15:21 White Blood Count 4.37 K/uL (4.8-10.8) Red Blood Count 3.93 M/uL (4.2-5.4) Hemoglobin 12.7 g/dL (12.0-16.0) Hematocrit 37.6 % (37-47) Mean Corpuscular Volume 95.7 fL (80-100) Mean Corpuscular Hemoglobin 32.3 pg (25-34) Mean Corpuscular Hemoglobin Concent 33.8 g/dl (32-36) Platelet Count 184 K/uL (130-400) Mean Platelet Volume 9.3 fL (7.4-10.4) Neutrophils (%) (Auto) 57.6 % Lymphocytes (%) (Auto) 26.8 % Monocytes (%) (Auto) 13.3 % Eosinophils (%) (Auto) 1.6 % Basophils (%) (Auto) 0.7 % Neutrophils # (Auto) 2.52 K/uL (1.4-6.5) Lymphocytes # (Auto) 1.17 K/uL (1.2-3.4) Monocytes # (Auto) 0.58 K/uL (0.11-0.59) Eosinophils # (Auto) 0.07 K/uL (0-0.5) Basophils # (Auto) 0.03 K/uL (0-0.2) RDW Standard Deviation 49.6 fL (36.4-46.3) RDW Coefficient of Variation 14.2 % (11.5-14.5) Immature Granulocyte % (Auto) 0.0 % Immature Granulocyte # (Auto) 0.00 K/uL (0.00-0.02) Prothrombin Time 19.4 SECONDS (9.0-12.0) Prothromb Time International Ratio 1.8 (0.9-1.1) Anion Gap 5.0 mmol/L (3-11) Est Creatinine Clear Calc Drug Dose 19.4 ml/min Estimated GFR () 31.1 Estimated GFR (Non- 26.8 BUN/Creatinine Ratio 12.2 (10-20) Calcium Level 8.8 mg/dl (8.5-10.1) Total Bilirubin 0.9 mg/dl (0.2-1) Aspartate Amino Transf (AST/SGOT) 31 U/L (15-37) Alanine Aminotransferase (ALT/SGPT) 33 U/L (12-78) Alkaline Phosphatase 71 U/L (45-117) Troponin I 0.032 ng/ml (0-0.045) Total Protein 7.2 gm/dl (6.4-8.2) Albumin 4.1 gm/dl (3.4-5.0) Globulin 3.1 gm/dl (2.5-4.0) Albumin/Globulin Ratio 1.3 (0.9-2) Urine Color YELLOW Urine Appearance CLEAR (CLEAR) Urine pH 7.0 (4.5-7.5) Urine Specific [place] 1.006 (1.000-1.030) Urine Protein NEG (NEG) Urine Glucose (UA) NEG (NEG) Urine Ketones NEG (NEG) Urine Occult Blood NEG (NEG) Urine Nitrite NEG (NEG) Urine Bilirubin NEG (NEG) Urine Urobilinogen NEG (NEG) Urine Leukocyte Esterase NEG (NEG) Laboratory results per my review. Medications Administered Medications (Trade) Dose Ordered Sig/Kip Route Start Time Stop Time Status Last Admin Dose Admin Warfarin Sodium (Coumadin Tab) 2 mg NOW ONCE PO 10/31/16 16:30 10/31/16 16:31 DC 10/31/16 16:38 2 MG Enoxaparin Sodium (Lovenox Inj) 60 mg NOW STAT SQ 10/31/16 16:28 10/31/16 16:29 DC 10/31/16 16:47 60 MG ECG Indication: tachycardia Rate (beats per minute): 84 Rhythm: atrial fibrillation Findings: no acute ischemic change, other (normal axis, normal QRS/QTC; slight downward sloping of ST segment noted in multiple leads most likely related to digoxin use) Comparison ECG Date: 10/24/16 Change: no significant change ED Course 1406: The patient was evaluated in room B9. A complete history and physical exam was performed. 1526: I reassessed the patient and she is doing well. 1604: Tylenol tab 1000 mg PO - Pt declined 1611: I reassessed the patient at this time. She is feeling better and resting comfortably. I discussed the results and treatment plan with the patient. I answered all pertaining questions that she had. She expressed understanding and verbalized agreement. The patient will be discharged home. 1628: Lovenox 40 mg SQ 1630: Coumadin 2 mg PO Medical Decision Differential Diagnosis includes but is not limited to headache, tension headache , cluster headache, migraine, subarachnoid hemorrhage, meningitis, mass, central venous thrombus, concussion, trauma and epidural/subdural hemorrhage. She well-appearing here, no elevated heart rate during time on telemetry. Patient's headache resolved spontaneously without intervention, was offered Tylenol. No acute abnormalities noted on head CT, patient with a normal and nonfocal neurologic exam at bedside. Doubt occult intracranial hemorrhage, CVA , dissection. Patient anti-coagulated and is slightly subtherapeutic, she was bridged and given an additional dose. Patient with a history of chronic kidney disease, creatinine slightly elevated tonight compared to discharge. Patient made aware of this, no evidence of infection. Possibly due to mild dehydration and medications. Discussed with patient close follow-up with family doctor, continue use of medications, need for repeat evaluation of her creatinine as well as her INR, discussed symptoms to watch and return for, she verbalized understanding was agreeable with plan. Doubt occult infectious process, doubt ACS. Patient with multiple chronic comorbidities that seem at her baseline. Patient tolerated by mouth, ambulated with a steady gait while here. Impression Primary Impression: Headache Additional Impressions: Atrial fibrillation CHRONIC KIDNEY DISEASE, UNSPECIFIED Scribe Attestation The scribe's documentation has been prepared under my direction and personally reviewed by me in its entirety. I confirm that the note above accurately reflects all work, treatment, procedures, and medical decision making performed by me. Departure Information Dispostion Home / Self-Care Referrals Johnny Saunders M.D. (PCP) Forms IMPORTANT VISIT INFORMATION Additional Instructions Please have your family doctor recheck your kidney function as it was mildly elevated today compared to prior. The creatinine was 1.7. Please have your INR rechecked also as it was mildly low at 1.8. You were given an extra dose of a blood thinner to help. If you have any recurrent headaches, develop chest pain/pressure, trouble breathing, vomiting, fevers, dizziness, vision changes, difficulty walking, or you have any other new or concerning symptoms, please return to the ER immediately. Problem Qualifiers Primary Impression: Headache Headache type: unspecified Headache chronicity pattern: acute headache Intractability: not intractable Qualified Codes: R51 - Headache Additional Impressions: Atrial fibrillation Atrial fibrillation type: chronic Qualified Codes: I48.2 - Chronic atrial fibrillation
[2016-10-31 14:56] LABS: BASO % 0.7 %; BASO ABS # 0.03 K/uL (0-0.2); COMPLETE YES; EOS % 1.6 %; HEMATOCRIT 37.6 % (37-47); LYMPH % 26.8 %; LYMPH ABS # 1.17 K/uL (1.2-3.4); MEAN CELL VOLUME 95.7 fL (80-100); MEAN CORPUSCULAR HEMOGLOBIN 32.3 pg (25-34); MEAN CORPUSCULAR HGB CONC 33.8 g/dl (32-36); MEAN PLATELET VOLUME 9.3 fL (7.4-10.4); MONO % 13.3 %; NEUT % 57.6 %; PLATELET COUNT 184 K/uL (130-400); RED BLOOD COUNT 3.93 M/uL (4.2-5.4); WHITE BLOOD COUNT 4.37 K/uL (4.8-10.8)
[2016-10-31 15:02] LABS: INR 1.8 (0.9-1.1); PROTHROMBIN TIME (PATIENT) 19.4 SECONDS (9.0-12.0)
--- NOTE | 2016-10-31 15:11 | DIAGNOSTIC IMAGING REPORT ---
HEAD CT NONCONTRAST CT DOSE: 569.73 mGy.cm HISTORY: Headache. TECHNIQUE: Multiaxial CT images of the head were performed without the use of intravenous contrast. Automated exposure control was utilized for this study. Comparison: Head CT 10/24/2016. Findings: The paranasal sinuses and mastoid air cells are clear. The calvarium and skull base are intact. There is no mass, hematoma, midline shift, acute infarct. White matter hypodensity is nonspecific but suggestive of microvascular ischemic change. The ventricles and sulci demonstrate mild age-related involutional changes. Impression: No significant change compared to the prior study. No acute intracranial abnormality. Electronically signed by: Randell Banuelos M.D. 10/31/2016 3:10 PM Dictated Date/Time: 10/31/2016 3:08 PM
[2016-10-31 15:12] LABS: BUN/CREATININE RATIO 12.2 (10-20); CALCIUM 8.8 mg/dl (8.5-10.1); CREATININE 1.7 mg/dl (0.60-1.20); POTASSIUM 3.7 mmol/L (3.5-5.1)
[2016-10-31 15:17] LABS: ALB/GLOB RATIO 1.3 (0.9-2)
[2016-10-31 15:41] LABS: URINE APPEARANCE CLEAR (CLEAR); URINE BILIRUBIN NEG (NEG); URINE COLOR YELLOW; URINE NITRITE NEG (NEG); URINE SPECIFIC GRAVITY 1.006 (1.000-1.030); UROBILINOGEN NEG (NEG); ZZUR CULT IF INDIC CLEAN CATCH NO
[2016-10-31 15:44] LABS: MANUAL MICROSCOPIC REQUIRED? NO; REVIEW REQ? NO
[2016-10-31] MEDS ORDERED: ACETAMINOPHEN 500 MG TAB PO STA (16:04)
[2016-10-31] MEDS ORDERED: ENOXAPARIN 1 MG/KG SQ STA (16:22)
[2016-10-31] MEDS ORDERED: ENOXAPARIN 60 MG/0.6 ML SYR SQ STA (16:28)
[2016-10-31] MEDS ORDERED: WARFARIN SOD 1 MG TAB PO ONE (16:30)
[2016-10-31 16:42] VITALS: BP 110/60; PULSE 85; O2SAT 95
== END 2016-10-31 16:57 | disposition home or self-care (01) ==
LOC: EDBD 14:04 → C.EDB 14:06
DX: I48.91 Unspecified atrial fibrillation (principal); I12.9 Hypertensive chronic kidney disease with stage 1 through stage 4 chronic kidney disease, or unspecified chronic kidney disease; N18.9 Chronic kidney disease, unspecified; R51 Headache; E11.9 Type 2 diabetes mellitus without complications; E78.5 Hyperlipidemia, unspecified; I35.8 Other nonrheumatic aortic valve disorders; M48.00 Spinal stenosis, site unspecified; Z87.11 Personal history of peptic ulcer disease; Z90.710 Acquired absence of both cervix and uterus; Z98.51 Tubal ligation status; Z98.890 Other specified postprocedural states; Z79.899 Other long term (current) drug therapy; Z88.5 Allergy status to narcotic agent; Z88.6 Allergy status to analgesic agent; Z88.8 Allergy status to other drugs, medicaments and biological substances; Z83.3 Family history of diabetes mellitus; Z82.49 Family history of ischemic heart disease and other diseases of the circulatory system

== ENCOUNTER 2017-05-10 12:41 | Observation (INO) | payer OTHER ==
[~2017-05-10] VITALS: Ht 152.4 cm; Wt 68.2 kg
--- NOTE | 2017-05-10 13:24 | EMERGENCY ROOM VISIT NOTE ---
History Report prepared by Grady: Suri Cid Under the Supervision of: Dr. Huseyin Olvera M.D. First contact with patient: 13:11 Chief Complaint: SHORTNESS OF BREATH Stated Complaint: BREATHING DIFFICULTY/CHF Nursing Triage Summary: Patient arrived via [facility] from [facility], pt was seeing her PCP for complaints of increasing SOB & increased swelling to lower extremities, was sent to ER from office. Patient has history of A-fib & CHF -- takes Lasix and took her dose this am. "I very seldomly have a cough." Denies coughing anything up. History of Present Illness The patient is a 87 year old female who presents to the Emergency Room with complaints of constant swelling to her bilateral legs beginning 2 days ago. The patient reports that she had to try on six pairs of shoes to find a pair that was able to fit because of swelling. She also states that she is short of breath, but that this is chronic for her. She reports having a fall in October. The patient states that she is on Coumadin and reports a history of atrial fibrillation and aorta problems. Source of History: patient Onset: 2 days ago Position: leg (bilateral) Quality: other (swelling ) Timing: constant Associated Symptoms: + SOB (chronic ) Review of Systems All systems have been listed, reviewed, and are negative other than those previously mentioned. Please see Additional Medical History Sheet. Past Medical & Surgical Medical Problems: (1) CKD (chronic kidney disease) stage 3, GFR 30-59 ml/min (2) Diabetes mellitus type II, controlled (3) Dyslipidemia (4) HTN (hypertension) (5) Persistent atrial fibrillation (6) Renal mass (7) Severe aortic stenosis (8) Spinal stenosis Surgical Problems: (1) History of carpal tunnel surgery (2) History of tonsillectomy and adenoidectomy (3) History of total hysterectomy (4) History of tubal ligation Social History Problems: (1) Atrial fibrillation with RVR (2) Renal disorder associated with type II diabetes mellitus Family History Diabetes mellitus Heart disease Social History Smoking Status: Never Smoker Alcohol Use: none Drug Use: none Marital Status: Housing Status: lives alone Occupation Status: retired Current/Historical Medications Scheduled Amiodarone HCl (Amiodarone HCl), 200 MG PO DAILY Digoxin (Digoxin), 0.125 MG PO MoWeFr@1600 Furosemide (Furosemide), 40 MG PO DAILY Metoprolol Tartrate (Lopressor), 75 MG PO DAILY Multivitamin (Multivitamin), 1 TAB PO DAILY Pantoprazole (Protonix), 40 MG PO DAILY Simvastatin (Zocor), 20 MG PO QPM Warfarin Sodium (Coumadin), 1 MG PO UD Warfarin Sodium (Coumadin), 2 MG PO UD Allergies Coded Allergies: Morphine (Verified Allergy, Intermediate, 05/10/17) Aspirin (Verified Allergy, Unknown, ., 05/10/17) Pneumococcal Vaccine (Verified Allergy, Unknown, SWELLING, 05/10/17) Sulindac (Verified Allergy, Unknown, 05/10/17) Physical Exam Vital Signs Date Time Temp Pulse Resp B/P (MAP) Pulse Ox O2 Delivery O2 Flow Rate FiO2 05/10/17 16:56 75 05/10/17 15:55 83 20 115/62 99 Room Air 05/10/17 12:52 82 05/10/17 12:48 97 Room Air 05/10/17 12:48 98 Room Air 05/10/17 12:48 36.7 86 18 139/71 98 Room Air Physical Exam GENERAL: Patient awake, alert, oriented x 3. Patient follows commands. Patient does not appear toxic. Patient is adequately hydrated and well- nourished. SKIN: No erythema, pallor, cyanosis or rash. Scar over dorsal aspect of left leg. HEENT: Normal head, pupils equal, reactive to light and accommodation. LUNGS: Crackles at bases with occasional wheezes. No rales, no rhonchi. HEART: Grade 5/6 blowing systolic murmur. No gallops. No rubs ABDOMEN: No masses, no rebound, no hepatomegaly or splenomegaly. Soft, non- tender. EXTREMITIES: No signs of trauma. 2+ pitting pedal and pretibial edema. No calf or thigh tenderness. BACK: Kyphotic. NEUROLOGIC: Cranial nerves II-XII within normal limits. No gross motor sensory function deficits. Medical Decision & Procedures ER Provider Diagnostic Interpretation: Radiology results as stated below per my review and radiologist interpretation: CHEST ONE VIEW PORTABLE CLINICAL HISTORY: sob dyspnea COMPARISON STUDY: 10/26/2016 FINDINGS: Moderate cardiomegaly. Subtle increase in the prior exam. Small bilateral pleural effusions slightly increased in volume on the right is stable in the left. Persistent increase in pulmonary vasculature. IMPRESSION: Congestive heart failure. The above report was generated using voice recognition software. It may contain grammatical, syntax or spelling errors. Electronically signed by: Herbert Coleman M.D. 05/10/2017 2:18 PM Dictated Date/Time: 05/10/2017 2:17 PM Laboratory Results Test 05/10/17 12:26 RDW Standard Deviation 54.8 fL (36.4-46.3) RDW Coefficient of Variation 15.6 % (11.5-14.5) White Blood Count 5.08 K/uL (4.8-10.8) Red Blood Count 3.60 M/uL (4.2-5.4) Hemoglobin 11.1 g/dL (12.0-16.0) Hematocrit 34.3 % (37-47) Mean Corpuscular Volume 95.3 fL (80-100) Mean Corpuscular Hemoglobin 30.8 pg (25-34) Mean Corpuscular Hemoglobin Concent 32.4 g/dl (32-36) Platelet Count 140 K/uL (130-400) Mean Platelet Volume 9.1 fL (7.4-10.4) Neutrophils (%) (Auto) 68.7 % Lymphocytes (%) (Auto) 17.1 % Monocytes (%) (Auto) 12.2 % Eosinophils (%) (Auto) 1.4 % Basophils (%) (Auto) 0.6 % Neutrophils # (Auto) 3.49 K/uL (1.4-6.5) Lymphocytes # (Auto) 0.87 K/uL (1.2-3.4) Monocytes # (Auto) 0.62 K/uL (0.11-0.59) Eosinophils # (Auto) 0.07 K/uL (0-0.5) Basophils # (Auto) 0.03 K/uL (0-0.2) Immature Granulocyte % (Auto) 0.0 % Immature Granulocyte # (Auto) 0.00 K/uL (0.00-0.02) Est Creatinine Clear Calc Drug Dose 23.6 ml/min Total Bilirubin 1.1 mg/dl (0.2-1) Aspartate Amino Transf (AST/SGOT) 69 U/L (15-37) Alanine Aminotransferase (ALT/SGPT) 72 U/L (12-78) Alkaline Phosphatase 110 U/L (45-117) Troponin I 0.022 ng/ml (0-0.045) Total Protein 7.5 gm/dl (6.4-8.2) Albumin 3.8 gm/dl (3.4-5.0) Globulin 3.7 gm/dl (2.5-4.0) Albumin/Globulin Ratio 1.0 (0.9-2) Laboratory results as stated above per my review. Medications Administered Medications (Trade) Dose Ordered Sig/Kip Route Start Time Stop Time Status Last Admin Dose Admin Furosemide 60 mg/ Syringe 6 ml @ 4 mls/min ONE ONCE IV 05/10/17 16:00 05/10/17 16:01 DC 05/10/17 16:28 4 MLS/MIN ECG Indication: SOB/dyspnea Rate (beats per minute): 77 Rhythm: atrial fibrillation Findings: LBBB (incomplete), nonspecific-ST abn, other (left ventricular hypertrophy) ED Course 1315: Past medical records reviewed. The patient was evaluated in room B5. A complete history and physical examination was performed. 1600: Ordered Furosemide 60 mg/Syringe 6 ml @ 4 mls/min IV. 1610: Discussed the patient's case with Steffany Rodriguez PA-C. The patient will be evaluated for further management. 1647: I checked on the patient and she is doing well. She will be further evaluated by Steffany Rodriguez PA-C. Medical Decision Nurses notes reviewed. Medical history sheet reviewed. Differential diagnosis includes but is not limited to: CHF, pulmonary edema, and metabolic disorder. The patient arrived here from her family physician's office with significant peripheral edema. Chest x-ray and blood work were obtained. Please see above. The patient was found to have congestive heart failure. The patient was given IV Lasix. I discussed care with the patient. I feel that she warrants further evaluation in the hospital with IV diuretics. I discussed care with the patient, family friend and the hospitalist. Medication Reconcilliation Current Medication List: was personally reviewed by me Blood Pressure Screening Patient's blood pressure: Normal blood pressure Consults Time Called: 1530 Consulting Physician: Steffany Rodriguez PA-C Returned Call: 1610 Discussed the patient's case with Steffany Rodriguez PA-C. The patient will be evaluated for further management. Impression Primary Impression: Congestive heart failure Additional Impression: Persistent atrial fibrillation Scribe Attestation The scribe's documentation has been prepared under my direction and personally reviewed by me in its entirety. I confirm that the note above accurately reflects all work, treatment, procedures, and medical decision making performed by me. Departure Information Dispostion Being Evaluated By Hospitalist Referrals No Doctor, Assigned (PCP) Patient Instructions My [facility] Problem Qualifiers
[2017-05-10 13:37] LABS: BASO % 0.6 %; BASO ABS # 0.03 K/uL (0-0.2); COMPLETE YES; EOS % 1.4 %; HEMATOCRIT 34.3 % (37-47); LYMPH % 17.1 %; LYMPH ABS # 0.87 K/uL (1.2-3.4); MEAN CELL VOLUME 95.3 fL (80-100); MEAN CORPUSCULAR HEMOGLOBIN 30.8 pg (25-34); MEAN CORPUSCULAR HGB CONC 32.4 g/dl (32-36); MEAN PLATELET VOLUME 9.1 fL (7.4-10.4); MONO % 12.2 %; NEUT % 68.7 %; PLATELET COUNT 140 K/uL (130-400); WHITE BLOOD COUNT 5.08 K/uL (4.8-10.8)
[2017-05-10 13:51] LABS: BUN/CREATININE RATIO 13.5 (10-20); CALCIUM 9.1 mg/dl (8.5-10.1); CREATININE 1.45 mg/dl (0.60-1.20); POTASSIUM 3.9 mmol/L (3.5-5.1)
[2017-05-10 13:52] LABS: INR 1.4 (0.9-1.1); PROTHROMBIN TIME (PATIENT) 14.9 SECONDS (9.0-12.0)
[2017-05-10] MEDS ORDERED: WARF2TAB PO (14:02)
[2017-05-10] MEDS ORDERED: WARF1TAB PO (14:02)
--- NOTE | 2017-05-10 14:19 | DIAGNOSTIC IMAGING REPORT ---
CHEST ONE VIEW PORTABLE CLINICAL HISTORY: sob dyspnea COMPARISON STUDY: 10/26/2016 FINDINGS: Moderate cardiomegaly. Subtle increase in the prior exam. Small bilateral pleural effusions slightly increased in volume on the right is stable in the left. Persistent increase in pulmonary vasculature. IMPRESSION: Congestive heart failure. The above report was generated using voice recognition software. It may contain grammatical, syntax or spelling errors. Electronically signed by: Herbert Coleman M.D. 05/10/2017 2:18 PM Dictated Date/Time: 05/10/2017 2:17 PM
[2017-05-10] MEDS ORDERED: WARFARIN SOD 1 MG TAB PO SCH (16:00)
[2017-05-10] MEDS ORDERED: FUROSEMIDE INJ 60 MG in SYRINGE 0 ML IV ONE (16:00)
[2017-05-10] MEDS ORDERED: POLYETHYLENE (MIRALAX) 17 GM PACK PO PRN (17:00)
[2017-05-10] MEDS ORDERED: ONDANSETRON INJ 2 MG/ML 2 ML VIAL IV PRN (17:00)
[2017-05-10] MEDS ORDERED: METO-551 PO (17:17)
[2017-05-10] MEDS ORDERED: CRD200 PO (17:17)
[2017-05-10] MEDS ORDERED: LSX40 PO (17:17)
[2017-05-10 17:45] VITALS: O2SAT 98; Ht 152.4 cm; Wt 68.2 kg
--- NOTE | 2017-05-10 17:53 | History and Physical ---
History & Physical Date & Time of Service: May 10, 2017 at 17:25 Chief Complaint: Breathing Difficulty/Chf Primary Care Physician: Johnny Saunders M.D. 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 Patient states that she noticed increased leg swelling 2 weeks ago. Over the weekend, she had to try on 6 different pairs or shoes to fit a pair that fit due to the swelling. Additionally, patient states that dyspnea on exertion has gotten worse. Patient can normally ambulate around home with walker without feeling SOB but has felt SOB with just a few steps over the past few days. Also endorses increased fatigue and wheezing. Denies any non-compliance with her lasix or dietary changes. Per chart review, patient has gained 17 pounds since last month. Follows with Dr. Saunders for cardiac issues. Most recent echo in October of 2016 showed a decreased EF of 50-55% with severe aortic stenosis. Has discussed surgical management of with cardio before and is not interested in anything but medical management. Patient is on coumadin for persistent A fib that is generally rate controlled on metoprolol, digoxin and amiodarone. Has recently switched from eliquis to coumadin. Was seen in coumadin clinic earlier this week and they discovered that patient was only taking it twice a week. Patient now understands that she is to take 2.5mg Wed and Sat and 1mg all of the other days. Past Medical/Surgical History Medical Problems: (1) CKD (chronic kidney disease) stage 3, GFR 30-59 ml/min Status: Chronic (2) Diabetes mellitus type II, controlled Status: Chronic (3) Dyslipidemia Status: Chronic (4) HTN (hypertension) Status: Chronic (5) Persistent atrial fibrillation Status: Chronic (6) Renal mass Permanent Comment: Right renal mass 2005. Path nondiagnositic. Cryoablation performed at [facility] – [place] by. Dr. Muller. Status: Resolved (7) Severe aortic stenosis Status: Chronic (8) Spinal stenosis Status: Chronic Surgical Problems: (1) History of carpal tunnel surgery Status: Resolved (2) History of tonsillectomy and adenoidectomy Status: Resolved (3) History of total hysterectomy Status: Resolved (4) History of tubal ligation Status: Resolved Social History Problems: (1) Atrial fibrillation with RVR Status: Chronic (2) 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 Family History Diabetes mellitus Heart disease Social History Smoking Status: Never Smoker Alcohol Use: none Drug Use: none Marital Status: Housing status: lives alone Occupational Status: retired Immunizations History of Influenza Vaccine: Yes Influenza Vaccine Date: Mar 18, 2011 History of Tetanus Vaccine?: No History of Pneumococcal: Yes Pneumococcal Date: Apr 17, 2011 History of Hepatitis B Vaccine: No Multi-Drug Resistant Organisms History of MDRO: No Allergies Coded Allergies: Morphine (Verified Allergy, Intermediate, 05/10/17) Aspirin (Verified Allergy, Unknown, ., 05/10/17) Pneumococcal Vaccine (Verified Allergy, Unknown, SWELLING, 05/10/17) Sulindac (Verified Allergy, Unknown, 05/10/17) Home Medications Scheduled Amiodarone HCl (Amiodarone HCl), 200 MG PO DAILY Digoxin (Digoxin), 0.125 MG PO MoWeFr@1600 Furosemide (Furosemide), 40 MG PO DAILY Metoprolol Tartrate (Lopressor), 75 MG PO DAILY Multivitamin (Multivitamin), 1 TAB PO DAILY Pantoprazole (Protonix), 40 MG PO DAILY Simvastatin (Zocor), 20 MG PO QPM Warfarin Sodium (Coumadin), 1 MG PO UD Warfarin Sodium (Coumadin), 2 MG PO UD Review of Systems Ten systems reviewed and negative except as noted in the HPI. Physical Exam Vital Signs Date Time Temp Pulse Resp B/P (MAP) Pulse Ox O2 Delivery O2 Flow Rate FiO2 05/10/17 15:55 83 20 115/62 99 Room Air 05/10/17 12:52 82 05/10/17 12:48 97 Room Air 05/10/17 12:48 98 Room Air 05/10/17 12:48 36.7 86 18 139/71 98 Room Air General Appearance: WD/WN, no apparent distress Head: normocephalic, atraumatic Eyes: normal inspection, PERRL, sclerae normal ENT: normal ENT inspection, hearing grossly normal, pharynx normal (moist mucous membranes ) Neck: supple, trachea midline, + JVD Respiratory/Chest: chest non-tender, no respiratory distress, no accessory muscle use, + crackles (bibasilar), + wheezing (Scattered ) Cardiovascular: normal peripheral pulses, + systolic murmur (Harsh III/ systolic murmur heard throughout precordium ), + irregularly irregular, + pertinent finding (2+ pitting edema in bilateral LE to knees ) Abdomen/GI: non tender, soft, no organomegaly Back: normal inspection Extremities/Musculoskelatal: normal inspection, no calf tenderness, non-tender , + pertinent finding (Venous stasis but no skin breakdown ) Neurologic/Psych: no motor/sensory deficits, alert, normal mood/affect, oriented x 3 Skin: normal color, warm/dry, no rash Diagnostics Laboratory Results Results Past 24 Hours Test 05/10/17 12:26 05/10/17 17:07 Range/Units White Blood Count 5.08 4.8-10.8 K/uL Red Blood Count 3.60 4.2-5.4 M/uL Hemoglobin 11.1 12.0-16.0 g/dL Hematocrit 34.3 37-47 % Mean Corpuscular Volume 95.3 80-100 fL Mean Corpuscular Hemoglobin 30.8 25-34 pg Mean Corpuscular Hemoglobin Concent 32.4 32-36 g/dl Platelet Count 140 130-400 K/uL Mean Platelet Volume 9.1 7.4-10.4 fL Neutrophils (%) (Auto) 68.7 % Lymphocytes (%) (Auto) 17.1 % Monocytes (%) (Auto) 12.2 % Eosinophils (%) (Auto) 1.4 % Basophils (%) (Auto) 0.6 % Neutrophils # (Auto) 3.49 1.4-6.5 K/uL Lymphocytes # (Auto) 0.87 1.2-3.4 K/uL Monocytes # (Auto) 0.62 0.11-0.59 K/uL Eosinophils # (Auto) 0.07 0-0.5 K/uL Basophils # (Auto) 0.03 0-0.2 K/uL RDW Standard Deviation 54.8 36.4-46.3 fL RDW Coefficient of Variation 15.6 11.5-14.5 % Immature Granulocyte % (Auto) 0.0 % Immature Granulocyte # (Auto) 0.00 0.00-0.02 K/uL Prothrombin Time 14.9 9.0-12.0 SECONDS Prothromb Time International Ratio 1.4 0.9-1.1 Sodium Level 133 136-145 mmol/L Potassium Level 3.9 3.5-5.1 mmol/L Chloride Level 98 98-107 mmol/L Carbon Dioxide Level 29 21-32 mmol/L Anion Gap 6.0 3-11 mmol/L Blood Urea Nitrogen 20 7-18 mg/dl Creatinine 1.45 0.60-1.20 mg/dl Est Creatinine Clear Calc Drug Dose 23.6 ml/min Estimated GFR () 37.4 Estimated GFR (Non- 32.3 BUN/Creatinine Ratio 13.5 10-20 Random Glucose 100 70-99 mg/dl Calcium Level 9.1 8.5-10.1 mg/dl Total Bilirubin 1.1 0.2-1 mg/dl Aspartate Amino Transf (AST/SGOT) 69 15-37 U/L Alanine Aminotransferase (ALT/SGPT) 72 12-78 U/L Alkaline Phosphatase 110 45-117 U/L Troponin I 0.022 0-0.045 ng/ml Total Protein 7.5 6.4-8.2 gm/dl Albumin 3.8 3.4-5.0 gm/dl Globulin 3.7 2.5-4.0 gm/dl Albumin/Globulin Ratio 1.0 0.9-2 Diagnostic Radiology CXR: IMPRESSION: Congestive heart failure. EKG Atrial fibrillation at 77 bpm. 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 Acute on chronic CHF exacerbation: -H/o right sided and valvular heart failure -Volume overloaded on exam: + JVD, crackles, LE swelling -17 pound weight gain in the last month, per clinic chart review -CXR with CHF -Last echo (02/03) with EF of 50-55%, severe aortic stenosis -Given 60mg IV lasix in ER -Continue with 40mg daily IV lasix tomorrow AM -Daily weights, strict I&Os -Na restricted diet -Echo Severe aortic stenosis: -Conservative medical management Persistent A Fib: -Asymptomatic -Initial EKG with rate-controlled A Fib at 77 bpm -Continue home dose of metoprolol, digoxin, amiodarone -Digoxin level ordered -Continue coumadin therapy with SQ heparin until INR is therapeutic Subtherapeutic INR: -INR of 1.4 due to non-compliance with dose change -Went to coumadin clinic yesterday and is now taking correct dose -Add on SQ heparin until INR is within range -Recheck INR in AM HTN: -Stable -Continue metoprolol HLD: -Continue statin DM II: -Hgb a1c of 5.1 in September 2016 -Recheck a1c -Diet controlled -BSG checks AC HS and add SSI if indicated CKD III: -Cr slightly elevated at 1.45 (baseline ~ 1.3) -GFR close to baseline of mid-30s -Monitor while receiving IV lasix -Avoid nephrotoxic agents when able DVT Ppx: On warfarin Code status: DNR as per advance directive, confirmed with patient PCP: Alondra Dispo: Observation telemetry overnight. Change to full admission if indicated tomorrow. SW consulted to help with discharge placement (lives alone and >80yo ) Patient seen in collaboration with Dr. Clark. Please see addendum. Attending Physician, Dr. Clark. Addendum I have seen and examined the patient with KIMO Chambers and would like to comment that this a 87 year old F with chief reasons for ER presentation is worsening SOB and bilateral lower extremity edema. She does have bilateral lower extremity edema however breathing comfortably on room air saturating above 97% when hospitalist team assessed the patient at the bedside. Patient is speaking in full sentences. CXR with : Moderate cardiomegaly. Subtle increase in the prior exam. Small bilateral pleural effusions slightly increased in volume on the right is stable in the left. Persistent increase in pulmonary vasculature Patient received IV lasix 60 mg x 1 in the ER. Would recommend to diurese patient with IV lasix 40 mg IV once daily with possible up titration to 40 mg IV BID if needed based on symptoms. Trend renal function and replete electrolytes while on on Lasix IV. Stop DVT prophylaxis dose of heparin subcutaneous when INR therapeutic on warfarin. Level of Care Telemetry Advanced Directives Existing Advance Directive: Yes Resuscitation Status DO NOT RESUSCITATE VTE Prophylaxis VTE Risk Assessment Done? Y/N: Yes Risk Level: Moderate Given or contraindicated: Warfarin (Coumadin)
[2017-05-10 18:20] VITALS: BP 113/55; PULSE 83; TEMP 36.4; O2SAT 98
[2017-05-10 18:57] LABS: HEMATOCRIT 33.5 % (37-47); MEAN CELL VOLUME 95.7 fL (80-100); MEAN CORPUSCULAR HEMOGLOBIN 30.9 pg (25-34); MEAN CORPUSCULAR HGB CONC 32.2 g/dl (32-36); MEAN PLATELET VOLUME 9.1 fL (7.4-10.4); PLATELET COUNT 137 K/uL (130-400); WHITE BLOOD COUNT 4.46 K/uL (4.8-10.8)
[2017-05-10 19:10] LABS: INR 1.4 (0.9-1.1); PROTHROMBIN TIME (PATIENT) 15.6 SECONDS (9.0-12.0)
[2017-05-10 19:19] LABS: BUN/CREATININE RATIO 13.6 (10-20); CALCIUM 8.5 mg/dl (8.5-10.1); CREATININE 1.49 mg/dl (0.60-1.20); POTASSIUM 3.7 mmol/L (3.5-5.1)
--- NOTE | 2017-05-10 20:19 | DIAGNOSTIC IMAGING REPORT ---
BILATERAL LOWER EXTREMITY VENOUS DOPPLER CLINICAL HISTORY: Increased swelling bilaterally. COMPARISON STUDY: No previous studies for comparison. TECHNIQUE: Sonography of the deep venous system of the bilateral lower extremities was performed. Compression and augmentation were evaluated. FINDINGS: The bilateral common femoral, superficial femoral and popliteal veins were compressible. Augmentation was normal. Flow was shown within the deep calf vessels. Note was made of bilateral popliteal fluid collections. The right popliteal collection measures 6 x 2 x 3.6 cm and the left measures 3.9 x 1 x 1.4 cm. There is bilateral lower extremity edema. IMPRESSION: 1. No evidence of deep venous thrombus within the bilateral lower extremities. 2. Bilateral popliteal cysts, right larger than left. Electronically signed by: Alexis Hollis M.D. 05/10/2017 8:18 PM Dictated Date/Time: 05/10/2017 8:16 PM
[2017-05-10] MEDS: HEPARIN SOD 5000 UNIT/0.5 ML CARP SQ SCH (20:48)
[2017-05-10] MEDS ORDERED: SIMVASTATIN 20 MG TAB PO SCH (21:00)
[2017-05-10 23:40] VITALS: BP 101/52; PULSE 83; TEMP 36.7; O2SAT 92
[2017-05-11 04:23] VITALS: BP 106/61; PULSE 84; TEMP 36.6; O2SAT 90
[2017-05-11 07:43] VITALS: BP 105/55; PULSE 83; TEMP 36.6
[2017-05-11] MEDS: HEPARIN SOD 5000 UNIT/0.5 ML CARP SQ SCH (07:51)
[2017-05-11 08:08] LABS: ESTIMATED AVERAGE GLUCOSE 103 mg/dl; HA1C FLAG Normal (Normal)
[2017-05-11] MEDS ORDERED: FUROSEMIDE INJ 60 MG in SYRINGE 0 ML IV SCH (09:00)
[2017-05-11] MEDS ORDERED: METOPROLOL TARTRATE 25 MG TAB PO SCH (09:00)
[2017-05-11] MEDS ORDERED: AMIODARONE 200 MG TAB PO SCH (09:00)
[2017-05-11] MEDS ORDERED: PANTOprazole SOD 40 MG TAB PO SCH (09:00)
[2017-05-11] MEDS ORDERED: FUROSEMIDE INJ 40 MG in SYRINGE 0 ML IV SCH (09:00)
--- NOTE | 2017-05-11 12:13 | CARDIOLOGY CONSULTATION ---
DATE OF CONSULTATION: 05/11/2017 REFERRING PHYSICIAN: Courtney esposito. REASON FOR CONSULTATION: Heart failure. HISTORY OF PRESENT ILLNESS: This is an 87-year-old female who is usually followed by Dr. Saunders and Jeanne Hutchinson and was last seen in our practice at the end of January. She has a history of severe critical calcific aortic stenosis with a peak velocity across the aortic valve of 5 m/sec. She also has hypertension, dyslipidemia and diabetes. Earlier this year, her . According to the record, she was looking to move into a personal jail. She was seen by her primary care physician yesterday and was noted to have increased lower extremity edema and was admitted to the hospital with heart failure. The patient has no complaints today. She notes that her legs have been swollen recently. She denies orthopnea or chest pain. She has some baseline shortness of breath. No dizziness or lightheadedness. ALLERGIES: PNEUMOVAX, ASPIRIN, MORPHINE AND SULINDAC. PAST MEDICAL HISTORY: As outlined above, the patient has a history of critical aortic stenosis. She is treated for diabetes, hypertension and dyslipidemia. She has no prior history of strokes. She has chronic stage III kidney disease and actually has a history of a renal mass with cryoablation performed in 2005. Finally, the patient has chronic atrial fibrillation. SOCIAL HISTORY: She, as outlined above, lives alone. She is . She is looking to move into a personal jail. She has never smoked. FAMILY MEDICAL HISTORY: Noncontributory. REVIEW OF SYSTEMS: A 10-point review of systems is negative except for the history of chief complaint. PHYSICAL EXAMINATION: GENERAL: She is alert and oriented. She is in no acute distress. VITAL SIGNS: Blood pressure is 115/60 and pulse is irregular at 80 beats per minute. She is afebrile. HEENT: She is normocephalic. Pupils are equal and reactive to light. Extraocular muscles are intact bilaterally. NECK: The neck veins are flat. Carotids have good upstrokes bilaterally without bruits. Thyroid is nonpalpable. RESPIRATORY: Breath sounds equal bilaterally and clear to auscultation. CARDIOVASCULAR: Heart has an irregular rhythm. There is a harsh systolic murmur along the left sternal border. No S3 or S4. GASTROINTESTINAL: Abdomen is soft and nontender without organomegaly. EXTREMITIES: There is pitting edema to the mid calves bilaterally. NEUROLOGIC: Grossly intact. SKIN: Warm to touch. LYMPH NODES: Negative to palpation. LABORATORY DATA: Hemoglobin is 11.1. Potassium is 3.9, creatinine is 1.45, and BUN is 20. IMPRESSION: 1. Heart failure on the basis of valvular heart disease. 2. Critical aortic stenosis. 3. Chronic stage III kidney disease. 4. Diabetes mellitus. 5. Chronic atrial fibrillation. RECOMMENDATIONS: I think we can remove some fluid from her and make her feel better with some intravenous diuretics, which have already been started. She had an echocardiogram done this morning and I will review that study. I think the more important problem here is after discharge whether or not she should be still living independently. She has expressed the desire to go to a personal jail and may be that something that can be worked on during her hospital admission.
[2017-05-11 12:39] VITALS: BP 122/63; PULSE 87; TEMP 36.6; O2SAT 96
--- NOTE | 2017-05-11 13:18 | Progress Note ---
Medicine Progress Note Date & Time of Visit: May 11, 2017 at 12:37. Subjective Pt was seen and examined Sitting in chair comfortable with no distress Pt said that she feels great She said that her breathing feels much better She said that her legs swelling improved significantly Pt is very anxious to go home today Denies any chest pain, palpitation, dizziness and SOB Objective Last 8 Hrs Date Time Temp Pulse Resp B/P (MAP) Pulse Ox O2 Delivery O2 Flow Rate FiO2 05/11/17 12:00 Room Air 05/11/17 08:00 Room Air 05/11/17 07:43 36.6 83 18 105/55 (72) Room Air 95 Physical Exam: General- No acute distress Head- atraumatic Eyes- PERRL, EOMI ENT- oropharynx clear Neck- supple, no JVD Lungs- No wheezing, no crackles Heart- regular rhythm; +murmur Abdomen- normal bowel sounds, soft Extremities- +edema, no calf tenderness Neuro- alert, oriented x 3; PERRL, EOMI; no facial palsy Skin- warm & dry Laboratory Results: Last 24 Hours Test 05/10/17 18:32 05/10/17 20:33 05/11/17 05:44 05/11/17 07:32 White Blood Count 4.46 K/uL Red Blood Count 3.50 M/uL Hemoglobin 10.8 g/dL Hematocrit 33.5 % Mean Corpuscular Volume 95.7 fL Mean Corpuscular Hemoglobin 30.9 pg Mean Corpuscular Hemoglobin Concent 32.2 g/dl RDW Standard Deviation 55.2 fL RDW Coefficient of Variation 15.9 % Platelet Count 137 K/uL Mean Platelet Volume 9.1 fL Prothrombin Time 15.6 SECONDS Prothromb Time International Ratio 1.4 Sodium Level 136 mmol/L Potassium Level 3.7 mmol/L Chloride Level 99 mmol/L Carbon Dioxide Level 29 mmol/L Anion Gap 8.0 mmol/L Blood Urea Nitrogen 20 mg/dl Creatinine 1.49 mg/dl Est Creatinine Clear Calc Drug Dose 22.9 ml/min Estimated GFR () 36.2 Estimated GFR (Non- 31.3 BUN/Creatinine Ratio 13.6 Random Glucose 122 mg/dl Calcium Level 8.5 mg/dl Bedside Glucose 119 mg/dl 92 mg/dl Estimated Average Glucose 103 mg/dl Hemoglobin A1c 5.2 % Magnesium Level 2.1 mg/dl Pro-B-Type Natriuretic Peptide 20315 pg/ml Digoxin Level 1.1 ng/ml Test 05/11/17 11:31 Bedside Glucose 103 mg/dl Assessment & Plan Acute on chronic CHF exacerbation: Present with worsening SOB, LE edema, + JVD, crackles, Had 17 pound weight gain in the last month, per clinic chart review CXR on admission showed CHF ProBNP elevated Last Echo on 02/03 showed EF of 50-55%, severe aortic stenosis Received 60mg IV lasix in ER On lasix IV 40 mg daily Cardiology on board recommended to continue lasix 40mg daily case discussed with Dr. Goodwin and agreed to discharge her home Will discharge with her home lasix dose of 40mg As per cardio echo did not showed any new finding. Severe aortic stenosis: Conservative medical management Persistent A Fib: Asymptomatic Rate control Continue home dose of metoprolol, digoxin, amiodarone INR 1.4 (subtherapeutic Pt thought that she was supposed to take it only 2x a week Continue Coumadin Follow up with the coag clinic HTN: Stable Continue metoprolol and lasix HLD: Continue statin DM II: Hgb a1c of 5.2 on 05/11/17 Diet controlled stable CKD III: Cr slightly elevated at 1.49 (baseline ~ 1.3) Continue monitor renal function Avoid nephrotoxic agents when able DVT PX On Coumadin INR 1.4 heparin subq CODE STATUS FULL CODE DISPOSITION Case management consult for social disposition Follow up with Dr. Cantu on 05/16 @ 12:45 PM Consultants: Cardiology Current Inpatient Medications: Current Inpatient Medications Medications (Trade) Dose Ordered Sig/Kip Route Start Time Stop Time Status Last Admin Dose Admin Ondansetron HCl (Zofran Inj) 4 mg Q6H PRN IV 05/10/17 17:00 06/09/17 16:59 Polyethylene (Miralax Powder Packet) 17 gm DAILY PRN PO 05/10/17 17:00 06/09/17 16:59 Amiodarone HCl (Cordarone Tab) 200 mg DAILY PO 05/11/17 09:00 06/10/17 08:59 05/11/17 07:48 200 MG Digoxin (Lanoxin Tab) 0.125 mg MoWeFr@1600 PO 05/11/17 16:00 06/10/17 15:59 Metoprolol Tartrate (Lopressor Tab) 75 mg DAILY PO 05/11/17 09:00 06/10/17 08:59 05/11/17 07:48 75 MG Pantoprazole Sodium (Protonix Tab) 40 mg DAILY PO 05/11/17 09:00 06/10/17 08:59 05/11/17 07:48 40 MG Simvastatin (Zocor Tab) 20 mg QPM PO 05/10/17 21:00 06/09/17 20:59 05/10/17 20:45 20 MG Warfarin Sodium (Coumadin Tab) 1 mg SuMoTuThFr@1600 PO 05/10/17 16:00 06/09/17 15:59 05/10/17 20:46 1 MG Warfarin Sodium (Coumadin Tab) 2 mg WeSa@1600 PO 05/11/17 16:00 06/10/17 15:59 Furosemide 40 mg/ Syringe 4 ml @ 4 mls/min DAILY IV 05/11/17 09:00 06/10/17 08:59 05/11/17 07:47 4 MLS/MIN Heparin Sodium (Porcine) (Heparin Sq 5000 Unit/0.5ml) 5,000 unit Q12 SQ 05/10/17 21:00 06/09/17 20:59 05/11/17 07:51 5,000 UNIT
[2017-05-11] MEDS ORDERED: WARFARIN SOD 2 MG TAB PO SCH (16:00)
[2017-05-11] MEDS ORDERED: DIGOXIN 0.125 MG TAB PO SCH (16:00)
[2017-05-11 16:27] VITALS: BP 116/70; PULSE 83; TEMP 36.6; O2SAT 97
--- NOTE | 2017-05-11 17:50 | Discharge Instructions ---
Discharge Instructions Date of Service May 11, 2017. Admission Reason for Admission: Acute Exacerbation Of Chf Discharge Discharge Diagnosis / Problem: Acute CHF exacerbation, Persistent A Fib, HTN Discharge Goals Goal(s): Decrease discomfort, Improve function, Improve disease control Activity Recommendations Activity Limitations: resume your previous activity (as tolerated) . Instructions / Follow-Up Instructions / Follow-Up Follow up with your primary care provider dr. Cantu on 05/16 @ 12:45 PM Follow up with the Coumadin clinic Fall precaution Follow a low salt diet Current Hospital Diet Patient's current hospital diet: Low Sodium Diet (2gm Na), Diabetes Type 2 Diet Discharge Diet Recommended Diet: Low Sodium Diet (2gm Na), Diabetes Type 2 Diet Pending Studies Studies pending at discharge: no Laboratory Results Hemoglobin A1c Test 05/11/17 05:44 Range/Units Estimated Average Glucose 103 mg/dl Hemoglobin A1c 5.2 4.5-5.6 % Medical Emergencies . Who to Call and When: Medical Emergencies: If at any time you feel your situation is an emergency, please call 911 immediately. . Non-Emergent Contact Non-Emergency issues call your: Primary Care Provider Call Non-Emergent contact if: you have any medication questions . . "Provider Documentation" section prepared by Elba Cormier. . VTE Core Measure Inpt VTE Proph given/why not?: Warfarin (Coumadin)
[2017-05-11 17:52] VITALS: BP 116/70; PULSE 84; TEMP 36.6; O2SAT 97
--- NOTE | 2017-05-11 18:25 | ECHOCARDIOGRAM REPORT ---
*NOTICE TO RECEIVING CONSTITUTION PARTY AGENCY This information is strictly Confidential and protected under [place] law. [place] law prohibits you from making any further disclosure of this information unless further disclosure is expressly permitted by the written consent of the person to whom it pertains or is authorized by law. A general authorization for the release of medical or other information is not sufficient for this purpose. Hospital accepts no responsibility if the information is made available to any other person, INCLUDING THE PATIENT. Interpretation Summary * Name: SIVAN QUIJANO Study Date: 05/11/2017 11:31 AM BP: 106/61 mmHg * Patient Location: [facility]\S\N286\S\2 HR: 84 * : 1930 (M/d/yyyy) Gender: Female Height: 60 in * Age: 87 yrs Ethnicity: [place] Weight: 150 lb * Ordering Physician: Sara Chambers * Referring Physician: Self, Referred * Performed By: Asia Browning RDCS * * Reason For Study: Congestive Heart Failure * BSA: 1.7 m2 * -- Conclusions -- * The left ventricle is normal in size. * There is severe concentric left ventricular hypertrophy. * Ejection Fraction = 60-65%. * There is severe calcific aortic valve stenosis. * There is moderate mitral regurgitation. * There is severe tricuspid regurgitation. * The left atrium is severely dilated. * The right atrium is severely dilated. * Severe pulmonary hypertension with the estimated PA systolic pressure of 60-65 mm HG. Procedure Details * A complete two-dimensional transthoracic echocardiogram was performed (2D, M-mode, Doppler and color flow Doppler). Left Ventricle * The left ventricle is normal in size. * There is severe concentric left ventricular hypertrophy. * Ejection Fraction = 60-65%. Right Ventricle * The right ventricle is normal size. * The right ventricular systolic function is normal. Atria * The left atrium is severely dilated. * The right atrium is severely dilated. * The interatrial septum is intact with no evidence for an atrial septal defect. Mitral Valve * There is severe mitral annular calcification. * Calcified mitral apparatus. * There is moderate mitral regurgitation. Tricuspid Valve * Tricuspid leaflets are thickened. * There is severe tricuspid regurgitation. Aortic Valve * There is severe calcific aortic valve stenosis. Pulmonic Valve * The pulmonic valve is not well seen, but is grossly normal. * Mild pulmonic valvular regurgitation. Great Vessels * Severe pulmonary hypertension with the estimated PA systolic pressure of 60-65 mm HG. Pericardium/Pleural * There is no pericardial effusion. MMode 2D Measurements and Calculations IVSd 1.8 cm IVSs 1.7 cm LVIDd 4.2 cm LVIDs 2.9 cm LVPWd 1.5 cm LVPWs 1.7 cm IVS/LVPW 1.2 FS 30.3 % EDV(Teich) 78.1 ml ESV(Teich) 32.7 ml EF(Teich) 58.1 % EDV(cubed) 73.5 ml ESV(cubed) 24.9 ml EF(cubed) 66.2 % % IVS thick -6.97 % % LVPW thick 16.6 % LV mass(C)d 285.6 grams LV mass(C)dI 172.9 grams/m\S\2 LV mass(C)s 189.0 grams LV mass(C)sI 114.5 grams/m\S\2 SV(Teich) 45.4 ml SI(Teich) 27.5 ml/m\S\2 SV(cubed) 48.7 ml SI(cubed) 29.5 ml/m\S\2 Ao root diam 2.2 cm Ao root area 3.9 cm\S\2 ACS 0.58 cm LA dimension 5.9 cm LA/Ao 2.7 LVOT diam 1.7 cm LVOT area 2.2 cm\S\2 LVAd ap4 19.3 cm\S\2 LVLd ap4 6.6 cm EDV(MOD-sp4) 48.9 ml EDV(sp4-el) 47.9 ml LVAs ap4 10.1 cm\S\2 LVLs ap4 5.6 cm ESV(MOD-sp4) 15.5 ml ESV(sp4-el) 15.3 ml EF(MOD-sp4) 68.2 % EF(sp4-el) 68.1 % LVAd ap2 20.5 cm\S\2 LVLd ap2 6.6 cm EDV(MOD-sp2) 55.7 ml EDV(sp2-el) 53.8 ml LVAs ap2 10.2 cm\S\2 LVLs ap2 5.3 cm ESV(MOD-sp2) 18.9 ml ESV(sp2-el) 16.7 ml EF(MOD-sp2) 66.1 % EF(sp2-el) 68.9 % LVLd %diff 0.38 % EDV(MOD-bp) 53.0 ml LVLs %diff -7.35 % ESV(MOD-bp) 17.2 ml EF(MOD-bp) 67.6 % SV(MOD-sp4) 33.3 ml SI(MOD-sp4) 20.2 ml/m\S\2 SV(MOD-sp2) 36.8 ml SI(MOD-sp2) 22.3 ml/m\S\2 SV(MOD-bp) 35.8 ml SI(MOD-bp) 21.7 ml/m\S\2 SV(sp4-el) 32.6 ml SI(sp4-el) 19.7 ml/m\S\2 SV(sp2-el) 37.0 ml SI(sp2-el) 22.4 ml/m\S\2 Doppler Measurements and Calculations MV E max julio cesar 159.2 cm/sec MV A max julio cesar 51.1 cm/sec MV E/A 3.1 MV V2 max 187.2 cm/sec MV max PG 14.0 mmHg MV V2 mean 79.4 cm/sec MV mean PG 3.5 mmHg MV V2 VTI 30.9 cm MVA(VTI) 2.3 cm\S\2 MV P1/2t max julio cesar 187.2 cm/sec MV P1/2t 45.0 msec MVA(P1/2t) 4.9 cm\S\2 MV dec slope 1218.6 cm/sec\S\2 MV dec time 0.17 sec Ao V2 max 603.2 cm/sec Ao max PG 145.9 mmHg Ao max PG (full) 139.7 mmHg Ao V2 mean 409.9 cm/sec Ao mean PG 76.4 mmHg Ao mean PG (full) 73.0 mmHg Ao V2 VTI 142.5 cm PETER(I,A) 0.51 cm\S\2 PETER(I,D) 0.51 cm\S\2 PETER(V,A) 0.45 cm\S\2 PETER(V,D) 0.45 cm\S\2 AI max julio cesar 437.4 cm/sec AI max PG 76.8 mmHg AI dec slope 462.6 cm/sec\S\2 AI P1/2t 276.9 msec LV V1 max PG 6.2 mmHg LV V1 mean PG 3.4 mmHg LV V1 max 124.6 cm/sec LV V1 mean 87.0 cm/sec LV V1 VTI 33.4 cm MR max julio cesar 798.7 cm/sec MR max PG 255.2 mmHg MR mean julio cesar 592.7 cm/sec MR mean PG 154.3 mmHg MR VTI 236.0 cm SV(Ao) 551.0 ml SI(Ao) 333.6 ml/m\S\2 SV(LVOT) 72.5 ml SI(LVOT) 43.9 ml/m\S\2 PA V2 max 71.2 cm/sec PA max PG 2.0 mmHg PI max julio cesar 191.4 cm/sec PI max PG 14.7 mmHg PI dec slope 119.7 cm/sec\S\2 PI P1/2t 468.1 msec TR max julio cesar 351.7 cm/sec
--- NOTE | 2017-05-17 00:25 | Discharge Summary ---
Discharge Summary Date of Service May 16, 2017. Discharge Summary Admission Date: May 10, 2017 at 16:57 Discharge Date: May 11, 2017 Discharge Disposition: Home Principal Diagnosis: Acute CHF exacerbation Secondary Diagnoses/Problems: Severe aortic stenosis P. Afib CKD HTN DMII Dyslipidemia Procedures: BILATERAL LOWER EXTREMITY VENOUS DOPPLER CLINICAL HISTORY: Increased swelling bilaterally. COMPARISON STUDY: No previous studies for comparison. TECHNIQUE: Sonography of the deep venous system of the bilateral lower extremities was performed. Compression and augmentation were evaluated. FINDINGS: The bilateral common femoral, superficial femoral and popliteal veins were compressible. Augmentation was normal. Flow was shown within the deep calf vessels. Note was made of bilateral popliteal fluid collections. The right popliteal collection measures 6 x 2 x 3.6 cm and the left measures 3.9 x 1 x 1.4 cm. There is bilateral lower extremity edema. IMPRESSION: 1. No evidence of deep venous thrombus within the bilateral lower extremities. 2. Bilateral popliteal cysts, right larger than left. Electronically signed by: Alexis Hollis M.D. 05/10/2017 8:18 PM Dictated Date/Time: 05/10/2017 8:16 PM Consultations: Cardiology Medication Reconciliation Continued Medications: Amiodarone HCl (Amiodarone HCl) 200 Mg Tab 200 MG PO DAILY, TAB Digoxin (Digoxin) 0.125 Mg Tab 0.125 MG PO MoWeFr@1600 for 30 Days, TAB Furosemide (Furosemide) 40 Mg Tab 40 MG PO DAILY Metoprolol Tartrate (Lopressor) 50 Mg Tab 75 MG PO DAILY for 30 Days, #45 TAB 5 Refills Multivitamin (Multivitamin) Tab 1 TAB PO DAILY Pantoprazole (Protonix) 40 Mg Tab 40 MG PO DAILY Simvastatin (Zocor) 20 Mg Tab 20 MG PO QPM Warfarin Sodium (Coumadin) 1 Mg Tab 1 MG PO UD TAKE ON TUESDAY, ,TUESDAY,TUESDAY, TUESDAY Warfarin Sodium (Coumadin) 2 Mg Tab 2 MG PO UD TAKE ON AND TUESDAY Admission Information HPI (per Admitting provider): This is a 87yo F with a PMH of chronic right sided and valvular heart failure, severe aortic stenosis, persistent A fib, CKD III, HTN, HLD who presents from her PCP with worsening SOB and bilateral lower extremity edema. Patient states that she noticed increased leg swelling 2 weeks ago. Over the weekend, she had to try on 6 different pairs or shoes to fit a pair that fit due to the swelling. Additionally, patient states that dyspnea on exertion has gotten worse. Patient can normally ambulate around home with walker without feeling SOB but has felt SOB with just a few steps over the past few days. Also endorses increased fatigue and wheezing. Denies any non-compliance with her lasix or dietary changes. Per chart review, patient has gained 17 pounds since last month. Follows with Dr. Saunders for cardiac issues. Most recent echo in October of 2016 showed a decreased EF of 50-55% with severe aortic stenosis. Has discussed surgical management of with cardio before and is not interested in anything but medical management. Patient is on coumadin for persistent A fib that is generally rate controlled on metoprolol, digoxin and amiodarone. Has recently switched from eliquis to coumadin. Was seen in coumadin clinic earlier this week and they discovered that patient was only taking it twice a week. Patient now understands that she is to take 2.5mg Wed and Sat and 1mg all of the other days. Physical Exam (per Admitting): General Appearance: WD/WN, no apparent distress Head: normocephalic, atraumatic Eyes: normal inspection, PERRL, sclerae normal ENT: normal ENT inspection, hearing grossly normal, pharynx normal (moist mucous membranes ) Neck: supple, trachea midline, + JVD Respiratory/Chest: chest non-tender, no respiratory distress, no accessory muscle use, + crackles (bibasilar), + wheezing (Scattered ) Cardiovascular: normal peripheral pulses, + systolic murmur (Harsh III/ systolic murmur heard throughout precordium ), + irregularly irregular, + pertinent finding (2+ pitting edema in bilateral LE to knees ) Abdomen/GI: non tender, soft, no organomegaly Back: normal inspection Extremities/Musculoskelatal: normal inspection, no calf tenderness, non- tender, + pertinent finding (Venous stasis but no skin breakdown ) Neurologic/Psych: no motor/sensory deficits, alert, normal mood/affect, oriented x 3 Skin: normal color, warm/dry, no rash Hospital Course Acute on chronic CHF exacerbation: Present with worsening SOB, LE edema, + JVD, crackles, Had 17 pound weight gain in the last month, per clinic chart review CXR on admission showed CHF ProBNP elevated Last Echo on 02/03 showed EF of 50-55%, severe aortic stenosis Received 60mg IV lasix in ER On lasix IV 40 mg daily Cardiology on board recommended to continue lasix 40mg daily case discussed with Dr. Goodwin and agreed to discharge her home Will discharge with her home lasix dose of 40mg As per cardio echo did not showed any new finding. Severe aortic stenosis: Conservative medical management Persistent A Fib: Asymptomatic Rate control Continue home dose of metoprolol, digoxin, amiodarone INR 1.4 (subtherapeutic Pt thought that she was supposed to take it only 2x a week Continue Coumadin Follow up with the coag clinic HTN: Stable Continue metoprolol and lasix HLD: Continue statin DM II: Hgb a1c of 5.2 on 05/11/17 Diet controlled stable CKD III: Cr slightly elevated at 1.49 (baseline ~ 1.3) Continue monitor renal function Avoid nephrotoxic agents when able DVT PX On Coumadin INR 1.4 heparin subq CODE STATUS FULL CODE DISPOSITION Case management consult for social disposition Follow up with Dr. Cantu on 05/16 @ 12:45 PM Total time spent on discharge = 35 minutes This includes examination of the patient, discharge planning, medication reconciliation, and communication with other providers. Discharge Instructions DI: Medical v4 Discharge Instructions Date of Service May 11, 2017. Admission Reason for Admission: Acute Exacerbation Of Chf Discharge Discharge Diagnosis / Problem: Acute CHF exacerbation, Persistent A Fib, HTN Discharge Goals Goal(s): Decrease discomfort, Improve function, Improve disease control Activity Recommendations Activity Limitations: resume your previous activity (as tolerated) . Instructions / Follow-Up Instructions / Follow-Up Follow up with your primary care provider dr. Cantu on 05/16 @ 12:45 PM Follow up with the Coumadin clinic Fall precaution Follow a low salt diet Current Hospital Diet Patient's current hospital diet: Low Sodium Diet (2gm Na), Diabetes Type 2 Diet Discharge Diet Recommended Diet: Low Sodium Diet (2gm Na), Diabetes Type 2 Diet Pending Studies Studies pending at discharge: no Laboratory Results Hemoglobin A1c Test 05/11/17 05:44 Range/Units Estimated Average Glucose 103 mg/dl Hemoglobin A1c 5.2 4.5-5.6 % Medical Emergencies . Who to Call and When: Medical Emergencies: If at any time you feel your situation is an emergency, please call 911 immediately. . Non-Emergent Contact Non-Emergency issues call your: Primary Care Provider Call Non-Emergent contact if: you have any medication questions . . "Provider Documentation" section prepared by Elba Cormier. . VTE Core Measure Inpt VTE Proph given/why not?: Warfarin (Coumadin) Additional Copies To Kat Cantu M.D.
== END 2017-05-11 18:04 | disposition home or self-care (01) ==
LOC: EDBD 12:41 → C.EDB 12:43 → C.MED 16:57 → ENRESERV 17:47
PROVIDERS: ADMIT Hospitalist; ATTEND Internal Medicine
DX: I50.9 Heart failure, unspecified (principal); I48.1 Persistent atrial fibrillation; I12.9 Hypertensive chronic kidney disease with stage 1 through stage 4 chronic kidney disease, or unspecified chronic kidney disease; E11.22 Type 2 diabetes mellitus with diabetic chronic kidney disease; N18.3 Chronic kidney disease, stage 3 (moderate); E78.5 Hyperlipidemia, unspecified; Z79.899 Other long term (current) drug therapy; Z79.01 Long term (current) use of anticoagulants; Z82.49 Family history of ischemic heart disease and other diseases of the circulatory system; Z83.3 Family history of diabetes mellitus

== ENCOUNTER 2017-07-07 13:26 | Inpatient (IN) | payer OTHER ==
[~2017-07-07] VITALS: Ht 152.4 cm; Wt 61.5 kg
[~2017-07-07 13:26] MED LIST changes: -ALEN70TA4 PO; -B-COTAB53 PO; -CHOL400T5 PO; -CMD25 PO; -KRIL1000 PO; +METO-551 PO; -METO50TA17 PO; -VITA1TAB4 PO; +WARF1TAB PO; +WARF2TAB PO
[2017-07-07 14:15] LABS: BASO % 0.5 %; BASO ABS # 0.03 K/uL (0-0.2); EOS % 1.1 %; EOS ABS # 0.06 K/uL (0-0.5); HEMATOCRIT 34.1 % (37-47); HEMOGLOBIN 10.9 g/dL (12.0-16.0); IG# 0.01 K/uL (0.00-0.02); LYMPH ABS # 1.06 K/uL (1.2-3.4); MEAN CELL VOLUME 93.9 fL (80-100); MEAN PLATELET VOLUME 9.5 fL (7.4-10.4); MONO % 10.6 %; MONO ABS # 0.59 K/uL (0.11-0.59); NEUT % 68.6 %; NEUT ABS # 3.84 K/uL (1.4-6.5); PLATELET COUNT 157 K/uL (130-400); RED CELL DISTRIBUTION WIDTH CV 17.4 % (11.5-14.5); RED CELL DISTRIBUTION WIDTH SD 60.2 fL (36.4-46.3); WHITE BLOOD COUNT 5.59 K/uL (4.8-10.8)
[2017-07-07 14:30] LABS: PTT PATIENT 40.3 SECONDS (21.0-31.0)
[2017-07-07 14:45] LABS: ALBUMIN 3.4 gm/dl (3.4-5.0); CKMB 2.1 ng/ml (0.5-3.6); TOTAL PROTEIN 7.5 gm/dl (6.4-8.2)
--- NOTE | 2017-07-07 15:26 | DIAGNOSTIC IMAGING REPORT ---
CHEST ONE VIEW PORTABLE CLINICAL HISTORY: SOB dyspnea COMPARISON STUDY: 05/10/2017 FINDINGS: Cardiomegaly. Small bilateral pleural effusion. Prominent pulmonary vasculature. IMPRESSION: Congestive heart failure The above report was generated using voice recognition software. It may contain grammatical, syntax or spelling errors. Electronically signed by: Herbert Coleman M.D. 07/07/2017 3:25 PM Dictated Date/Time: 07/07/2017 3:25 PM
[2017-07-07] MEDS ORDERED: FUROSEMIDE 40 MG/4 ML VIAL IV STA (15:45)
--- NOTE | 2017-07-07 15:56 | EMERGENCY ROOM VISIT NOTE ---
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 I was involved in the patient's care and did evaluate the patient myself. I was involved in the care throughout the ER stay. The patient presents with dyspnea. This has been an ongoing issue. She has gained weight, she thinks from water. She feels dyspneic with exertion. The patient was at the cardiology office earlier, they were concerned for fluid overload/CHF. The patient has a history of the same. She was sent to the ER for further evaluation. The patient does appear to be in heart failure by film and laboratory testing, there is edema of her legs as well. Patient did receive a dose of IV Lasix, cardiology is going to be contacted to discuss the possibility of hospitalization.
[2017-07-07 16:30] LABS: CALCIUM 8.7 mg/dl (8.5-10.1); CREATININE 1.49 mg/dl (0.60-1.20); POTASSIUM 3.9 mmol/L (3.5-5.1)
--- NOTE | 2017-07-07 16:33 | EMERGENCY ROOM VISIT NOTE ---
History First contact with patient: 13:43 Chief Complaint: SHORTNESS OF BREATH Stated Complaint: SHORTNESS OF BREATH Nursing Triage Summary: Patient arrived via ems from [facility] where patient was at her cardiology appt. The staff heard bilateral crackles, and LE swelling. PMH: CHF, patient reports taking lasix. PT reports, "I have been having some SOB for quite some time now." Productive cough, white and sometimes yellow sputum. 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 The patient states to me that she has been short of breath for months. She also states that she has abdominal swelling and leg swelling for months. She states she was hospitalized in May for the same symptoms. She has a history of CHF and A. fib. The patient is not on oxygen at home. She states a month ago she was told they were going to give her oxygen at home but that never happened. The patient states she has been coughing up some phlegm. She denies any fever, head congestion, sore throat. The patient denies any chest pain. The patient denies any abdominal pain but does admit to her abdomen being distended. Review of Systems 10 system review was performed and was negative unless stated otherwise history of present illness. Past Medical/Surgical History Medical Problems: (1) CKD (chronic kidney disease) stage 3, GFR 30-59 ml/min (2) Diabetes mellitus type II, controlled (3) Dyslipidemia (4) HTN (hypertension) (5) Persistent atrial fibrillation (6) Renal mass (7) Severe aortic stenosis (8) Spinal stenosis Surgical Problems: (1) History of carpal tunnel surgery (2) History of tonsillectomy and adenoidectomy (3) History of total hysterectomy (4) History of tubal ligation Social History Problems: (1) Atrial fibrillation with RVR (2) Renal disorder associated with type II diabetes mellitus Family History Diabetes mellitus Heart disease Social History Smoking Status: Former Smoker Alcohol Use: none Drug Use: none Marital Status: Housing Status: lives alone Occupation Status: retired Current/Historical Medications Scheduled Amiodarone HCl (Amiodarone HCl), 200 MG PO DAILY Digoxin (Digoxin), 0.125 MG PO MoWeFr@1600 Furosemide (Furosemide), 40 MG PO DAILY Metoprolol Tartrate (Lopressor), 75 MG PO DAILY Multivitamin (Multivitamin), 1 TAB PO DAILY Pantoprazole (Protonix), 40 MG PO DAILY Simvastatin (Zocor), 20 MG PO QPM Warfarin Sodium (Coumadin), 1 MG PO UD Warfarin Sodium (Coumadin), 2 MG PO UD Physical Exam Vital Signs Date Time Temp Pulse Resp B/P (MAP) Pulse Ox O2 Delivery O2 Flow Rate FiO2 07/07/17 16:09 72 123/46 97 Room Air 07/07/17 15:25 68 18 110/73 98 Room Air 07/07/17 13:26 99 Room Air 07/07/17 13:26 36.8 69 18 134/53 99 Room Air 07/07/17 13:26 99 Room Air Physical Exam GENERAL: 87-year-old white female appears in no acute distress. MENTAL Status: Alert and oriented 3. EYES: PERRLA. EOMs intact. EARS: Canals clear. TMs without fluid level noted. NECK: Supple, no lymphadenopathy noted. No carotid bruits noted. LUNGS: Bilateral crackles noted at both bases. No wheezes or rales noted CARDIAC: Irregular regular rhythm noted with a 4/6 systolic murmur noted. Pulses is full and equal throughout. ABDOMEN: Positive bowel sounds all 4 quadrants. Abdomen is firm and protuberant unable to palpate for organomegaly or masses. Abdomen is nontender to palpation. LOWER EXTREMITIES: Patient has 2+ bilateral pretibial edema noted. Calves are nontender. No cyanosis or erythema noted. Medical Decision & Procedures ER Provider Diagnostic Interpretation: CHEST ONE VIEW PORTABLE CLINICAL HISTORY: SOB dyspnea COMPARISON STUDY: 05/10/2017 FINDINGS: Cardiomegaly. Small bilateral pleural effusion. Prominent pulmonary vasculature. IMPRESSION: Congestive heart failure The above report was generated using voice recognition software. It may contain grammatical, syntax or spelling errors. Electronically signed by: Herbert Coleman M.D. 07/07/2017 3:25 PM Dictated Date/Time: 07/07/2017 3:25 PM Laboratory Results 07/07/17 13:30 Red Blood Count 3.63, Mean Corpuscular Volume 93.9, Mean Corpuscular Hemoglobin 30.0, Mean Corpuscular Hemoglobin Concent 32.0, Mean Platelet Volume 9.5, Neutrophils (%) (Auto) 68.6, Lymphocytes (%) (Auto) 19.0, Monocytes (%) (Auto) 10.6, Eosinophils (%) (Auto) 1.1, Basophils (%) (Auto) 0.5, Neutrophils # (Auto ) 3.84, Lymphocytes # (Auto) 1.06, Monocytes # (Auto) 0.59, Eosinophils # (Auto ) 0.06, Basophils # (Auto) 0.03 Test 07/07/17 13:30 07/07/17 15:55 White Blood Count 5.59 K/uL (4.8-10.8) Red Blood Count 3.63 M/uL (4.2-5.4) Hemoglobin 10.9 g/dL (12.0-16.0) Hematocrit 34.1 % (37-47) Mean Corpuscular Volume 93.9 fL (80-100) Mean Corpuscular Hemoglobin 30.0 pg (25-34) Mean Corpuscular Hemoglobin Concent 32.0 g/dl (32-36) Platelet Count 157 K/uL (130-400) Mean Platelet Volume 9.5 fL (7.4-10.4) Neutrophils (%) (Auto) 68.6 % Lymphocytes (%) (Auto) 19.0 % Monocytes (%) (Auto) 10.6 % Eosinophils (%) (Auto) 1.1 % Basophils (%) (Auto) 0.5 % Neutrophils # (Auto) 3.84 K/uL (1.4-6.5) Lymphocytes # (Auto) 1.06 K/uL (1.2-3.4) Monocytes # (Auto) 0.59 K/uL (0.11-0.59) Eosinophils # (Auto) 0.06 K/uL (0-0.5) Basophils # (Auto) 0.03 K/uL (0-0.2) RDW Standard Deviation 60.2 fL (36.4-46.3) RDW Coefficient of Variation 17.4 % (11.5-14.5) Immature Granulocyte % (Auto) 0.2 % Immature Granulocyte # (Auto) 0.01 K/uL (0.00-0.02) Prothrombin Time 40.8 SECONDS (9.0-12.0) Prothromb Time International Ratio 4.0 (0.9-1.1) Activated Partial Thromboplast Time 40.3 SECONDS (21.0-31.0) Partial Thromboplastin Ratio 1.5 Total Bilirubin 1.2 mg/dl (0.2-1) Direct Bilirubin 0.6 mg/dl (0-0.2) Aspartate Amino Transf (AST/SGOT) 62 U/L (15-37) Alanine Aminotransferase (ALT/SGPT) 49 U/L (12-78) Alkaline Phosphatase 145 U/L (45-117) Total Creatine Kinase 68 U/L (26-192) Creatine Kinase MB 2.1 ng/ml (0.5-3.6) Creatine Kinase MB Ratio 3.1 (0-3.0) Troponin I 0.029 ng/ml (0-0.045) Pro-B-Type Natriuretic Peptide 53777 pg/ml (0-1800) Total Protein 7.5 gm/dl (6.4-8.2) Albumin 3.4 gm/dl (3.4-5.0) Lipase 155 U/L (73-393) Magnesium Level 2.3 mg/dl (1.8-2.4) Medications Administered Medications (Trade) Dose Ordered Sig/Kip Route Start Time Stop Time Status Last Admin Dose Admin Furosemide (Lasix Inj) 40 mg NOW STAT IV 07/07/17 15:45 07/07/17 15:46 DC 07/07/17 16:11 40 MG ECG Indication: SOB/dyspnea Rhythm: atrial fibrillation Findings: no acute ischemic change Change: no significant change ED Course The patient was evaluated by myself and independently by Dr. Shaw. The patient 's EMR and medication list were reviewed. IV access was obtained. EKG was ordered and interpreted by myself as above without any significant change from prior. CBC and differential, renal profile, LFTs, coags, magnesium levels were ordered. Labs are reviewed. The patient is baseline for her hemoglobin and hematocrit and kidney functions. INR was 4.0. The patient was given Lasix 40 mg IV. The patient will be admitted for diuresis. The hospitalist was consulted. Medical Decision Differential diagnosis include pneumonia, bronchitis, CHF, With the patient's history CHF was the most likely diagnosis. She will need to be admitted for diuresis. [place] Drug Monitoring Program Search Results: patient reviewed within database Medication Reconcilliation Current Medication List: was personally reviewed by me Blood Pressure Screening Patient's blood pressure: Low blood pressure Impression Primary Impression: Congestive heart failure Additional Impressions: Severe aortic stenosis Shortness of breath A-fib Departure Information Dispostion Being Evaluated By Hospitalist Condition GOOD Referrals Johnny Saunders M.D. (PCP) Patient Instructions My [facility] Problem Qualifiers Primary Impression: Congestive heart failure Congestive heart failure type: unspecified Congestive heart failure chronicity: acute on chronic Qualified Codes: I50.9 - Heart failure, unspecified
--- NOTE | 2017-07-07 16:57 | History and Physical ---
History & Physical Date & Time of Service: Jul 07, 2017 at 16:56 Chief Complaint: Shortness Of Breath Primary Care Physician: Johnny Saunders M.D. History of Present Illness Source: patient Patient is an 87 yr female with PMH of DM II (diet controlled), DHF, CKD III, Atrial fibrillation, Severe Valvular Heart disease, HLP and other problems presents with history of worsening SOB, increased leg swelling, weight gain since few days. Patient was evaluated by her Supervisor Clam Bed today at his office and was sent to ED for IV diuresis. Patient reports that she has chronic SOB but it has been progressively worsened especially since last 2 days. She reports weight gain of at least 15 pounds since last admission and noticed that her abdomen is more distended and she has noticed increased leg swelling. Reports left sided chest pain yesterday night which increases with movement but denies any fall, trauma, increased pain with breathing but currently denies chest pain while in ED. Patient also reports intermittent cough with clear expectoration. Reports associated Orthopnea, PND but denies any history of dizziness, fever, chills, headache, change in vision, nausea, vomiting, abdominal pain, blood in stools, diarrhea, dysuria, hematuria. Reports taking medications regularly as prescribed. Past Medical/Surgical History Medical Problems: (1) CKD (chronic kidney disease) stage 3, GFR 30-59 ml/min Status: Chronic (2) Diabetes mellitus type II, controlled Status: Chronic (3) Dyslipidemia Status: Chronic (4) HTN (hypertension) Status: Chronic (5) Persistent atrial fibrillation Status: Chronic (6) Renal mass Permanent Comment: Right renal mass 2005. Path nondiagnositic. [place]abl[place] [facility] [place]. Muller. Status: Resolved (7) Severe aortic stenosis Status: Chronic (8) Spinal stenosis Status: Chronic Surgical Problems: (1) History of carpal tunnel surgery Status: Resolved (2) History of tonsillectomy and adenoidectomy Status: Resolved (3) History of total hysterectomy Status: Resolved (4) History of tubal ligation Status: Resolved Social History Problems: (1) Atrial fibrillation with RVR Status: Chronic (2) 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 Family History Diabetes mellitus Heart disease Reviewed.Not relevant Social History Smoking Status: Former Smoker Alcohol Use: none Drug Use: none Marital Status: Housing status: lives alone Occupational Status: retired Immunizations History of Influenza Vaccine: Yes Influenza Vaccine Date: Mar 18, 2011 History of Tetanus Vaccine?: No History of Pneumococcal: Yes Pneumococcal Date: Apr 17, 2011 History of Hepatitis B Vaccine: No Multi-Drug Resistant Organisms History of MDRO: No Allergies Coded Allergies: Morphine (Verified Allergy, Intermediate, 07/07/17) Aspirin (Verified Allergy, Unknown, ., 07/07/17) Pneumococcal Vaccine (Verified Allergy, Unknown, SWELLING, 07/07/17) Sulindac (Verified Allergy, Unknown, 07/07/17) Home Medications Scheduled Amiodarone HCl (Amiodarone HCl), 200 MG PO DAILY Digoxin (Digoxin), 0.125 MG PO MoWeFr@1600 Furosemide (Furosemide), 40 MG PO DAILY Metoprolol Tartrate (Lopressor), 75 MG PO DAILY Multivitamin (Multivitamin), 1 TAB PO DAILY Pantoprazole (Protonix), 40 MG PO DAILY Simvastatin (Zocor), 20 MG PO QPM Warfarin Sodium (Coumadin), 1 MG PO UD Warfarin Sodium (Coumadin), 2 MG PO UD Review of Systems See HPI for pertinent positives & negatives. A total of 10 systems reviewed and were otherwise negative. Physical Exam Vital Signs Date Time Temp Pulse Resp B/P (MAP) Pulse Ox O2 Delivery O2 Flow Rate FiO2 07/07/17 16:09 72 123/46 97 Room Air 07/07/17 15:25 68 18 110/73 98 Room Air 07/07/17 13:26 99 Room Air 07/07/17 13:26 36.8 69 18 134/53 99 Room Air 07/07/17 13:26 99 Room Air General Appearance: WD/WN, no apparent distress Head: normocephalic, atraumatic Eyes: normal inspection, PERRL, EOMI ENT: normal ENT inspection, hearing grossly normal Neck: supple, trachea midline, + JVD Respiratory/Chest: normal breath sounds, no respiratory distress, no accessory muscle use, + crackles, + pertinent finding (chest tender to palpate on left side under the breast) Cardiovascular: + diastolic murmur, + systolic murmur, + irregularly irregular , + pertinent finding (B/L Leg edema 3+) Abdomen/GI: normal bowel sounds, non tender, soft, + distended Back: normal inspection Extremities/Musculoskelatal: normal inspection, + pedal edema Neurologic/Psych: squeegeer and former II-XII nml as tested, no motor/sensory deficits, alert, normal mood/affect, oriented x 3 Skin: normal color, warm/dry Diagnostics Laboratory Results Results Past 24 Hours Test 07/07/17 13:30 07/07/17 15:55 Range/Units White Blood Count 5.59 4.8-10.8 K/uL Red Blood Count 3.63 4.2-5.4 M/uL Hemoglobin 10.9 12.0-16.0 g/dL Hematocrit 34.1 37-47 % Mean Corpuscular Volume 93.9 80-100 fL Mean Corpuscular Hemoglobin 30.0 25-34 pg Mean Corpuscular Hemoglobin Concent 32.0 32-36 g/dl Platelet Count 157 130-400 K/uL Mean Platelet Volume 9.5 7.4-10.4 fL Neutrophils (%) (Auto) 68.6 % Lymphocytes (%) (Auto) 19.0 % Monocytes (%) (Auto) 10.6 % Eosinophils (%) (Auto) 1.1 % Basophils (%) (Auto) 0.5 % Neutrophils # (Auto) 3.84 1.4-6.5 K/uL Lymphocytes # (Auto) 1.06 1.2-3.4 K/uL Monocytes # (Auto) 0.59 0.11-0.59 K/uL Eosinophils # (Auto) 0.06 0-0.5 K/uL Basophils # (Auto) 0.03 0-0.2 K/uL RDW Standard Deviation 60.2 36.4-46.3 fL RDW Coefficient of Variation 17.4 11.5-14.5 % Immature Granulocyte % (Auto) 0.2 % Immature Granulocyte # (Auto) 0.01 0.00-0.02 K/uL Prothrombin Time 40.8 9.0-12.0 SECONDS Prothromb Time International Ratio 4.0 0.9-1.1 Activated Partial Thromboplast Time 40.3 21.0-31.0 SECONDS Partial Thromboplastin Ratio 1.5 Total Bilirubin 1.2 0.2-1 mg/dl Direct Bilirubin 0.6 0-0.2 mg/dl Aspartate Amino Transf (AST/SGOT) 62 15-37 U/L Alanine Aminotransferase (ALT/SGPT) 49 12-78 U/L Alkaline Phosphatase 145 45-117 U/L Total Creatine Kinase 68 26-192 U/L Creatine Kinase MB 2.1 0.5-3.6 ng/ml Creatine Kinase MB Ratio 3.1 0-3.0 Troponin I 0.029 0-0.045 ng/ml Pro-B-Type Natriuretic Peptide 29402 0-1800 pg/ml Total Protein 7.5 6.4-8.2 gm/dl Albumin 3.4 3.4-5.0 gm/dl Lipase 155 73-393 U/L Sodium Level 136 136-145 mmol/L Potassium Level 3.9 3.5-5.1 mmol/L Chloride Level 99 98-107 mmol/L Carbon Dioxide Level 31 21-32 mmol/L Anion Gap 5.0 3-11 mmol/L Blood Urea Nitrogen 30 7-18 mg/dl Creatinine 1.49 0.60-1.20 mg/dl Est Creatinine Clear Calc Drug Dose 24.0 ml/min Estimated GFR () 36.2 Estimated GFR (Non- 31.3 BUN/Creatinine Ratio 20.1 10-20 Random Glucose 104 70-99 mg/dl Calcium Level 8.7 8.5-10.1 mg/dl Magnesium Level 2.3 1.8-2.4 mg/dl Diagnostic Radiology CXR:Small bilateral pleural effusion, CHF EKG EKG:Afib, LVH, ST-T wave changes Impression Assessment and Plan Acute on chronic diastolic heart failure: Severe Valvular Heart disease Pulmonary Hypertension Presented with SOB, Pedal edema, weight gain, abdominal distention, orthopnea, PND Has elevated BNP, CXR suggestive of CHF Last ECHO in Apr 2017: EF:60-65%, Severe LVH, Severe , Moderate MR, Severe TR , Pulmonary HTN Hold PO lasix Start IV lasix 40mg BID Daily weight, I/Os, monitor electrolytes Cardiology Consulted Troponin 1st Set Negative, trend troponin Oxygen PRN Continue Metoprolol, digoxin Digoxin levels:1.5: normal Needs TAVR eventually Check ABD USD to assess for ascites Supratherapeutic INR: INR:4.0 No active bleeding Hold coumadin monitor INR DM II: diet controlled Last A1c:5.2 on 05/11/17 CKD III: Cr at baseline Monitor renal function while on IV diuresis Atrial fibrillation: Rate controlled Continue Metoprolol, Digoxin, amiodarone Hold coumadin as INR supratherapeutic HLP: continue Statin DVT Px: SCDs INR supratherapeutic Code Status: Full Code on my discussion with patient Disposition: Monitor in Telemetry
[2017-07-07] MEDS ORDERED: ACETAMINOPHEN 325 MG TAB PO PRN (17:45)
[2017-07-07] MEDS ORDERED: NITROGLYCERIN 0.4 MG SL PER TAB CHARGE SL PRN (17:45)
[2017-07-07] MEDS ORDERED: ONDANSETRON INJ 2 MG/ML 2 ML VIAL IV PRN (17:45)
--- NOTE | 2017-07-07 19:28 | DIAGNOSTIC IMAGING REPORT ---
ULTRASOUND ASCITES CHECK CLINICAL HISTORY: Abdominal distention. COMPARISON STUDY: Abdominal CT dated 06/03/2011. FINDINGS: Real-time grayscale sonography of all 4 quadrants of the abdomen is performed to assess for abdominal ascites. There is trace abdominopelvic ascites. Survey images of the liver show evidence of cirrhosis. Small pleural effusions are identified. IMPRESSION: 1. There is trace abdominopelvic ascites. 2. Small pleural effusions are identified. Electronically signed by: Michel Hernandez M.D. 07/07/2017 7:27 PM Dictated Date/Time: 07/07/2017 7:26 PM
[2017-07-07] MEDS: ALBUT/IPRATROP 3MG/0.5MG NEB 3 ML VIAL INH SCH (20:00)
[2017-07-07 20:30] VITALS: BP 126/68; PULSE 72; TEMP 36.3; Ht 152.4 cm; Wt 61.5 kg
[2017-07-07] MEDS: SIMVASTATIN 20 MG TAB PO SCH (21:02)
[2017-07-07] MEDS: FUROSEMIDE INJ 40 MG in SYRINGE 0 ML IV SCH (21:02)
[2017-07-07] MEDS: METOPROLOL TARTRATE 50 MG TAB PO SCH (21:04)
[2017-07-07] MEDS: POTASSIUM CHLORIDE 10 MEQ TABCR PO SCH (21:05)
--- NOTE | 2017-07-07 21:24 | CARDIOLOGY CONSULTATION ---
DATE OF CONSULTATION: 07/07/2017 The patient seen and examined in the Emergency Room. PRIMARY CARE PHYSICIAN: Kat Cantu MD. REFERRING PHYSICIAN: Wilbur Bernstein MD. INDICATIONS: Acute decompensated valvular heart failure. HISTORY OF PRESENT ILLNESS: The patient is a complex 87-year-old female with past medical history notable for: 1. Critical calcific aortic stenosis. 2. Class 3+ valvular heart failure with acute decompensation currently last hospitalization 05/10/2017. 3. Progressive elevation of pulmonary pressure secondary to underlying heart failure. 4. Hypertension. 5. Hyperlipidemia. 6. Persistent atrial fibrillation with difficult to control ventricular response rates. Initial onset October 2016 with use of amiodarone for rate control. 7. Type 2 diabetes mellitus. The patient presents now [facility] where she is being evaluated for possible indications for transcutaneous aortic valve implantation. The patient at the time of presentation was markedly dyspneic with signs and symptoms of acute volume overload greater than 15 pound weight loss, lower extremity edema, abdominal bloating and rolls on examination. She was referred for acute management at [facility]. The patient was examined in the Emergency Room. She does admit to gradual weight gain despite using diuretic as prescribed and furosemide 40 mg twice per day. She notes no acute dietary indiscretions. She remains independent at home. She has had struggle with increasing demands of daily care and mobility with increasing volume overload history. She does not wear oxygen at home. Notes no fevers, chills or unexplained infections. Notes no melena, hematochezia, dysuria or hematuria. ALLERGIES: ASPIRIN, MORPHINE, PNEUMOCOCCAL VACCINE AND SULINDAC. MEDICATIONS: Prior to hospitalization were furosemide 40 mg 2 tablets per day, metoprolol tartrate 50 mg twice per day, potassium chloride 20 mEq per day, warfarin variable dosing, simvastatin 20 mg p.o. day, pantoprazole 40 mg p.o. daily, amiodarone 200 mg p.o. daily, vitamin E, multivitamin, vitamin D, vitamin B complex. PAST SURGICAL HISTORY: Notable for prior carpal tunnel release, cataract surgeries, vein stripping of the left leg, remote tonsillectomy, history of spinal surgery for lumbar spur 2004, remote total abdominal hysterectomy. FAMILY HISTORY: Noncontributory. SOCIAL HISTORY: The patient is a nonsmoker, nondrinker. She continues to live independently. PHYSICAL EXAMINATION: VITAL SIGNS: Heart rate is 68, blood pressure is 106/54. HEENT: Normocephalic and atraumatic. NECK: Thick. There is jugular venous distention to the angle of the jaw. LUNGS: Reveal rales bibasilar. CARDIOVASCULAR: Irregular regular with harsh grade 3/6 systolic murmur. Absent S2. ABDOMEN: There is moderate abdominal distention. EXTREMITIES: Reveal 3+ edema to the thighs. Exam also notes tenderness to the left breast with palpation but no visible cellulitis or erythema. NEUROLOGIC: The patient alert, answering questions appropriately. LABORATORY DATA: Chest x-ray reveals cardiomegaly with diffuse findings consistent with congestive heart failure. LABORATORY STUDY: White cell count is 5.5, hemoglobin is 10.9, hematocrit 34.1. Sodium is 136, potassium 3.9, chloride is 99, bicarbonate 31, BUN is 30, creatinine is 1.49, bilirubin is 1.2, lipase is 155. EKG reveals atrial fibrillation at a rate of 65 competing junctional pacemaker, QT corrected at 416. Echocardiogram last performed during admission of April 2017 demonstrated critical aortic stenosis with heavy calcification and severe restricted leaflet valve structures with systolic velocity of 6 m/sec, mitral and tricuspid insufficiency with generally preserved LV systolic function at that time. IMPRESSION: An 87-year-old female with critically severe calcific aortic stenosis previously deferring valve intervention due to need to care for children and . The patient is now presenting after evaluation for consideration of valve replacement and having been found to be in acute decompensated congestive heart failure. PLAN: Will be to admit to hospital as already performed. Initiate IV diuretics, attempt to improve hemodynamics. Blood pressure appears to allow diuresis. Digoxin level is 1.5. We will hold digoxin given the intermittent junctional rhythm on EKG. Ultimate goal would be to attempt to stabilize cardiac status and if able transfer to [facility] after fluid status is improved for consideration of ZULLY versus balloon valvuloplasty as a bridge procedure. The patient is agreeable with the current plan.
[2017-07-07 23:50] VITALS: BP 100/55; PULSE 70; TEMP 36.6; O2SAT 94
[2017-07-08] VITALS (9 sets, daily range): BP systolic 93–122; BP diastolic 58–66; PULSE 73–104; TEMP 36.5–36.8; O2SAT 90–95
[2017-07-08 06:10] LABS: HEMATOCRIT 31.4 % (37-47); HEMOGLOBIN 10.1 g/dL (12.0-16.0); MEAN CORPUSCULAR HEMOGLOBIN 30.2 pg (25-34); MEAN CORPUSCULAR HGB CONC 32.2 g/dl (32-36); MEAN PLATELET VOLUME 9.4 fL (7.4-10.4); PLATELET COUNT 148 K/uL (130-400); RED CELL DISTRIBUTION WIDTH CV 17.3 % (11.5-14.5); RED CELL DISTRIBUTION WIDTH SD 58.9 fL (36.4-46.3); WHITE BLOOD COUNT 5.48 K/uL (4.8-10.8)
[2017-07-08 06:47] LABS: CALCIUM 8.3 mg/dl (8.5-10.1); CREATININE 1.61 mg/dl (0.60-1.20); POTASSIUM 3.9 mmol/L (3.5-5.1)
[2017-07-08 06:53] LABS: INR 3.7 (0.9-1.1)
[2017-07-08] MEDS: ALBUT/IPRATROP 3MG/0.5MG NEB 3 ML VIAL INH SCH ×4 (07:54→19:05)
[2017-07-08] MEDS: FUROSEMIDE INJ 40 MG in SYRINGE 0 ML IV SCH ×3 (08:08→21:02)
[2017-07-08] MEDS: AMIODARONE 200 MG TAB PO SCH (08:09)
[2017-07-08] MEDS: POTASSIUM CHLORIDE 10 MEQ TABCR PO SCH ×2 (08:09→21:01)
[2017-07-08] MEDS: PANTOprazole SOD 40 MG TAB PO SCH (08:09)
[2017-07-08] MEDS: METOPROLOL TARTRATE 50 MG TAB PO SCH ×2 (08:40→21:00)
--- NOTE | 2017-07-08 10:31 | ECHOCARDIOGRAM REPORT ---
*NOTICE TO RECEIVING [employer] This information is strictly Confidential and protected under [place] law. [place] law prohibits you from making any further disclosure of this information unless further disclosure is expressly permitted by the written consent of the person to whom it pertains or is authorized by law. A general authorization for the release of medical or other information is not sufficient for this purpose. Hospital accepts no responsibility if the information is made available to any other person, INCLUDING THE PATIENT. Interpretation Summary * Name: SIVAN QUIJANO Study Date: 07/08/2017 07:15 AM BP: 107/62 mmHg * Patient Location: [facility]\S\N285\S\1 HR: 66 * : 1930 (M/d/yyyy) Gender: Female Height: 60 in * Age: 87 yrs Ethnicity: [place] Weight: 165 lb * Ordering Physician: Johnny Saunders * Referring Physician: Johnny Saunders * Performed By: Valerie Khan RCS * * Reason For Study: AORTIC STENOSIS / ASSESS LV * BSA: 1.7 m2 * -- Conclusions -- * Compared to previous study: mild aortic regurgitation is present. * Normal LV chamber size with severe concentric LVH. * Normal LV systolic function, EF 55-60%. * No segmental left ventricular wall motion abnormalities are noted. * Grade I diastolic dysfunction. * There is severe calcific aortic valve stenosis. Mild aortic regurgitation. * There is severe mitral annular calcification. There is moderate mitral regurgitation. There is no mitral valve stenosis. * Moderate tricuspid regurgitation. * Severe left atrial enlargement. Procedure Details * A complete two-dimensional transthoracic echocardiogram was performed (2D, M-mode, Doppler and color flow Doppler). Left Ventricle * The left ventricle is normal in size. * There is severe concentric left ventricular hypertrophy. * Left ventricular systolic function is normal. * No segmental left ventricular wall motion abnormalities are noted. * Ejection Fraction = 55-60%. * The left ventricular wall motion is normal. Right Ventricle * The right ventricular cavity size is normal (basal dimension <4.2 cm in right ventricular apical 4-chamber view). * The right ventricular systolic function is normal as assessed by tricuspid annular plane systolic excursion (TAPSE) (normal >1.5 cm). Atria * The left atrium is severely dilated. * The right atrium is mildly dilated. * No ASD detected; PFO is not assessed. Mitral Valve * There is severe mitral annular calcification. * There is no mitral valve stenosis. * There is moderate mitral regurgitation. Tricuspid Valve * The tricuspid valve anatomy is normal. * There is no tricuspid stenosis. * There is moderate tricuspid regurgitation. Aortic Valve * The aortic valve is not well visualized. * There is severe calcific aortic valve stenosis. * Mild aortic regurgitation. Pulmonic Valve * The pulmonary valve is not well seen, but the Doppler examination is normal without significant regurgitation or stenosis. Great Vessels * The aortic root is normal size. Pericardium/Pleural * There is no pericardial effusion. Left Ventricular Diastolic Function * Grade I diastolic dysfunction, (abnormal relaxation pattern). MMode 2D Measurements and Calculations IVSd 2.1 cm IVSs 2.4 cm LVIDd 4.3 cm LVIDs 1.7 cm LVPWd 1.3 cm LVPWs 2.0 cm IVS/LVPW 1.7 FS 60.1 % EDV(Teich) 85.0 ml ESV(Teich) 8.8 ml EF(Teich) 89.7 % EDV(cubed) 81.8 ml ESV(cubed) 5.2 ml EF(cubed) 93.7 % % IVS thick 13.2 % % LVPW thick 57.5 % LV mass(C)d 317.7 grams LV mass(C)dI 184.7 grams/m\S\2 LV mass(C)s 187.7 grams LV mass(C)sI 109.2 grams/m\S\2 SV(Teich) 76.2 ml SI(Teich) 44.3 ml/m\S\2 SV(cubed) 76.6 ml SI(cubed) 44.6 ml/m\S\2 Ao root diam 3.2 cm Ao root area 7.8 cm\S\2 LA dimension 4.8 cm LA/Ao 1.5 LVOT diam 1.6 cm LVOT area 2.0 cm\S\2 Doppler Measurements and Calculations MV E max julio cesar 136.5 cm/sec MV dec time 0.17 sec Ao V2 max 531.5 cm/sec Ao max PG 113.0 mmHg Ao max PG (full) 109.2 mmHg Ao V2 mean 388.9 cm/sec Ao mean PG 67.4 mmHg Ao mean PG (full) 64.9 mmHg Ao V2 VTI 143.8 cm PETER(I,A) 0.36 cm\S\2 PETER(I,D) 0.36 cm\S\2 PETER(V,A) 0.36 cm\S\2 PETER(V,D) 0.36 cm\S\2 AI max julio cesar 346.7 cm/sec AI max PG 48.1 mmHg AI dec slope 286.9 cm/sec\S\2 AI P1/2t 353.9 msec LV V1 max PG 3.8 mmHg LV V1 mean PG 2.6 mmHg LV V1 max 97.9 cm/sec LV V1 mean 78.3 cm/sec LV V1 VTI 26.2 cm MR max julio cesar 721.0 cm/sec MR max PG 208.0 mmHg SV(Ao) 1127.2 ml SI(Ao) 655.3 ml/m\S\2 SV(LVOT) 51.4 ml SI(LVOT) 29.9 ml/m\S\2 PA V2 max 95.3 cm/sec PA max PG 3.6 mmHg PI max julio cesar 253.4 cm/sec PI max PG 25.7 mmHg PI dec slope 213.9 cm/sec\S\2 PI P1/2t 346.9 msec TR max julio cesar 299.6 cm/sec
--- NOTE | 2017-07-08 14:08 | Progress Note ---
Internal Med Progress Note Date of Service: Jul 08, 2017. Provider Documentation: SUBJECTIVE: Seen and examined at bedside SOB is slightly better Denies chest pain, dizziness No other complaints OBJECTIVE: Vital Signs-as noted below General Appearance: WD/WN, no apparent distress Head: normocephalic, atraumatic Eyes: normal inspection, PERRL, EOMI ENT: normal ENT inspection, hearing grossly normal Neck: supple, trachea midline, + JVD Respiratory/Chest: normal breath sounds, CTA Cardiovascular: + diastolic and systolic murmur, irregularly irregular Abdomen/GI: normal bowel sounds, non tender, soft, distended Back: normal inspection Extremities/Musculoskelatal: normal inspection, + pedal edema Neurologic/Psych: wool hat finisher II-XII nml as tested, no motor/sensory deficits, alert, normal mood/affect, oriented x 3 Skin: normal color, warm/dry Lab data as noted below. ASSESSMENT & PLAN: Acute on chronic diastolic heart failure: Severe Valvular Heart disease Pulmonary Hypertension Presented with SOB, Pedal edema, weight gain, abdominal distention, orthopnea, PND Has elevated BNP, CXR suggestive of CHF Last ECHO in Apr 2017: EF:60-65%, Severe LVH, Severe , Moderate MR, Severe TR , Pulmonary HTN ECHO: mild aortic regurgitation is present now Continue IV lasix 40mg TID Daily weight, I/Os, monitor electrolytes Appreciate Cardiology Input Troponin X 2: Negative Continue Metoprolol Digoxin discontinued secondary to intermittent junctional rhythm noted on EKG Digoxin levels:1.5: normal Needs ZULLY eventually ABD USD:Trace ascites Supratherapeutic INR: INR:4.0>>>3.7 No active bleeding Hold coumadin monitor INR DM II: diet controlled Last A1c:5.2 on 05/11/17 CKD III: Cr slightly elevated secondary to diuresis Monitor renal function Atrial fibrillation: Rate controlled Continue Metoprolol, amiodarone Hold coumadin as INR supratherapeutic HLP: continue Statin DVT Px: SCDs INR supratherapeutic Code Status: Full Code on my discussion with patient Disposition: Monitor in Telemetry PROCEDURES: ECHO: * Compared to previous study: mild aortic regurgitation is present. * Normal LV chamber size with severe concentric LVH. * Normal LV systolic function, EF 55-60%. * No segmental left ventricular wall motion abnormalities are noted. * Grade I diastolic dysfunction. * There is severe calcific aortic valve stenosis. Mild aortic regurgitation. * There is severe mitral annular calcification. There is moderate mitral regurgitation. There is no mitral valve stenosis. * Moderate tricuspid regurgitation. * Severe left atrial enlargement. Vital Signs: Date Time Temp Pulse Resp B/P (MAP) Pulse Ox O2 Delivery O2 Flow Rate FiO2 07/08/17 11:37 Room Air 07/08/17 11:33 104 16 93 Room Air 07/08/17 08:00 Room Air 07/08/17 07:58 84 16 92 Room Air 07/08/17 07:33 36.8 77 20 107/62 (77) 90 Room Air 07/08/17 05:10 36.5 73 17 96/58 (71) 90 Room Air 07/08/17 04:00 Room Air 07/08/17 00:00 Room Air 07/07/17 23:50 36.6 70 19 100/55 (70) 94 Room Air 07/07/17 20:30 36.3 72 19 126/68 Room Air 07/07/17 19:33 60 20 114/64 97 07/07/17 18:27 68 24 106/54 95 Room Air 07/07/17 17:44 75 18 123/91 98 Room Air 07/07/17 16:09 72 123/46 97 Room Air 07/07/17 15:25 68 18 110/73 98 Room Air 07/07/17 14:32 71 Lab Results: Results Past 24 Hours Test 07/07/17 15:55 07/07/17 18:41 07/07/17 19:50 07/07/17 21:34 Range/Units Sodium Level 136 136-145 mmol/L Potassium Level 3.9 3.5-5.1 mmol/L Chloride Level 99 98-107 mmol/L Carbon Dioxide Level 31 21-32 mmol/L Anion Gap 5.0 3-11 mmol/L Blood Urea Nitrogen 30 7-18 mg/dl Creatinine 1.49 0.60-1.20 mg/dl Est Creatinine Clear Calc Drug Dose 24.0 ml/min Estimated GFR () 36.2 Estimated GFR (Non- 31.3 BUN/Creatinine Ratio 20.1 10-20 Random Glucose 104 70-99 mg/dl Calcium Level 8.7 8.5-10.1 mg/dl Magnesium Level 2.3 1.8-2.4 mg/dl Digoxin Level 1.5 0.8-2.0 ng/ml Urine Color YELLOW Urine Appearance CLEAR CLEAR Urine pH 7.0 4.5-7.5 Urine Specific [place] 1.012 1.000-1.030 Urine Protein NEG NEG Urine Glucose (UA) NEG NEG Urine Ketones NEG NEG Urine Occult Blood NEG NEG Urine Nitrite NEG NEG Urine Bilirubin NEG NEG Urine Urobilinogen NEG NEG Urine Leukocyte Esterase NEG NEG Urine WBC (Auto) 0 0-5 /hpf Urine RBC (Auto) 5-10 0-4 /hpf Urine Hyaline Casts (Auto) 0 0-5 /lpf Urine Epithelial Cells (Auto) 0-5 0-5 /lpf Urine Bacteria (Auto) NEG NEG Bedside Glucose 92 70-90 mg/dl Troponin I 0.035 0-0.045 ng/ml Test 07/08/17 05:45 Range/Units White Blood Count 5.48 4.8-10.8 K/uL Red Blood Count 3.34 4.2-5.4 M/uL Hemoglobin 10.1 12.0-16.0 g/dL Hematocrit 31.4 37-47 % Mean Corpuscular Volume 94.0 80-100 fL Mean Corpuscular Hemoglobin 30.2 25-34 pg Mean Corpuscular Hemoglobin Concent 32.2 32-36 g/dl RDW Standard Deviation 58.9 36.4-46.3 fL RDW Coefficient of Variation 17.3 11.5-14.5 % Platelet Count 148 130-400 K/uL Mean Platelet Volume 9.4 7.4-10.4 fL Prothrombin Time 37.7 9.0-12.0 SECONDS Prothromb Time International Ratio 3.7 0.9-1.1 Sodium Level 135 136-145 mmol/L Potassium Level 3.9 3.5-5.1 mmol/L Chloride Level 101 98-107 mmol/L Carbon Dioxide Level 28 21-32 mmol/L Anion Gap 6.0 3-11 mmol/L Blood Urea Nitrogen 30 7-18 mg/dl Creatinine 1.61 0.60-1.20 mg/dl Est Creatinine Clear Calc Drug Dose 21.1 ml/min Estimated GFR () 33.0 Estimated GFR (Non- 28.5 BUN/Creatinine Ratio 18.5 10-20 Random Glucose 112 70-99 mg/dl Calcium Level 8.3 8.5-10.1 mg/dl Magnesium Level 2.1 1.8-2.4 mg/dl Pro-B-Type Natriuretic Peptide 35729 0-1800 pg/ml
--- NOTE | 2017-07-08 15:01 | Cardiology Follow-Up ---
Subjective General Date of Service: Jul 08, 2017. Chief Complaint: SOB Pt evaluation today including: conversation w/ patient, physical exam, chart review, lab review, review of studies, review of inpatient medication list History of Present Illness Patient mildly confused this AM. Notes ongoing SOB. No chest pain. ROS limited. Edema unchanged to hips. Allergies Coded Allergies: Morphine (Verified Allergy, Intermediate, 07/07/17) Aspirin (Verified Allergy, Unknown, ., 07/07/17) Pneumococcal Vaccine (Verified Allergy, Unknown, SWELLING, 07/07/17) Sulindac (Verified Allergy, Unknown, 07/07/17) Social History Smoking Status: Never Smoker Hx Tobacco Use In Past Year?: No Hx Alcohol Use - Type And Amou: No Hx Substance Use - Type And Am: No Problem List Medical Problems: (1) A-fib Status: Acute (2) Atrial fibrillation Status: Acute (3) Congestive heart failure Status: Acute (4) Congestive heart failure Status: Acute (5) Headache Status: Acute (6) N18.9 Status: Acute (7) Severe aortic stenosis Status: Chronic (8) Shortness of breath Status: Acute Social History Problems: (1) Atrial fibrillation with RVR Status: Chronic (2) 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 Review of Systems Respiratory: + see HPI Cardiac: + see HPI Physical Exam Vital Signs Last Vital Signs Documentation Date Time Temp Pulse Resp B/P (MAP) Pulse Ox O2 Delivery O2 Flow Rate FiO2 07/08/17 08:00 Room Air 07/08/17 07:58 84 16 92 07/08/17 07:33 36.8 107/62 (77) Physical Exam Constitutional: General Apperance: overweight Level of Distress: acutely ill, chronically ill Psychiatric: Mental Status: confused Orientation: to person Head: normocephalic Eyes: Pupils: PERRLA Neck: supple Lungs: Auscultation: decreased breath sounds, wet rales/crackles Cardiovascular: Heart Auscultation: III/ DEMETRIO, irregular rate rhythm Extremities: edema Assessment and Plan Assessment and Plan 87-year-old female 1. Acute on chronic decompensated diastolic heart failure exacerbation with severe volume overload on exam 2. Critical , currently being evaluated for valve intervention 3. Chronic atrial fibrillation with intermittent junctional rhythm noted on admission. digoxin level borderline, med held 4, Mild confusion -? baseline PLAN: Continue IV diuresis today. Monitor electrolytes Monitor renal function. Continue to hold digoxin. No significant bradyarrhythmias overnight Continue amiodarone (used for rate control not rhythm control). Continue metoprolol. Once volume status improved, plan for transfer to [facility] for further valve intervention. Case discussed with Dr. Eid Cardiology attending: Pt seen and examined, agree with findings and assessment as per Jeanne Solorzano. Pt with some urine output but will increase frequency of lasix to TID to facilitate further diuresis. Laboratory Results Last 24 Hours Test 07/07/17 13:30 07/07/17 15:55 07/07/17 18:41 07/07/17 19:50 White Blood Count 5.59 K/uL Red Blood Count 3.63 M/uL Hemoglobin 10.9 g/dL Hematocrit 34.1 % Mean Corpuscular Volume 93.9 fL Mean Corpuscular Hemoglobin 30.0 pg Mean Corpuscular Hemoglobin Concent 32.0 g/dl Platelet Count 157 K/uL Mean Platelet Volume 9.5 fL Neutrophils (%) (Auto) 68.6 % Lymphocytes (%) (Auto) 19.0 % Monocytes (%) (Auto) 10.6 % Eosinophils (%) (Auto) 1.1 % Basophils (%) (Auto) 0.5 % Neutrophils # (Auto) 3.84 K/uL Lymphocytes # (Auto) 1.06 K/uL Monocytes # (Auto) 0.59 K/uL Eosinophils # (Auto) 0.06 K/uL Basophils # (Auto) 0.03 K/uL RDW Standard Deviation 60.2 fL RDW Coefficient of Variation 17.4 % Immature Granulocyte % (Auto) 0.2 % Immature Granulocyte # (Auto) 0.01 K/uL Prothrombin Time 40.8 SECONDS Prothromb Time International Ratio 4.0 Activated Partial Thromboplast Time 40.3 SECONDS Partial Thromboplastin Ratio 1.5 Total Bilirubin 1.2 mg/dl Direct Bilirubin 0.6 mg/dl Aspartate Amino Transf (AST/SGOT) 62 U/L Alanine Aminotransferase (ALT/SGPT) 49 U/L Alkaline Phosphatase 145 U/L Total Creatine Kinase 68 U/L Creatine Kinase MB 2.1 ng/ml Creatine Kinase MB Ratio 3.1 Troponin I 0.029 ng/ml Pro-B-Type Natriuretic Peptide 27772 pg/ml Total Protein 7.5 gm/dl Albumin 3.4 gm/dl Lipase 155 U/L Sodium Level 136 mmol/L Potassium Level 3.9 mmol/L Chloride Level 99 mmol/L Carbon Dioxide Level 31 mmol/L Anion Gap 5.0 mmol/L Blood Urea Nitrogen 30 mg/dl Creatinine 1.49 mg/dl Est Creatinine Clear Calc Drug Dose 24.0 ml/min Estimated GFR () 36.2 Estimated GFR (Non- 31.3 BUN/Creatinine Ratio 20.1 Random Glucose 104 mg/dl Calcium Level 8.7 mg/dl Magnesium Level 2.3 mg/dl Digoxin Level 1.5 ng/ml Urine Color YELLOW Urine Appearance CLEAR Urine pH 7.0 Urine Specific [place] 1.012 Urine Protein NEG Urine Glucose (UA) NEG Urine Ketones NEG Urine Occult Blood NEG Urine Nitrite NEG Urine Bilirubin NEG Urine Urobilinogen NEG Urine Leukocyte Esterase NEG Urine WBC (Auto) 0 /hpf Urine RBC (Auto) 5-10 /hpf Urine Hyaline Casts (Auto) 0 /lpf Urine Epithelial Cells (Auto) 0-5 /lpf Urine Bacteria (Auto) NEG Bedside Glucose 92 mg/dl Test 07/07/17 21:34 07/08/17 05:45 Troponin I 0.035 ng/ml White Blood Count 5.48 K/uL Red Blood Count 3.34 M/uL Hemoglobin 10.1 g/dL Hematocrit 31.4 % Mean Corpuscular Volume 94.0 fL Mean Corpuscular Hemoglobin 30.2 pg Mean Corpuscular Hemoglobin Concent 32.2 g/dl RDW Standard Deviation 58.9 fL RDW Coefficient of Variation 17.3 % Platelet Count 148 K/uL Mean Platelet Volume 9.4 fL Prothrombin Time 37.7 SECONDS Prothromb Time International Ratio 3.7 Sodium Level 135 mmol/L Potassium Level 3.9 mmol/L Chloride Level 101 mmol/L Carbon Dioxide Level 28 mmol/L Anion Gap 6.0 mmol/L Blood Urea Nitrogen 30 mg/dl Creatinine 1.61 mg/dl Est Creatinine Clear Calc Drug Dose 21.1 ml/min Estimated GFR () 33.0 Estimated GFR (Non- 28.5 BUN/Creatinine Ratio 18.5 Random Glucose 112 mg/dl Calcium Level 8.3 mg/dl Magnesium Level 2.1 mg/dl Pro-B-Type Natriuretic Peptide 46994 pg/ml
[2017-07-08] MEDS ORDERED: DIGOXIN 0.125 MG TAB PO SCH (16:00)
[2017-07-08] MEDS: SIMVASTATIN 20 MG TAB PO SCH (22:10)
[2017-07-09] VITALS (12 sets, daily range): BP systolic 93–120; BP diastolic 45–64; PULSE 74–103; TEMP 36.6–36.8; O2SAT 90–99
[2017-07-09 06:14] LABS: HEMATOCRIT 30.8 % (37-47); HEMOGLOBIN 9.9 g/dL (12.0-16.0)
[2017-07-09 06:33] LABS: INR 3.1 (0.9-1.1)
[2017-07-09 06:53] LABS: CALCIUM 8.6 mg/dl (8.5-10.1); CREATININE 1.73 mg/dl (0.60-1.20); POTASSIUM 3.5 mmol/L (3.5-5.1)
[2017-07-09] MEDS: ALBUT/IPRATROP 3MG/0.5MG NEB 3 ML VIAL INH SCH ×3 (07:00→15:06)
[2017-07-09] MEDS: FUROSEMIDE INJ 40 MG in SYRINGE 0 ML IV SCH ×3 (08:08→21:18)
[2017-07-09] MEDS: POTASSIUM CHLORIDE 10 MEQ TABCR PO SCH ×2 (08:08→20:31)
[2017-07-09] MEDS: PANTOprazole SOD 40 MG TAB PO SCH (08:09)
[2017-07-09] MEDS: METOPROLOL TARTRATE 50 MG TAB PO SCH ×2 (08:09→20:30)
[2017-07-09] MEDS: AMIODARONE 200 MG TAB PO SCH (09:06)
--- NOTE | 2017-07-09 14:16 | Cardiology Follow-Up ---
Subjective Subjective Date of Service: Jul 09, 2017. Pt evaluation today including: conversation w/ patient, physical exam, chart review, lab review, review of studies, review of inpatient medication list Additional Details: Pt seen and examined, oob in chair. States that her breathing is ok but her LE edema persists without much improvement. States that she is urinating frequently and would like to avoid [place] if possible. Denies cp, palpitations, lightheadedness or dizziness. 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 Review of Systems Respiratory: + see HPI, + shortness of breath, + dyspnea on exertion, No cough , No sputum, No wheezing, No dyspnea at rest, No hemoptysis, No problem reported Cardiac: + see HPI, + edema, No chest pain, No orthopnea, No PND, No claudication, No palpitations, No problem reported Objective Vital Signs Last Vital Signs Documentation Date Time Temp Pulse Resp B/P (MAP) Pulse Ox O2 Delivery O2 Flow Rate FiO2 07/09/17 13:23 36.7 79 20 93/49 (64) 95 07/09/17 12:00 Room Air Physical Exam: General Appearance: WD/WN, no apparent distress Eyes: bilateral eyes normal inspection, bilateral eyes PERRL, bilateral eyes EOMI ENT: normal ENT inspection, hearing grossly normal, pharynx normal Neck: supple, no adenopathy, thyroid normal, no JVD Respiratory/Chest: chest non-tender, lungs clear, normal breath sounds, no respiratory distress, no accessory muscle use Cardiovascular: + systolic murmur (4/6 mid to late soft whitney, 2nd ics with radiation to b/l carotids. 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 Acute on chronic decompensated diastolic heart failure exacerbation with severe volume overload on exam diuresing well but I/O counts seem to be inaccurate strict I/O's and daily weights (ON SAME SCALE) cont lasix 40mg IV TID follow and replete lytes as necessary 2. Critical , currently being evaluated for valve intervention will [place] [facility] [place] once euvolemic 3. Chronic atrial fibrillation with intermittent junctional rhythm noted on admission. digoxin level borderline, med held cont metoprolol, coumadin and amio 4, Mild confusion -? baseline cont to monitor on tele
--- NOTE | 2017-07-09 15:29 | Progress Note ---
Internal Med Progress Note Date of Service: Jul 09, 2017. Provider Documentation: SUBJECTIVE: Seen and examined at bedside Less SOB today Still has significant leg edema Denies chest pain, dizziness No other complaints Family at bedside OBJECTIVE: Vital Signs-as noted below General Appearance: WD/WN, no apparent distress Head: normocephalic, atraumatic Eyes: normal inspection, PERRL, EOMI ENT: normal ENT inspection, hearing grossly normal Neck: supple, trachea midline, + JVD Respiratory/Chest:Decreased breath sounds, Basal crackles Cardiovascular: + diastolic and systolic murmur, irregularly irregular Abdomen/GI: normal bowel sounds, non tender, soft, distended Back: normal inspection Extremities/Musculoskelatal: normal inspection, + pedal edema 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 ASSESSMENT & PLAN: Acute on chronic diastolic heart failure: Severe Valvular Heart disease Pulmonary Hypertension Presented with SOB, Pedal edema, weight gain, abdominal distention, orthopnea, PND Has elevated BNP, CXR suggestive of CHF Last ECHO in Apr 2017: EF:60-65%, Severe LVH, Severe , Moderate MR, Severe TR , Pulmonary HTN ECHO: mild aortic regurgitation is present now Continue IV lasix 40mg TID Daily weight, I/Os, monitor electrolytes Appreciate Cardiology Input Troponin X 2: Negative Continue Metoprolol Digoxin discontinued secondary to intermittent junctional rhythm noted on EKG Digoxin levels:1.5: normal Needs ZULLY eventually ABD USD:Trace ascites Plan to discharge to [facility] once euvolemic for possible Intervention Supratherapeutic INR: INR:4.0>>>3.7>>>>3.1 No active bleeding Hold coumadin for today monitor INR DM II: diet controlled Last A1c:5.2 on 05/11/17 PASTORA on CKD III: Secondary to diuresis Cr:1.73 Expect Cr to plateau Monitor renal function Atrial fibrillation: Rate controlled Continue Metoprolol, amiodarone Hold coumadin as INR supratherapeutic HLP: continue Statin DVT Px: SCDs INR supratherapeutic Code Status: Full Code on my discussion with patient Disposition: Monitor in Telemetry PROCEDURES: ECHO: * Compared to previous study: mild aortic regurgitation is present. * Normal LV chamber size with severe concentric LVH. * Normal LV systolic function, EF 55-60%. * No segmental left ventricular wall motion abnormalities are noted. * Grade I diastolic dysfunction. * There is severe calcific aortic valve stenosis. Mild aortic regurgitation. * There is severe mitral annular calcification. There is moderate mitral regurgitation. There is no mitral valve stenosis. * Moderate tricuspid regurgitation. * Severe left atrial enlargement. Vital Signs: Date Time Temp Pulse Resp B/P (MAP) Pulse Ox O2 Delivery O2 Flow Rate FiO2 07/09/17 15:06 86 16 94 Room Air 07/09/17 13:23 36.7 79 20 93/49 (64) 95 07/09/17 12:00 93 Room Air 07/09/17 11:05 82 16 94 Room Air 07/09/17 08:00 93 Room Air 07/09/17 07:38 36.6 75 20 99/49 (66) 93 07/09/17 07:00 75 16 92 Room Air 07/09/17 04:00 Room Air 07/09/17 02:47 36.6 74 20 120/54 (76) 90 Room Air 07/09/17 00:00 Room Air 07/08/17 22:48 36.6 83 20 99/61 (74) 95 Room Air 07/08/17 20:00 Room Air 07/08/17 19:56 36.6 83 20 93/59 (70) 95 Room Air 07/08/17 19:07 79 16 92 Room Air 07/08/17 16:00 Room Air 07/08/17 15:55 36.6 74 16 122/66 (84) 93 07/08/17 15:26 94 16 95 Room Air Lab Results: Results Past 24 Hours Test 07/09/17 05:51 Range/Units Hemoglobin 9.9 12.0-16.0 g/dL Hematocrit 30.8 37-47 % Prothrombin Time 31.4 9.0-12.0 SECONDS Prothromb Time International Ratio 3.1 0.9-1.1 Sodium Level 136 136-145 mmol/L Potassium Level 3.5 3.5-5.1 mmol/L Chloride Level 101 98-107 mmol/L Carbon Dioxide Level 29 21-32 mmol/L Anion Gap 6.0 3-11 mmol/L Blood Urea Nitrogen 32 7-18 mg/dl Creatinine 1.73 0.60-1.20 mg/dl Est Creatinine Clear Calc Drug Dose 19.7 ml/min Estimated GFR () 30.2 Estimated GFR (Non- 26.1 BUN/Creatinine Ratio 18.3 10-20 Random Glucose 104 70-99 mg/dl Calcium Level 8.6 8.5-10.1 mg/dl Magnesium Level 2.2 1.8-2.4 mg/dl
[2017-07-09] MEDS ORDERED: ALBUT/IPRATROP 3MG/0.5MG NEB 3 ML VIAL INH PRN (16:00)
[2017-07-09] MEDS: SIMVASTATIN 20 MG TAB PO SCH (20:30)
[2017-07-10] VITALS (10 sets, daily range): BP systolic 98–130; BP diastolic 55–76; PULSE 79–99; TEMP 36.4–37.2; O2SAT 90–96
[2017-07-10 06:14] LABS: INR 2.7 (0.9-1.1)
[2017-07-10 06:46] LABS: CALCIUM 8.5 mg/dl (8.5-10.1); CREATININE 1.51 mg/dl (0.60-1.20); POTASSIUM 3.8 mmol/L (3.5-5.1)
[2017-07-10] MEDS: POTASSIUM CHLORIDE 10 MEQ TABCR PO SCH ×2 (08:27→20:39)
[2017-07-10] MEDS: PANTOprazole SOD 40 MG TAB PO SCH (08:27)
[2017-07-10] MEDS: AMIODARONE 200 MG TAB PO SCH (08:28)
[2017-07-10] MEDS: FUROSEMIDE INJ 40 MG in SYRINGE 0 ML IV SCH ×3 (08:28→20:39)
[2017-07-10] MEDS: METOPROLOL TARTRATE 50 MG TAB PO SCH ×2 (08:28→20:39)
[2017-07-10] MEDS ORDERED: POTASSIUM CHLORIDE 10 MEQ TABCR PO ONE (12:18)
--- NOTE | 2017-07-10 12:18 | Cardiology Follow-Up ---
Subjective Subjective Date of Service: Jul 10, 2017. Pt evaluation today including: conversation w/ patient, physical exam, chart review, lab review, review of studies, review of inpatient medication list Additional Details: Pt seen and examined, oob in chair. States that her breathing is somewhat improved today but no significant change of lower extremity edema. States that she is voiding well on her own. Denies cp, palpitations, lightheadedness or dizziness. 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 Review of Systems Respiratory: + see HPI, + shortness of breath, + dyspnea on exertion, No cough , No sputum, No wheezing, No dyspnea at rest, No hemoptysis, No problem reported Cardiac: + see HPI, + edema, No chest pain, No orthopnea, No PND, No claudication, No palpitations, No problem reported Objective Vital Signs Last Vital Signs Documentation Date Time Temp Pulse Resp B/P (MAP) Pulse Ox O2 Delivery O2 Flow Rate FiO2 07/10/17 11:51 36.4 79 18 116/63 (80) 92 Nasal Cannula 2.0 Physical Exam: General Appearance: WD/WN, no apparent distress Eyes: bilateral eyes normal inspection, bilateral eyes PERRL, bilateral eyes EOMI ENT: normal ENT inspection, hearing grossly normal, pharynx normal Neck: supple, no adenopathy, thyroid normal, no JVD Respiratory/Chest: chest non-tender, lungs clear, normal breath sounds, no respiratory distress, no accessory muscle use Cardiovascular: + systolic murmur (4/6 mid to late soft whitney, 2nd ics with radiation to b/l carotids. 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 Acute on chronic decompensated diastolic heart failure exacerbation with severe volume overload on exam diuresing well but I/O counts seem to be inaccurate strict I/O's and daily weights (ON SAME SCALE) no significant change in lower extremity edema cont lasix 40mg IV TID follow and replete lytes as necessary 2. Critical , currently being evaluated for valve intervention will transfer to [facility] for intervention once euvolemic 3. Chronic atrial fibrillation with intermittent junctional rhythm noted on admission. digoxin level borderline, med held cont metoprolol, coumadin and amio 4, Mild confusion -? baseline cont to monitor on tele
--- NOTE | 2017-07-10 14:14 | Progress Note ---
Internal Med Progress Note Date of Service: Jul 10, 2017. Provider Documentation: SUBJECTIVE: Seen and examined at bedside Reports having a coughing episode earlier today which resolved Less SOB Still has significant leg edema Denies chest pain, dizziness No other complaints Family at bedside OBJECTIVE: Vital Signs-as noted below General Appearance: WD/WN, no apparent distress Head: normocephalic, atraumatic Eyes: normal inspection, PERRL, EOMI ENT: normal ENT inspection, hearing grossly normal Neck: supple, trachea midline, + JVD Respiratory/Chest:Decreased breath sounds, Basal crackles Cardiovascular: + diastolic and systolic murmur, irregularly irregular Abdomen/GI: normal bowel sounds, non tender, soft, distended Back: normal inspection Extremities/Musculoskelatal: normal inspection, + pedal edema 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 ASSESSMENT & PLAN: Acute on chronic diastolic heart failure: Severe Valvular Heart disease Pulmonary Hypertension Presented with SOB, Pedal edema, weight gain, abdominal distention, orthopnea, PND Has elevated BNP, CXR suggestive of CHF Last ECHO in Apr 2017: EF:60-65%, Severe LVH, Severe , Moderate MR, Severe TR , Pulmonary HTN ECHO: mild aortic regurgitation is present now Continue IV lasix 40mg TID Daily weight, I/Os, monitor electrolytes Appreciate Cardiology Input Troponin X 2: Negative Continue Metoprolol Digoxin discontinued secondary to intermittent junctional rhythm noted on EKG Digoxin levels:1.5: normal Needs ZULLY eventually ABD USD:Trace ascites Plan to discharge to [facility] once euvolemic for possible Intervention Supratherapeutic INR: INR:4.0>>>3.7>>>>3.1>>>2.7 Resume Coumadin today monitor INR DM II: diet controlled Last A1c:5.2 on 05/11/17 PASTORA on CKD III: Secondary to diuresis Cr:1.73>>>1.51 Monitor renal function Atrial fibrillation: Rate controlled Continue Metoprolol, amiodarone continue coumadin HLP: continue Statin DVT Px: SCDs On Coumadin Code Status: Full Code on my discussion with patient Disposition: Monitor in Telemetry PROCEDURES: ECHO: * Compared to previous study: mild aortic regurgitation is present. * Normal LV chamber size with severe concentric LVH. * Normal LV systolic function, EF 55-60%. * No segmental left ventricular wall motion abnormalities are noted. * Grade I diastolic dysfunction. * There is severe calcific aortic valve stenosis. Mild aortic regurgitation. * There is severe mitral annular calcification. There is moderate mitral regurgitation. There is no mitral valve stenosis. * Moderate tricuspid regurgitation. * Severe left atrial enlargement. Vital Signs: Date Time Temp Pulse Resp B/P (MAP) Pulse Ox O2 Delivery O2 Flow Rate FiO2 07/10/17 13:13 93 Room Air 07/10/17 11:51 36.4 79 18 116/63 (80) 92 Nasal Cannula 2.0 07/10/17 09:37 79 95 07/10/17 08:06 36.7 85 20 120/72 (88) 90 Room Air 07/10/17 08:00 93 Room Air 07/10/17 04:58 36.7 90 18 117/67 (84) 90 Room Air 07/10/17 04:00 Room Air 07/09/17 23:27 36.7 96 18 104/64 (77) 90 Room Air 07/09/17 23:20 92 Room Air 07/09/17 20:00 Room Air 07/09/17 19:29 36.8 103 18 104/57 (73) 97 Room Air 07/09/17 16:10 36.7 87 18 110/45 (66) 99 Room Air 07/09/17 16:00 Room Air 07/09/17 15:06 86 16 94 Room Air Lab Results: Results Past 24 Hours Test 07/10/17 05:49 Range/Units Prothrombin Time 27.5 9.0-12.0 SECONDS Prothromb Time International Ratio 2.7 0.9-1.1 Sodium Level 137 136-145 mmol/L Potassium Level 3.8 3.5-5.1 mmol/L Chloride Level 99 98-107 mmol/L Carbon Dioxide Level 30 21-32 mmol/L Anion Gap 8.0 3-11 mmol/L Blood Urea Nitrogen 28 7-18 mg/dl Creatinine 1.51 0.60-1.20 mg/dl Est Creatinine Clear Calc Drug Dose 22.6 ml/min Estimated GFR () 35.6 Estimated GFR (Non- 30.8 BUN/Creatinine Ratio 18.7 10-20 Random Glucose 105 70-99 mg/dl Calcium Level 8.5 8.5-10.1 mg/dl Magnesium Level 2.2 1.8-2.4 mg/dl
[2017-07-10] MEDS ORDERED: WARFARIN SOD 1 MG TAB PO SCH (16:00)
[2017-07-10] MEDS: SIMVASTATIN 20 MG TAB PO SCH (20:39)
[2017-07-11] VITALS: BP 100/46; PULSE 75; TEMP 36.9; O2SAT 93
[2017-07-11 04:00] VITALS: BP 130/73; PULSE 71; TEMP 36.9; O2SAT 91
[2017-07-11 06:35] LABS: HEMATOCRIT 32.3 % (37-47); HEMOGLOBIN 10.2 g/dL (12.0-16.0)
[2017-07-11 06:46] LABS: INR 2.2 (0.9-1.1)
[2017-07-11 07:08] LABS: CALCIUM 8.8 mg/dl (8.5-10.1); CREATININE 1.63 mg/dl (0.60-1.20); POTASSIUM 3.5 mmol/L (3.5-5.1)
[2017-07-11 07:49] VITALS: BP 110/63; PULSE 79; TEMP 36.4; O2SAT 92
[2017-07-11] MEDS: FUROSEMIDE INJ 40 MG in SYRINGE 0 ML IV SCH ×3 (08:48→20:10)
[2017-07-11] MEDS: PANTOprazole SOD 40 MG TAB PO SCH (08:48)
[2017-07-11] MEDS: AMIODARONE 200 MG TAB PO SCH (08:49)
[2017-07-11] MEDS: POTASSIUM CHLORIDE 10 MEQ TABCR PO SCH ×2 (08:49→20:10)
[2017-07-11] MEDS: METOPROLOL TARTRATE 50 MG TAB PO SCH ×2 (08:49→20:11)
[2017-07-11 12:05] VITALS: BP 102/50; PULSE 75; TEMP 36.6; O2SAT 94
--- NOTE | 2017-07-11 12:31 | Cardiology Follow-Up ---
Subjective Subjective Date of Service: Jul 11, 2017. Pt evaluation today including: conversation w/ patient, physical exam, chart review, lab review, review of studies, review of inpatient medication list Additional Details: Pt seen and examined, states no change since yesterday despite continuing to diurese well. Still with some sob and LE edema to mid thigh. Denies cp, palpitations, lightheadedness or dizziness. 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 Review of Systems Respiratory: + see HPI, + shortness of breath, + dyspnea on exertion, No cough , No sputum, No wheezing, No dyspnea at rest, No hemoptysis, No problem reported Cardiac: + see HPI, + edema, No chest pain, No orthopnea, No PND, No claudication, No palpitations, No problem reported Objective Vital Signs Last Vital Signs Documentation Date Time Temp Pulse Resp B/P (MAP) Pulse Ox O2 Delivery O2 Flow Rate FiO2 07/11/17 12:05 36.6 75 18 102/50 (67) 94 Room Air 07/10/17 11:51 2.0 Physical Exam: General Appearance: WD/WN, no apparent distress Eyes: bilateral eyes normal inspection, bilateral eyes PERRL, bilateral eyes EOMI ENT: normal ENT inspection, hearing grossly normal, pharynx normal Neck: supple, no adenopathy, thyroid normal, no JVD Respiratory/Chest: chest non-tender, normal breath sounds, no respiratory distress, no accessory muscle use, + rales (slight, bibasilar) Cardiovascular: + systolic murmur (4/6 mid to late soft whitney, 2nd ics with radiation to b/l carotids. 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 Acute on chronic decompensated diastolic heart failure exacerbation with severe volume overload on exam diuresing well clinically unchanged no significant change in lower extremity edema cont lasix 40mg IV TID follow and replete lytes as necessary renal function remains stable but now Na trending down, follow 2. Critical , currently being evaluated for valve intervention [place] [facility] [place] once euvolemic 3. Chronic atrial fibrillation with intermittent junctional rhythm noted on admission. digoxin level borderline, med held cont metoprolol, coumadin and amio 4, Mild confusion -? baseline cont to monitor on tele
--- NOTE | 2017-07-11 14:07 | Progress Note ---
Internal Med Progress Note Date of Service: Jul 11, 2017. Provider Documentation: SUBJECTIVE: Seen and examined at bedside Feels tired today Has been making multiple Bathroom visits but refuses Gonzalez placement Less SOB Still has significant leg edema Denies chest pain, dizziness No other complaints OBJECTIVE: Vital Signs-as noted below General Appearance: WD/WN, no apparent distress Head: normocephalic, atraumatic Eyes: normal inspection, PERRL, EOMI ENT: normal ENT inspection, hearing grossly normal Neck: supple, trachea midline Respiratory/Chest:Decreased breath sounds, CTA Cardiovascular: + diastolic and systolic murmur, irregularly irregular Abdomen/GI: normal bowel sounds, non tender, soft, distended Back: normal inspection Extremities/Musculoskelatal: normal inspection, + pedal edema Neurologic/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 ASSESSMENT & PLAN: Acute on chronic diastolic heart failure: Severe Valvular Heart disease Pulmonary Hypertension Presented with SOB, Pedal edema, weight gain, abdominal distention, orthopnea, PND Has elevated BNP, CXR suggestive of CHF Last ECHO in Apr 2017: EF:60-65%, Severe LVH, Severe , Moderate MR, Severe TR , Pulmonary HTN ECHO: mild aortic regurgitation is present now Continue IV lasix 40mg TID Daily weight, I/Os, monitor electrolytes Appreciate Cardiology Input Troponin X 2: Negative Continue Metoprolol Digoxin discontinued secondary to intermittent junctional rhythm noted on EKG Digoxin levels:1.5: normal Needs ZULLY eventually ABD USD:Trace ascites Plan to discharge to [facility] once euvolemic for possible Intervention Supratherapeutic INR: INR:4.0>>3.7>>3.1>>2.7>>2.2 Continue Coumadin 1mg her home dose monitor INR DM II: diet controlled Last A1c:5.2 on 05/11/17 PASTORA on CKD III: Secondary to diuresis Cr:1.73>>>1.51>>1.63 Monitor renal function Atrial fibrillation: Rate controlled Continue Metoprolol, amiodarone continue coumadin HLP: continue Statin DVT Px: SCDs On Coumadin Code Status: Full Code on my discussion with patient Disposition: Monitor in Telemetry PROCEDURES: ECHO: * Compared to previous study: mild aortic regurgitation is present. * Normal LV chamber size with severe concentric LVH. * Normal LV systolic function, EF 55-60%. * No segmental left ventricular wall motion abnormalities are noted. * Grade I diastolic dysfunction. * There is severe calcific aortic valve stenosis. Mild aortic regurgitation. * There is severe mitral annular calcification. There is moderate mitral regurgitation. There is no mitral valve stenosis. * Moderate tricuspid regurgitation. * Severe left atrial enlargement. Vital Signs: Date Time Temp Pulse Resp B/P (MAP) Pulse Ox O2 Delivery O2 Flow Rate FiO2 07/11/17 12:05 36.6 75 18 102/50 (67) 94 Room Air 07/11/17 12:00 Room Air 07/11/17 07:49 36.4 79 18 110/63 (79) 92 Room Air 07/11/17 07:30 Room Air 07/11/17 04:00 Room Air 07/11/17 04:00 36.9 71 16 130/73 (92) 91 Room Air 07/11/17 00:00 36.9 75 18 100/46 (64) 93 Room Air 07/11/17 00:00 Room Air 07/10/17 21:03 85 16 92 Room Air 07/10/17 20:38 97 130/76 (94) 07/10/17 20:00 Room Air 07/10/17 19:24 37.2 81 18 98/55 (69) 92 Room Air 07/10/17 16:00 Room Air 07/10/17 15:27 36.6 99 20 119/60 (79) 96 Room Air Lab Results: Results Past 24 Hours Test 07/11/17 05:59 07/11/17 07:40 07/11/17 11:40 Range/Units Hemoglobin 10.2 12.0-16.0 g/dL Hematocrit 32.3 37-47 % Prothrombin Time 23.0 9.0-12.0 SECONDS Prothromb Time International Ratio 2.2 0.9-1.1 Sodium Level 135 136-145 mmol/L Potassium Level 3.5 3.5-5.1 mmol/L Chloride Level 98 98-107 mmol/L Carbon Dioxide Level 33 21-32 mmol/L Anion Gap 4.0 3-11 mmol/L Blood Urea Nitrogen 31 7-18 mg/dl Creatinine 1.63 0.60-1.20 mg/dl Est Creatinine Clear Calc Drug Dose 20.6 ml/min Estimated GFR () 32.5 Estimated GFR (Non- 28.0 BUN/Creatinine Ratio 19.2 10-20 Random Glucose 94 70-99 mg/dl Calcium Level 8.8 8.5-10.1 mg/dl Magnesium Level 2.2 1.8-2.4 mg/dl Bedside Glucose 85 114 70-90 mg/dl
[2017-07-11 15:08] VITALS: BP 128/64; PULSE 75; TEMP 36.6; O2SAT 95
[2017-07-11] MEDS ORDERED: WARFARIN SOD 1 MG TAB PO SCH (16:00)
[2017-07-11] MEDS: WARFARIN SOD 1 MG TAB PO SCH (16:56)
[2017-07-11 19:31] VITALS: BP 107/61; PULSE 81; TEMP 36.5; O2SAT 93
[2017-07-11] MEDS: SIMVASTATIN 20 MG TAB PO SCH (20:11)
[2017-07-12] VITALS (8 sets, daily range): BP systolic 93–121; BP diastolic 53–71; PULSE 67–93; TEMP 36.3–37; O2SAT 90–96
[2017-07-12 06:27] LABS: INR 1.9 (0.9-1.1)
[2017-07-12 07:02] LABS: CALCIUM 8.7 mg/dl (8.5-10.1); CREATININE 1.48 mg/dl (0.60-1.20); POTASSIUM 3.7 mmol/L (3.5-5.1)
[2017-07-12] MEDS: FUROSEMIDE INJ 40 MG in SYRINGE 0 ML IV SCH (09:26)
[2017-07-12] MEDS: AMIODARONE 200 MG TAB PO SCH (09:26)
[2017-07-12] MEDS: PANTOprazole SOD 40 MG TAB PO SCH (09:27)
[2017-07-12] MEDS: POTASSIUM CHLORIDE 10 MEQ TABCR PO SCH ×2 (09:27→20:11)
[2017-07-12] MEDS: METOPROLOL TARTRATE 50 MG TAB PO SCH ×2 (09:27→20:10)
--- NOTE | 2017-07-12 11:37 | Cardiology Follow-Up ---
Subjective Subjective Date of Service: Jul 12, 2017. Pt evaluation today including: conversation w/ patient, physical exam, chart review, lab review, review of studies, review of inpatient medication list Additional Details: Pt seen and examines, oob in chair. States that she feels the same as yesterday , some sob and LE edema unchanged. States that she's been sitting in chair a lot but continues to urinate without issue. Also, tolerating fluid restriction well. Problem List Medical Problems: (1) A-fib Status: Acute (2) Atrial fibrillation Status: Acute (3) Congestive heart failure Status: Acute (4) Congestive heart failure Status: Acute (5) Headache Status: Acute (6) N18.9 Status: Acute (7) Severe aortic stenosis Status: Chronic (8) Shortness of breath Status: Acute Social History Problems: (1) Atrial fibrillation with RVR Status: Chronic (2) 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 Review of Systems Respiratory: + see HPI, + shortness of breath, + dyspnea on exertion, No cough , No sputum, No wheezing, No dyspnea at rest, No hemoptysis, No problem reported Cardiac: + see HPI, + edema, No chest pain, No orthopnea, No PND, No claudication, No palpitations, No problem reported Objective Vital Signs Last Vital Signs Documentation Date Time Temp Pulse Resp B/P (MAP) Pulse Ox O2 Delivery O2 Flow Rate FiO2 07/12/17 11:24 36.3 78 18 108/61 (77) 95 Room Air 07/10/17 11:51 2.0 Physical Exam: General Appearance: WD/WN, no apparent distress Eyes: bilateral eyes normal inspection, bilateral eyes PERRL, bilateral eyes EOMI ENT: normal ENT inspection, hearing grossly normal, pharynx normal Neck: supple, no adenopathy, thyroid normal, no JVD Respiratory/Chest: chest non-tender, normal breath sounds, no respiratory distress, no accessory muscle use, + rales (slight, bibasilar) Cardiovascular: + systolic murmur (4/6 mid to late soft whitney, 2nd ics with radiation to b/l carotids. 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 Acute on chronic decompensated diastolic heart failure exacerbation with severe volume overload on exam diuresing well clinically unchanged no significant change in lower extremity edema ?positional component have asked nursing to ambulate patient more frequently today will also increase lasix dose to 60mg tid given borderline creat 2. Critical , currently being evaluated for valve intervention will transfer to [facility] for intervention once euvolemic 3. Chronic atrial fibrillation with intermittent junctional rhythm noted on admission. digoxin level borderline, med held cont metoprolol, coumadin and amio 4, Mild confusion -? baseline cont to monitor on tele
[2017-07-12] MEDS: FUROSEMIDE INJ 60 MG in SYRINGE 0 ML IV SCH ×2 (13:44→20:10)
[2017-07-12] MEDS: WARFARIN SOD 1 MG TAB PO SCH (15:46)
--- NOTE | 2017-07-12 16:43 | Progress Note ---
Medicine Progress Note Date & Time of Visit: Jul 12, 2017 at 16:43. Subjective Patient denies any complaints other than feeling chest congestion and inability to expectorate. No overnight events noted. Denies any symptoms of CP, TYSON, dizziness. Has a cough and mild sore throat but denies any nasal or sinus symptoms. Objective Last 8 Hrs Date Time Temp Pulse Resp B/P (MAP) Pulse Ox O2 Delivery O2 Flow Rate FiO2 07/12/17 16:00 Room Air 07/12/17 14:53 36.6 73 18 102/53 (69) 94 Room Air 07/12/17 12:13 Room Air 07/12/17 11:24 36.3 78 18 108/61 (77) 95 Room Air 07/12/17 09:25 91 104/55 (71) 07/12/17 08:47 Room Air 07/12/17 08:47 37.0 83 18 93/54 (67) 96 Room Air Physical Exam: GENERAL: Patient is in no acute distress. HEENT: No acute trauma, normocephalic, mucous membranes moist, no nasal congestion, no scleral icterus, conjunctivae clear. NECK: No stridor, trachea is midline. LUNGS: Clear to auscultation bilaterally, no wheeze, no rhonchi, breath sounds equal. HEART: +DEMETRIO, no gallops or rubs, regular rate and rhythm. ABDOMEN: Soft, nontender, bowel sounds positive, no hepatosplenomegaly. EXTREMITIES: No cyanosis or edema, full range of motion of all the joints without pain or difficulty, no signs for acute trauma. NEUROLOGIC: Oriented x 3, no acute motor or sensory deficits, no focal weakness. SKIN: No rash, no jaundice, no diaphoresis. Laboratory Results: Last 24 Hours Test 07/12/17 06:01 Prothrombin Time 20.2 SECONDS Prothromb Time International Ratio 1.9 Sodium Level 136 mmol/L Potassium Level 3.7 mmol/L Chloride Level 98 mmol/L Carbon Dioxide Level 33 mmol/L Anion Gap 5.0 mmol/L Blood Urea Nitrogen 30 mg/dl Creatinine 1.48 mg/dl Est Creatinine Clear Calc Drug Dose 22.7 ml/min Estimated GFR () 36.5 Estimated GFR (Non- 31.5 BUN/Creatinine Ratio 20.4 Random Glucose 104 mg/dl Calcium Level 8.7 mg/dl Assessment & Plan ACUTE ON CHRONIC DIASTOLIC HEART FAILURE: in setting of Severe Valvular Heart disease -known Pulmonary Hypertension, Severe , Severe TR, Mod MR -presented with symptoms of SOB, Pedal edema, weight gain, abdominal distention , orthopnea, PND -elevated BNP on admission and CXR suggestive of CHF -TTE: in Apr 2017: EF:60-65%, Severe LVH, Severe , Moderate MR, Severe TR, Pulmonary HTN -continued on IV lasix 40mg TID--> increased to 60mg TID today per Cardio -daily weight, strict I's and O's -monitor electrolytes -Cardiology consulted, appreciate recs -serial CM negative -continue Metoprolol -was on digoxin but discontinued secondary to intermittent junctional rhythm noted on EKG -Digoxin levels:1.5: normal -Needs ZULLY eventually, hopefully will be able to [place] the [place] [facility]US ABD:Trace ascites -likely discharge to [facility] [place] euvolemic for possible Intervention SUPRATHERAPEUTIC INR: resolved -INR:4.0-->3.7-->3.1-->2.7-->2.2-->1.9 -continue Coumadin 1mg home dose -monitor DM TYPE II: -diet controlled -Last HbA1c: 5.2 on 05/11/17 PASTORA on CKD III: -Cr: 1.48 -Monitor renal function closely with ongoing diuresis ATRIAL FIBRILLATION: -rate controlled -Continue Metoprolol, amiodarone -continue coumadin HYPERLIPIDEMIA: -continue statin Current Inpatient Medications: Current Inpatient Medications Medications (Trade) Dose Ordered Sig/Kip Route Start Time Stop Time Status Last Admin Dose Admin Acetaminophen (Tylenol Tab) 650 mg Q4H PRN PO 07/07/17 17:45 08/06/17 17:44 Ondansetron HCl (Zofran Inj) 4 mg Q6H PRN IV 07/07/17 17:45 08/06/17 17:44 Nitroglycerin (Nitrostat Tab) 0.4 mg UD PRN SL 07/07/17 17:45 08/06/17 17:44 Amiodarone HCl (Cordarone Tab) 200 mg DAILY PO 07/08/17 09:00 08/07/17 08:59 07/12/17 09:26 200 MG Metoprolol Tartrate (Lopressor Tab) 50 mg BID PO 07/07/17 21:00 08/06/17 20:59 07/12/17 09:27 50 MG Pantoprazole Sodium (Protonix Tab) 40 mg DAILY PO 07/08/17 09:00 08/07/17 08:59 07/12/17 09:27 40 MG Simvastatin (Zocor Tab) 20 mg QPM PO 07/07/17 21:00 08/06/17 20:59 07/11/17 20:11 20 MG Albuterol/ Ipratropium (Duoneb) 3 ml QIDR PRN INH 07/09/17 16:00 08/06/17 19:59 07/10/17 21:01 3 ML Potassium Chloride (Klor-Con M10) 20 meq BID PO 07/10/17 21:00 08/06/17 20:59 07/12/17 09:27 20 MEQ Warfarin Sodium (Coumadin Tab) 1 mg DAILY@1600 PO 07/11/17 16:00 08/09/17 15:59 07/12/17 15:46 1 MG Furosemide 60 mg/ Syringe 6 ml @ 4 mls/min TID IV 07/12/17 14:00 08/11/17 13:59 07/12/17 13:44 4 MLS/MIN Guaifenesin (Mucinex Contr Rel Tab) 600 mg Q12 PO 07/12/17 21:00 08/11/17 20:59
[2017-07-12] MEDS: SIMVASTATIN 20 MG TAB PO SCH (20:10)
[2017-07-12] MEDS: GUAIFENESIN 600 MG TABCR PO SCH (20:11)
[2017-07-13] VITALS (8 sets, daily range): BP systolic 94–116; BP diastolic 44–72; PULSE 68–78; TEMP 36.5–36.7; O2SAT 91–98
[2017-07-13 06:12] LABS: INR 2.1 (0.9-1.1)
[2017-07-13 06:43] LABS: CALCIUM 8.5 mg/dl (8.5-10.1); CREATININE 1.52 mg/dl (0.60-1.20); POTASSIUM 3.7 mmol/L (3.5-5.1)
[2017-07-13] MEDS: AMIODARONE 200 MG TAB PO SCH (08:11)
[2017-07-13] MEDS: POTASSIUM CHLORIDE 10 MEQ TABCR PO SCH ×2 (08:11→21:20)
[2017-07-13] MEDS: METOPROLOL TARTRATE 50 MG TAB PO SCH ×2 (08:11→21:00)
[2017-07-13] MEDS: GUAIFENESIN 600 MG TABCR PO SCH ×2 (08:11→21:21)
[2017-07-13] MEDS: PANTOprazole SOD 40 MG TAB PO SCH (08:12)
[2017-07-13] MEDS: FUROSEMIDE INJ 60 MG in SYRINGE 0 ML IV SCH ×3 (08:12→21:22)
--- NOTE | 2017-07-13 10:04 | Cardiology Follow-Up ---
Subjective Subjective Date of Service: Jul 13, 2017. Pt evaluation today including: conversation w/ patient, physical exam, chart review, lab review, review of studies, review of inpatient medication list Additional Details: Pt seen and examined, states that she's feeling better today. Breathing now back to baseline and lower extremity edema finally starting to improve. Denies cp, palpitations, lightheadedness or dizziness. Tele reviewed: afib rate controlled. Problem List Medical Problems: (1) A-fib Status: Acute (2) Atrial fibrillation Status: Acute (3) Congestive heart failure Status: Acute (4) Congestive heart failure Status: Acute (5) Headache Status: Acute (6) N18.9 Status: Acute (7) Severe aortic stenosis Status: Chronic (8) Shortness of breath Status: Acute Social History Problems: (1) Atrial fibrillation with RVR Status: Chronic (2) 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 Review of Systems Respiratory: + see HPI, + shortness of breath, + dyspnea on exertion, No cough , No sputum, No wheezing, No dyspnea at rest, No hemoptysis, No problem reported Cardiac: + see HPI, + edema, No chest pain, No orthopnea, No PND, No claudication, No palpitations, No problem reported Objective Vital Signs Last Vital Signs Documentation Date Time Temp Pulse Resp B/P (MAP) Pulse Ox O2 Delivery O2 Flow Rate FiO2 07/13/17 08:00 Room Air 07/13/17 07:09 36.7 78 16 108/44 (65) 91 07/10/17 11:51 2.0 Physical Exam: General Appearance: WD/WN, no apparent distress Eyes: bilateral eyes normal inspection, bilateral eyes PERRL, bilateral eyes EOMI ENT: normal ENT inspection, hearing grossly normal, pharynx normal Neck: supple, no adenopathy, thyroid normal, no JVD Respiratory/Chest: chest non-tender, normal breath sounds, no respiratory distress, no accessory muscle use, + rhonchi Cardiovascular: + systolic murmur (4/6 mid to late soft whitney, 2nd ics with radiation to b/l carotids. 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 Acute on chronic decompensated diastolic heart failure exacerbation with severe volume overload on exam diuresing well finally starting to see clinical improvement with at least 8L negative still with 2-3L of fluid positive by exam will cont with Lasix 60mg IV tid for now 2. Critical , currently being evaluated for valve intervention discussed case interventional cardiology at [place] today given clinical improvement believe that completing workup for TAVR as outpatient would be prudent will require another day or two of IV diuresis then will plan to perform right and left heart cath next week as an outpatient renal function will be closely followed 3. Chronic atrial fibrillation with intermittent junctional rhythm noted on admission. cont metoprolol, coumadin and amio 4, Mild confusion -? baseline cont to monitor on tele
[2017-07-13] MEDS: WARFARIN SOD 1 MG TAB PO SCH (16:44)
--- NOTE | 2017-07-13 18:58 | Progress Note ---
Medicine Progress Note Date & Time of Visit: Jul 13, 2017 at 18:58. Subjective Patient reports feeling some improvement but still has a great deal of LE edema which is not at baseline and is causing her some difficulty with activity/ ambulation. No overnight events noted. Tolerating PO and flud restriction. No other complaints at this time. Objective Last 8 Hrs Date Time Temp Pulse Resp B/P (MAP) Pulse Ox O2 Delivery O2 Flow Rate FiO2 07/13/17 15:00 36.7 68 18 116/72 (87) 94 Room Air 07/13/17 12:00 Room Air 07/13/17 11:35 36.5 76 20 98/54 (69) 96 Room Air Physical Exam: GENERAL: Patient is in no acute distress. HEENT: No acute trauma, normocephalic, mucous membranes moist, no nasal congestion, no scleral icterus, conjunctivae clear. NECK: No stridor, trachea is midline. LUNGS: Clear to auscultation bilaterally, no wheeze, no rhonchi, breath sounds equal. HEART: +DEMETRIO, no gallops or rubs, regular rate and rhythm. ABDOMEN: Soft, nontender, bowel sounds positive, no hepatosplenomegaly. EXTREMITIES: No cyanosis; B/L LE edema, full range of motion of all the joints without pain or difficulty, no signs for acute trauma. NEUROLOGIC: Oriented x 3, no acute motor or sensory deficits, no focal weakness. SKIN: No rash, no jaundice, no diaphoresis. Laboratory Results: Last 24 Hours Test 07/13/17 05:55 Prothrombin Time 21.6 SECONDS Prothromb Time International Ratio 2.1 Sodium Level 137 mmol/L Potassium Level 3.7 mmol/L Chloride Level 98 mmol/L Carbon Dioxide Level 35 mmol/L Anion Gap 4.0 mmol/L Blood Urea Nitrogen 33 mg/dl Creatinine 1.52 mg/dl Est Creatinine Clear Calc Drug Dose 21.8 ml/min Estimated GFR () 35.4 Estimated GFR (Non- 30.5 BUN/Creatinine Ratio 21.4 Random Glucose 108 mg/dl Calcium Level 8.5 mg/dl Assessment & Plan ACUTE ON CHRONIC DIASTOLIC HEART FAILURE: in setting of Severe Valvular Heart disease -known Pulmonary Hypertension, Severe , Severe TR, Mod MR -presented with symptoms of SOB, Pedal edema, weight gain, abdominal distention , orthopnea, PND -elevated BNP on admission and CXR suggestive of CHF -TTE: in Apr 2017: EF:60-65%, Severe LVH, Severe , Moderate MR, Severe TR, Pulmonary HTN -continued on IV lasix 40mg TID--> increased to 60mg TID today per Cardio -daily weight, strict I's and O's -monitor electrolytes -Cardiology consulted, appreciate recs -serial CM negative -continue Metoprolol -was on digoxin but discontinued secondary to intermittent junctional rhythm noted on EKG -Digoxin levels:1.5: normal -Needs ZULLY eventually, will not be able to transfer the patient to [facility] [place] for intervention as it will need to be done as an outpatient per Cardio discussion with CT surgery -US ABD:Trace ascites SUPRATHERAPEUTIC INR: resolved -INR:4.0-->3.7-->3.1-->2.7-->2.2-->1.9-->2.1 -continue Coumadin 1mg home dose -monitor DM TYPE II: -diet controlled -Last HbA1c: 5.2 on 05/11/17 PASTORA on CKD III: -Cr: 1.6-->1.48-->1.52 -Monitor renal function closely with ongoing diuresis ATRIAL FIBRILLATION: -rate controlled -Continue Metoprolol, amiodarone -continue coumadin HYPERLIPIDEMIA: -continue statin Current Inpatient Medications: Current Inpatient Medications Medications (Trade) Dose Ordered Sig/Kip Route Start Time Stop Time Status Last Admin Dose Admin Acetaminophen (Tylenol Tab) 650 mg Q4H PRN PO 07/07/17 17:45 08/06/17 17:44 Ondansetron HCl (Zofran Inj) 4 mg Q6H PRN IV 07/07/17 17:45 08/06/17 17:44 Nitroglycerin (Nitrostat Tab) 0.4 mg UD PRN SL 07/07/17 17:45 08/06/17 17:44 Amiodarone HCl (Cordarone Tab) 200 mg DAILY PO 07/08/17 09:00 08/07/17 08:59 07/13/17 08:11 200 MG Metoprolol Tartrate (Lopressor Tab) 50 mg BID PO 07/07/17 21:00 08/06/17 20:59 07/13/17 08:11 50 MG Pantoprazole Sodium (Protonix Tab) 40 mg DAILY PO 07/08/17 09:00 08/07/17 08:59 07/13/17 08:12 40 MG Simvastatin (Zocor Tab) 20 mg QPM PO 07/07/17 21:00 08/06/17 20:59 07/12/17 20:10 20 MG Albuterol/ Ipratropium (Duoneb) 3 ml QIDR PRN INH 07/09/17 16:00 08/06/17 19:59 07/10/17 21:01 3 ML Potassium Chloride (Klor-Con M10) 20 meq BID PO 07/10/17 21:00 08/06/17 20:59 07/13/17 08:11 20 MEQ Warfarin Sodium (Coumadin Tab) 1 mg DAILY@1600 PO 07/11/17 16:00 08/09/17 15:59 07/13/17 16:44 1 MG Furosemide 60 mg/ Syringe 6 ml @ 4 mls/min TID IV 07/12/17 14:00 08/11/17 13:59 07/13/17 14:01 4 MLS/MIN Guaifenesin (Mucinex Contr Rel Tab) 600 mg Q12 PO 07/12/17 21:00 08/11/17 20:59 07/13/17 08:11 600 MG
[2017-07-13] MEDS: SIMVASTATIN 20 MG TAB PO SCH (21:20)
[2017-07-14] VITALS (12 sets, daily range): BP systolic 99–130; BP diastolic 46–77; PULSE 62–82; TEMP 36.3–37; O2SAT 94–97
[2017-07-14 06:43] LABS: INR 2.1 (0.9-1.1)
[2017-07-14 06:55] LABS: CALCIUM 8.4 mg/dl (8.5-10.1); CREATININE 1.59 mg/dl (0.60-1.20); POTASSIUM 3.2 mmol/L (3.5-5.1)
[2017-07-14] MEDS: FUROSEMIDE INJ 60 MG in SYRINGE 0 ML IV SCH ×3 (09:31→21:22)
[2017-07-14] MEDS: METOPROLOL TARTRATE 50 MG TAB PO SCH ×2 (09:32→21:00)
[2017-07-14] MEDS: POTASSIUM CHLORIDE 10 MEQ TABCR PO SCH ×2 (09:32→21:23)
[2017-07-14] MEDS: AMIODARONE 200 MG TAB PO SCH (09:32)
[2017-07-14] MEDS: PANTOprazole SOD 40 MG TAB PO SCH (09:33)
[2017-07-14] MEDS: GUAIFENESIN 600 MG TABCR PO SCH ×2 (09:33→21:23)
[2017-07-14] MEDS ORDERED: POTASSIUM CHLORIDE 10 MEQ TABCR PO ONE (12:00)
--- NOTE | 2017-07-14 16:15 | Cardiology Follow-Up ---
Subjective Subjective Date of Service: Jul 14, 2017. Pt evaluation today including: conversation w/ patient, physical exam, chart review, lab review, review of studies, review of inpatient medication list Additional Details: Pt seen and examined, states that she feels well. No sob but lower extremity edema has not yet resolved. Denies cp, sob, palpitations, lightheadedness or dizziness. Tele reviewed: atrial fibrillation rate controlled. Problem List Medical Problems: (1) A-fib Status: Acute (2) Atrial fibrillation Status: Acute (3) Congestive heart failure Status: Acute (4) Congestive heart failure Status: Acute (5) Headache Status: Acute (6) N18.9 Status: Acute (7) Severe aortic stenosis Status: Chronic (8) Shortness of breath Status: Acute Social History Problems: (1) Atrial fibrillation with RVR Status: Chronic (2) 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 Review of Systems Respiratory: + see HPI, + shortness of breath, + dyspnea on exertion, No cough , No sputum, No wheezing, No dyspnea at rest, No hemoptysis, No problem reported Cardiac: + see HPI, + edema, No chest pain, No orthopnea, No PND, No claudication, No palpitations, No problem reported Objective Vital Signs Last Vital Signs Documentation Date Time Temp Pulse Resp B/P (MAP) Pulse Ox O2 Delivery O2 Flow Rate FiO2 07/14/17 15:25 36.5 78 18 109/63 (78) 94 07/14/17 12:00 Room Air 07/10/17 11:51 2.0 Physical Exam: General Appearance: WD/WN, no apparent distress Eyes: bilateral eyes normal inspection, bilateral eyes PERRL, bilateral eyes EOMI ENT: normal ENT inspection, hearing grossly normal, pharynx normal Neck: supple, no adenopathy, thyroid normal, no JVD Respiratory/Chest: chest non-tender, lungs clear, normal breath sounds, no respiratory distress, no accessory muscle use Cardiovascular: + systolic murmur (4/6 mid to late soft whitney, 2nd ics with radiation to b/l carotids. 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 Acute on chronic decompensated diastolic heart failure exacerbation with severe volume overload on exam diuresing well finally starting to see clinical improvement with at least 8L negative still some lower extremity edema will cont with Lasix 60mg IV tid another 24 hours and reassess am hopeful to d/c in AM to complete workup as outpatient 2. Critical , currently being evaluated for valve intervention discussed case interventional cardiology at [place] today given clinical improvement believe that completing workup for TAVR as outpatient would be prudent will require another day or two of IV diuresis then will plan to perform right and left heart cath next week as an outpatient renal function will be closely followed 3. Chronic atrial fibrillation with intermittent junctional rhythm noted on admission. cont metoprolol, coumadin and amio 4, Mild confusion -? baseline cont to monitor on tele
[2017-07-14] MEDS: WARFARIN SOD 1 MG TAB PO SCH (17:34)
--- NOTE | 2017-07-14 18:57 | Progress Note ---
Medicine Progress Note Date & Time of Visit: Jul 14, 2017 at 18:56. Subjective Patient reports feeling better overall, breathing has improved, but still complains of swelling in her legs. No overnight events noted. Tolerating PO. Has been ambulating with assistance. No other complaints at this time. Objective Last 8 Hrs Date Time Temp Pulse Resp B/P (MAP) Pulse Ox O2 Delivery O2 Flow Rate FiO2 07/14/17 15:25 36.5 78 18 109/63 (78) 94 07/14/17 12:00 96 Room Air 07/14/17 11:23 36.4 62 16 114/63 (80) 96 Room Air 07/14/17 11:20 Physical Exam: GENERAL: Patient is in no acute distress. HEENT: No acute trauma, normocephalic, mucous membranes moist, no nasal congestion, no scleral icterus, conjunctivae clear. NECK: No stridor, trachea is midline. LUNGS: Clear to auscultation bilaterally, no wheeze, no rhonchi, breath sounds equal. HEART: +DEMETRIO, no gallops or rubs, regular rate and rhythm. ABDOMEN: Soft, nontender, bowel sounds positive, no hepatosplenomegaly. EXTREMITIES: No cyanosis; B/L LE edema, full range of motion of all the joints without pain or difficulty, no signs for acute trauma. NEUROLOGIC: Oriented x 3, no acute motor or sensory deficits, no focal weakness. SKIN: No rash, no jaundice, no diaphoresis. Laboratory Results: Last 24 Hours Test 07/14/17 05:32 Prothrombin Time 21.9 SECONDS Prothromb Time International Ratio 2.1 Sodium Level 137 mmol/L Potassium Level 3.2 mmol/L Chloride Level 99 mmol/L Carbon Dioxide Level 32 mmol/L Anion Gap 6.0 mmol/L Blood Urea Nitrogen 34 mg/dl Creatinine 1.59 mg/dl Est Creatinine Clear Calc Drug Dose 20.7 ml/min Estimated GFR () 33.5 Estimated GFR (Non- 28.9 BUN/Creatinine Ratio 21.4 Random Glucose 86 mg/dl Calcium Level 8.4 mg/dl Assessment & Plan ACUTE ON CHRONIC DIASTOLIC HEART FAILURE: in setting of Severe Valvular Heart disease -known Pulmonary Hypertension, Severe , Severe TR, Mod MR -presented with symptoms of SOB, Pedal edema, weight gain, abdominal distention , orthopnea, PND -elevated BNP on admission and CXR suggestive of CHF -TTE in Apr 2017: EF:60-65%, Severe LVH, Severe , Moderate MR, Severe TR, Pulmonary HTN -continued on IV lasix 40mg TID--> increased to 60mg TID per Cardio, possible switch to PO tomorrow -daily weight, strict I's and O's -monitor electrolytes -Cardiology consulted, appreciate recs -serial CM negative -continue Metoprolol -was on digoxin but discontinued secondary to intermittent junctional rhythm noted on EKG -Digoxin levels:1.5: normal -Needs ZULLY eventually, will not be able to transfer the patient to [facility] [place] for intervention as it will need to be done as an outpatient per Cardio discussion with CT surgery -US ABD:Trace ascites SUPRATHERAPEUTIC INR: resolved -INR: 2.1 -continue Coumadin 1mg home dose -monitor DM TYPE II: -diet controlled -Last HbA1c: 5.2 on 05/11/17 PASTORA on CKD III: -Cr: 1.6-->1.48-->1.52-->1.59 -Monitor renal function closely with ongoing diuresis, has been slowly worsening ATRIAL FIBRILLATION: -rate controlled -Continue Metoprolol, amiodarone -continue coumadin HYPERLIPIDEMIA: -continue statin Current Inpatient Medications: Current Inpatient Medications Medications (Trade) Dose Ordered Sig/Kip Route Start Time Stop Time Status Last Admin Dose Admin Acetaminophen (Tylenol Tab) 650 mg Q4H PRN PO 07/07/17 17:45 08/06/17 17:44 07/14/17 05:23 650 MG Ondansetron HCl (Zofran Inj) 4 mg Q6H PRN IV 07/07/17 17:45 08/06/17 17:44 Nitroglycerin (Nitrostat Tab) 0.4 mg UD PRN SL 07/07/17 17:45 08/06/17 17:44 Amiodarone HCl (Cordarone Tab) 200 mg DAILY PO 07/08/17 09:00 08/07/17 08:59 07/14/17 09:32 200 MG Metoprolol Tartrate (Lopressor Tab) 50 mg BID PO 07/07/17 21:00 08/06/17 20:59 07/14/17 09:32 50 MG Pantoprazole Sodium (Protonix Tab) 40 mg DAILY PO 07/08/17 09:00 08/07/17 08:59 07/14/17 09:33 40 MG Simvastatin (Zocor Tab) 20 mg QPM PO 07/07/17 21:00 08/06/17 20:59 07/13/17 21:20 20 MG Albuterol/ Ipratropium (Duoneb) 3 ml QIDR PRN INH 07/09/17 16:00 08/06/17 19:59 07/10/17 21:01 3 ML Potassium Chloride (Klor-Con M10) 20 meq BID PO 07/10/17 21:00 08/06/17 20:59 07/14/17 09:32 20 MEQ Warfarin Sodium (Coumadin Tab) 1 mg DAILY@1600 PO 07/11/17 16:00 08/09/17 15:59 07/14/17 17:34 1 MG Furosemide 60 mg/ Syringe 6 ml @ 4 mls/min TID IV 07/12/17 14:00 08/11/17 13:59 07/14/17 14:46 4 MLS/MIN Guaifenesin (Mucinex Contr Rel Tab) 600 mg Q12 PO 07/12/17 21:00 08/11/17 20:59 07/14/17 09:33 600 MG
[2017-07-14] MEDS: SIMVASTATIN 20 MG TAB PO SCH (21:23)
[2017-07-15 00:55] VITALS: BP 114/53; PULSE 84; TEMP 36.8; O2SAT 93
[2017-07-15 04:15] VITALS: BP 102/57; PULSE 84; TEMP 36.8; O2SAT 98
[2017-07-15 07:38] VITALS: BP 106/58; PULSE 99; TEMP 36.8; O2SAT 93
[2017-07-15] MEDS: GUAIFENESIN 600 MG TABCR PO SCH (08:12)
[2017-07-15] MEDS: POTASSIUM CHLORIDE 10 MEQ TABCR PO SCH (08:12)
[2017-07-15] MEDS: PANTOprazole SOD 40 MG TAB PO SCH (08:13)
[2017-07-15] MEDS: METOPROLOL TARTRATE 50 MG TAB PO SCH (08:13)
[2017-07-15] MEDS: AMIODARONE 200 MG TAB PO SCH (08:13)
[2017-07-15] MEDS: FUROSEMIDE INJ 60 MG in SYRINGE 0 ML IV SCH (08:14)
[2017-07-15 09:48] LABS: CALCIUM 8.6 mg/dl (8.5-10.1); CREATININE 1.64 mg/dl (0.60-1.20); POTASSIUM 3.5 mmol/L (3.5-5.1)
[2017-07-15 11:35] VITALS: BP 112/60; PULSE 75; TEMP 36.5; O2SAT 95
--- NOTE | 2017-07-15 13:20 | Cardiology Follow-Up ---
Subjective Subjective Date of Service: Jul 15, 2017. Pt evaluation today including: conversation w/ patient, physical exam, chart review, lab review, review of studies, review of inpatient medication list Additional Details: Pt seen and examined, states that she feels well and is ready for discharge. Denies cp, sob, palpitations, lightheadedness or dizziness. Tele reviewed: afib rate controlled. Problem List Medical Problems: (1) A-fib Status: Acute (2) Atrial fibrillation Status: Acute (3) Congestive heart failure Status: Acute (4) Congestive heart failure Status: Acute (5) Headache Status: Acute (6) N18.9 Status: Acute (7) Severe aortic stenosis Status: Chronic (8) Shortness of breath Status: Acute Social History Problems: (1) Atrial fibrillation with RVR Status: Chronic (2) 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 Review of Systems Respiratory: + see HPI, + shortness of breath, + dyspnea on exertion, No cough , No sputum, No wheezing, No dyspnea at rest, No hemoptysis, No problem reported Cardiac: + see HPI, + edema, No chest pain, No orthopnea, No PND, No claudication, No palpitations, No problem reported Objective Vital Signs Last Vital Signs Documentation Date Time Temp Pulse Resp B/P (MAP) Pulse Ox O2 Delivery O2 Flow Rate FiO2 07/15/17 12:00 Room Air 07/15/17 11:35 36.5 75 16 112/60 (77) 95 07/10/17 11:51 2.0 Physical Exam: General Appearance: WD/WN, no apparent distress Eyes: bilateral eyes normal inspection, bilateral eyes PERRL, bilateral eyes EOMI ENT: normal ENT inspection, hearing grossly normal, pharynx normal Neck: supple, no adenopathy, thyroid normal, no JVD Respiratory/Chest: chest non-tender, lungs clear, normal breath sounds, no respiratory distress, no accessory muscle use Cardiovascular: + systolic murmur (4/6 mid to late soft whitney, 2nd ics with radiation to b/l carotids. 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 Acute on chronic decompensated diastolic heart failure exacerbation with severe volume overload on exam no longer examines as volume overloaded would d/c IV lasix would send home with lasix 60mg po daily with an extra prn dose in the PM for signs of volume overload 2. Critical , currently being evaluated for valve intervention discussed case interventional cardiology at [facility] given clinical improvement believe that completing workup for TAVR as outpatient would be prudent plan to perform right and left heart cath next week as an outpatient renal function will be closely followed 3. Chronic atrial fibrillation with intermittent junctional rhythm noted on admission. cont metoprolol, coumadin and amio 4, Mild confusion -? baseline ok to d/c to home from cardiac standpoint my office will call to arrange cath and follow up
[2017-07-15] MEDS ORDERED: METO50TA16 PO (15:02)
[2017-07-15] MEDS ORDERED: POTA10CA28 PO (15:02)
[2017-07-15] MEDS ORDERED: LSX40 PO (15:02)
[2017-07-15] MEDS ORDERED: LSX/40 PO (15:02)
--- NOTE | 2017-07-15 15:12 | Discharge Instructions ---
Discharge Instructions Date of Service Jul 15, 2017. Admission Reason for Admission: Congestive Heart Failure Discharge Discharge Diagnosis / Problem: CHF exacerbation Discharge Goals Goal(s): Therapeutic intervention Activity Recommendations Activity Limitations: as noted below Lifting Limitations: gradually increase as tolerated Exercise/Sports Limitations: gradually increase as tolerated . Instructions / Follow-Up Instructions / Follow-Up Please see Dr. Cantu on Jul 21 11:05 AM for hospital follow up Please follow up with Cardiology as recommended next week Please weight yourself daily, if your weight increases by 2-3 pounds or you notice increased swelling in your legs, please take the 2nd dose of lasix 60 mg later in the day. (Ideally at 5 PM) Current Hospital Diet Patient's current hospital diet: AHA Diet (Heart Healthy), Diabetes Type 2 Diet Discharge Diet Recommended Diet: AHA Diet (Heart Healthy), Diabetes Type 2 Diet Pending Studies Studies pending at discharge: no Laboratory Results Hemoglobin A1c Test 05/11/17 05:44 Range/Units Estimated Average Glucose 103 mg/dl Hemoglobin A1c 5.2 4.5-5.6 % Medical Emergencies . Who to Call and When: Medical Emergencies: If at any time you feel your situation is an emergency, please call 911 immediately. . Non-Emergent Contact Non-Emergency issues call your: Primary Care Provider, Staging Technician . . "Provider Documentation" section prepared by Ciera Lynn. . VTE Core Measure Inpt VTE Proph given/why not?: Warfarin (Coumadin)
[2017-07-15 15:15] VITALS: BP 112/60; PULSE 75; TEMP 36.5; O2SAT 95
[2017-07-16] MEDS ORDERED: FUROSEMIDE 40 MG TAB PO SCH (09:00)
--- NOTE | 2017-07-16 09:05 | Discharge Summary ---
Discharge Summary Date of Service Jul 16, 2017. Discharge Summary Admission Date: Jul 07, 2017 at 17:46 Discharge Date: Jul 15, 2017 Medication Reconciliation New Medications: Furosemide (Lasix) 40 Mg Tab 1.5 TAB PO QD@16 PRN for WEIGHT GAIN/SWELLING for 30 Days, #60 TAB Furosemide (Furosemide) 40 Mg Tab 60 MG PO QAM, #60 DOSE Take 60mg daily in AM Metoprolol Tartrate (Lopressor) (Lopressor) 50 Mg Tab 50 MG PO BID, #60 TAB Potassium Chloride (Micro-K Ext Rel) 10 Meq Capcr 10 MEQ PO BID, #60 TAB Continued Medications: Amiodarone HCl (Amiodarone HCl) 200 Mg Tab 200 MG PO DAILY, TAB Multivitamin (Multivitamin) Tab 1 TAB PO DAILY Pantoprazole (Protonix) 40 Mg Tab 40 MG PO DAILY Simvastatin (Zocor) 20 Mg Tab 20 MG PO QPM Warfarin Sodium (Coumadin) 1 Mg Tab 1 MG PO DAILY TAKE ON TUESDAY, ,TUESDAY,TUESDAY, TUESDAY Discontinued Medications: Digoxin (Digoxin) 0.125 Mg Tab 0.125 MG PO MoWeFr@1600 for 30 Days, TAB Furosemide (Furosemide) 40 Mg Tab 40 MG PO DAILY Metoprolol Tartrate (Lopressor) 50 Mg Tab 75 MG PO DAILY for 30 Days, #45 TAB 5 Refills Warfarin Sodium (Coumadin) 2 Mg Tab 2 MG PO UD TAKE ON AND TUESDAY Admission Information HPI (per Admitting provider): Patient is an 87 yr female with PMH of DM II (diet controlled), DHF, CKD III, Atrial fibrillation, Severe Valvular Heart disease, HLP and other problems presents with history of worsening SOB, increased leg swelling, weight gain since few days. Patient was evaluated by her Mri Tech today at his office and was sent to ED for IV diuresis. Patient reports that she has chronic SOB but it has been progressively worsened especially since last 2 days. She reports weight gain of at least 15 pounds since last admission and noticed that her abdomen is more distended and she has noticed increased leg swelling. Reports left sided chest pain yesterday night which increases with movement but denies any fall, trauma, increased pain with breathing but currently denies chest pain while in ED. Patient also reports intermittent cough with clear expectoration. Reports associated Orthopnea, PND but denies any history of dizziness, fever, chills, headache, change in vision, nausea, vomiting, abdominal pain, blood in stools, diarrhea, dysuria, hematuria. Reports taking medications regularly as prescribed. Physical Exam (per Admitting): General Appearance: WD/WN, no apparent distress Head: normocephalic, atraumatic Eyes: normal inspection, PERRL, EOMI ENT: normal ENT inspection, hearing grossly normal Neck: supple, trachea midline, + JVD Respiratory/Chest: normal breath sounds, no respiratory distress, no accessory muscle use, + crackles, + pertinent finding (chest tender to palpate on left side under the breast) Cardiovascular: + diastolic murmur, + systolic murmur, + irregularly irregular, + pertinent finding (B/L Leg edema 3+) Abdomen/GI: normal bowel sounds, non tender, soft, + distended Back: normal inspection Extremities/Musculoskelatal: normal inspection, + pedal edema 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, no motor/sensory deficits, alert , normal mood/affect, oriented x 3 Skin: normal color, warm/dry Hospital Course ACUTE ON CHRONIC DIASTOLIC HEART FAILURE: in setting of Severe Valvular Heart disease -known Pulmonary Hypertension, Severe , Severe TR, Mod MR -presented with symptoms of SOB, Pedal edema, weight gain, abdominal distention , orthopnea, PND -elevated BNP on admission and CXR suggestive of CHF -TTE in Apr 2017: EF:60-65%, Severe LVH, Severe , Moderate MR, Severe TR, Pulmonary HTN -continued on IV lasix 40mg TID--> increased to 60mg TID per Cardio, possible switch to PO tomorrow -daily weight, strict I's and O's -monitor electrolytes -Cardiology consulted, appreciate recs -serial CM negative -continue Metoprolol -was on digoxin but discontinued secondary to intermittent junctional rhythm noted on EKG -Digoxin levels:1.5: normal -Needs ZULLY eventually, will not be able to [place] [facility] [place] as it will need to be done as an outpatient per Cardio discussion with CT surgery -US ABD:Trace ascites SUPRATHERAPEUTIC INR: resolved -INR: 2.1 -continue Coumadin 1mg home dose -monitor DM TYPE II: -diet controlled -Last HbA1c: 5.2 on 05/11/17 PASTORA on CKD III: -Cr: 1.6-->1.48-->1.52-->1.59 -Monitor renal function closely with ongoing diuresis, has been slowly worsening ATRIAL FIBRILLATION: -rate controlled -Continue Metoprolol, amiodarone -continue coumadin HYPERLIPIDEMIA: -continue statin Total time spent on discharge = This includes examination of the patient, discharge planning, medication reconciliation, and communication with other providers.
== END 2017-07-15 15:30 | disposition home health service (06) | DRG 291 ==
LOC: EDBD 13:26 → C.EDC 13:27 → C.MED 17:46 → ENRESERV 18:59
PROVIDERS: ADMIT Internal Medicine; ATTEND Internal Medicine
DX: I13.0 Hypertensive heart and chronic kidney disease with heart failure and stage 1 through stage 4 chronic kidney disease, or unspecified chronic kidney disease (principal); I50.33 Acute on chronic diastolic (congestive) heart failure; N17.9 Acute kidney failure, unspecified; I08.3 Combined rheumatic disorders of mitral, aortic and tricuspid valves; I27.20 Pulmonary hypertension, unspecified; R79.1 Abnormal coagulation profile; T45.515A Adverse effect of anticoagulants, initial encounter; E11.22 Type 2 diabetes mellitus with diabetic chronic kidney disease; N18.3 Chronic kidney disease, stage 3 (moderate); I48.2 Chronic atrial fibrillation; E78.5 Hyperlipidemia, unspecified; Z87.891 Personal history of nicotine dependence; Z79.01 Long term (current) use of anticoagulants; Z79.899 Other long term (current) drug therapy; Z82.49 Family history of ischemic heart disease and other diseases of the circulatory system; Z83.3 Family history of diabetes mellitus

== ENCOUNTER 2017-07-24 10:59 | Inpatient (IN) | payer OTHER ==
[~2017-07-24] VITALS: Ht 152.4 cm; Wt 64.9 kg
[~2017-07-24 10:59] MED LIST changes: -LNX125 PO; +LSX/40 PO; -METO-551 PO; +METO50TA16 PO; +POTA10CA28 PO; -WARF2TAB PO
--- NOTE | 2017-07-24 12:13 | DIAGNOSTIC IMAGING REPORT ---
CHEST ONE VIEW PORTABLE CLINICAL HISTORY: 87 years-old Female presenting with CHEST PAIN. TECHNIQUE: Portable upright AP view of the chest was obtained. COMPARISON: 07/07/2017. FINDINGS: Atherosclerosis of aortic arch. Cardiac silhouette is markedly enlarged, unchanged. Right basilar opacity increased from prior. Improved aeration of the left lung base. Moderate right pleural effusion. Trace left pleural effusion. No pneumothorax. Degenerative changes of the thoracic spine. Osteopenia suspected. Upper abdomen normal. IMPRESSION: 1. Marked cardiomegaly. No overt pulmonary edema. 2. Increased right basilar opacity possibly with extensive right lower lobe volume loss. Underlying consolidation/infection is difficult to exclude. 3. Moderate right pleural effusion. 4. Improved left basilar aeration. Electronically signed by: Jordan Webber M.D. 07/24/2017 12:12 PM Dictated Date/Time: 07/24/2017 12:10 PM
--- NOTE | 2017-07-24 12:16 | EMERGENCY ROOM VISIT NOTE ---
History Report prepared by Grady: Evy Fung Under the Supervision of: Dr. Dalton Ross M.D. First contact with patient: 11:38 Chief Complaint: FALL Stated Complaint: FALL/R-HAND PAIN History of Present Illness The patient is an 87 year old female who presents to the Emergency Room brought in by EMS with complaints of an episodic fall yesterday afternoon. She states that she became dizzy prior to the fall, though denies any LOC. She states that she fell forward and landed on her face. She notes a wound to the bridge of her nose. She states that she landed on her right arm. She reports swelling to her right hand and right arm pain. She currently rates her pain a 5/10 in severity. She states that she could not lift herself back up and stayed on the floor all night long. She was found by family members this morning. The patient lives independently. She denies any chest pain prior to the fall. She denies any headaches or neck pain. She notes baseline shortness of breath with exertion. She denies any abdominal pain. She notes mild numbness in her legs and bilateral knee pain. She states that she cannot pick her feet up. Source of History: patient Onset: yesterday afternoon Position: other (global ) Symptom Intensity: 5/10 Quality: other (fall) Timing: other (episodic) Associated Symptoms: + SOB (baseline), + numbness (mild in legs), No LOC, No headache, No neck pain, No chest pain, No abdominal pain Note: She notes dizziness. She notes a wound to the bridge of her nose. She reports swelling to her right hand and right arm pain. She notes bilateral knee pain. Review of Systems See HPI for pertinent positives & negatives. A total of 10 systems reviewed and were otherwise negative. Past Medical & Surgical Medical Problems: (1) CKD (chronic kidney disease) stage 3, GFR 30-59 ml/min (2) Diabetes mellitus type II, controlled (3) Dyslipidemia (4) Fall (5) HTN (hypertension) (6) Persistent atrial fibrillation (7) Renal mass (8) Severe aortic stenosis (9) Spinal stenosis Surgical Problems: (1) History of carpal tunnel surgery (2) History of tonsillectomy and adenoidectomy (3) History of total hysterectomy (4) History of tubal ligation Social History Problems: (1) Atrial fibrillation with RVR (2) Renal disorder associated with type II diabetes mellitus Old medical records were reviewed. Nurse's notes were reviewed and I agree with. Family History Diabetes mellitus Heart disease Social History Smoking Status: Never Smoker Alcohol Use: none Drug Use: none Marital Status: Housing Status: lives alone Occupation Status: retired Current/Historical Medications Scheduled Amiodarone HCl (Amiodarone HCl), 200 MG PO DAILY Furosemide (Furosemide), 60 MG PO QAM Metoprolol Tartrate (Lopressor) (Lopressor), 50 MG PO BID Multivitamin (Multivitamin), 1 TAB PO DAILY Pantoprazole (Protonix), 40 MG PO DAILY Potassium Chloride (Micro-K Ext Rel), 10 MEQ PO BID Simvastatin (Zocor), 20 MG PO QPM Warfarin Sodium (Coumadin), 1 MG PO DAILY Scheduled PRN Furosemide (Lasix), 60 MG PO DAILY@1600 PRN for FLUID RETENTION Allergies Coded Allergies: Morphine (Verified Allergy, Intermediate, 07/24/17) Aspirin (Verified Allergy, Unknown, ., 07/24/17) Pneumococcal Vaccine (Verified Allergy, Unknown, SWELLING, 07/24/17) Sulindac (Verified Allergy, Unknown, 07/24/17) Physical Exam Vital Signs Date Time Temp Pulse Resp B/P (MAP) Pulse Ox O2 Delivery O2 Flow Rate FiO2 07/24/17 14:06 108 24 98 07/24/17 14:01 100/76 07/24/17 13:36 94 30 97 07/24/17 13:31 120/62 07/24/17 13:06 102 20 96 07/24/17 13:01 116/68 07/24/17 12:11 103 18 99 07/24/17 12:06 99 97 07/24/17 12:01 114/54 07/24/17 11:59 105 97 07/24/17 11:37 86 07/24/17 11:37 97 18 125/71 95 Room Air 07/24/17 11:36 125/71 07/24/17 10:59 36.7 97 18 119/77 96 Room Air 07/24/17 10:59 36.7 97 18 119/77 96 Room Air Physical Exam General: Frail-appearing older female in no acute distress. Answers questions appropriately. HEENT: Scabbed laceration on bridge of her nose. Pupils are equal round and reactive to light. Extraocular movements are intact. Oropharynx is pink with moist mucous membranes. No swelling of the mouth lips or tongue. Neck: Supple with a midline trachea. No meningeal signs or stiffness, no JVD or bruits. No Stridor. Chest: Clear to auscultation bilaterally. No wheezes or rhonchi. No increased work of breathing. Heart: regular rate and rhythm. Abdomen: Soft nontender, nondistended without rebound guarding or rigidity. Extremities: No cyanosis clubbing. No calf tenderness or assymetry. Swelling of right hand and bruises on her arms. Spine/Back. Non tender to palpation. No CVA tenderness Skin: Good turgor without rashes. Neurologic exam: Cranial nerves two through 12 are intact. Motor and sensation are intact and symmetrical throughout. Alert and oriented x3 Medical Decision & Procedures ER Provider Diagnostic Interpretation: Radiology results as stated below per my review and radiologist interpretation: CHEST ONE VIEW PORTABLE CLINICAL HISTORY: 87 years-old Female presenting with CHEST PAIN. TECHNIQUE: Portable upright AP view of the chest was obtained. COMPARISON: 07/07/2017. FINDINGS: Atherosclerosis of aortic arch. Cardiac silhouette is markedly enlarged, unchanged. Right basilar opacity increased from prior. Improved aeration of the left lung base. Moderate right pleural effusion. Trace left pleural effusion. No pneumothorax. Degenerative changes of the thoracic spine. Osteopenia suspected. Upper abdomen normal. IMPRESSION: 1. Marked cardiomegaly. No overt pulmonary edema. 2. Increased right basilar opacity possibly with extensive right lower lobe volume loss. Underlying consolidation/infection is difficult to exclude. 3. Moderate right pleural effusion. 4. Improved left basilar aeration. Electronically signed by: Jordan Webber M.D. 07/24/2017 12:12 PM Dictated Date/Time: 07/24/2017 12:10 PM R HAND MIN 3 VIEWS ROUTINE CLINICAL HISTORY: 87 years-old Female presenting with eval for trauma, fall, right hand pain. TECHNIQUE: Frontal, oblique, and lateral views of the right hand were obtained. COMPARISON: None. FINDINGS: Degenerative changes at the scapholunate-trapezium articulation. Osteophytosis and joint space loss also noted at the distal interphalangeal joints of the second through fourth fingers. Similar yet less extensive degenerative change evident at the proximal interphalangeal joint of the fourth and fifth fingers. No acute fracture or malalignment. No focal soft tissue abnormality. Osteopenia is likely present. IMPRESSION: 1. Allowing for osteopenia which limits evaluation for nondisplaced fracture, no acute osseous injury. 2. Characteristic distribution for changes of osteoarthritis as detailed above. Electronically signed by: Jordan Webber M.D. 07/24/2017 12:14 PM Dictated Date/Time: 07/24/2017 12:12 PM HEAD WITHOUT CONTRAST (CT), CERVICAL SPINE W/O, FACIAL BONES-MXILLOFAC WITHOUT CLINICAL HISTORY: 87 years-old Female presenting with eval for trauma, fall last night, found down, dizziness and shortness of breath prior to fall. TECHNIQUE: Multidetector CT imaging of the head, cervical spine, and face were performed without the use of intravenous contrast. IV contrast: None. A dose lowering technique was used consistent with the principles of ALARA (as low as reasonably achievable). COMPARISON: CT head from 10/31/2016. CT DOSE (mGy.cm): The estimated cumulative dose is 1526.47. FINDINGS: Circular Saw Operator topogram: Unremarkable. CT HEAD: Proportional ventricular and sulcal prominence, likely age-related parenchymal volume loss. Brain parenchyma normal in appearance with preserved baker-white differentiation. No mass effect or midline shift. No hemorrhage or acute territorial infarct. No extra-axial fluid collection. Paranasal sinuses and mastoid air cells clear. Calvarium intact. CT FACE: Paranasal sinuses and mastoid air cells clear. Orbits intact. No soft tissue abnormality of the face is apparent on CT. Bilateral teller lenses are absent. Temporomandibular joints intact. The patient is edentulous. CT CERVICAL SPINE: Normal cervical lordosis. Mild multilevel degenerative changes with disc osteophyte complexes noted at nearly every level. Grade 1 anterolisthesis of C6 on C7. No acute fracture or acute subluxation. Facet arthropathy and uncovertebral hypertrophy result in osseous neural foraminal narrowing at C3-4 greater on the left and C5-6 greater on the left. No osseous spinal canal narrowing. Degenerative changes also noted at the atlantodental articulation. Slight scarring at the apices suggested. Atherosclerosis. IMPRESSION: 1. No acute intracranial abnormality. 2. No acute osseous injury of the face. 3. Multilevel degenerative changes of the cervical spine. 4. No acute osseous injury of the cervical spine. Electronically signed by: Jordan Webber M.D. 07/24/2017 12:59 PM Dictated Date/Time: 07/24/2017 12:52 PM HEAD WITHOUT CONTRAST (CT), CERVICAL SPINE W/O, FACIAL BONES-MXILLOFAC WITHOUT CLINICAL HISTORY: 87 years-old Female presenting with eval for trauma, fall last night, found down, dizziness and shortness of breath prior to fall. TECHNIQUE: Multidetector CT imaging of the head, cervical spine, and face were performed without the use of intravenous contrast. IV contrast: None. A dose lowering technique was used consistent with the principles of ALARA (as low as reasonably achievable). COMPARISON: CT head from 10/31/2016. CT DOSE (mGy.cm): The estimated cumulative dose is 1526.47. FINDINGS: Circular Saw Operator topogram: Unremarkable. CT HEAD: Proportional ventricular and sulcal prominence, likely age-related parenchymal volume loss. Brain parenchyma normal in appearance with preserved baker-white differentiation. No mass effect or midline shift. No hemorrhage or acute territorial infarct. No extra-axial fluid collection. Paranasal sinuses and mastoid air cells clear. Calvarium intact. CT FACE: Paranasal sinuses and mastoid air cells clear. Orbits intact. No soft tissue abnormality of the face is apparent on CT. Bilateral teller lenses are absent. Temporomandibular joints intact. The patient is edentulous. CT CERVICAL SPINE: Normal cervical lordosis. Mild multilevel degenerative changes with disc osteophyte complexes noted at nearly every level. Grade 1 anterolisthesis of C6 on C7. No acute fracture or acute subluxation. Facet arthropathy and uncovertebral hypertrophy result in osseous neural foraminal narrowing at C3-4 greater on the left and C5-6 greater on the left. No osseous spinal canal narrowing. Degenerative changes also noted at the atlantodental articulation. Slight scarring at the apices suggested. Atherosclerosis. IMPRESSION: 1. No acute intracranial abnormality. 2. No acute osseous injury of the face. 3. Multilevel degenerative changes of the cervical spine. 4. No acute osseous injury of the cervical spine. Electronically signed by: Jordan Webber M.D. 07/24/2017 12:59 PM Dictated Date/Time: 07/24/2017 12:52 PM HEAD WITHOUT CONTRAST (CT), CERVICAL SPINE W/O, FACIAL BONES-MXILLOFAC WITHOUT CLINICAL HISTORY: 87 years-old Female presenting with eval for trauma, fall last night, found down, dizziness and shortness of breath prior to fall. TECHNIQUE: Multidetector CT imaging of the head, cervical spine, and face were performed without the use of intravenous contrast. IV contrast: None. A dose lowering technique was used consistent with the principles of ALARA (as low as reasonably achievable). COMPARISON: CT head from 10/31/2016. CT DOSE (mGy.cm): The estimated cumulative dose is 1526.47. FINDINGS: Circular Saw Operator topogram: Unremarkable. CT HEAD: Proportional ventricular and sulcal prominence, likely age-related parenchymal volume loss. Brain parenchyma normal in appearance with preserved baker-white differentiation. No mass effect or midline shift. No hemorrhage or acute territorial infarct. No extra-axial fluid collection. Paranasal sinuses and mastoid air cells clear. Calvarium intact. CT FACE: Paranasal sinuses and mastoid air cells clear. Orbits intact. No soft tissue abnormality of the face is apparent on CT. Bilateral teller lenses are absent. Temporomandibular joints intact. The patient is edentulous. CT CERVICAL SPINE: Normal cervical lordosis. Mild multilevel degenerative changes with disc osteophyte complexes noted at nearly every level. Grade 1 anterolisthesis of C6 on C7. No acute fracture or acute subluxation. Facet arthropathy and uncovertebral hypertrophy result in osseous neural foraminal narrowing at C3-4 greater on the left and C5-6 greater on the left. No osseous spinal canal narrowing. Degenerative changes also noted at the atlantodental articulation. Slight scarring at the apices suggested. Atherosclerosis. IMPRESSION: 1. No acute intracranial abnormality. 2. No acute osseous injury of the face. 3. Multilevel degenerative changes of the cervical spine. 4. No acute osseous injury of the cervical spine. Electronically signed by: Jordan Webber M.D. 07/24/2017 12:59 PM Dictated Date/Time: 07/24/2017 12:52 PM Laboratory Results 07/24/17 12:05 Red Blood Count 3.36, Mean Corpuscular Volume 92.9, Mean Corpuscular Hemoglobin 30.4, Mean Corpuscular Hemoglobin Concent 32.7, Mean Platelet Volume 9.0, Neutrophils (%) (Auto) 83.2, Lymphocytes (%) (Auto) 8.2, Monocytes (%) (Auto) 7.9, Eosinophils (%) (Auto) 0.3, Basophils (%) (Auto) 0.3, Neutrophils # (Auto) 5.89, Lymphocytes # (Auto) 0.58, Monocytes # (Auto) 0.56, Eosinophils # (Auto) 0.02, Basophils # (Auto) 0.02 07/24/17 12:05 Test 07/24/17 12:05 07/24/17 12:15 07/24/17 12:29 White Blood Count 7.08 K/uL (4.8-10.8) Red Blood Count 3.36 M/uL (4.2-5.4) Hemoglobin 10.2 g/dL (12.0-16.0) Hematocrit 31.2 % (37-47) Mean Corpuscular Volume 92.9 fL (80-100) Mean Corpuscular Hemoglobin 30.4 pg (25-34) Mean Corpuscular Hemoglobin Concent 32.7 g/dl (32-36) Platelet Count 147 K/uL (130-400) Mean Platelet Volume 9.0 fL (7.4-10.4) Neutrophils (%) (Auto) 83.2 % Lymphocytes (%) (Auto) 8.2 % Monocytes (%) (Auto) 7.9 % Eosinophils (%) (Auto) 0.3 % Basophils (%) (Auto) 0.3 % Neutrophils # (Auto) 5.89 K/uL (1.4-6.5) Lymphocytes # (Auto) 0.58 K/uL (1.2-3.4) Monocytes # (Auto) 0.56 K/uL (0.11-0.59) Eosinophils # (Auto) 0.02 K/uL (0-0.5) Basophils # (Auto) 0.02 K/uL (0-0.2) RDW Standard Deviation 57.1 fL (36.4-46.3) RDW Coefficient of Variation 16.9 % (11.5-14.5) Immature Granulocyte % (Auto) 0.1 % Immature Granulocyte # (Auto) 0.01 K/uL (0.00-0.02) Prothrombin Time 19.5 SECONDS (9.0-12.0) Prothromb Time International Ratio 1.9 (0.9-1.1) Activated Partial Thromboplast Time 34.3 SECONDS (21.0-31.0) Partial Thromboplastin Ratio 1.3 Anion Gap 5.0 mmol/L (3-11) Est Creatinine Clear Calc Drug Dose 18.3 ml/min Estimated GFR () 27.5 Estimated GFR (Non- 23.7 BUN/Creatinine Ratio 17.7 (10-20) Calcium Level 8.8 mg/dl (8.5-10.1) Total Bilirubin 1.7 mg/dl (0.2-1) Direct Bilirubin 0.9 mg/dl (0-0.2) Aspartate Amino Transf (AST/SGOT) 63 U/L (15-37) Alanine Aminotransferase (ALT/SGPT) 50 U/L (12-78) Alkaline Phosphatase 141 U/L (45-117) Total Creatine Kinase 158 U/L (26-192) Creatine Kinase MB 3.9 ng/ml (0.5-3.6) Creatine Kinase MB Ratio 2.5 (0-3.0) Total Protein 7.3 gm/dl (6.4-8.2) Albumin 3.2 gm/dl (3.4-5.0) Lipase 147 U/L (73-393) Urine Color YELLOW Urine Appearance CLEAR (CLEAR) Urine pH 6.0 (4.5-7.5) Urine Specific [place] 1.016 (1.000-1.030) Urine Protein TRACE (NEG) Urine Glucose (UA) NEG (NEG) Urine Ketones NEG (NEG) Urine Occult Blood NEG (NEG) Urine Nitrite NEG (NEG) Urine Bilirubin NEG (NEG) Urine Urobilinogen NEG (NEG) Urine Leukocyte Esterase NEG (NEG) Urine WBC (Auto) 1-5 /hpf (0-5) Urine RBC (Auto) 0-4 /hpf (0-4) Urine Hyaline Casts (Auto) 1-5 /lpf (0-5) Urine Epithelial Cells (Auto) 0-5 /lpf (0-5) Urine Bacteria (Auto) NEG (NEG) Bedside Troponin I < 0.030 ng/ml (0-0.045) Laboratory studies as stated above per my review. ECG Indication: other (fall) Rate (beats per minute): 98 Rhythm: atrial fibrillation Findings: LBBB (incomplete), nonspecific-ST abn, no acute ischemic change, no ectopy Change: no significant change (When compared to 07/07/2017) Change: Patient's electrocardiogram was interpreted by me. ED Course 1140: Past medical records reviewed. The patient was evaluated in room C4, and a complete history and physical examination were performed. 1347: I spoke with vaibhav Quick. We discussed the patient's case. The patient will be evaluated by the [facility] for further management. 1354: I reassessed the patient at this time. She is resting comfortably. I discussed the results and treatment plan with the patient. I answered all pertaining questions that she had. She expressed understanding and verbalized agreement. The patient will be further evaluated. Medical Decision Differentials include, but are not limited to arrhythmia, rhabdomyolysis, traumatic injuries, cardiac disease, infection, and electrolyte or metabolic abnormality. This patient comes in as described above. She was placed in room C4. She comes in after falling last evening. She's been feeling weak. She does have a cardiac history. She hit her hand. She may have hit her head as well. She has a facial abrasion on her nose. IV access established. EKG shows atrial fibrillation with some ST/T-wave abnormalities which are old. CAT scan of the head and neck were unremarkable as well as the face. Chest x-ray shows moderate pleural effusion on the right patient seems asymptomatic with that I think this is chronic. The rest of her workup is unremarkable. she's had no elevation of cardiac enzymes. With her weakness and fall, I do think she needs to come in and she apparently is scheduled to have a stent placed this month. I have consulted Dr. Tripp to see the patient ER for these measures. Medication Reconcilliation Current Medication List: was personally reviewed by me Blood Pressure Screening Patient's blood pressure: Normal blood pressure Consults Time Called: 1342 Consulting Physician: vaibhav Quick Returned Call: 1347 I spoke with vaibhav Quick. We discussed the patient's case. The patient will be evaluated by the [facility] for further management. Impression Primary Impression: Weakness Additional Impressions: Syncope Afib Scribe Attestation The scribe's documentation has been prepared under my direction and personally reviewed by me in its entirety. I confirm that the note above accurately reflects all work, treatment, procedures, and medical decision making performed by me. Departure Information Dispostion Being Evaluated By Hospitalist Referrals Johnny Saunders M.D. (PCP) Patient Instructions [facility] Problem Qualifiers
[2017-07-24 12:36] LABS: BASO % 0.3 %; BASO ABS # 0.02 K/uL (0-0.2); EOS % 0.3 %; EOS ABS # 0.02 K/uL (0-0.5); HEMATOCRIT 31.2 % (37-47); HEMOGLOBIN 10.2 g/dL (12.0-16.0); IG# 0.01 K/uL (0.00-0.02); LYMPH % 8.2 %; LYMPH ABS # 0.58 K/uL (1.2-3.4); MEAN CELL VOLUME 92.9 fL (80-100); MEAN CORPUSCULAR HEMOGLOBIN 30.4 pg (25-34); MEAN CORPUSCULAR HGB CONC 32.7 g/dl (32-36); MONO % 7.9 %; MONO ABS # 0.56 K/uL (0.11-0.59); NEUT % 83.2 %; NEUT ABS # 5.89 K/uL (1.4-6.5); PLATELET COUNT 147 K/uL (130-400); RED CELL DISTRIBUTION WIDTH CV 16.9 % (11.5-14.5); RED CELL DISTRIBUTION WIDTH SD 57.1 fL (36.4-46.3); WHITE BLOOD COUNT 7.08 K/uL (4.8-10.8)
[2017-07-24 12:46] LABS: INR 1.9 (0.9-1.1); PTT PATIENT 34.3 SECONDS (21.0-31.0)
[2017-07-24 12:57] LABS: ALBUMIN 3.2 gm/dl (3.4-5.0); CALCIUM 8.8 mg/dl (8.5-10.1); CREATININE 1.87 mg/dl (0.60-1.20); POTASSIUM 4.7 mmol/L (3.5-5.1)
--- NOTE | 2017-07-24 13:01 | DIAGNOSTIC IMAGING REPORT ---
HEAD WITHOUT CONTRAST (CT), CERVICAL SPINE W/O, FACIAL BONES-MXILLOFAC WITHOUT CLINICAL HISTORY: 87 years-old Female presenting with eval for trauma, fall last night, found down, dizziness and shortness of breath prior to fall. TECHNIQUE: Multidetector CT imaging of the head, cervical spine, and face were performed without the use of intravenous contrast. IV contrast: None. A dose lowering technique was used consistent with the principles of ALARA (as low as reasonably achievable). COMPARISON: CT head from 10/31/2016. CT DOSE (mGy.cm): The estimated cumulative dose is 1526.47. FINDINGS: Customer Retention Specialist topogram: Unremarkable. CT HEAD: Proportional ventricular and sulcal prominence, likely age-related parenchymal volume loss. Brain parenchyma normal in appearance with preserved baker-white differentiation. No mass effect or midline shift. No hemorrhage or acute territorial infarct. No extra-axial fluid collection. Paranasal sinuses and mastoid air cells clear. Calvarium intact. CT FACE: Paranasal sinuses and mastoid air cells clear. Orbits intact. No soft tissue abnormality of the face is apparent on CT. Bilateral wainwright lenses are absent. Temporomandibular joints intact. The patient is edentulous. CT CERVICAL SPINE: Normal cervical lordosis. Mild multilevel degenerative changes with disc osteophyte complexes noted at nearly every level. Grade 1 anterolisthesis of C6 on C7. No acute fracture or acute subluxation. Facet arthropathy and uncovertebral hypertrophy result in osseous neural foraminal narrowing at C3-4 greater on the left and C5-6 greater on the left. No osseous spinal canal narrowing. Degenerative changes also noted at the atlantodental articulation. Slight scarring at the apices suggested. Atherosclerosis. IMPRESSION: 1. No acute intracranial abnormality. 2. No acute osseous injury of the face. 3. Multilevel degenerative changes of the cervical spine. 4. No acute osseous injury of the cervical spine. Electronically signed by: Jordan Webber M.D. 07/24/2017 12:59 PM Dictated Date/Time: 07/24/2017 12:52 PM
[2017-07-24 13:03] LABS: CKMB 3.9 ng/ml (0.5-3.6); TOTAL PROTEIN 7.3 gm/dl (6.4-8.2)
[2017-07-24] MEDS ORDERED: FURO40TA3 PO (13:59)
[2017-07-24] MEDS ORDERED: ACETAMINOPHEN 325 MG TAB PO PRN (14:30)
[2017-07-24 15:37] VITALS: BP 109/61; PULSE 78; TEMP 36.6; O2SAT 96; Ht 152.4 cm; Wt 64.9 kg
--- NOTE | 2017-07-24 15:40 | History and Physical ---
History & Physical Date & Time of Service: Jul 24, 2017 at 15:10 Chief Complaint: Fall/R-Hand Pain Primary Care Physician: Johnny Saunders M.D. History of Present Illness Source: patient, clinic records, hospital records This is a 87 year old female with a PMH of severe, critical aortic stenosis, persistent atrial fibrillation, chronic diastolic CHF, CKD stage 3, hyperlipidemia, diet controlled DM2; presents with a fall. States she was in her usual state of health for the past few days - went to [facility] on Tuesday with some friends with no problems. She was doing good until yesterday (07/23); around lunchtime, she was getting up and felt dizzy and fell to the ground. She hit her nose and her R hand on the way down which cut open and started bleeding. She states that she was too weak to get up. She states that she usually uses her walker for ambulation, but her walker was too far away to use and so she fell without the use of her walker. Denies chest pain/palpitations/ shortness of breath. Stated that she could not get up all day 07/23, and laid on the floor all night. She tried to get over to the window to see if someone can help her. States that a shinto friend came over to her house because she missed morning shinto and found her on the floor. Lives alone Ambulates with the assistance of walker/cane Dentures - these are at home Support from [employer] friends around the area, has family in [place], daughter in [place] Meals on wheels was to be started on July 25; can cook on her own performs her own ADLs at baseline Past Medical/Surgical History Medical Problems: (1) CKD (chronic kidney disease) stage 3, GFR 30-59 ml/min Status: Chronic (2) Diabetes mellitus type II, controlled Status: Chronic (3) Dyslipidemia Status: Chronic (4) HTN (hypertension) Status: Chronic (5) Persistent atrial fibrillation Status: Chronic (6) Renal mass Permanent Comment: Right renal mass 2005. Path nondiagnositic. Cryoablation performed at [facility] by. Dr. Muller. Status: Resolved (7) Severe aortic stenosis Status: Chronic (8) Spinal stenosis Status: Chronic Surgical Problems: (1) History of carpal tunnel surgery Status: Resolved (2) History of tonsillectomy and adenoidectomy Status: Resolved (3) History of total hysterectomy Status: Resolved (4) History of tubal ligation Status: Resolved Social History Problems: (1) Atrial fibrillation with RVR Status: Chronic (2) 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 Family History Diabetes mellitus Heart disease Social History Smoking Status: Never Smoker Drug Use: none Marital Status: Housing status: lives alone Occupational Status: retired Immunizations History of Influenza Vaccine: Yes Influenza Vaccine Date: Mar 18, 2011 History of Tetanus Vaccine?: No History of Pneumococcal: Yes Pneumococcal Date: Apr 17, 2011 History of Hepatitis B Vaccine: No Multi-Drug Resistant Organisms History of MDRO: No Allergies Coded Allergies: Morphine (Verified Allergy, Intermediate, 07/24/17) Aspirin (Verified Allergy, Unknown, ., 07/24/17) Pneumococcal Vaccine (Verified Allergy, Unknown, SWELLING, 07/24/17) Sulindac (Verified Allergy, Unknown, 07/24/17) Home Medications Scheduled Amiodarone HCl (Amiodarone HCl), 200 MG PO DAILY Furosemide (Furosemide), 60 MG PO QAM Metoprolol Tartrate (Lopressor) (Lopressor), 50 MG PO BID Multivitamin (Multivitamin), 1 TAB PO DAILY Pantoprazole (Protonix), 40 MG PO DAILY Potassium Chloride (Micro-K Ext Rel), 10 MEQ PO BID Simvastatin (Zocor), 20 MG PO QPM Warfarin Sodium (Coumadin), 1 MG PO DAILY Scheduled PRN Furosemide (Lasix), 60 MG PO DAILY@1600 PRN for FLUID RETENTION Review of Systems Constitutional: + weakness, + fatigue, No fever, No chills, No sweats Eyes: No worsening of vision ENT: No hearing loss Respiratory: No cough, No sputum, No wheezing, No shortness of breath, No dyspnea on exertion, No dyspnea at rest, No hemoptysis Cardiovascular: No chest pain, No edema, No palpitations Abdomen: No pain, No nausea, No vomiting, No diarrhea, No constipation, No GI bleeding Musculoskeletal: + joint pain (R hand) Genitourinary - Female: No dysuria, No urinary frequency, No urinary urgency, No urinary incontinence, No urinary retention, No hematuria Neurologic: + weakness, + vertigo, + balance problems, No memory loss, No paralysis, No numbness/tingling Psychiatric: No depression symptoms, No anxiety, No insomnia Endocrine: + fatigue Hematologic / Lymphatic: No abnormal bleeding/bruising Integumentary: No rash Allergic / Immunologic: No environmental allergies, No seasonal allergies Physical Exam Vital Signs Date Time Temp Pulse Resp B/P (MAP) Pulse Ox O2 Delivery O2 Flow Rate FiO2 07/24/17 15:01 115/72 07/24/17 14:41 107 23 96 07/24/17 14:36 96 23 97 07/24/17 14:31 101/75 07/24/17 14:06 108 24 98 07/24/17 14:01 100/76 07/24/17 13:36 94 30 97 07/24/17 13:31 120/62 07/24/17 13:06 102 20 96 07/24/17 13:01 116/68 07/24/17 12:11 103 18 99 07/24/17 12:06 99 97 07/24/17 12:01 114/54 07/24/17 11:59 105 97 07/24/17 11:37 86 07/24/17 11:37 97 18 125/71 95 Room Air 07/24/17 11:36 125/71 07/24/17 10:59 36.7 97 18 119/77 96 Room Air 07/24/17 10:59 36.7 97 18 119/77 96 Room Air General Appearance: WD/WN, no apparent distress Head: normocephalic, atraumatic Eyes: normal inspection ENT: hearing grossly normal, + pertinent finding (+cuts on the bridge of her nose, healing) Neck: supple Respiratory/Chest: no respiratory distress, no accessory muscle use, + decreased breath sounds Cardiovascular: no edema, + systolic murmur (+loud sysotlic murmur), + irregularly irregular Abdomen/GI: normal bowel sounds, non tender, soft Back: no muscle spasm Extremities/Musculoskelatal: no calf tenderness, normal capillary refill, + pertinent finding (venous stasis dermatitis) Neurologic/Psych: 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 II-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 nml as tested, no motor/sensory deficits, alert, oriented x 3, + pertinent finding (slightly anxious) Skin: + pertinent finding (bruising on R arm) Lymphatic: no adenopathy Diagnostics Laboratory Results Results Past 24 Hours Test 07/24/17 11:47 07/24/17 12:05 07/24/17 12:15 2/4/18 12:29 Range/Units Creatine Kinase MB Ratio 2.5 0-3.0 White Blood Count 7.08 4.8-10.8 K/uL Red Blood Count 3.36 4.2-5.4 M/uL Hemoglobin 10.2 12.0-16.0 g/dL Hematocrit 31.2 37-47 % Mean Corpuscular Volume 92.9 80-100 fL Mean Corpuscular Hemoglobin 30.4 25-34 pg Mean Corpuscular Hemoglobin Concent 32.7 32-36 g/dl Platelet Count 147 130-400 K/uL Mean Platelet Volume 9.0 7.4-10.4 fL Neutrophils (%) (Auto) 83.2 % Lymphocytes (%) (Auto) 8.2 % Monocytes (%) (Auto) 7.9 % Eosinophils (%) (Auto) 0.3 % Basophils (%) (Auto) 0.3 % Neutrophils # (Auto) 5.89 1.4-6.5 K/uL Lymphocytes # (Auto) 0.58 1.2-3.4 K/uL Monocytes # (Auto) 0.56 0.11-0.59 K/uL Eosinophils # (Auto) 0.02 0-0.5 K/uL Basophils # (Auto) 0.02 0-0.2 K/uL RDW Standard Deviation 57.1 36.4-46.3 fL RDW Coefficient of Variation 16.9 11.5-14.5 % Immature Granulocyte % (Auto) 0.1 % Immature Granulocyte # (Auto) 0.01 0.00-0.02 K/uL Prothrombin Time 19.5 9.0-12.0 SECONDS Prothromb Time International Ratio 1.9 0.9-1.1 Activated Partial Thromboplast Time 34.3 21.0-31.0 SECONDS Partial Thromboplastin Ratio 1.3 Sodium Level 134 136-145 mmol/L Potassium Level 4.7 3.5-5.1 mmol/L Chloride Level 99 98-107 mmol/L Carbon Dioxide Level 30 21-32 mmol/L Anion Gap 5.0 3-11 mmol/L Blood Urea Nitrogen 33 7-18 mg/dl Creatinine 1.87 0.60-1.20 mg/dl Est Creatinine Clear Calc Drug Dose 18.3 ml/min Estimated GFR () 27.5 Estimated GFR (Non- 23.7 BUN/Creatinine Ratio 17.7 10-20 Random Glucose 99 70-99 mg/dl Calcium Level 8.8 8.5-10.1 mg/dl Total Bilirubin 1.7 0.2-1 mg/dl Direct Bilirubin 0.9 0-0.2 mg/dl Aspartate Amino Transf (AST/SGOT) 63 15-37 U/L Alanine Aminotransferase (ALT/SGPT) 50 12-78 U/L Alkaline Phosphatase 141 45-117 U/L Total Creatine Kinase 158 26-192 U/L Creatine Kinase MB 3.9 0.5-3.6 ng/ml Total Protein 7.3 6.4-8.2 gm/dl Albumin 3.2 3.4-5.0 gm/dl Lipase 147 73-393 U/L Urine Color YELLOW Urine Appearance CLEAR CLEAR Urine pH 6.0 4.5-7.5 Urine Specific [place] 1.016 1.000-1.030 Urine Protein TRACE NEG Urine Glucose (UA) NEG NEG Urine Ketones NEG NEG Urine Occult Blood NEG NEG Urine Nitrite NEG NEG Urine Bilirubin NEG NEG Urine Urobilinogen NEG NEG Urine Leukocyte Esterase NEG NEG Urine WBC (Auto) 1-5 0-5 /hpf Urine RBC (Auto) 0-4 0-4 /hpf Urine Hyaline Casts (Auto) 1-5 0-5 /lpf Urine Epithelial Cells (Auto) 0-5 0-5 /lpf Urine Bacteria (Auto) NEG NEG Bedside Troponin I < 0.030 0-0.045 ng/ml Microbiology Results 07/24/17 Urine Culture, Received Pending Diagnostic Radiology HEAD WITHOUT CONTRAST (CT), CERVICAL SPINE W/O, FACIAL BONES-MXILLOFAC WITHOUT CLINICAL HISTORY: 87 years-old Female presenting with eval for trauma, fall last night, found down, dizziness and shortness of breath prior to fall. TECHNIQUE: Multidetector CT imaging of the head, cervical spine, and face were performed without the use of intravenous contrast. IV contrast: None. A dose lowering technique was used consistent with the principles of ALARA (as low as reasonably achievable). COMPARISON: CT head from 10/31/2016. CT DOSE (mGy.cm): The estimated cumulative dose is 1526.47. FINDINGS: Barrel Lapper topogram: Unremarkable. CT HEAD: Proportional ventricular and sulcal prominence, likely age-related parenchymal volume loss. Brain parenchyma normal in appearance with preserved baker-white differentiation. No mass effect or midline shift. No hemorrhage or acute territorial infarct. No extra-axial fluid collection. Paranasal sinuses and mastoid air cells clear. Calvarium intact. CT FACE: Paranasal sinuses and mastoid air cells clear. Orbits intact. No soft tissue abnormality of the face is apparent on CT. Bilateral [place] lenses are absent. Temporomandibular joints intact. The patient is edentulous. CT CERVICAL SPINE: Normal cervical lordosis. Mild multilevel degenerative changes with disc osteophyte complexes noted at nearly every level. Grade 1 anterolisthesis of C6 on C7. No acute fracture or acute subluxation. Facet arthropathy and uncovertebral hypertrophy result in osseous neural foraminal narrowing at C3-4 greater on the left and C5-6 greater on the left. No osseous spinal canal narrowing. Degenerative changes also noted at the atlantodental articulation. Slight scarring at the apices suggested. Atherosclerosis. IMPRESSION: 1. No acute intracranial abnormality. 2. No acute osseous injury of the face. 3. Multilevel degenerative changes of the cervical spine. 4. No acute osseous injury of the cervical spine. HEAD WITHOUT CONTRAST (CT), CERVICAL SPINE W/O, FACIAL BONES-MXILLOFAC WITHOUT CLINICAL HISTORY: 87 years-old Female presenting with eval for trauma, fall last night, found down, dizziness and shortness of breath prior to fall. TECHNIQUE: Multidetector CT imaging of the head, cervical spine, and face were performed without the use of intravenous contrast. IV contrast: None. A dose lowering technique was used consistent with the principles of ALARA (as low as reasonably achievable). COMPARISON: CT head from 10/31/2016. CT DOSE (mGy.cm): The estimated cumulative dose is 1526.47. FINDINGS: Barrel Lapper topogram: Unremarkable. CT HEAD: Proportional ventricular and sulcal prominence, likely age-related parenchymal volume loss. Brain parenchyma normal in appearance with preserved baker-white differentiation. No mass effect or midline shift. No hemorrhage or acute territorial infarct. No extra-axial fluid collection. Paranasal sinuses and mastoid air cells clear. Calvarium intact. CT FACE: Paranasal sinuses and mastoid air cells clear. Orbits intact. No soft tissue abnormality of the face is apparent on CT. Bilateral [place] lenses are absent. Temporomandibular joints intact. The patient is edentulous. CT CERVICAL SPINE: Normal cervical lordosis. Mild multilevel degenerative changes with disc osteophyte complexes noted at nearly every level. Grade 1 anterolisthesis of C6 on C7. No acute fracture or acute subluxation. Facet arthropathy and uncovertebral hypertrophy result in osseous neural foraminal narrowing at C3-4 greater on the left and C5-6 greater on the left. No osseous spinal canal narrowing. Degenerative changes also noted at the atlantodental articulation. Slight scarring at the apices suggested. Atherosclerosis. IMPRESSION: 1. No acute intracranial abnormality. 2. No acute osseous injury of the face. 3. Multilevel degenerative changes of the cervical spine. 4. No acute osseous injury of the cervical spine. R HAND MIN 3 VIEWS ROUTINE CLINICAL HISTORY: 87 years-old Female presenting with eval for trauma, fall, right hand pain. TECHNIQUE: Frontal, oblique, and lateral views of the right hand were obtained. COMPARISON: None. FINDINGS: Degenerative changes at the scapholunate-trapezium articulation. Osteophytosis and joint space loss also noted at the distal interphalangeal joints of the second through fourth fingers. Similar yet less extensive degenerative change evident at the proximal interphalangeal joint of the fourth and fifth fingers. No acute fracture or malalignment. No focal soft tissue abnormality. Osteopenia is likely present. IMPRESSION: 1. Allowing for osteopenia which limits evaluation for nondisplaced fracture, no acute osseous injury. 2. Characteristic distribution for changes of osteoarthritis as detailed above. CHEST ONE VIEW PORTABLE CLINICAL HISTORY: 87 years-old Female presenting with CHEST PAIN. TECHNIQUE: Portable upright AP view of the chest was obtained. COMPARISON: 07/07/2017. FINDINGS: Atherosclerosis of aortic arch. Cardiac silhouette is markedly enlarged, unchanged. Right basilar opacity increased from prior. Improved aeration of the left lung base. Moderate right pleural effusion. Trace left pleural effusion. No pneumothorax. Degenerative changes of the thoracic spine. Osteopenia suspected. Upper abdomen normal. IMPRESSION: 1. Marked cardiomegaly. No overt pulmonary edema. 2. Increased right basilar opacity possibly with extensive right lower lobe volume loss. Underlying consolidation/infection is difficult to exclude. 3. Moderate right pleural effusion. 4. Improved left basilar aeration. HEAD WITHOUT CONTRAST (CT), CERVICAL SPINE W/O, FACIAL BONES-MXILLOFAC WITHOUT CLINICAL HISTORY: 87 years-old Female presenting with eval for trauma, fall last night, found down, dizziness and shortness of breath prior to fall. TECHNIQUE: Multidetector CT imaging of the head, cervical spine, and face were performed without the use of intravenous contrast. IV contrast: None. A dose lowering technique was used consistent with the principles of ALARA (as low as reasonably achievable). COMPARISON: CT head from 10/31/2016. CT DOSE (mGy.cm): The estimated cumulative dose is 1526.47. FINDINGS: Barrel Lapper topogram: Unremarkable. CT HEAD: Proportional ventricular and sulcal prominence, likely age-related parenchymal volume loss. Brain parenchyma normal in appearance with preserved baker-white differentiation. No mass effect or midline shift. No hemorrhage or acute territorial infarct. No extra-axial fluid collection. Paranasal sinuses and mastoid air cells clear. Calvarium intact. CT FACE: Paranasal sinuses and mastoid air cells clear. Orbits intact. No soft tissue abnormality of the face is apparent on CT. Bilateral [place] lenses are absent. Temporomandibular joints intact. The patient is edentulous. CT CERVICAL SPINE: Normal cervical lordosis. Mild multilevel degenerative changes with disc osteophyte complexes noted at nearly every level. Grade 1 anterolisthesis of C6 on C7. No acute fracture or acute subluxation. Facet arthropathy and uncovertebral hypertrophy result in osseous neural foraminal narrowing at C3-4 greater on the left and C5-6 greater on the left. No osseous spinal canal narrowing. Degenerative changes also noted at the atlantodental articulation. Slight scarring at the apices suggested. Atherosclerosis. IMPRESSION: 1. No acute intracranial abnormality. 2. No acute osseous injury of the face. 3. Multilevel degenerative changes of the cervical spine. 4. No acute osseous injury of the cervical spine. EKG Atrial fibrillation Nonspecific ST and T wave abnormality Prolonged QT Impression Assessment and Plan This is a 87 year old female with a PMH of severe, critical aortic stenosis, persistent atrial fibrillation, chronic diastolic CHF, CKD stage 3, hyperlipidemia, diet controlled DM2; presents with a fall. Fall, Syncope patient presented with syncope and a fall/collapse likely related to her severe and critical patient also is supposed to use a walker for ambulation, but was not using this at the time of her fall for now, we will monitor in tele PT/OT ordered patient lives alone, discharge planning evaluation - will likely need placement Severe patient was recently here due to shortness of breath related to valvular heart disease currently, not overloaded, may be on the dry side will encourage PO intake, monitor kidney function patient anxious and wanting to speak with cardiology about her upcoming procedure cardiology consulted routinely PASTORA superimposed on CKD stage 3 creatinine at baseline is around the mid-1's. creatinine on admission around 1.8 will hold Lasix diet ordered and will monitor kidney function Persistent Atrial Fibrillation patient with persistent A. Fib, currently in A. Fib with rate controlled continue amiodarone and b-edith currently on Coumadin, if fall risk becomes an issue, we may need to stop anticoagulation for now, we can continue Coumadin DVT ppx Coumadin FULL CODE as per discussion with patient; on records, there may be a POLST form signed stating DNR, but patient is unsure of this. VTE Prophylaxis VTE Risk Assessment Done? Y/N: Yes Risk Level: High Given or contraindicated: Warfarin (Coumadin)
[2017-07-24] MEDS: WARFARIN SOD 1 MG TAB PO SCH (16:43)
[2017-07-24 17:22] LABS: INFLUENZA B ANTIGEN Neg for Influ B (NEG)
[2017-07-24 19:38] VITALS: BP 99/54; PULSE 101; TEMP 37.1; O2SAT 97
[2017-07-24 20:43] VITALS: BP 97/61; PULSE 86
[2017-07-24] MEDS: POTASSIUM CHLORIDE 10 MEQ TABCR PO SCH (20:45)
[2017-07-24] MEDS: METOPROLOL TARTRATE 50 MG TAB PO SCH (20:45)
[2017-07-24] MEDS ORDERED: SIMVASTATIN 20 MG TAB PO SCH (21:00)
[2017-07-24 22:57] VITALS: BP 94/57; PULSE 113; TEMP 37.1; O2SAT 91
[2017-07-25] VITALS (7 sets, daily range): BP systolic 88–108; BP diastolic 45–67; PULSE 71–110; TEMP 36.3–36.8; O2SAT 90–97
[2017-07-25 07:54] LABS: HEMATOCRIT 29.5 % (37-47); HEMOGLOBIN 9.5 g/dL (12.0-16.0); MEAN CELL VOLUME 92.8 fL (80-100); MEAN CORPUSCULAR HEMOGLOBIN 29.9 pg (25-34); MEAN CORPUSCULAR HGB CONC 32.2 g/dl (32-36); MEAN PLATELET VOLUME 8.7 fL (7.4-10.4); PLATELET COUNT 142 K/uL (130-400); RED CELL DISTRIBUTION WIDTH CV 16.8 % (11.5-14.5); RED CELL DISTRIBUTION WIDTH SD 56.5 fL (36.4-46.3); WHITE BLOOD COUNT 4.81 K/uL (4.8-10.8)
[2017-07-25] MEDS: POTASSIUM CHLORIDE 10 MEQ TABCR PO SCH (08:21)
[2017-07-25 08:24] LABS: CALCIUM 8.6 mg/dl (8.5-10.1); CREATININE 1.69 mg/dl (0.60-1.20); POTASSIUM 4.3 mmol/L (3.5-5.1)
[2017-07-25] MEDS: METOPROLOL TARTRATE 50 MG TAB PO SCH (08:27)
[2017-07-25] MEDS ORDERED: AMIODARONE 200 MG TAB PO SCH (09:00)
[2017-07-25] MEDS ORDERED: MULTIVITAMIN TAB PO SCH (09:00)
[2017-07-25] MEDS ORDERED: PANTOprazole SOD 40 MG TAB PO SCH (09:00)
--- NOTE | 2017-07-25 10:49 | Clinical Documentation Query ---
Dr. [facility] : CLINICAL DOCUMENTATION QUERY Patient is an 87 year old female admitted for evaluation of a fall sustained in the setting of dizziness. Documentation states patient "denies any LOC". As patient specifically denied LOC and syncope is a diagnosis which is suspect for third republican audit as a diagnosis requiring inpatient status, consider documentation as suggested below. Thank you. In your clinical opinion is this patient being managed for: ( X ) Fall secondary to dizziness ( ) Not Agree ( ) Other explanation of clinical findings (Please Explain) ( ) Unable to determine (Please Define) ( ) Need to Discuss The medical record reflects the following clinical findings, treatment, and risk factors. Clinical Indicators: As above Treatment: Cardiology evaluation, serial EKG's Risk Factors: Age, critical Please clarify and document your clinical opinion in the progress notes and discharge summary. Terms such as "probable", "suspected", "likely", "questionable", "possible", or "still to be ruled out" are acceptable. IF IN AGREEMENT, YOU MUST DOCUMENT ABOVE DIAGNOSTIC STATEMENT IN DAILY PROGRESS NOTES AND DISCHARGE SUMMARY. This document is not part of the patient's record. Thank You, Dalton Bryant, RN [phone]
[2017-07-25] MEDS ORDERED: FUROSEMIDE 40 MG TAB PO ONE (12:30)
--- NOTE | 2017-07-25 12:59 | Cardiology Consultation ---
Cardiology Consultation Date of Consultation: Jul 25, 2017 History of Present Illness Angy Woodward is a 87 year old female seen in cardiology consultation per the request of Dr Tripp for ongoing cardiology management of critically severe, symptomatic , aortic valve stenosis. The patient's primary sql tech is Dr Johnny Saunders of our practice, [facility] . This is my first opportunity meeting Angy. 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 Her recent history dates back to October 2016 when she was admitted for new onset atrial fibrillation. A rhythm control strategy was not successful, and she remains on metoprolol and amiodarone for rate control as well as warfarin for stroke prophylaxis. In late 2016 her ultimately after a long illness, and the patient has become interested in pursuing intervention for her severe symptomatic aortic valve stenosis. On 07/07/16 she had been seen as an outpatient at [facility] by Dr Arian Grewal of interventional cardiology / structural heart disease to discuss transcatheter aortic valve replacement. He was felt that she would potentially be a suitable candidate however when she arrived for appointment she was found to be decompensated from a heart failure standpoint with markedly volume overload. She was therefore referred for admission locally in [facility] where she was hospitalized from 07/07/17 until 07/15/17. She responded well clinically to IV diuretic therapy having been admitted with a weight of 74.9 kg and she was ultimately discharged at a weight of 61.5 kg with discharge furosemide dose to 60 mg by mouth daily. Her creatinine the day of discharge was 1.64 mg/dL. A transthoracic echocardiogram performed during that admission on 07/08/17 with images reviewed independently by the undersigned today 07/25/17 revealed severe concentric left ventricular hypertrophy without regional wall motion abnormalities and with normal left ventricular ejection fraction of 55-60 percent. Severe calcific aortic valve stenosis was noted with average continuous wave Doppler velocity in excess of 5 m/s and calculated mean gradient of 60 mmHg, calculated aortic valve area of 0.36 centimeters squared. Mild aortic valve regurgitation was noted. Aortic root diameter was measured to be normal. Otherwise severe mitral annular calcification was noted without mitral stenosis and moderate mitral valve regurgitation was noted as well as moderate tricuspid valve regurgitation and calculated pulmonary artery systolic pressure of around 40 mmHg. The patient had been tentatively discharged with plans for further outpatient workup for transcatheter aortic valve replacement. She however lives alone in a single family home. She has a son Jose A Woodward who resides in [place], [place] outside of [place]. The patient was Scheduled to have outpatient cardiac catheterization in 2 weeks and the appointment was made to accommodate her son attending the appointment however in the meantime she has been readmitted to the hospital. On Tuesday, her sister had been to visit her. When her sister left, the patient was sitting in a recliner with a blanket over top of her legs. She went to get up and tripped over the blanket and fell. She describes being dizzy and was not able to get up and had transient confusion. She suffered a minor laceration to her right hand as well as the bridge of her nose. She is not able to get up off the floor and so she stayed on the floor. Ultimately on Tuesday morning after she did not attend a anglican service a friend came to check on her and found her down on the ground. She presented to the emergency room where CT of her facial bones, brain, cervical spine were negative for acute pathology. Her wounds were dressed. She was seen today by the undersigned for further assessment and planning. Despite her presentation of having been down on the ground for a long-term fall , she is actually looking remarkably well. She is conversant, provides adequate history. She notes exertional shortness of breath with minimal activities such as performing chores at home even she has had help from friends and has Meals on Wheels. She had already had a discussion with her son, Jose A, on the telephone earlier today prior to my arrival, and they agreed and attentive plan for her to perhaps transition to a personal nursing home close to around lives outside [place] and arrangements are currently being made. Past Medical/Surgical History Problem List: Medical Problems: (1) CKD (chronic kidney disease) stage 3, GFR 30-59 ml/min (2) Diabetes mellitus type II, controlled (3) Dyslipidemia (4) Fall (5) HTN (hypertension) (6) Persistent atrial fibrillation (7) Renal mass (8) Severe aortic stenosis (9) Spinal stenosis Surgical Problems: (1) History of carpal tunnel surgery (2) History of tonsillectomy and adenoidectomy (3) History of total hysterectomy (4) History of tubal ligation Social History Problems: (1) Atrial fibrillation with RVR (2) Renal disorder associated with type II diabetes mellitus History Past Medical History: 1. Critically severe calcific aortic valve stenosis 2. [place] heart association class III valvular heart failure with previous acute decompensations in April 2017 and again in June, 3. Hypertension 4. Dyslipidemia 5. Persistent atrial fibrillation with difficult to control ventricular response initial onset Oct, 2016 use of amiodarone for rate control 6. Type 2 diabetes mellitus Past Surgical History: 1. History of prior carpal tunnel release 2. Cataract surgeries 3. Venous stripping of the left leg 4. Remote tonsillectomy 5. History of spinal surgery for lumbar spine sprain 2004 6. Remote total abdominal hysterectomy Social History: The patient is a nonsmoker. She is recently . She lives independently. She has family in [facility] and [place]. Family History: Noncontributory Review Of Systems See above for pertinent positives & negatives. A total of 10 systems reviewed and were otherwise negative. Allergies Coded Allergies: Morphine (Verified Allergy, Intermediate, 07/24/17) Aspirin (Verified Allergy, Unknown, ., 07/24/17) Pneumococcal Vaccine (Verified Allergy, Unknown, SWELLING, 07/24/17) Sulindac (Verified Allergy, Unknown, 07/24/17) Medications Reported Home Medications Medications Dose Route/Sig Max Daily Dose Days Date Category Dose Instructions Lasix (Furosemide) 40 Mg Tab 60 Mg PO DAILY@1600 PRN 07/24/17 Reported Micro-K Ext Rel (Potassium Chloride) 10 Meq Capcr 10 Meq PO BID 07/15/17 Rx Furosemide 40 Mg Tab 60 Mg PO QAM 07/15/17 Rx Take 60mg daily in AM Lopressor (Metoprolol Tartrate) 50 Mg Tab 50 Mg PO BID 07/15/17 Rx Amiodarone HCl 200 Mg Tab 200 Mg PO DAILY 05/10/17 Reported Coumadin (Warfarin Sodium) 1 Mg Tab 1 Mg PO DAILY 05/10/17 Reported Zocor (Simvastatin) 20 Mg Tab 20 Mg PO QPM 10/18/16 Reported Multivitamin (Multivitamins) Tab 1 Tab PO DAILY 01/10/10 Reported Protonix (Pantoprazole Sodium) 40 Mg Tab 40 Mg PO DAILY 01/10/10 Reported Physical Exam Vital Signs (Last 8hrs): Last 8 Hrs Date Time Temp Pulse Resp B/P (MAP) Pulse Ox O2 Delivery O2 Flow Rate FiO2 07/25/17 12:00 97 Room Air 07/25/17 11:39 36.5 92 18 108/49 (68) 91 Room Air 07/25/17 08:00 97 Room Air 07/25/17 07:00 36.4 71 18 88/45 (59) 97 Room Air General Appearance: Alert and Oriented x3. NAD Head: Normocephalic Atraumatic. Eyes: PERRLA, EOMI, conjunctiva and sclera clear, laceration at the bridge of her nose Neck: Supple. No carotid bruits noted. No JVD. No HJD. Respiratory: Breath sounds clear to auscultation bilaterally. No w/r/r. Cardiovascular: Reg rate and rhythm. 2/6 systolic murmur, delayed carotid upstroke Abdomen: Normal bowel sounds, soft nontender. no abdominal bruits. Extremities: Trace to 1+ bilateral lower extremity edema, mild laceration on the dorsum of her right hand Neuro: No focal deficits. Psychiatric: Normal affect. Data Last 24 Hours Test 07/24/17 12:29 07/24/17 16:30 07/25/17 07:39 Bedside Troponin I < 0.030 ng/ml Influenza Type A Antigen Neg for Influ A Influenza Type B Antigen Neg for Influ B White Blood Count 4.81 K/uL Red Blood Count 3.18 M/uL Hemoglobin 9.5 g/dL Hematocrit 29.5 % Mean Corpuscular Volume 92.8 fL Mean Corpuscular Hemoglobin 29.9 pg Mean Corpuscular Hemoglobin Concent 32.2 g/dl RDW Standard Deviation 56.5 fL RDW Coefficient of Variation 16.8 % Platelet Count 142 K/uL Mean Platelet Volume 8.7 fL Sodium Level 136 mmol/L Potassium Level 4.3 mmol/L Chloride Level 103 mmol/L Carbon Dioxide Level 26 mmol/L Anion Gap 7.0 mmol/L Blood Urea Nitrogen 30 mg/dl Creatinine 1.69 mg/dl Est Creatinine Clear Calc Drug Dose 19.7 ml/min Estimated GFR () 31.1 Estimated GFR (Non- 26.8 BUN/Creatinine Ratio 17.6 Random Glucose 89 mg/dl Calcium Level 8.6 mg/dl Magnesium Level 2.3 mg/dl EKG performed 07/24/17 and reviewed independently by the undersigned revealed atrial fibrillation at [address] abnormality, crit to QT interval 480 ms Repeat EKG performed today 07/25/17 and reviewed independently: Atrial fibrillation 93 bpm, incomplete left bundle branch block, nonspecific diffuse ST segment changes. Assessment & Plan Impression: 87-year-old female 1. Symptomatic critically severe calcific aortic valve stenosis 2. Coexistent moderate mitral regurgitation, moderate tricuspid regurgitation, mild aortic valve regurgitation, severe concentric LVH, preserved LVEF 3. Persistent rate controlled atrial fibrillation Discussion/recommendations: As noted above, the patient has had progressive symptomatically aortic valve stenosis for the last few years but had previously declined intervention as she was the care provider for her ailing who has since in late 2016. She was hospitalized for new onset atrial fibrillation in October 2016, and rehospitalized for congestive heart failure decompensations related to her aortic valve stenosis in April 2017 and again in June 2016. I had a long discussion with the patient. I also called her son Jose A. It is my impression that the patient would benefit from moving forward with TAVR evaluation sooner rather than later and that this should perhaps be considered as an inpatient. Jose A had planned for her to move to a personal nursing home close to him in the [place] area, as based on this weekends events , it is clear she can not longer live independently. Rather than proceeding with TAVR evaluation at [facility], [place] of [place], son was in favor of exploring options for TAVR evaluation in [place]. He is familiar with [facility]. I therefore called the [facility] " Med Call" transfer center, . I discussed case with Dr Flores who accepted patient in transfer to [facility] for further evaluation there. Patient stable from my perspective for transfer by ACLS ground. I am going to resume her home furosemide dose of 60 mg daily. Will transfer , pending bed availability. Case also discussed with Dr Saunders of our practice. I have made a disk of the patient's 07/07/18 echo and will send it with her.
--- NOTE | 2017-07-25 13:58 | Progress Note ---
Internal Med Progress Note Date of Service: Jul 25, 2017. Provider Documentation: SUBJECTIVE: Seen and examined at bedside States feeling well today Has SOB on exertion Denies chest pain, SOB at rest, dizziness No other complaints OBJECTIVE: Vital Signs-as noted below Physical Exam: General Appearance:Moderately built and nourished, no apparent distress Head: normocephalic Eyes: normal inspection, EOMI, PERRL Neck: supple, Trachea midline Respiratory/Chest: Normal breath sounds, CTA Cardiovascular: S1, S2, +systolic murmur Abdomen/GI:Soft, Non tender, Bowel sounds present Extremities/Musculoskeletal:normal inspection, Trace edema Neurologic/Psych:grossly no focal neurological deficits Skin: normal color, warm, small abrasion son nose and other sites Lab data as noted below. ASSESSMENT & PLAN: Patient is an 87 yr old female with a PMH of severe, critical aortic stenosis, persistent atrial fibrillation, chronic diastolic CHF, CKD stage 3, hyperlipidemia, diet controlled DM2; presents with a fall. Fall, Syncope patient presented with syncope and a fall/collapse likely secondary to worsening critical patient also is supposed to use a walker for ambulation, but was not using this at the time of her fall PT/OT Fall precautions Severe : Symptomatic critically severe calcific aortic valve stenosis with coexistent moderate MR, moderate TR, mild AR, severe concentric LVH, preserved LVEF Patient has SOB on exertion currently, not overloaded Appreciate Cardiology Input Plan to transfer to [facility] for TAVR PASTORA on CKD III creatinine at baseline is around the mid-1's. Cr:1.69 today Resume lasix given risks Vs benefits monitor kidney function Persistent Atrial Fibrillation patient with persistent A. Fib, currently in A. Fib with rate controlled continue amiodarone and b-edith continue Coumadin DVT px Coumadin Code Status: FULL CODE Disposition: Plan to discharge to [facility] for TAVR Vital Signs: Date Time Temp Pulse Resp B/P (MAP) Pulse Ox O2 Delivery O2 Flow Rate FiO2 07/25/17 12:00 97 Room Air 07/25/17 11:39 36.5 92 18 108/49 (68) 91 Room Air 07/25/17 08:00 97 Room Air 07/25/17 07:00 36.4 71 18 88/45 (59) 97 Room Air 07/25/17 04:00 Room Air 07/25/17 02:40 36.8 110 18 94/57 (69) 93 Room Air 07/25/17 00:00 Room Air 07/24/17 22:57 37.1 113 22 94/57 (69) 91 Room Air 07/24/17 20:43 86 97/61 (73) 07/24/17 20:00 Room Air 07/24/17 19:38 37.1 101 24 99/54 (69) 97 Room Air 07/24/17 16:24 Room Air 07/24/17 15:37 36.6 78 22 109/61 96 Room Air 07/24/17 15:28 36.7 107 23 115/72 96 07/24/17 15:01 115/72 07/24/17 14:41 107 23 96 07/24/17 14:36 96 23 97 07/24/17 14:31 101/75 07/24/17 14:06 108 24 98 07/24/17 14:01 100/76 Lab Results: Results Past 24 Hours Test 07/24/17 16:30 07/25/17 07:39 Range/Units Influenza Type A Antigen Neg for Influ A NEG Influenza Type B Antigen Neg for Influ B NEG White Blood Count 4.81 4.8-10.8 K/uL Red Blood Count 3.18 4.2-5.4 M/uL Hemoglobin 9.5 12.0-16.0 g/dL Hematocrit 29.5 37-47 % Mean Corpuscular Volume 92.8 80-100 fL Mean Corpuscular Hemoglobin 29.9 25-34 pg Mean Corpuscular Hemoglobin Concent 32.2 32-36 g/dl RDW Standard Deviation 56.5 36.4-46.3 fL RDW Coefficient of Variation 16.8 11.5-14.5 % Platelet Count 142 130-400 K/uL Mean Platelet Volume 8.7 7.4-10.4 fL Sodium Level 136 136-145 mmol/L Potassium Level 4.3 3.5-5.1 mmol/L Chloride Level 103 98-107 mmol/L Carbon Dioxide Level 26 21-32 mmol/L Anion Gap 7.0 3-11 mmol/L Blood Urea Nitrogen 30 7-18 mg/dl Creatinine 1.69 0.60-1.20 mg/dl Est Creatinine Clear Calc Drug Dose 19.7 ml/min Estimated GFR () 31.1 Estimated GFR (Non- 26.8 BUN/Creatinine Ratio 17.6 10-20 Random Glucose 89 70-99 mg/dl Calcium Level 8.6 8.5-10.1 mg/dl Magnesium Level 2.3 1.8-2.4 mg/dl
--- NOTE | 2017-07-25 14:08 | Discharge Summary ---
Discharge Summary Date of Service Jul 25, 2017. Discharge Summary Admission Date: Jul 24, 2017 at 14:26 Discharge Disposition: Acute care facility ([facility]) Principal Diagnosis: Severe aortic stenosis, Fall Procedures: CT head: 1. No acute intracranial abnormality. 2. No acute osseous injury of the face. 3. Multilevel degenerative changes of the cervical spine. 4. No acute osseous injury of the cervical spine. Maxillofacial CT: 1. No acute intracranial abnormality. 2. No acute osseous injury of the face. 3. Multilevel degenerative changes of the cervical spine. 4. No acute osseous injury of the cervical spine. CXR: 1. Marked cardiomegaly. No overt pulmonary edema. 2. Increased right basilar opacity possibly with extensive right lower lobe volume loss. Underlying consolidation/infection is difficult to exclude. 3. Moderate right pleural effusion. 4. Improved left basilar aeration. R hand X ray: 1. Allowing for osteopenia which limits evaluation for nondisplaced fracture, no acute osseous injury. 2. Characteristic distribution for changes of osteoarthritis as detailed above. Cervical CT: 1. No acute intracranial abnormality. 2. No acute osseous injury of the face. 3. Multilevel degenerative changes of the cervical spine. 4. No acute osseous injury of the cervical spine. Consultations: Cardiology Pending Studies/Follow-Up: Follow up with at [facility] for further evaluation and possible TAVR Medication Reconciliation Continued Medications: Amiodarone HCl (Amiodarone HCl) 200 Mg Tab 200 MG PO DAILY, TAB Furosemide (Furosemide) 40 Mg Tab 60 MG PO QAM, #60 DOSE Take 60mg daily in AM Furosemide (Lasix) 40 Mg Tab 60 MG PO DAILY@1600 PRN for FLUID RETENTION, TAB Metoprolol Tartrate (Lopressor) (Lopressor) 50 Mg Tab 50 MG PO BID, #60 TAB Multivitamin (Multivitamin) Tab 1 TAB PO DAILY Pantoprazole (Protonix) 40 Mg Tab 40 MG PO DAILY Potassium Chloride (Micro-K Ext Rel) 10 Meq Capcr 10 MEQ PO BID, #60 TAB Simvastatin (Zocor) 20 Mg Tab 20 MG PO QPM Warfarin Sodium (Coumadin) 1 Mg Tab 1 MG PO DAILY Admission Information HPI (per Admitting provider): This is a 87 year old female with a PMH of severe, critical aortic stenosis, persistent atrial fibrillation, chronic diastolic CHF, CKD stage 3, hyperlipidemia, diet controlled DM2; presents with a fall. States she was in her usual state of health for the past few days - went to [facility] on Tuesday with some friends with no problems. She was doing good until yesterday (07/23); around lunchtime, she was getting up and felt dizzy and fell to the ground. She hit her nose and her R hand on the way down which cut open and started bleeding. She states that she was too weak to get up. She states that she usually uses her walker for ambulation, but her walker was too far away to use and so she fell without the use of her walker. Denies chest pain/palpitations/ shortness of breath. Stated that she could not get up all day 07/23, and laid on the floor all night. She tried to get over to the window to see if someone can help her. States that a hoahaoism friend came over to her house because she missed morning hoahaoism and found her on the floor. Lives alone Ambulates with the assistance of walker/cane Dentures - these are at home Support from [employer] friends around the area, has family in [place], daughter in [place] Meals on wheels was to be started on July 25; can cook on her own performs her own ADLs at baseline Physical Exam (per Admitting): General Appearance: WD/WN, no apparent distress Head: normocephalic, atraumatic Eyes: normal inspection ENT: hearing grossly normal, + pertinent finding (+cuts on the bridge of her nose, healing) Neck: supple Respiratory/Chest: no respiratory distress, no accessory muscle use, + decreased breath sounds Cardiovascular: no edema, + systolic murmur (+loud sysotlic murmur), + irregularly irregular Abdomen/GI: normal bowel sounds, non tender, soft Back: no muscle spasm Extremities/Musculoskelatal: no calf tenderness, normal capillary refill, + pertinent finding (venous stasis dermatitis) Neurologic/Psych: property damage claims adjustor II-XII nml as tested, no motor/sensory deficits, alert , oriented x 3, + pertinent finding (slightly anxious) Skin: + pertinent finding (bruising on R arm) Lymphatic: no adenopathy Hospital Course Patient is an 87 yr old female with a PMH of severe, critical aortic stenosis, persistent atrial fibrillation, chronic diastolic CHF, CKD stage 3, hyperlipidemia, diet controlled DM2; presents with a fall. Fall, Syncope patient presented with syncope and a fall/collapse likely secondary to dizziness likely secondary to worsening critical patient also is supposed to use a walker for ambulation, but was not using this at the time of her fall PT/OT Fall precautions Severe : Symptomatic critically severe calcific aortic valve stenosis with coexistent moderate MR, moderate TR, mild AR, severe concentric LVH, preserved LVEF Patient has SOB on exertion currently, not overloaded Appreciate Cardiology Input Plan to transfer to [facility] for TAVR PASTORA on CKD III creatinine at baseline is around the mid-1's. Cr:1.69 today Resume lasix given risks Vs benefits monitor kidney function Persistent Atrial Fibrillation patient with persistent A. Fib, currently in A. Fib with rate controlled continue amiodarone and b-edith continue Coumadin DVT px Coumadin Code Status: FULL CODE Disposition: Plan to discharge to [facility] for TAVR Total time spent on discharge =45 minutes This includes examination of the patient, discharge planning, medication reconciliation, and communication with other providers. Discharge Instructions Discharge Instructions Date of Service Jul 25, 2017. Admission Reason for Admission: Fall,Severe Aortic Stenosis Discharge Discharge Diagnosis / Problem: Severe aortic stenosis, Fall Discharge Goals Goal(s): Decrease discomfort, Improve function Activity Recommendations Activity Level: Bedrest . Additional Information Patient informed of condition: Yes Advance Directives: No DNR: No Level of Care: Other (Acute) Communicable Disease: No Prognosis: Deteriorating Instructions / Follow-Up Instructions / Follow-Up Follow up with at [facility] for further evaluation and possible TAVR Current Hospital Diet Patient's current hospital diet: AHA Diet (Heart Healthy) Discharge Diet Recommended Diet: AHA Diet (Heart Healthy) Pending Studies Studies pending at discharge: no Laboratory Results Hemoglobin A1c Test 05/11/17 05:44 Range/Units Estimated Average Glucose 103 mg/dl Hemoglobin A1c 5.2 4.5-5.6 % Medical Emergencies . Who to Call and When: Medical Emergencies: If at any time you feel your situation is an emergency, please call 911 immediately. . Non-Emergent Contact Non-Emergency issues call your: Primary Care Provider, Radio Disc Jockey Call Non-Emergent contact if: you have a fever, your pain is not controlled, your pain is worsening, your pain is unusual for you, your pain is concerning you, you have any medication questions Seek immediate medical attention if your symptoms reoccur or worsen . . "Provider Documentation" section prepared by Wilbur Bernstein. . Core Measure Problem Core Measures: None <Electronically signed by Wilbur Bernstein MD> Signed: 07/25/17 1414 Signed: The status of this report is Signed * If report status is Draft, the document has not been finalized by the responsible provider.
--- NOTE | 2017-07-25 14:14 | Discharge Instructions ---
Discharge Instructions Date of Service Jul 25, 2017. Admission Reason for Admission: Fall,Severe Aortic Stenosis Discharge Discharge Diagnosis / Problem: Severe aortic stenosis, Fall Discharge Goals Goal(s): Decrease discomfort, Improve function Activity Recommendations Activity Level: Bedrest . Additional Information Patient informed of condition: Yes Advance Directives: No DNR: No Level of Care: Other (Acute) Communicable Disease: No Prognosis: Deteriorating Instructions / Follow-Up Instructions / Follow-Up Follow up with at [facility] for further evaluation and possible TAVR Current Hospital Diet Patient's current hospital diet: AHA Diet (Heart Healthy) Discharge Diet Recommended Diet: AHA Diet (Heart Healthy) Pending Studies Studies pending at discharge: no Laboratory Results Hemoglobin A1c Test 05/11/17 05:44 Range/Units Estimated Average Glucose 103 mg/dl Hemoglobin A1c 5.2 4.5-5.6 % Medical Emergencies . Who to Call and When: Medical Emergencies: If at any time you feel your situation is an emergency, please call 911 immediately. . Non-Emergent Contact Non-Emergency issues call your: Primary Care Provider, [employer] Call Non-Emergent contact if: you have a fever, your pain is not controlled, your pain is worsening, your pain is unusual for you, your pain is concerning you, you have any medication questions Seek immediate medical attention if your symptoms reoccur or worsen . . "Provider Documentation" section prepared by Wilbur Bernstein. . Core Measure Problem Core Measures: None
[2017-07-25] MEDS: WARFARIN SOD 1 MG TAB PO SCH (16:07)
[2017-07-26] MEDS ORDERED: FUROSEMIDE 40 MG TAB PO SCH (09:00)
== END 2017-07-25 20:00 | disposition short-term general hospital (02) | DRG 312 ==
LOC: EDBD 10:59 → C.EDC 11:01 → C.MED 14:26 → ENRESERV 14:52
PROVIDERS: ADMIT Family Medicine; ATTEND Internal Medicine
DX: R55 Syncope and collapse (principal); N17.9 Acute kidney failure, unspecified; I48.1 Persistent atrial fibrillation; I50.32 Chronic diastolic (congestive) heart failure; Z83.3 Family history of diabetes mellitus; Z82.49 Family history of ischemic heart disease and other diseases of the circulatory system; Z79.01 Long term (current) use of anticoagulants; Z88.6 Allergy status to analgesic agent; I35.0 Nonrheumatic aortic (valve) stenosis; N18.3 Chronic kidney disease, stage 3 (moderate); Z66 Do not resuscitate